=== PATIENT | male | born 1965 | race Caucasian/White ===

== ENCOUNTER → 2020-11-17 08:01 | Outpatient (CLI) | payer BC, SELFPAY ==
--- NOTE | 2020-11-17 13:01 | PCM.CR.HP2 ---
CR - History & Physical - General Arrival date:: 11/17/20 Arrival time:: 13:02 Date of Referral:: 11/10/20 Date of CR Evaluation:: 11/17/20 Referring Physician: Dr. Chris Woodson Primary Diagnosis: PCI with stent - History of Present Cardiac Event Onset Date: Enter Onset Date of cardiac illnesses in Comment field below PTCA or coronary stenting:: Yes - 10/07/2020 - Sleep Disorder Evaluation Hx of Sleep Apnea: No Do you snore loudly (louder than talking or can be heard through closed doors)?: Yes Do you often feel tired/ fatigued/ sleepy during daytime?: Yes Has anyone observed you stop breathing during sleep?: No History of Hypertension (for STOP score): Yes STOP Results: Positive - Medications Home Medications: Ambulatory Orders Medication Instructions Recorded Adult Low Dose Aspirin 81 mg 11/17/20 Brilinta 90 mg BID 11/17/20 Nitroglyn 0.4 mg 11/17/20 metoprolol tartrate 12.5 mg 11/17/20 Advanced Directives - Advanced Directives Power of Advanced Registered Nurse: No Living Will: Yes Advance Directives Information Provided: No Advance Directives on File: No DNR Order?:: No Past Medical History - Covid-19 Screening Fever: No Unexplained muscle aches: No Current respiratory symptoms: No Upper respiratory infections symptoms: No Gastro-intestinal symptoms: No Adl-Aerk-Zskvtz symptoms: No Has tested positive for COVID-19 in last 30 days: No Had contact w/person w/symptoms or Covid-19 (+) last 14 days: No Has High Risk Exposures ID'd by Health dept/Inf Control team: No 65 years or older:: No Lives in Assisted Living facility:: No Has a chronic lung disease or moderate to severe asthma:: No Has a serious heart condition:: Yes Immunocompromised:: No Severely obese (Body Mass Index of 40 or higher):: No Diabetic:: No Has chronic kidney disease undergoing dialysis:: No Has liver disease:: No - Past Medical Illness Medical History: Past Medical History (Last Updated 11/17/20 @ 13:13 by Chuy Paez, KALEB, RVT) Hypertension I10 - Past Surgical History Surgical History: - - Prostate cancer Social History - Smoking History Smoking Status: Current every day smoker Years Smokin Packs Smoked per Day: 0.5 Hx Tobacco Use: Yes - Alcohol Use Alcohol Usage: Yes - on vacation - Occupation Occupation (List type of work in comments):: 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 Left click = Reports ([place]) Review of Present Symptoms: Reports: Shortness of Breath with Exertion, PVD, Dizziness/Lightheadedness, Appetite - Normal, Appetite - Special Diet, Sleep - Normal. Denies: Shortness of Breath at Rest, Operative Discomfort, Angina, Wound Healing, Fatigue, Heart Arrhythmia/Irregularities, Sexual Changes - Pain Is Patient Pain Free?: Yes Pain Location: none Risk Factor Assessment - Chief Complaint Chief Complaint: PCI with stent - Vital Signs Pulse Ox: 99 Blood Pressure: 114/68 - Pulse Pulse Rate: 75 Pulse Rhythm: Regular - Obesity Height: 5 ft 9 in Weight:: 90.718 kg Weight in Pounds: 200.0 lbs Body Mass Index (BMI): 29.5 Nutritional Referral for Obesity: No - Physical Inactivity Physical Inactivity: Reg Exercise 30 min/day - Risk Stratification Risk Guidelines: Moderate Risk: Risk Factor for Diabetes, Risk Factor for Obesity, Risk Factor for Sedentary Lifestyle, Risk Factor for Depression, Highest Risk: Risk Factor for Smoking, Risk Factor for Dyslipidemia, Risk Factor for Hypertension Motivation - Motivation to Participate On a scale of 1 to 10, how prepared are you to commit to attending program?: 10 What do you see as barriers to successfully being able to complete the program?: none What do you see as the benefits of succesfully completing the program? In other words, what do you hope to get out of participating in the program?: improved health Are there issues you are dealing with that will interfere with completing the program?: none Do you have a spouse or signficant other, family or friends who will help support you to complete the program?: yes
--- NOTE | 2020-11-17 13:02 | PCM.CR.ITP ---
Diagnosis - General Information Admitting Diagnosis: Z95.5 PCI with coronary stent Personal Learning Style:: Audio/Visual, Demonstration, Group, Individual Preference, Written Barriers to Learning: Vision Impairment Stage of change r/t lifestyle modifications:: Contemplation Gave educational material for:: Treating Heart Disease, Emotions & Heart Disease, Stress Management & Relaxation, Sleep Disorders & Heart Disease, How The Heart Works, What it means to have Heart Disease, How Coronary Artery Disease is Diagnosed, Heart Procedures, What Heart Medications Do, Risk Factors & Modifications, Living an Active Life, Nutrition - Education/Goals Cardiac Rehabilitation Goals: 1. Maintain the individual as the primary focus of care. 2. To improve the patient's quality of life. 3. Identification of cardiac risk factors and provide cardiac risk factor management. 4. Enhance the psychosocial status of the patient. 5. Reconditioning enough to allow the patient to resume customary activities. 6. Control symptoms of cardiac disease Personal Goals: Initial Assessment: Quit smoking (participate in smoking cessation, Improve management of stress and emotions, Improve energy level, Participate in home exercise program, Get back to work, or to resume activities faster, Improve muscle strength and endurance, Improve diet and eating habits (eat healthier), Control risk factors (learn risk factor modification) Scale for measuring improvement of personal goals: Enter appropriate number in Comments. 2 = Unchanged. 3 = Slightly Better. 4 = Moderate Improvement. 5 = Met my Goal - Diagnosis & Disease Process Outcomes/Goals: Pt IDs own risk factors & lifestyle modifications by Session 10, Verbalizes symptoms of angina & response by session 3., Pt independently manages, Other Additional Outcomes/Goals: Plan/Interventions: Assist Pt to ID & engage in lifestyle modification to reduce CVD risk, Instruct on individual risk factors, Review symptoms of angina & emergency actions, Review secondary diagnosis & identify educational needs., Other see comment 30 day Reassessments:: Not Met 30 day Reassessments:: Not Met 30 day Reassessments:: Not Met 30 day Reassessments:: Not Met Final Reassessments:: Not Met - Safety Referral to Physical Therapy: No Referral to [facility] Case Management: No Fall Risk Assessed:: Yes Assistive Devices:: None Exercise - Initial Assessment - Visit Date of Eval: 11/17/20 - initial eval Mets: Pre-: >7 METS for 30 minutes by discharge - Physician Prescribed Exercise Modalities: Treadmill, Biodyne, Rower, Airdyne, NuStep, SciFit Frequency: 3x/week for 12 weeks [36 sessions] Intensity: 60-80% of age predicted maximum heart rate reserve Current METSs:: 3.5 Target Heart Rate:: 106-139 Resting Blood Pressure: 114/68 - Outcomes & Goals Goals:: Verbalizes understanding of THR, RPE & goal METS by session 6, Documents in home exercise log/reports 30 min aerobic 5 day/wk by DC, Demonstrates accurate pulse taking by DC, Other additional outcome/goals: see below - Intervention & Plan Exercise Program Goals: Instruct on personal THR & RPE, Instruct on MET level & personal MET goal, Show patient to take own pulse /validate performance until accurate, Instruct on home exercise, Other additional plan/int - Physical Activity Home Exercise Physical Activity - Home Exercise: Safe Exercise, Warm-up, Self-monitoring, Cool-Down, Home Exercise > 30 min Daily, Sitting Time <3 hours/daily - Outcomes & Goals Outcomes/Goals: Demonstrates correct Warm-up/exercise Cool-Down (S3) if = 2.5 METs, Verbalizes symptoms of exercise intolerance by Session 3 (S3), Demonstrate safe equipment use (S3) & follows exercise prescrition (6), Other: See below - Intervention & Plan Plan/Intervention: Instruct warm-up & cool-down if exercising at > 2 METs, Instruct on symptoms of exercise intolerance & actions to take, Instruct & monitor on saf, Assess intial functional capacity & safety risk, Other See below Nutrition - Initial Assessment - Program Goals Nutrition Program Goals: LDL <100 optimal. 100 - 129 Near optimal. 130 - 159 Borderline High. 160 - 189 High. Total Cholesterol <200 desirable. 200 - 239 Borderline High. >/= 240 High. HDL < 40 Low >/=60 High. Triglycerides <150 desirable. <199 optimal. VlDL 5 - 40. HgbA1C <7%. BMI <25 Patient has diagnosis of Hyperlipidemia (ICD E78)?: Yes - Visit Date of Assessment:: 11/17/20 - initial eval - Cholesterol/Lipids Determine presence & major risk factors that modify LDL goal: Cigarette smoking, Hypertension or hypertensive medication, Low HDL cholesterol <40 mg/dL*, Family history of premature CHD in Male < 55 years: female <65 yearsFa, Age men > 45 years; women >/= 55 years Outcomes/Goals: Pt IDs own risk factors & lifestyle modifications by Session 10, Verbalizes symptoms of angina & response by session 3., Pt independently manages, Other Additional Outcomes/Goals: Intervention/Plan: Advocate for lipid panel cholesterol medication if applicable, Instruct on personal lipid levels & lipid goals/NCEP guidelines, Instruct on cholesterol, Other additional plan/int Referral to dietitian:: No - Diabetes (Other Core Measures) Diabetes Type: Not Applicable - Weight Mgt (Other Care) Height: 5 ft 9 in Weight:: 90.718 kg BMI: 29.5 Outcomes/Goals: Pt sets, maintains & shows weight loss goal & trend during rehab, Other additional outcomes/goals Intervention/Plan: Instruct on ideal BMI & set weight loss goal w/patient, Assist pt to ID & incorporate diet changes for weight loss by S9, Refer to Structured Weight Loss program as appropriate, Encourage goal of using 250-300dcal per session for weight loss, Other additional plan/interventions - Healthy Eating Habits Will attend diet classes:: Yes Outcomes/Goals:: Consume diet rich in vegs,fruits,whole grain/high fiber,fish,lean meat, Limit sat/trans fats,cholesterol & added salts & sugars, Other additional outcome/goals: Intervention/Plan:: Assess current eating habits, Other Additional plan/interventions - Education Gave educational materials for:: Signs & symptoms of hypoglycemia, Signs & symptoms of hyperglycemia, Relate diabetes to coronary artery disease, Healthy eating Nutrition - 30-Day Assessment Nutrition - 60-Day Assessment Nutrition - 90-Day Assessment Nutrition - Final Assessment Medical - Initial Assessment - Visit Date of Eval: 11/17/20 - initial eval - Medication Compliance Preventative Medication(s):: Aspirin H/O mental health issues: depression, anxiety, or addiction?: No Doesn?t believe in the benefits of treatment?: No Believes medications are unnecessary or harmful?: No Has a concern about medication side effects?: No Expresses concern over the cost of medications?: No Outcomes/Goals: Verbalizes medications,desired effect & common side effects @ DC, Pt self-reports following medication regimen, Keeps card in wallet w/medications listed by DC, Other additional outcome/goals: Interventions/plans: Instruct on medication effects & side effects, Review medication list w/patient every two weeks, Instruct importance of taking meds as ordered & assist problem solving, Other additional - Tobacco Use Tobacco Use: Cigarettes - .5 packs a day Do you use smokeless tobacco?: No Outcomes/Goals: Smoking cessation achieved or maintained by discharge, Identify aids/strategies for achieving smoking cessation by session 6, Other additional outcome/goals Interventions/plan: Instruct on effects of smoking & provide smoking cessation resource, Assist pt to set quit date & provide encouragement, Assist pt to develop strategies to achieve/maintain quit date, Assist pt w/nicotine replacement & medication for cessation success, Other additional plan/interventions - Hypertension Hypertension Diagnosis:: Hypertension ICD-10 I10 Resting Blood Pressure:: 114/68 [place] [employer] Hypertension Guidelines: [place] [employer] Hypertension Guidelines. Normal BP Less than 120/80. Elevated BP 120/80. Hypertension Stage 1: BP 130-139/80-89. Hypertesnion Stage 2: BP 140 or higher/90 or higher. Hypertension Crisis: BP higher than 180/120 Outcomes/Goals: Able to verbalize/achieve optimal blood pressure <130/80, Incorporates diet changes & exercise for blood pressure control by DC, Other additional outcomes/goals Interventions/plan: Instruct on optimal blood pressure, hypertension & medications, Instruct on effects of sodium, alcohol, stress, exercise &hypertension, Other additional plan/interventions - Tobacco Cessation Referral Smoking Cessation Referral:: Yes Individual Education/Counseling:: No Education Schedule Given:: Yes Medical- 30-Day Assessment Medical- 60-Day Assessment Medical- 90-Day Assessment Medical - Final Assessment Psychosocial - Initial Assess - VIsit Date of Eval: 11/17/20 - initial eval History of previous Mental disease:: No - Referral to Behavioral Health PS - Interventions: Yes Attend Stress Management Classes, No Referral to Behavioral Health if PHQ-9 score >9:, No Referral to [facility], No Referral to Physician if PHQ-9 if score is 5-9: - Outcomes/Goals: See list Psychosocial Outcomes/Goals:: ID's personal stressors & 2 strategies to manage stress by discharge, Other Additional outcome/goals: - Intervention/Plan: See List Interventions/Plan:: Assess stressors,coping strategies & signs of derpression on admission, Instruct/assist pt to develop coping & personal stress Mgt strategies, Refer to Behavioral Health if appropriate, Refer to Physician if appropriate, Instruct patient to recognize signs & symptoms of depression, Instruct patient to recog, Other additional plan/intervention Psychosocial - 30-Day Assess Psychosocial - 60-Day Assess Psychosocial - 90-Day Assess Psychosocial - Final Assessmen Patient Health Questionnaire Initial Assessment 1. Little interest or pleasure in doing things: Not at all 2. Feeling down, depressed, or hopeless: Not at all 3. Trouble falling or staying asleep, or sleeping too much: Not at all 4. Feeling tired or having little energy: Several days 5. Poor appetite or overeating: Not at all 6. Feeling bad about yourself -- or that you are a failure or have let yourself or your family down: Not at all 7. Trouble concentrating on things, such as reading the newspaper or watching television: Not at all 8. Moving or speaking so slowly that other people could have noticed. Or the opposite - being so fidgety or restless that you have been moving around a lot more than usual: Not at all 9. Thoughts that you would be better off , or of hurting yourself in some way: Not at all How difficult have these problems made it for you to do your work, take care of things at home, or get along with other people?: Not difficult at all Total Score: 1 FELIPE-Q SV Test - Statements CAD is a disease of the arteries in the heart: False Examples of risk factors for heart disease: True Angina is chest pain or discomfort: I Don't Know The benefits of resistance training include: True Eating more meat and dairy products: False Anti-platelet medications such as aspirin are important: I Don't Know The only effective way to manage stress: False An exercise warm-up slowly increases heart rate: True Prepared, processed foods usually have high sodium: True Depression is common after a heart attack: True The statin medications lower cholesterol: True To control blood pressure, lower the amount of sodium: True If someone gets chest discomfort during walking: False Transfats are partially hydrogenated vegetable oils: True Sleep apnea that is not treated increases the risk: I Don't Know To control cholesterol, one should become a vegetarian: False Someone knows if he/she is exercising at the right level: False Diabetes cannot be prevented with exercise & health eating: False Stress is a large risk for heart attack: True A diet that can help lower blood pressure is rich in: True - Total Score Total Correct Responses: 16 Self-Efficacy Initial Assessment We would like to know how confident you are in doing certain activities. Please select your confidence level for:: Select your confidence level for the following using the scale 1-10 where 1 is not at all confident and 10 is totally confident. Your score is the average of all 6 responses. Fatigue: How confident are you that you can keep the fatigue caused by your disease from interfering with the things you want to do? Select Number: 8 Physical Discomfort or Pain: How confident are you that you can keep the physical discomfort or pain of your disease from interfering with the things you want to do? Select Number: 7 Emotional Distress: How confident are you that you can keep the emotional distress caused by your disease from interfering with the things you want to do? Select Number: 6 Other Symptoms or Health Problems: How confident are you that you can keep other symptoms or health problems from interfering with the things you want to do? Select Number: 7 Different Tasks and Activities: How confident are you that you can do the different tasks and activities needed to manage your health condition so as to reduce your need to see a doctor? Select Number: 7 Medication: How confident are you that you can do things other than just taking medication to reduce how much your illness affects your everyday life? Select Number: 8 Total Score:: 7 Nutrition Survey - Nutrition Survey Initial Have you lost >10 lbs over the past 2 months without trying?: No Are you following a special diet at home for diabetes, low fat, or low salt?: Yes Are you interested in meeting with a dietitian for help understanding your diet?: Yes Do you eat less than 3 meals a day?: No Do you eat fatty meats (strauss, sausage, ribs, etc), fried foods, desserts, large amounts of salad dressings, margarine, butter, or cheese most days?: No Do you have food allergies? [Enter types in comment field]: No Do you eat in restaurants more than 3 times a week?: No Do you season food with salt, seasoning salt, or garlic salt?: No Do you used canned, boxed, frozen meals, or soups, seasoning packets?: No Total Score:: 2
[2020-11-17 14:04] VITALS: BP 114/68; PULSE 75; O2SAT 99; BMI 29.5
[2020-11-17 14:05] VITALS: BP 114/68; BMI 29.5
== END ==
PROVIDERS: PCP Family Medicine; Referring Provider Internal Medicine Cardiovascular Disease; Visit Provider Internal Medicine Cardiovascular Disease
DX: Z95.5 Presence of coronary angioplasty implant and graft (principal)

== ENCOUNTER 2020-12-06 16:30 | Outpatient (RCR) | payer BC, SELFPAY ==
[2020-11-17 14:04] VITALS: BMI 29.5
[2020-11-17 14:05] VITALS: BMI 29.5
== END 2020-12-06 23:59 | disposition home or self-care (01) ==
LOC: NS 16:30
PROVIDERS: PCP Family Medicine; Visit Provider Internal Medicine Cardiovascular Disease
DX: Z71.3 Dietary counseling and surveillance (principal); I25.10 Atherosclerotic heart disease of native coronary artery without angina pectoris
CPT/HCPCS: 97802

== ENCOUNTER 2020-12-15 15:15 | Outpatient (RCR) | payer BC, SELFPAY ==
[2020-11-17 13:39] VITALS: BMI 29.5
== END 2020-12-15 23:59 ==
LOC: CR 15:15
PROVIDERS: PCP Family Medicine
DX: I25.119 Atherosclerotic heart disease of native coronary artery with unspecified angina pectoris (principal); I25.2 Old myocardial infarction
CPT/HCPCS: 93798

== ENCOUNTER 2020-12-17 10:08 | Outpatient (RCR) | payer BC, SELFPAY ==
[2020-11-17 14:04] VITALS: BMI 29.5
[2020-11-17 14:05] VITALS: BMI 29.5
--- NOTE | 2020-12-17 10:57 | CR.ITP_ITS ---
Diagnosis Exercise - 30-day Assessment - Visit Date of Eval: 12/17/20 Session #:: 10 - Physician Prescribed Exercise Modalities: Treadmill, Rower, Airdyne Frequency: 3x/week for 12 weeks [36 sessions] Intensity: 60-80% of age predicted maximum heart rate reserve Current METSs:: 7.0 Target Heart Rate:: 106-139 Current RPE:: 12-14 Maximum Excercise HR:: 118 Resting Blood Pressure: 108/50 Maximum Exercise Blood Pressure: 172/80 EKG Type: NSR to sinus tach with rare PAC - Outcomes & Goals Goals:: Verbalizes understanding of THR, RPE & goal METS by session 6, Documents in home exercise log/reports 30 min aerobic 5 day/wk by DC, Demonstrates accurate pulse taking by DC - Intervention & Plan Exercise Program Goals: Instruct on personal THR & RPE, Instruct on MET level & personal MET goal, Show patient to take own pulse /validate performance until accurate, Instruct on home exercise - 30-day Reassessments 30 day Reassessments:: Progressing - Physical Activity Home Exercise Physical Activity - Home Exercise: Safe Exercise, Warm-up, Self-monitoring, Cool-Down, Home Exercise > 30 min Daily, Sitting Time <3 hours/daily - Outcomes & Goals Outcomes/Goals: Demonstrates correct Warm-up/exercise Cool-Down (S3) if = 2.5 METs, Verbalizes symptoms of exercise intolerance by Session 3 (S3), Demonstrate safe equipment use (S3) & follows exercise prescrition (6) - Intervention & Plan Plan/Intervention: Instruct warm-up & cool-down if exercising at > 2 METs, Instruct on symptoms of exercise intolerance & actions to take, Instruct & monitor on saf, Assess intial functional capacity & safety risk - 30-day Reassessments 30 day Reassessments:: Progressing Nutrition - Initial Assessment Nutrition - 30-Day Assessment - Program Goals Nutrition Program Goals: LDL <100 optimal. 100 - 129 Near optimal. 130 - 159 Borderline High. 160 - 189 High. Total Cholesterol <200 desirable. 200 - 239 Borderline High. >/= 240 High. HDL < 40 Low >/=60 High. Triglycerides <150 desirable. <199 optimal. VlDL 5 - 40. HgbA1C <7%. BMI <25 Patient has diagnosis of Hyperlipidemia (ICD E78)?: Yes - Visit Date of Assessment:: 12/17/20 Session #:: 10 - Cholesterol/Lipids Determine presence & major risk factors that modify LDL goal: Hypertension or hypertensive medication, Low HDL cholesterol <40 mg/dL*, Family history of premature CHD in Male < 55 years: female <65 yearsFa, Age men > 45 years; women >/= 55 years Outcomes/Goals: Pt IDs own risk factors & lifestyle modifications by Session 10, Verbalizes symptoms of angina & response by session 3., Pt independently manages Intervention/Plan: Instruct on personal lipid levels & lipid goals/NCEP guidelines, Instruct on cholesterol - Diabetes (Other Core Measures) Diabetes Type: Not Applicable - Weight Mgt (Other Care) Not Applicable: Yes Height: 5 ft 9 in Weight:: 192 lb 8 oz BMI: 28.4 Diagnosis Overweight/Obesity BMI> 30% ICD-10 E66: No Diagnosis High BMI/Morbid Obesity BMI> 35% ICD-10 Z68: No Outcomes/Goals: Pt sets, maintains & shows weight loss goal & trend during rehab Intervention/Plan: Instruct on ideal BMI & set weight loss goal w/patient, Assist pt to ID & incorporate diet changes for weight loss by S9, Encourage goal of using 250-300dcal per session for weight loss 30 day Reassessments:: Progressing - Healthy Eating Habits Will attend diet classes:: Yes Outcomes/Goals:: Consume diet rich in vegs,fruits,whole grain/high fiber,fish,lean meat, Limit sat/trans fats,cholesterol & added salts & sugars Intervention/Plan:: Assess current eating habits 30-day Reassessments:: Progressing - Education Gave educational materials for:: Healthy eating Nutrition - 60-Day Assessment Nutrition - 90-Day Assessment Nutrition - Final Assessment Medical - Initial Assessment Medical- 30-Day Assessment - Visit Date of Eval: 12/17/20 Session #:: 10 - Medication Compliance Preventative Medication(s):: Aspirin, Ticagrelor/P2Y12 inhibitor, Statin/lipid, Beta clarissa H/O mental health issues: depression, anxiety, or addiction?: No Doesn?t believe in the benefits of treatment?: No Believes medications are unnecessary or harmful?: No Has a concern about medication side effects?: No Expresses concern over the cost of medications?: No Outcomes/Goals: Verbalizes medications,desired effect & common side effects @ DC, Pt self-reports following medication regimen, Keeps card in wallet w/medications listed by DC Interventions/plans: Instruct on medication effects & side effects, Review medication list w/patient every two weeks, Instruct importance of taking meds as ordered & assist problem solving 30-day Reassessments:: Progressing - Tobacco Use Tobacco Use: Non-smoker - Hypertension Hypertension Diagnosis:: Hypertension ICD-10 I10 Resting Blood Pressure:: 108/50 [place] [employer] Hypertension Guidelines: [place] [employer] Hypertension Guidelines. Normal BP Less than 120/80. Elevated BP 120/80. Hypertension Stage 1: BP 130-139/80-89. Hypertesnion Stage 2: BP 140 or higher/90 or higher. Hypertension Crisis: BP higher than 180/120 Peak Exercise Blood Pressure:: 172/80 Outcomes/Goals: Able to verbalize/achieve optimal blood pressure <130/80, Incorporates diet changes & exercise for blood pressure control by DC Interventions/plan: Instruct on optimal blood pressure, hypertension & medications, Instruct on effects of sodium, alcohol, stress, exercise &hypertension 30 day Reassessments:: Progressing - Tobacco Cessation Referral Smoking Cessation Referral:: No Individual Education/Counseling:: No Education Schedule Given:: Yes Medical- 60-Day Assessment Medical- 90-Day Assessment Medical - Final Assessment Psychosocial - Initial Assess Psychosocial - 30-Day Assess - VIsit Date of Eval: 12/17/20 Session #:: 10 Not Applicable: Yes History of previous Mental disease:: No - Psychosocial Test Tool Used:: PHQ-9 Questionnaire phq-9 Severity: Severity. 1-4 Minimal Depression. 5-9 Mild Depression. 10-14 Moderate Depression. 15-19 Moderately Sever Depression. 20-27 Severe Depression. Rule: - Referral to Behavioral Health PS - Interventions: Yes Attend Stress Management Classes, No Referral to Behavioral Health if PHQ-9 score >9:, No Referral to [facility], No Referral to Physician if PHQ-9 if score is 5-9: - Outcomes/Goals: See list Psychosocial Outcomes/Goals:: ID's personal stressors & 2 strategies to manage stress by discharge - Intervention/Plan: See List Interventions/Plan:: Assess stressors,coping strategies & signs of derpression on admission, Instruct/assist pt to develop coping & personal stress Mgt strategies, Instruct patient to recognize signs & symptoms of depression, Instruct patient to recog - 30-day Reassessments: 30 day Reassessments:: Progressing Psychosocial - 60-Day Assess Psychosocial - 90-Day Assess Psychosocial - Final Assessmen Patient Health Questionnaire 30-Day Re-eval Assessment 1. Little interest or pleasure in doing things: Not at all 2. Feeling down, depressed, or hopeless: Not at all 3. Trouble falling or staying asleep, or sleeping too much: Not at all 4. Feeling tired or having little energy: Not at all 5. Poor appetite or overeating: Not at all 6. Feeling bad about yourself -- or that you are a failure or have let yourself or your family down: Not at all 7. Trouble concentrating on things, such as reading the newspaper or watching television: Not at all 8. Moving or speaking so slowly that other people could have noticed. Or the opposite - being so fidgety or restless that you have been moving around a lot more than usual: Not at all 9. Thoughts that you would be better off , or of hurting yourself in some way: Not at all Total Score: 0 Self-Efficacy 30-Day Re-eval Assessment We would like to know how confident you are in doing certain activities. Please select your confidence level for:: Select your confidence level for the following using the scale 1-10 where 1 is not at all confident and 10 is totally confident. Your score is the average of all 6 responses. Fatigue: How confident are you that you can keep the fatigue caused by your disease from interfering with the things you want to do? Select Number: 9 Physical Discomfort or Pain: How confident are you that you can keep the physical discomfort or pain of your disease from interfering with the things you want to do? Select Number: 8 Emotional Distress: How confident are you that you can keep the emotional distress caused by your disease from interfering with the things you want to do? Select Number: 7 Other Symptoms or Health Problems: How confident are you that you can keep other symptoms or health problems from interfering with the things you want to do? Select Number: 8 Different Tasks and Activities: How confident are you that you can do the different tasks and activities needed to manage your health condition so as to reduce your need to see a doctor? Select Number: 8 Medication: How confident are you that you can do things other than just taking medication to reduce how much your illness affects your everyday life? Select Number: 9 Total Score:: 8 Nutrition Survey
[2020-12-17 11:03] VITALS: BP 108/50; BP 172/80; BMI 28.4
== END 2021-01-15 23:59 ==
LOC: CR 10:08
PROVIDERS: PCP Family Medicine
DX: I25.119 Atherosclerotic heart disease of native coronary artery with unspecified angina pectoris (principal); I25.2 Old myocardial infarction; Z95.5 Presence of coronary angioplasty implant and graft
CPT/HCPCS: 93798

== ENCOUNTER 2021-02-22 09:16 | Emergency (ER) | payer BC, SELFPAY ==
[2021-02-22 09:18] VITALS: BP 126/87; PULSE 108; RESP 16; TEMP 36.1; O2SAT 98; BMI 26.6
--- NOTE | 2021-02-22 09:37 | EX.ED.VIS.UR ---
HPI HPI - URI History of Present Illness Chief Complaint: Shortness of Breath Detail of Chief Complaint: Cough Informant: patient and spouse/S.O. Onset/Context/Timing Onset: Weeks Context: Gradual Onset Timing: Continuous Current Severity: Mild Maximum Severity: Mild Narrative Narrative: 55-year-old male past medical history of a prior MO several months ago with 2 cardiac stents currently is on Brilinta. Also history of prostate CA and in which he underwent prostatectomy and radiation. Patient states recently he and his travel to [place] are staying in a cabin. He had URI symptoms. Went to the local emergency department was diagnosed with Covid and had monoclonal antibody therapy x1. He said while he was there he did a CAT scan of his chest and he believes that they found some type of tumor or mass. They have called him about that he is not had follow-up since that time. Basically states he is getting nervous about the whole thing and needs further work-up. Prior similar symptoms: No Recent Illness/Hospitalization: No ROS ROS ED ROS Narrative URI symptoms with cough. Review of Systems ROS Unobtainable: Denies due to encephalopathy Constitutional Constitutional ED: Denies chills or fever(s) Eyes Eyes: Denies change in vision ENT ENT ED: Denies ear pain or sore throat Cardiovascular Cardiovascular: Denies chest pain or palpitations Respiratory/Chest Respiratory/Chest: Reports cough and sputum; Denies dyspnea Gastrointestinal Gastrointestinal: Denies abdominal pain, diarrhea, nausea or vomiting Genitourinary Genitourinary ED: Denies dysuria or hematuria Musculoskeletal Musculoskeletal: Denies myalgias Integumentary Denies rash Neurologic Neurologic: Denies headache(s) Psychiatric Psychiatric: Denies depression Endocrine Endocrinology: Denies polyuria Hematologic/Lymphatic Hematologic/Lymphatic: Denies easy bruising Allergic/Immunologic Allergic/Immunologic ED: Denies urticaria PFSH PFSH Medical History Hypertension Home Medications Adult Low Dose Aspirin 81 mg PO.IVFORM DAILY 11/17/20 [History Last Taken Unknown] Brilinta 90 mg BID 11/17/20 [History Last Taken Unknown] Nitroglyn 0.4 mg 11/17/20 [History Last Taken Unknown] metoprolol tartrate 12.5 mg 11/17/20 [History Last Taken Unknown] atorvastatin 40 mg PO DAILY 02/22/21 [History Last Taken Unknown] Allergy/AdvReac Type Severity Reaction Status Date / Time No Known Allergies Allergy Verified 02/22/21 09:24 Social History Smoking Status: Former smoker EXAM Physical Exam Narrative Exam Narrative: Middle-age male no acute distress vital signs stable afebrile. Pulse ox 90%. HEENT exam unremarkable. Lungs are clear. Heart regular rhythm. No murmur. Abdomen soft nontender. Moving all 4 extremities. Calves are nontender without edema. Const Vital Signs: 02/22/21 09:18 02/22/21 10:40 Temperature 97.0 F L Temperature Source Temporal Pulse Rate 108 H Respiratory Rate 16 Respiratory Effort Normal Non-Labored Respiratory Depth Normal Respiratory Pattern Normal Blood Pressure 126/87 H Blood Pressure Mean 100 Pulse Ox 98 Oxygen Delivery Method Room Air Room Air Positive well nourished and well developed; Negative for obese, cachectic or contractures General Appearance ED: well developed and NAD; Negative for cachectic, contractures, cyanotic, diaphoretic or pallor Nutritional Appearance: Negative for cachectic or obese HEENT normocephalic and atraumatic Eyes PERRL and EOMs intact bilaterally Neck no lymphadenopathy, supple, no meningeal signs and no JVD Resp normal respiratory effort and clear to auscultation bilaterally Auscultation: Negative for rales, rhonchi or wheezes Cardio S1 normal heart sound, S2 normal heart sound and no murmurs Rate: regular rate Rhythm: regular rhythm GI non-tender, non-distended and no masses Inspection: Negative for abdominal distention Auscultation: normoactive bowel sounds Palpation: soft; Negative for tender or guarding Back/Spine no CVA tenderness Extremity normal to inspection and full ROM General Extremety ED: Negative for cyanosis or tenderness General Extremity: Negative for cyanosis Neuro oriented x3 and CN's II-XII intact bilaterally Sensorium / Orientation: alert, oriented to person, oriented to place and oriented to time; Negative for orientation impaired, lethargic or stuporous Motor Exam: strength 5/5 throughout Psych mental status grossly normal Mood & Affect: Negative for depressed or tearful Skin General Skin Exam: Negative for jaundice or pallor Lesions: no lesions Rashes: no rashes MDM MDM MDM Narrative Medical decision making narrative: 55-year-old male reported CAT scan showing a lung mass. Screening labs and chest x-ray. Will need referred to pulmonology. Repeat exam patient is doing well at 11:28 AM and will be discharged home with outpatient follow-up with pulmonology. Lab Data Attestation: I reviewed the patient's lab results. Lab results narrative: CBC shows a white count 12.6. Hemoglobin is 16.9. Electrolytes unremarkable gap is 7 normal creatinine. Glucose 165. Chest x-ray chronic changes. No acute process. Labs: Laboratory Results - last 24 hr 02/22/21 02/22/21 10:25 10:25 WBC 12.6 H RBC 5.50 Hgb 16.9 H Hct 48.8 MCV 88.7 MCH 30.7 MCHC 34.6 RDW Std Deviation 42.7 RDW Coeff of Sana 13.2 Plt Count 259 MPV 9.1 Immature Gran % (Auto) 0.300 Neut % (Auto) 78.0 H Lymph % (Auto) 12.1 L [place] % (Auto) 8.8 Eos % (Auto) 0.5 Baso % (Auto) 0.3 Absolute Neuts (auto) 9.8 H Absolute Lymphs (auto) 1.52 Nucleated RBC % 0 Sodium 137 Potassium 3.2 L Chloride 105 Carbon Dioxide 25.0 Anion Gap 7 BUN 15 Creatinine 0.96 Estim Creat Clear Calc 85.92 Est GFR (MDRD) Af Amer 104 Est GFR (MDRD) Non-Af 86 BUN/Creatinine Ratio 15.6 Glucose 165 H Calcium 8.2 L Radiography Diagnostic Testing: Radiology Impression Chest X-Ray 02/22/21 10:32 IMPRESSION: Chronic interstitial changes, no superimposed acute pulmonary process Electronically Signed: Marcelino Perez MD at 11:18 EDT , Service support , Chest x-ray portable 1 view shows no acute process other than the questionable right hilar mass which is seen previously on his CT which will need further evaluation. Concern is for millisecond latency. Discharge Plan Triage Chief Complaint: Shortness of Breath ED Provider: Avi Garland Dx/Rx/DC Orders Clinical Impression: Lung mass Prescriptions: No Action Adult Low Dose Aspirin 81 mg PO.IVFORM DAILY RF: 0 metoprolol tartrate 12.5 mg RF: 0 Nitroglyn 0.4 mg RF: 0 Brilinta 90 mg BID RF: 0 atorvastatin 80 mg tablet 40 mg PO DAILY RF: 0 Primary Care Provider: Guy Leary Referrals: Marco Antonio Pederson MD [STAFF PHYSICIAN] - As soon as possible Guy Leary MD [Primary Care Provider] - Activity Restrictions/Additional Instructions: Call and follow-up with the pulmonology office either Dr. Marco Antonio Pederson or his partner. They can see you and determine what other tests they may need to do for further evaluation or. Disposition Disposition: Home, Self Care
--- NOTE | 2021-02-22 09:44 | NURSING ---
CALLED [facility], [place], [place] [phone] RESULTS. TALKED TO JV
--- NOTE | 2021-02-22 09:45 | NURSING ---
RECEIVED CT AND DR DICTATION REPORT
--- NOTE | 2021-02-22 10:32 | RAD_ITS ---
STUDY: X-RAY CHEST REASON FOR EXAM: Male, 55 years old. Fever and cough, lightheadedness TECHNIQUE: Single AP portable view of the chest. COMPARISON: None. FINDINGS: There are interstitial changes of the lungs. There is no demonstrated pleural abnormality. Normal size heart. Normal mediastinum and dominic. Normal visualized pulmonary arteries. Normal visualized aortic arch and descending thoracic aorta. Normal visualized thoracic spine. Normal visualized ribs, clavicles, and shoulders. There is no demonstrated abnormality of the visualized soft tissue structures of the upper abdomen. RAD/Chest 1 View (Portable) IMPRESSION: Chronic interstitial changes, no superimposed acute pulmonary process Electronically Signed: Marcelino Perez MD at 11:18 EDT , Service support ,
[2021-02-22 10:36] LABS: Absolute Lymphocyte Count 1.52 X10^3/uL (0.83-4.51); Absolute Neutrophil Count 9.8 X10^3/uL (2.0-7.7); Basophil# 0.04 X10^3/uL; Basophil% 0.3 % (0-1); Eosinophil# 0.06 X10^3/uL; Eosinophils% 0.5 % (0-5); Hematocrit 48.8 % (40-54); Hemoglobin 16.9 g/dL (13.0-16.5); Lymphocyte # 1.52 X10^3/ul (0.83-4.51); Lymphocyte % 12.1 % (19-41); Mean Corp Hgb Conc 34.6 g/dL (32-36); Mean Corpuscular Hgb 30.7 pg (27.0-32.0); Mean Corpuscular Volume 88.7 fL (80-94); Mean Platelet Vol. 9.1 fl (6.2-12.0); Monocyte# 1.11 X10^3/uL; Monocyte% 8.8 % (0-10); NRBC Flagged by Analyzer 0 % (0-5); Neutrophil # 9.83 X10^3/uL (2.7-7.7); Platelet Count 259 K/mm3 (150-450); RBC Distribution Width CV 13.2 % (11.6-14.6); RBC Distribution Width SD 42.7 fl (35.1-43.9); White Blood Count 12.6 K/mm3 (4.4-11.0)
[2021-02-22 10:50] LABS: Anion Gap 7 (5-15); BUN 15 mg/dL (7-18); BUN/Creat Ratio 15.6 RATIO (10-20); Calcium,Total 8.2 mg/dL (8.5-10.1); Chloride 105 mmol/L (98-107); Creatinine, Serum 0.96 mg/dL (0.70-1.30); EST Glomerular Filtration Rate 86 mL/min (>60); Est Glom Filt Rate - Afr Amer 104 mL/min (>60); Estimated Creatinine Clearance 85.92 ml/min; Glucose 165 mg/dL (74-106); Potassium 3.2 mmol/L (3.5-5.1); Sodium Level 137 mmol/L (136-145)
[2021-02-22 12:28] VITALS: BP 114/80; PULSE 78; RESP 15; O2SAT 98
== END 2021-02-22 12:29 | disposition home or self-care (01) ==
PROVIDERS: Emergency Provider Emergency Medicine; PCP Family Medicine
DX: R91.8 Other nonspecific abnormal finding of lung field (principal); I25.2 Old myocardial infarction; I10 Essential (primary) hypertension; Z95.5 Presence of coronary angioplasty implant and graft; Z79.02 Long term (current) use of antithrombotics/antiplatelets; Z87.891 Personal history of nicotine dependence
CPT/HCPCS: 71045; 80048; 85025; 99283; A4216

== ENCOUNTER → 2021-03-15 09:10 | Outpatient (CLI) | payer BC, SELFPAY ==
--- NOTE | 2021-03-15 17:06 | PFTCOMP ---
COMPLETE PULMONARY FUNCTION TEST INTERPRETATION Brief HPI: Patient is a 56 year old male, currently under the care of myself, who presents to [facility] for complete pulmonary function tests secondary to diagnosis of dyspnea. Respiratory therapist reports good effort and reproducible results. Interpretation: Forced expiration spirometry shows no large airways obstructive ventilatory defect with an FEV1 of 74% predicted. There is no significant bronchodilator response by strict ATS criteria. Spirograms are of good quality and plateau slowly, indicating slowly emptying areas of the lungs. The respiratory flow volume loop shows decreased expiratory flow rates at high lung volumes consistent with small airways obstruction. Lung volumes by body plethysmography show a normal total lung capacity at 5.62 L, 87% predicted. All other lung volumes are within normal limits. Diffusion capacity by carbon monoxide is normal at 86% predicted. The airway resistance is normal. No previous pulmonary function tests were available for review. Impression: Grossly normal pulmonary function test with some stigmata of possible small airways disease
== END ==
PROVIDERS: PCP Family Medicine; Referring Provider Internal Medicine Critical Care Medicine; Visit Provider Internal Medicine Critical Care Medicine
DX: R06.00 Dyspnea, unspecified (principal)
CPT/HCPCS: 94060; 94726; 94729

== ENCOUNTER → 2021-03-23 12:29 | Outpatient (CLI) | payer BC, SELFPAY ==
[2021-03-23 13:03] VITALS: PULSE 100; PULSE 102; PULSE 103; PULSE 105; PULSE 97; PULSE 98; O2SAT 94; O2SAT 95; O2SAT 96; O2SAT 97
--- NOTE | 2021-03-27 07:49 | PCM.PSN.6M ---
PSN 6 Minute Walk Test 6 Minute Walk Test 6 Minute Walk Test: 6 Minute Walk Test PSN:6-Minute Walk Test Start: 03/23/21 13:03 Freq: Status: Active Protocol: RESP.6MINW Document 03/23/21 13:03 FR (Rec: 03/23/21 13:10 FR [id number]) 6 Minute Walk Test Date Performed 03/23/21 Time Performed 12:30 Height 5 ft 9 in Weight: 83.007 kg Weight in Pounds 183.[address]: Assistive device used: None Pre-test Oxygen Delivery Method Room Air Pulse Ox (%) 96 Pulse Rate (60-100 beats/min) 98 Dyspnea Patsy Scale (0-10) 3 Exertion Patsy Scale (6-20) 7 1st minute Oxygen Delivery Method Room Air Pulse Ox (%) 95 Pulse Rate (60-100 beats/min) 102 H 2nd minute Oxygen Delivery Method Room Air Pulse Ox (%) 94 Pulse Rate (60-100 beats/min) 103 H 3rd minute Oxygen Delivery Method Room Air Pulse Ox (%) 94 Pulse Rate (60-100 beats/min) 103 H 4th minute Oxygen Delivery Method Room Air Pulse Ox (%) 95 Pulse Rate (60-100 beats/min) 105 H 5th minute Oxygen Delivery Method Room Air Pulse Ox (%) 94 Pulse Rate (60-100 beats/min) 103 H 6th minute Oxygen Delivery Method Room Air Pulse Ox (%) 95 Pulse Rate (60-100 beats/min) 100 Dyspnea Patsy Scale (0-10) 3 Exertion Patsy Scale (6-20) 8 Post-test Oxygen Delivery Method Room Air Pulse Ox (%) 97 Pulse Rate (60-100 beats/min) 97 Full Laps Walked 18 Partial Lap, Number of Tiles Walked 22 Total Distance Walked (ft) 1084 Interpretation Interpretation: The patient ambulated 1084 feet over the course of 6 minutes beginning on room air without assistive devices. Pretesting oxygen saturation was noted to be 96% on room air. With ambulation, the maci oxygen saturation was 94%. There was no significant exertional oxygen desaturation. Recommendations Recommendations: There is no indication for the use of supplemental oxygen at this time.
== END ==
PROVIDERS: PCP Family Medicine; Referring Provider Internal Medicine Critical Care Medicine; Visit Provider Internal Medicine Critical Care Medicine
DX: R06.00 Dyspnea, unspecified (principal)
CPT/HCPCS: 94618

== ENCOUNTER → 2021-05-02 17:02 | Outpatient (CLI) | payer BC, SELFPAY ==
--- NOTE | 2021-05-02 17:28 | CT_ITS ---
We are attempting to reach an attending provider to discuss findings. An addendum with communication details will be sent when the communication is complete. INDICATION: RLL nodule EXAMINATION: CT CHEST WITHOUT CONTRAST - CT Chest W/O Contrast Injection TECHNIQUE: Helically acquired images were obtained of the chest. A radiation dose optimization technique was used for this scan. IV Contrast dosage and agent: None. COMPARISON: Chest x-ray 02/22/2021 FINDINGS: LUNGS, PLEURA AND LARGE AIRWAYS: Roughly 5.4 x 3.9 cm mass engulfs the right bronchus intermedius and results in atelectasis of all but the superior segment of the right lower lobe. Moderate atelectasis in the right middle lobe. There are multiple satellite nodules with extension into the right middle lobe. Largest satellite nodule measures 18 x 10 mm seen in the superior segment of the right lower lobe. There is a 14 x 21 mm right paratracheal enlarged lymph node and subcarinal lymph node measuring 17 mm. No significant left-sided mediastinal or hilar lymphadenopathy. Left lung is clear. There is a single calcified granuloma in the right upper lobe. Centrilobular and paraseptal emphysematous changes are seen in the bilateral upper, greater than lower lobes. Extensive coronary artery intimal calcifications versus stents. Heart is normal size. No pericardial effusion. No axillary lymphadenopathy. Normal unenhanced CT appearance of the base of the neck and thoracic inlet, extrathoracic soft tissues. Visualized liver included in the [id number] shows no mass lesion. Visualized adrenal glands, spleen and pancreas are within normal limits. Incompletely visualized gallbladder is unremarkable. There are some diverticuli seen in the visualized transverse colon. No lytic or blastic bone lesion exemplified CT/Chest without Contrast IMPRESSION: 5.4 x 3.9 cm right lower lobe, hilar mass encasing the bronchus intermedius with associated satellite nodules in the right middle lobe and superior segment right lower lobe. This finding is consistent with malignancy. No hepatic or osseous metastases suggested on this unenhanced CT. Right paratracheal and subcarinal lymph nodes. No significant left mediastinal or hilar lymph nodes. Centrilobular and paraseptal emphysematous changes. Electronically Signed: Bud Reeves DO at 21:27 EST Tel , Service support ,
== END ==
PROVIDERS: PCP Family Medicine; Visit Provider Internal Medicine Critical Care Medicine
DX: R91.8 Other nonspecific abnormal finding of lung field (principal); R06.00 Dyspnea, unspecified
CPT/HCPCS: 71250

== ENCOUNTER → 2021-05-04 14:35 | Outpatient (CLI) | payer BC, SELFPAY ==
[2021-05-04 15:03] LABS: Absolute Lymphocyte Count 1.44 X10^3/uL (0.83-4.51); Absolute Neutrophil Count 10.3 X10^3/uL (2.0-7.7); Basophil# 0.09 X10^3/uL; Basophil% 0.7 % (0-1); Eosinophil# 0.07 X10^3/uL; Eosinophils% 0.5 % (0-5); Hematocrit 44.1 % (40-54); Lymphocyte # 1.44 X10^3/ul (0.83-4.51); Mean Corpuscular Hgb 29.8 pg (27.0-32.0); Mean Corpuscular Volume 87.7 fL (80-94); Mean Platelet Vol. 8.6 fl (6.2-12.0); Monocyte# 1.16 X10^3/uL; Monocyte% 8.9 % (0-10); NRBC Flagged by Analyzer 0 % (0-5); Neutrophil # 10.27 X10^3/uL (2.7-7.7); Neutrophil % 78.6 % (47-70); Platelet Count 393 K/mm3 (150-450); RBC Distribution Width CV 13.2 % (11.6-14.6); RBC Distribution Width SD 42.2 fl (35.1-43.9); Red Blood Count 5.03 M/mm3 (4.6-6.2); White Blood Count 13.1 K/mm3 (4.4-11.0)
[2021-05-04 15:05] LABS: International Normalized Ratio 1.1; Prothrombin Time (Protime)PT. 13.6 SECONDS (11.7-14.9)
[2021-05-04 15:06] LABS: Partial Thromboplast Time 38.9 Seconds (24.1-36.2)
== END ==
PROVIDERS: PCP Family Medicine; Referring Provider Internal Medicine Critical Care Medicine; Visit Provider Internal Medicine Critical Care Medicine
DX: R06.00 Dyspnea, unspecified (principal); R91.8 Other nonspecific abnormal finding of lung field
CPT/HCPCS: 36415; 85025; 85610; 85730

== ENCOUNTER 2021-05-06 11:35 | Day surgery (SDC) | payer BC, SELFPAY ==
[2021-05-06] VITALS (7 sets, daily range): BP systolic 100–131; BP diastolic 47–111; PULSE 83–101; RESP 16–24; TEMP 36.2–37.4; O2SAT 94–97; BMI 26.4
--- NOTE | 2021-05-06 | ASPIGT_PTH ---
PATIENT: MIKY SALGADO LOC: EN U#:[id number] AGE/SX: 56/M ROOM: RE05/06/[address]: Dr. Marco Antonio Pederson MD : 1965 BED: DIS: 05/06/2021 SPEC #: [id number] RECD: 05/06/21 14:39 STATUS: YESSI RECris #: [id number] NINA: 05/06/21 00:[address]: Marco Antonio Pederson DEPT: SURGICAL PATHOLOGY RECD BY: Danny Dangelo ENTERED: 05/06/21 14:40 SP TYPE: ASP RAD OTHR DR: Dr. 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 See comment. AM:valentina 05/09/2021 COMMENT Immunohistochemistry ([id number]) supports the above diagnosis. Please correlate with corresponding cytology [id number]. Case has been reviewed in consultation with Dr. Puente who concurs with the above diagnosis. IDC:SJ MICROSCOPIC DESCRIPTION Slides are reviewed. GROSS DESCRIPTION Received in fixative is one container labeled with the patient's name and designated bronchus intermedius and bronchial biopsy. The specimen consists of multiple irregular fragments of thomason tissue that in aggregate measure 0.5 x 0.2 x <0.1 cm. The specimen is totally submitted in one cassette. / AM:valentina 05/06/21 TC:0 CPT: 31084
--- NOTE | 2021-05-06 | IMM_PTH ---
PATIENT: MIKY SALGADO LOC: EN U#:[id number] AGE/SX: 56/M ROOM: RE05/06/[address]: Dr. Marco Antonio Pederson MD : 1965 BED: DIS: 05/06/2021 SPEC #: [id number] RECD: 05/09/21 14:04 STATUS: YESSI RECris #: [id number] NINA: 05/06/21 00:[address]: Marco Antonio Pederson DEPT: IMMUNOHISTOCHEMISTRY RECD BY: Andreia Hameed ENTERED: 05/09/21 14:07 SP TYPE: IMMUNO OTHR DR: Dr. Faheem Vallejo MD Tissues: Lung, NOS Procedures: RCC (add) NAPSIN A (add) CK14 (add) CK20 (add) CK5-6 (add) CK7 (add) CK8 (add) LOMBARDO-2 (add) KI-67 (add) P53 (add) TTF1 (add) Pankeratin (initial) P40 (add) CDX2 (add) PSAP (add) S-100 (add) PHYSICIAN & [place] [id number] SPECIMEN INFORMATION: Tissue Source: Lung mass Clinical Info: Lung mass Specimen Number: [id number] CPT code: 20445, 73923 x15 METHODOLOGY: Deparaffinized sections of prefer/formalin-fixed tissue or PAP/DQ stained slides are incubated with monoclonal/polyclonal antibodies/oligonucleotide probes. Localization is made via biotin free immunoperoxidase method. Appropriate controls are performed and reacted as expected. Results on target cell population are indicated in the following table: RESULTS: ANTIBODY / CLONE RESULT AE1-3 (AE1/AE3/PCK26) positive CK7 (OV-TL12/30) positive CK8 (06bgdoG87) positive CK20 (KS20.8) negative LOMBARDO-2 (SP21) positive CDX2 ([id number]) negative S-100 (4C4.9) negative TTF-1 (8G7G3/1) negative Napsin A (Rabbit Polyclonal) negative RCC (PN-15) negative PSAP (PASE/4LJ) negative CK5-6 (D5 & 1684) positive CK14 (LL002) positive P40 (BC28) positive P53 (DO-7) positive Ki-67 (30-9) positive, >90% These tests were developed and their performance characteristics determined by [facility]. They may not have been cleared or approved by the U.S. Food and Drug Administration. The FDA has determined that such clearance or approval is not necessary. The above immunohistochemical/dualISH markers are ordered and reviewed by the Pathologist. INTERPRETATION: Lung mass, endobronchial ultrasound-guided biopsy: Infiltrating squamous cell carcinoma. AM:valentina 05/10/2021 Case has been reviewed in consultation with Dr. Puente who concurs with the above diagnosis. IDC:[id number]
--- NOTE | 2021-05-06 | ASPIG_PTH ---
PATIENT: MIKY SALGADO LOC: EN U#:[id number] AGE/SX: 56/M ROOM: RE05/06/[address]: Dr. Marco Antonio Pederson MD : 1965 BED: DIS: 05/06/2021 SPEC #: [id number] RECD: 05/06/21 14:37 STATUS: YESSI RECris #: [id number] NINA: 05/06/21 00:[address]: Marco Antonio Pederson DEPT: CYTOLOGY RECD BY: Danny Dangelo ENTERED: 05/06/21 14:39 SP TYPE: ASP OUT OTHR DR: Dr. Faheem Vallejo MD Tissues: A - Lung, NOS B - Lung, NOS C - Lung, NOS D - Lung, NOS E - Lung, NOS F - Lung, NOS G - Lung, NOS H - Lung, NOS I - Bronchus, NOS Procedures: FNA Specimen Adequacy Special Stain Group II Surgery Specimen Level IV Cytology Other HEADER OPERATION: EBUS, TBNA PRE-OP DIAGNOSIS: Lung mass TISSUE SUBMITTED: A - EBUS, TBNA, site 4R #1, B - EBUS, TBNA, site 4R #2, C - EBUS, TBNA, site 4R #3, D - EBUS, TBNA, site 4R #4, E - EBUS, TBNA, site 11L #5, F - EBUS, TBNA, site 11L #6, G - EBUS, TBNA, site 4R, H - EBUS, TBNA, site 11L, I - Washing right DIAGNOSIS CYTOLOGY A. EBUS, TBNA, site 4R #1: Negative for malignant cells. See comment. B. EBUS, TBNA, site 4R #2: Adequate for evaluation. Negative for malignant cells. C. EBUS, TBNA, site 4R #3: Adequate for evaluation. Atypical epithelial cells suspicious for malignancy. D. EBUS, TBNA, site 4R #4: Adequate for evaluation. Rare atypical epithelial cells suspicious for malignancy. E. EBUS, TBNA, site 11L #5: Adequate for evaluation. Positive for malignant cells, non-small cell carcinoma. F. EBUS, TBNA, site 11L #6: Adequate for evaluation. Negative for carcinoma. G. EBUS, TBNA, site 4R (cell block): Negative for malignant cells. H. EBUS, TBNA, site 11L (cell block): Atypical epithelial cells consistent with non-small cell carcinoma. I. Right lung washings (cytospin and cell block): Positive for malignant cells consistent with non-small cell carcinoma. AM:valentina 05/10/2021 COMMENT The specimen is evaluated at the time of procedure by Dr. Lacy. Rapid Onsite Evaluation: A. EBUS, TBNA, site 4R #1: Mucous and benign bronchial epithelial cells. No evidence of carcinoma. B. EBUS, TBNA, site 4R #2: Negative for malignant cells. Lymphocytes are present. C. EBUS, TBNA, site 4R #3: Atypical cells suspicious for malignancy. Abundant lymphocytes present. D. EBUS, TBNA, site 4R #4: Rare atypical epithelial cells present. Abundant lymphocytes present. E. EBUS, TBNA, site 11L #5: Positive malignant cells consistent with non-small cell carcinoma. F. EBUS, TBNA, site 11L #6: Negative for carcinoma. Abundant lymphocytes present. A. The specimen primarily contains bronchial epithelial cells and mucous. Please correlate with corresponding surgical specimen [id number]. Case has been reviewed in consultation with Dr. Puente who concurs with the above diagnosis. IDC:SJ CYTOLOGY STUDY Slides are reviewed. CYTOLOGY GROSS A - Received labeled with the patient's name and and designated EBUS, TBNA, site 4R #1. The specimen consists of two stained smears for ADENIKE (Rapid Onsite Evaluation). B - Received labeled with the patient's name and and designated EBUS, TBNA, site 4R #2. The specimen consists of two stained smears for ADENIKE. C - Received labeled with the patient's name and and designated EBUS, TBNA, site 4R #3. The specimen consists of two stained smears for ADENIKE. D - Received labeled with the patient's name and and designated EBUS, TBNA, site 4R #4. The specimen consists of two stained smears for ADENIKE. E - Received labeled with the patient's name and and designated EBUS, TBNA, site 11L #5. The specimen consists of two stained smears for ADENIKE. F - Received labeled with the patient's name and and designated EBUS, TBNA, site 11L #6. The specimen consists of two stained smears for ADENIKE. G - Received in RPMI is 20 ml of pink, needle rinsed fluid labeled with the patient's name and and designated EBUS, TBNA, site 4R. The specimen is submitted for cell block preparation. H - Received in RPMI is 20 ml of pink, needle rinsed fluid labeled with the patient's name and and designated EBUS, TBNA, site 11L. The specimen is submitted for cell block preparation. I - Received is 30 ml of red bloody cloudy fluid labeled with the patient's name and and designated per the requisition as washing right. Submitted for cytology preparation including cell block. / AM:valentina 05/06/21 TC:0 CPT: 00903 x4, 97055 x2, 85169 x2, 56416 x3, 49531
[2021-05-06] MEDS: Lactated Ringers 1,000 ML 15 ML IV (11:45)
--- NOTE | 2021-05-06 12:02 | PCM.HP.BLA ---
History and Physical Date of Admission: 05/06/21 Patient seen and examined prior to the bronchoscopy. No change in plan below. No change in interval history. All questions were answered. Assessment and Plan Assessment and Plan (1) Lung mass: Status: Acute (2) Dyspnea: Status: Acute Orders: Orders: Bronchoscopy 05/04/21 R91.8, R06.00 Partial Thromboplast Time 05/04/21 R91.8, R06.00 Prothrombin Time w/INR 05/04/21 R91.8, R06.00 CBC W/Diff, Automated 05/04/21 R91.8, R06.00 Plan - Dr. Marco Antonio Pederson MD: Diagnostic biopsy has been delayed secondary to a need for Brilinta with a drug-eluting stent. Patient has not completed a full 3 months after his drug-eluting stent and does understand that there is a risk of in-stent thrombosis, but wants to move forward. Given the patient had discontinued his Brilinta on Sunday, will arrange for an endobronchial ultrasound with biopsies on Sunday. Patient understands that there will be an increased risk of bleeding and that he will require full anesthesia. Coagulation studies will be sent. Patient does have a recent history of COVID, so aspergillosis, abscess and malignancy are the top concerns. These would not be differentiated by a PET scan. Increase dry cough likely secondary to bronchus intermedius extrinsic compression. Obtain coagulation studies. Endobronchial ultrasound on 05/06/2021, at 12:30 PM. Plan Details Follow Up: Following biopsy results HPI CT results Chief Complaint: Test results Details: Patient is a 56-year-old male, currently under care of Dr. Vallejo, who presents for evaluation secondary to recent test results. Since last visit, patient reports overall subjective worsening in condition. Patient is reporting increased fatigue and anxiety related to his lung findings. Patient reportedly had an episode of hemoptysis versus epistaxis over the weekend. 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 Patient states he has not had Brilinta since Sunday morning. Patient states his bleeding has resolved, but it makes him more sure that this is something bad. Patient has reported a dry cough prior to this acute episode. Patient is not reporting any chest pain, but does have palpitations. Patient not reporting any significant change in exercise tolerance, but states that he is unable to work secondary to his anxiety related to the situation. Patient has not noticed any cyanosis, nausea, vomiting or unintentional weight loss. Patient is not clear if he has had any fevers. Patient was perseverating about the implications of his CT scan and just wants to have answers. Patient's previous pulmonary function tests were relatively normal. Patient does report some concern that he would not be a resection candidate given the spread. Previously a CT-guided biopsy had been discussed. However, given progression, endobronchial ultrasound, along with other options were reviewed in detail. Given the risks, benefits and alternatives, patient has agreed to proceed with an endobronchial ultrasound. Review of systems otherwise negative from a constitutional, HEENT, respiratory, cardiovascular, GI, genitourinary, musculoskeletal, skin, neurologic, psychiatric and hematologic system unless stated above. Imaging personally reviewed with the patient CT chest (05/02/2021): Significant enlargement in right middle lobe mass. This is now measuring 5.4 x 3.9 cm with significant right lower lobe atelectasis and endobronchial findings. Patient also has satellite lesions and remove large paratracheal lymph node. Very are still significant centrilobular and paraseptal emphysematous changes. Intake Vital Signs 05/04/21 13:45 Height 5 ft 9 in Weight: 82.1 kg BMI 26.7 BP 124/82 H Blood Pressure Location Lt brachial Position Sitting Respiration 18 Pulse 110 H Pulse Source Monitor Temp 36.7 C Temperature Source Tympanic Pulse Oximetry (%) 97 Oxygen Delivery Method room air Intake Visit Reasons: CT results Allergies No Known Allergies Allergy (Verified 05/04/21 13:44) Medications Adult Low Dose Aspirin 81 mg PO.IVFORM DAILY 11/17/20 [History Confirmed 05/04/21] Brilinta 90 mg BID 11/17/20 [History Confirmed 05/04/21] Nitroglyn 0.4 mg 11/17/20 [History Confirmed 05/04/21] metoprolol tartrate 12.5 mg 11/17/20 [History Confirmed 05/04/21] atorvastatin 40 mg PO DAILY 02/22/21 [History Confirmed 05/04/21] PFSH Medical History Abnormal PSA COVID-19 Myocardial infarct Prostate cancer Surgical History H/O prostatectomy History of coronary artery stent placement History of hernia repair Family History Father Emphysema lung Social History Smoking Status: Former smoker quit date: 02/16/21 pack-years: 40 Review of Systems Resp Respiratory: Yes as per HPI Exam Const Constitutional: Positive conversant, cooperative, in no acute respiratory distress, healthy appearing, well developed, well nourished and good hygiene Head Head: Yes normocephalic, Yes atraumatic and No cyanosis of lips/distal nose Eyes Eye: Positive clear conjunctiva; Negative nystagmus, scleral abnormality or cataract present Ears Ear: Positive hearing normal and external ears normal; Negative hard of hearing Neck Neck: Positive normal visual inspection, full ROM and trachea midline; Negative lymphadenopathy or JVD Chest Wall Chest: Positive normal inspection of the chest and symmetric chest movement; Negative crepitus or tenderness Resp lung sounds: Positive wheezes and prolonged expiratory time; Negative wheeze present on forced exhalation, rhonchi, rales, dullness or use of accessory muscles Cardio Cardiac: Positive regular rate, regular rhythm, S1 normal and S2 normal; Negative murmur, rub or gallop GI GI: Positive normal to inspection and normal bowel sounds; Negative distended, ascites or epigastric tenderness Genitourinary: Positive deferred Musc Musculoskeletal: Positive steady gait; Negative using an assistive device for ambulation, kyphosis or scoliosis Skin Pulmonary Skin Exam: Positive intact; Negative lesion, rash, ulcers or erythema Pulses Pulse: Yes radial pulses present Extremities Extremities: Yes capillary refill normal, No clubbing, No cyanosis and No edema Neuro Neurologic: Yes no focal neuro deficits, Yes conversant, Yes cooperative, Yes normal cognition, Yes normal coordination, Yes normal concentration and Yes understands questions Lymph Lymphatic: No lymphadenopathy Psych Appearance: Positive grossly normal Mental Status: Positive mental status grossly normal Mood: Positive congruent mood Affect: Positive normal affect Assessment & Plan Assessment/Plan (1) Lung mass:
[2021-05-06 14:50] LABS: Cytology, Washings SEE PATHOLOGY REPORT
--- NOTE | 2021-05-06 14:54 | OP.BRONCH_ITS ---
Patient Name: Juvenal Clark Procedure Date: 05/06/2021 12:47 PM Date of : 1965 Age: 56 Procedure: Bronchoscopy Indications: Mediastinal adenopathy, Right middle lobe mass, Hemoptysis with abnormal CXR Providers: Marco Antonio Pederson MD Medicines: See the Anesthesia note for documentation of the administered medications Complications: No immediate complications Procedure: Pre-Anesthesia Assessment: - Prior to the procedure, a History and Physical was performed, and patient medications and allergies were reviewed. The patient's tolerance of previous anesthesia was also reviewed. The risks and benefits of the procedure and the sedation options and risks were discussed with the patient. All questions were answered, and informed consent was obtained. Prior Anticoagulants: The patient has taken antiplatelet medication, last dose was 5 days prior to procedure. ASA Grade Assessment: III - A patient with severe systemic disease. After reviewing the risks and benefits, the patient was deemed in satisfactory condition to undergo the procedure. After I obtained informed consent, the scope was passed under direct vision. Throughout the procedure, the patient's blood pressure, pulse, and oxygen saturations were monitored continuously. The ultrasound bronchoscope was introduced through the mouth, via laryngeal mask airway and advanced to the tracheobronchial tree. The bronchoscope was introduced through the mouth, via laryngeal mask airway and advanced to the tracheobronchial tree of both lungs. The procedure was accomplished without difficulty. The patient tolerated the procedure well. The procedure was accomplished without difficulty. The patient tolerated the procedure well. Findings: The laryngeal mask airway is in good position. The vocal cords appear normal. The subglottic space is normal. The trachea is of normal caliber. The lacie is sharp. The tracheobronchial tree of the left lung was examined to at least the first subsegmental level. Bronchial mucosa and anatomy are normal; there are no endobronchial lesions, and no secretions. Right Lung Abnormalities: Large fungating mass noted on the medial aspect just distal to the right upper lobe takeoff. Able to pass caudally with moderate resistance and mild bleeding the visualized distal airway. Distal epithelium appeared normal without significant retained secretions The scope was withdrawn and replaced with the EBUS bronchoscope to accomplish the ultrasound examination. Lymph Nodes: An endobronchial ultrasound endoscope was utilized to systematically examine the right lower paratracheal region (level 4R) in order to assist with guiding the biopsy needle. Lymph node sizing was performed via endobronchial ultrasound for suspected non-small cell lung cancer. Sampling by transbronchial needle aspiration was also performed using an Olympus EBUS-TBNA 19 gauge needle in the right lower paratracheal region (level 4R) and left interlobar region (level 11L) and sent for routine cytology. - The 4R (lower paratracheal) node was 7 mm by EBUS. Four samples with the needle were obtained. - The 11L (interlobar) node was 5 mm by EBUS. Two samples with the needle were obtained. Lymph Nodes: Rapid On-Site Evaluation (ADENIKE): Preliminary cytology was suggestive of atypical cells (final results are pending) in the right lower paratracheal region (level 4R). Preliminary cytology was suggestive of non small cell carcinoma (final results are pending) in the left interlobar region (level 11L). Impression: - Mediastinal adenopathy - Right middle lobe mass - Hemoptysis with abnormal CXR - The airway examination of the left lung was normal. - A transbronchial needle aspiration was performed. - An endobronchial biopsy was performed. - Endobronchial ultrasound was performed. - Lymph node sizing and sampling was performed. Tissue was obtained from this exam. The preliminary diagnosis is of malignancy. - Rapid On-Site Evaluation (ADENIKE): Preliminary cytology was suggestive of atypical cells in node level 4R and of non small cell carcinoma in node level 11L (final results are pending). Recommendation: - The patient will be observed post-procedure, until all discharge criteria are met. - Await biopsy, cytology and washing results. - Patient has a contact number available for emergencies. The signs and symptoms of potential delayed complications were discussed with the patient. Return to normal activities tomorrow. Written discharge instructions were provided to the patient. - Follow up with bronchoscopist within several days. Procedure Code(s): --- Professional --- 45672, Bronchoscopy, rigid or flexible, including fluoroscopic guidance, when performed; with endobronchial ultrasound (EBUS) guided transtracheal and/or transbronchial sampling (eg, aspiration[s]/biopsy[ies]), 3 or more mediastinal and/or hilar lymph node stations or structures 45871, Bronchoscopy, rigid or flexible, including fluoroscopic guidance, when performed; with transbronchial needle aspiration biopsy(s), trachea, main stem and/or lobar bronchus(i) 68092, 59, Bronchoscopy, rigid or flexible, including fluoroscopic guidance, when performed; with bronchial or endobronchial biopsy(s), single or multiple sites 90791, Bronchoscopy, rigid or flexible, including fluoroscopic guidance, when performed; with transendoscopic endobronchial ultrasound (EBUS) during bronchoscopic diagnostic or therapeutic intervention(s) for peripheral lesion(s) (List separately in addition to code for primary procedure[s]) Diagnosis Code(s): --- Professional --- R59.0, Localized enlarged lymph nodes R04.2, Hemoptysis C96.9, Malignant neoplasm of lymphoid, hematopoietic and related tissue, unspecified CPT copyright 2017 [employer]. All rights reserved. The codes documented in this report are preliminary and upon filter machine operator review may be revised to meet current compliance requirements. MD Marco Antonio Schumacher MD 05/06/2021 2:53:49 PM This report has been signed electronically. Number of Addenda: 0 Note Initiated On: 05/06/2021 12:47 PM
== END 2021-05-06 15:45 | disposition home or self-care (01) ==
LOC: EN 11:36 → AC 11:46
PROVIDERS: PCP Family Medicine; Referring Provider Family Medicine; Visit Provider Internal Medicine Critical Care Medicine
PROC: BB4BZZZ Ultrasonography of Pleura (ICD-10-PCS; CPT 31625; principal; 2021-05-06 12:15)
DX: C34.2 Malignant neoplasm of middle lobe, bronchus or lung (principal); F41.9 Anxiety disorder, unspecified; F32.A Depression, unspecified; I10 Essential (primary) hypertension; Z79.899 Other long term (current) drug therapy; Z95.5 Presence of coronary angioplasty implant and graft; Z79.02 Long term (current) use of antithrombotics/antiplatelets; Z87.891 Personal history of nicotine dependence
CPT/HCPCS: 31625; 31629; 31653; 31654; 88161; 88172; 88305; 88313; 88341; 88342; J7120

== ENCOUNTER → 2021-05-24 14:29 | Outpatient (CLI) | payer BC, SELFPAY ==
--- NOTE | 2021-05-24 14:00 | PET_ITS ---
EXAMINATION: FDG PET-CT INDICATIONS: A 56-year-old male with reported history of carcinoma of the lung presenting for initial staging examination. COMPARISON EXAMINATION: CT of the chest report dated 05/02/21 INDEX LESION SIZE SUV INTERPRETATION Right thoracic perihilum 42.9 x 49.3-mm (frame 202) 23.3 Fulfills quantitative criteria for viable neoplasm NON-INDEX LESION SIZE SUV INTERPRETATION Right lower lung-right lower lobe, diffuse 2.0 (max) Quantitative criteria for viable neoplasm are not fulfilled, most consistent with an inflammatory process-pneumonitis TECHNIQUE: Following the intravenous administration of 13.36 mCi of F-18 deoxyglucose via the right antecubital fossa, multiplanar image acquisitions of the neck, chest, abdomen and pelvis to level of mid thigh, obtained at one hour post radiopharmaceutical administration contemporaneously interpreted with the current CT of the neck, chest, abdomen and pelvis, to level of mid thigh, dated 05/24/[address] of the chest report dated 05/02/21 reveals: BLOOD GLUCOSE LEVEL:?? 101 mg/dl? FINDINGS: 1. An increase in GLUCOSE metabolism is defined in the right thoracic perihilum generating a calculated maximal standard uptake value of 23.3. The maximal axial diameter of the corresponding metabolic, morphologic abnormality on review of CT of the chest dated 05/24/21 is 42.9-mm (transverse) x 49.3-mm (AP). 2. Diffuse, non-nodular increased tracer is observed in the right lower posterior lung-right lower lobe generating a calculated maximal standard uptake value of 2.0. Uptake appears to correspond to infiltrate, airspace disease. Quantitative criteria for viable neoplasm are not fulfilled. 3. Normal physiologic distribution of the radiopharmaceutical is apparent in the hepatic (2.7) and splenic parenchyma, both renal units, bladder and visualized intestinal tract. The visualized portion of the cerebral cortical-subcortical structures demonstrate symmetric and preserved glucose metabolism. Diffuse radiopharmaceutical concentration is noted in all four quadrants of the abdomen and pelvis. Pertinent CT findings are as follows: CHEST: A small right hemithorax pleural effusion is non-glucose avid. There is atherosclerotic calcification defined in the thoracic aorta without evidence of dilatation-aneurysm formation. Coronary arterial calcification is defined. Right and left axillary soft tissue densities with fatty hilus are ametabolic. Emphysematous changes are encountered in the bilateral upper-mid lung zones. ABDOMEN AND PELVIS: There is atherosclerotic calcification defined in the abdominal aorta without evidence of dilatation-aneurysm formation. Pelvic arterial calcification is demonstrated. Bilateral inguinal soft tissue with fatty hilus is ametabolic. SKELETAL: Degenerative changes are noted in the cervical, thoracic and lumbar spine without evidence of increased radiopharmaceutical concentration. PET/PET/CT Tumor Base -Thigh Init IMPRESSION: 1. ABNORMAL EXAMINATION INDICATIVE OF MALIGNANT VIABLE NEOPLASM. 2. Increased glucose concentration noted in the right thoracic perihilum fulfills quantitative criteria for viable neoplasm and presumably is claims representative of the site of the patient?s histologically confirmed primary pulmonary malignancy. (Williams et al, Journal of Clinical Oncology 16:2142, 1998 Jett et al, Annals of Internal Medicine, 138:724, 2003). 3. Enhanced radiopharmaceutical uptake noted in the right lower posterior lung corresponding to infiltrate airspace disease is most consistent with an inflammatory process-obstructive pneumonitis. 4. No other quantitatively significant hypermetabolic abnormalities are noted. There is no definitive scintigraphic evidence of distant metastatic disease. Electronic Signature Zac Mclean D.O. Accurate Quantification of SUVs for this report are calculated using the exclusive [employer], (U.S. Patent No. 10, 674, 983). Standardization and correction of the FDG SUV metric exclusively available with [employer] intellectual property, allow for vendor non-specific objective quantitative sequential FDG PET-CT comparison and otherwise unobtainable optimization of the sensitivity and specificity of the examination. Electronically Signed: Zac Mclean DO at 11:10 EST Tel , Service support ,
== END ==
PROVIDERS: PCP Family Medicine; Referring Provider Internal Medicine Critical Care Medicine; Visit Provider Internal Medicine Critical Care Medicine
DX: R91.8 Other nonspecific abnormal finding of lung field (principal)
CPT/HCPCS: 78815; 97802; A9552

== ENCOUNTER → 2021-05-26 07:13 | Outpatient (CLI) | payer BC, SELFPAY ==
--- NOTE | 2021-05-26 07:14 | MRI_ITS ---
STUDY: MRI BRAIN WITH AND WITHOUT CONTRAST REASON FOR EXAM: Male, 56 years old. 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 IV 17 cc dotarem was administered for the contrast portion of the examination. COMPARISON: None. FINDINGS: Normal size of the ventricles and extra-axial spaces for the patient''s age. Normal white matter tracts of the supratentorial brain. Normal bilateral basal ganglia. Normal thalami. There is no extra-axial fluid accumulation. There is no enhancing intra-axial or extra-axial abnormality. Normal sella turcica, pituitary gland, infundibular stalk, optic chiasm and hypothalamus. Normal tectal plate and pineal gland. Normal midbrain, rupert and medulla. Normal cerebellum. Normal basal cisterns. MRI/Brain W/WO Contrast IMPRESSION: No evidence of intracranial metastatic disease. Electronically Signed: Daphne Murdock MD at 15:34 EST Tel , Service support ,
[2021-05-26 07:35] LABS: CREATININE FINGERSTICK 1.2 mg/dL (0.70-1.30); EGFR FINGERSTICK > 60.0000 mL/min (>60)
== END ==
PROVIDERS: PCP Family Medicine; Referring Provider Internal Medicine Critical Care Medicine; Visit Provider Internal Medicine Critical Care Medicine
DX: R91.8 Other nonspecific abnormal finding of lung field (principal)
CPT/HCPCS: 70553; A9575

== ENCOUNTER 2021-06-07 07:23 | Day surgery (SDC) | payer BC, SELFPAY ==
[2021-06-07] VITALS (7 sets, daily range): BP systolic 90–115; BP diastolic 66–80; PULSE 86–92; RESP 16; TEMP 37.1–37.4; O2SAT 95–99; BMI 26.0
[2021-06-07] MEDS: Lactated Ringers 1,000 ML 15 ML IV (07:58)
--- NOTE | 2021-06-07 08:11 | HP.PCM_ITS ---
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 Is patient in pain?: No Allergies No Known Allergies Allergy (Verified 06/01/21 09:08) Medications aspirin 81 mg PO DAILY 05/05/21 [History Confirmed 06/01/21] atorvastatin 40 mg PO QHS 05/05/21 [History Confirmed 06/01/21] clonazepam 0.5 mg PO PRN PRN 05/05/21 [History Confirmed 06/01/21] dextromethorphan-guaifenesin [Mucinex DM] 1 tab PO Q12H PRN 05/05/21 [History Confirmed 06/01/21] metoprolol tartrate 12.5 mg PO BID 05/05/21 [History Confirmed 06/01/21] lorazepam 0.5 mg tablet 0.25 mg PO TID PRN tab 05/26/21 [History Confirmed 06/01/21] promethazine 6.25 mg-codeine 10 mg/5 mL syrup 5 ml PO Q6H PRN 05/26/21 [History Confirmed 06/01/21] lidocaine-prilocaine 2.5 %-2.5 % topical cream 1 applic TOPICAL ONCE PRN 30 Days #30 g 05/30/21 [Rx Confirmed 06/01/21] ondansetron 8 mg disintegrating tablet 8 mg PO Q8H PRN #30 tab 05/30/21 [Rx Confirmed 06/01/21] PFSH Medical History Abnormal PSA Anxiety Cancer Cardiology follow-up encounter Chronic cough Coronary artery disease COVID-19 Depression Emphysema, unspecified Encounter for education Excessive bleeding Former smoker High cholesterol History of echocardiogram History of heart attack History of steroid therapy History of stress test History of torsion of testis Hypertension Myocardial infarct Prostate cancer Regional lymph node metastasis present Restless legs Wears glasses Surgical History H/O prostatectomy History of cardiac catheterization History of coronary artery stent placement History of hernia repair Family History Father Emphysema lung Cancer prostate cancer Grandfather Cancer prostate Social History Smoking Status: Former smoker quit date: 02/16/21 pack-years: 40 Tobacco: How many years used: 40 how long ago did patient quit smoking: patient reports smoking [id number] alcohol intake: never substance use type: does not use caffeine: No during the past year weight has: remained stable HPI HPI HPI: MIKY SALGADO, is a 56 M who presents to the office today for port placement. Patient has right lower lobe lung cancer and requires port for chemotherapy. ROS General General: Yes fatigue; No weight change, appetite, colon cancer, breast cancer or weakness HEENT HEENT: No difficulty swallowing, eye injury, eye surgery, swollen glands or hoarseness Endo Endocrine: No thyroid disease, diabetes mellitus, thyroid cancer, Hair loss, heat intolerance or cold intolerance Skin Skin: No rash or changing moles Musc Musculoskeletal: No back problems, arthritis, rheumatoid arthritis, gout or joint pain Cardio Cardiovascular: Yes heart attack and heart stent; No murmur, pacemaker, heart disease, atrial fibrillation, high blood pressure, palpitations, shortness of breat with exertion or chest pain Psych Psychiatric: Yes anxiety; No depression or hearing voices Resp Respiratory: Yes shortness of breath, No sleep apnea, Yes cough, No COPD, No asthma, No emphysema and No wheezing Gastro Gastrointestinal: No abdominal pain, No nausea or vomiting, No diarrhea, No constipation, No blood in stool, No acid reflux, No hemorrhoids, No ulcers, No gallbladder problem and No black,tarry stools [place] Hematologic: Yes blood thinners, No blood disorders, No bleeding, No anemia and No blood clots Additional Details: currently on ASA Neuro Neurologic: No system reviewed and no additional complaints, except as documented, No as per HPI, No abnormal gait, No abnormal hearing, No abnormal movements, No abnormal speech, No behavioral changes, No burning sensations, No confusion, No convulsions, No disequilibrium, No dizziness, No localized weakness, No frequent falls, No headache(s), No lack of coordination, No loss of vision, No memory loss, No numbness, No other visual disturbances, No radicular pain, No restless legs, No sensory deficit, No syncope, No tingling, No tremor(s), No weakness and No other Exam Const General: cooperative Orientation: alert and oriented x3 HENMT Head: normal to inspection Neck Neck: normal visual inspection and full ROM Chest Chest palpation & inspection: normal inspection of the chest Resp Effort & Inspection: normal respiratory effort Auscultation: clear to auscultation bilaterally Cardio Rate: regular rate Rhythm: regular rhythm GI Inspection: non-distended Palpation: soft and nontender Skin General: no rashes or lesions noted Neuro General: patient alert and patient oriented x3 Extrem General: full ROM Psych Appearance: grossly normal Mental Status: mental status grossly normal Assessment and Plan Assessment and Plan (1) Encounter for adjustment and management of vascular access device: Status: Acute (2) Squamous cell carcinoma of lung: Status: Acute Qualifiers: Laterality: right Qualified Code(s): C34.91 - Malignant neoplasm of unspecified part of right bronchus or lung Plan - Dr. Saji Sorto MD: The patient has right lower lobe lung cancer and requires port for chemotherapy. I discussed port placement with the patient in detail. I discussed the risks of the procedure including modality of bleeding, infection, pneumothorax and line infection or DVT. Patient understands the risks and is when to proceed. I will plan for left chest port placement. Saji Sorto MD Pager: [facility] [address] [place] [address], [address] [place] [address] Office: I have re-examined the patient. There are no clinical changes since date of exam.
--- NOTE | 2021-06-07 09:19 | PCM.OPRPT ---
Problems Associated Problem List Diagnoses (1) Encounter for adjustment and management of vascular access device: (2) Squamous cell carcinoma of lung: Report of Operation Date of Procedure: 06/07/21 Pre-Operative Diagnosis: Lung cancer need for vascular access for chemotherapy Post-Operative Diagnosis: Same Surgery/Procedure Performed:: Ultrasound and fluoroscopy guided left chest port placement utilizing left IJ Description of Procedure: After obtaining informed consent patient was brought back to the operating room MAC anesthesia was induced and the left chest and neck were prepped in normal sterile fashion. Ultrasound was used to evaluate both IJs and the left IJ was selected. Next, using a needle, the left IJ was accessed and a guidewire was passed on into the superior vena cava under fluoroscopy guidance. A small incision was made over the puncture site and the dilator introducer was placed over the guidewire. Next this was capped and the pocket was made for the port. 1% lidocaine with epinephrine was injected in the proposed port site. An incision was made with scalpel. Electrocautery was used to make a pocket under the skin and subcutaneous tissue. Hemostasis was obtained. Next, the catheter was tunneled up to the neck incision site and placed through the introducer. The peel-away introducer was removed and the position of the catheter was confirmed on fluoroscopy. Next, the catheter was trimmed and attached to the port with the locking device. Interrupted 2-0 Vicryl sutures were used to anchor the port to the chest wall and then the port was placed inside the pocket. The pocket was then flushed with saline and the port irrigated with saline. There was good blood return and the port flushed easily. Next, heparin was injected into the port. The skin was closed with subcutaneous interrupted 3-0 Vicryl sutures. A single 3-0 Vicryl sutures placed under the skin at the neck incision site. Steri-Strips were placed as well as op sites. Patient tolerated procedure well, was taken to PACU in stable condition. Chest x-ray will be obtained. Grafts/Implants Used: 8 Serbian PowerPort Admit VTE Documentation VTE Mechan Device Prophylaxis: SCD's
--- NOTE | 2021-06-07 09:21 | EX.PCM.DISCH ---
Discharge Instructions Procedure Port-A-Cath Diet Discharge Diet: Light diet - advance as tolerated (Pain medication may cause nausea. You should typically eat light foods as you take your pain medication.) Activity Discharge Activity: Return to Normal Activity and May Shower (with your bandage in place in 1-2 days after surgery. DO NOT SHOWER WHEN YOUR PORT IS ACCESSED.) Dressing / Incision Call your doctor if your incision/area has: Continuous Slow Oozing, Sudden Increased Bleeding, Increased Pain/ Swelling, Increased Redness and Foul Smelling Discharge Call your doctor if you observe: Fever of 101 or Higher Remove Dressing in: 2 days Cleanse incision/area with: Soap & Water Follow Up Care Please Follow Up With: Saji Sorto MD When: as needed [phone] Test Results: Test results from this visit will be discussed in further detail at your follow-up appointment, if applicable. Discharge Plan Admission Attending Provider: Saji Sorto Primary Care Provider: Faheem Vallejo Discharge Orders/Prescriptions Prescriptions: No Action lorazepam [Ativan] 0.5 mg tablet 0.5 mg PO TID PRN (Reason: anxiety) RF: 0 promethazine-codeine 6.25-10 mg/5 mL syrup 5 ml PO Q6H PRN (Reason: cough) RF: 0 ondansetron 8 mg tablet,disintegrating 8 mg PO Q8H PRN (Reason: nausea and vomiting) Qty: 30 RF: 2 lidocaine-prilocaine 2.5-2.5 % cream 1 applic topical ONCE PRN (Reason: port access) 30 Days Qty: 30 RF: 2 atorvastatin 40 mg Tablet 40 mg PO QHS RF: 0 metoprolol tartrate 25 mg tablet 12.5 mg PO BID RF: 0 aspirin 81 mg Capsule 81 mg PO DAILY RF: 0 Mucinex DM 30-600 mg Tablet Extended Release 12 Hr 1 tab PO Q12H PRN (Reason: Cough) RF: 0 Referrals / Follow Up: Faheem Vallejo MD [Primary Care Provider] - Disposition Disposition (needs filled in before D/C Order can be placed): Home, Self Care
--- NOTE | 2021-06-07 09:22 | RAD_ITS ---
STUDY: X-RAY CHEST REASON FOR EXAM: Male, 56 years old. Line placement -- in pacu TECHNIQUE: Single AP portable view of the chest. COMPARISON: Comparison is made with prior study of 02/22/2021. FINDINGS: A left-sided portacatheter has been placed with the tip in the right atrium. Right lower lobe consolidation. Volume loss in the right lower lobe. Blunting of the right costo phrenic angle. Normal size heart. Normal mediastinum and dominic. Normal visualized pulmonary arteries. There is atherosclerotic calcification of the aortic arch with tortuosity. There are diffuse degenerative changes of the visualized thoracic spine. Normal visualized ribs, clavicles, and shoulders. There is no demonstrated abnormality of the visualized soft tissue structures of the upper abdomen. RAD/CXR for Line Placement IMPRESSION: The tip of the left portacatheter is in the right atrium. Right lower lobe consolidation with blunting of the right costophrenic angle. Electronically Signed: Jj uSarez MD at 9:44 EST , Service support ,
== END 2021-06-07 10:25 | disposition home or self-care (01) ==
LOC: SDC 07:24 → AC 07:25
PROVIDERS: PCP Family Medicine; Referring Provider Surgery; Visit Provider Surgery
PROC: (CPT 36561; principal; 2021-06-07 08:40)
DX: Z45.2 Encounter for adjustment and management of vascular access device (principal); C34.31 Malignant neoplasm of lower lobe, right bronchus or lung; I25.10 Atherosclerotic heart disease of native coronary artery without angina pectoris; J43.9 Emphysema, unspecified; F41.9 Anxiety disorder, unspecified; F32.A Depression, unspecified; I10 Essential (primary) hypertension; E78.00 Pure hypercholesterolemia, unspecified; G25.81 Restless legs syndrome; I25.2 Old myocardial infarction; Z86.16 Personal history of COVID-19; Z79.899 Other long term (current) drug therapy; Z79.82 Long term (current) use of aspirin; Z87.891 Personal history of nicotine dependence
CPT/HCPCS: 00532; 36561; 71045; 77001; 87426; C9803; J7120; C1788

== ENCOUNTER 2021-06-18 10:27 | Emergency (ER) | payer BC, SELFPAY ==
[2021-06-18 10:28] VITALS: BP 144/96; PULSE 126; RESP 26; TEMP 36.2; O2SAT 97; BMI 26.6
--- NOTE | 2021-06-18 10:39 | CT_ITS ---
STUDY: CTA CHEST REASON FOR EXAM: Male, 56 years old. pe RADIATION DOSAGE (If Supplied By Facility): CTDIvol = ( 10.60 ) mGy, DLP = ( 442.37 ) mGycm TECHNIQUE: The examination was performed with the intravenous administration of IV 100mL [id number]-370. Post-processing of the angiographic images was performed, with multiplanar reformation and 3D reconstruction. Individualized dose optimization techniques were used for this CT. COMPARISON: 05/02/2021 FINDINGS: Left internal jugular chest port. Normal enhancement of the main pulmonary artery and right and left pulmonary arteries. Normal enhancement of the bilateral peripheral pulmonary arteries. There is no demonstrated pulmonary embolism. Normal thoracic aorta and visualized great vessels. There is no demonstrated aortic dissection. Normal heart and pericardium. Normal mediastinum. Normal hilar regions. Normal visualized trachea and bronchi. The lungs are well expanded. Mild emphysema. No change in the 5.5 cm right hilar mass with encasement and severe narrowing of the right middle lobe and right lower lobe bronchi with postobstructive right middle lobe and right lower lobe pneumonia or atelectasis. Normal pleura. Normal chest wall structures. Normal osseous structures. Normal visualized upper abdomen. CT/CTA Chest W/WO Contrast IMPRESSION: 1. No CT evidence of pulmonary embolism. 2. No change in right hilar bronchogenic carcinoma with postobstructive right middle lobe and right lower lobe pneumonia or atelectasis per Electronically Signed: Zac Anne MD at 12:04 EST Tel , Service support ,
--- NOTE | 2021-06-18 10:39 | EKG12_ITS ---
Test Reason : CP Blood Pressure : / mmHG Vent. Rate : 124 BPM Atrial Rate : 124 BPM P-R Int : 122 ms QRS Dur : 094 ms QT Int : 318 ms P-R-T Axes : 048 080 037 degrees QTc Int : 456 ms Sinus tachycardia Otherwise normal ECG Confirmed by WILLIAM VELAZQUEZ, ORION ([id number]), video news editor RASHAD LI ([id number]) on 06/22/2021 10:01:42 AM Referred By: RU/PL Confirmed By:ORION THOMAS MD
--- NOTE | 2021-06-18 10:41 | ED.VIS.CHEST ---
HPI History of Present Illness Chief Complaint: Chest Pain Informant: patient and spouse/S.O. Narrative Narrative: This patient. Aunts with chest pain and jaw pain. This patient does have a reasonably complex recent history. Back in September he had an CT with placement of 2 stents. He was placed on Brilinta at that time with the plan to be on it for 1 year. He went through cardiac rehab. In February he got Covid. During the process of working that up and getting a CAT scan, he was found to have a right middle/lower area lung cancer. This is non-small cell. It is stage IIIc. He just started chemo and radiation for this. He had a Mediport placed in the left chest couple weeks ago. He has had hemoptysis since the beginning of the lung cancer diagnosis. But he states he used to get blood and clots. He now just gets a few specks of blood in the mucus. That is getting progressively less. He has had some soreness and tightness and pain in his chest also for weeks or month. He is on oxycodone for this. He has been coughing a lot. He also has a chronic cough before any of this was diagnosed. He was coughing a lot throughout the night. He has developed more pain and he now has jaw pain. Jaw pain is worse with motion and with eating. He also has a history of TMJ. Is hard for him to decide if this is the TMJ pain. He thinks he also may have had some jaw pain with his CT. At times he feels short of breath. He is not nauseated. He is not diaphoretic. [facility] Medical History Abnormal PSA Anxiety Cancer Cardiology follow-up encounter Chronic cough Coronary artery disease COVID-19 Depression Emphysema, unspecified Encounter for chemotherapy management Encounter for education Endobronchial cancer Excessive bleeding Former smoker High cholesterol History of echocardiogram History of heart attack History of steroid therapy History of stress test History of torsion of testis Hypertension Myocardial infarct Prostate cancer Regional lymph node metastasis present Restless legs Wears glasses Home Medications aspirin 81 mg PO DAILY 05/05/21 [History Last Taken 05/04/21] atorvastatin 40 mg PO QHS 05/05/21 [History Last Taken Unknown] dextromethorphan-guaifenesin [Mucinex DM] 1 tab PO Q12H PRN 05/05/21 [History Last Taken Unknown] metoprolol tartrate 12.5 mg PO BID 05/05/21 [History Last Taken 06/07/21] lorazepam 0.5 mg tablet 0.5 mg PO TID PRN tab 05/26/21 [History Last Taken Unknown] promethazine 6.25 mg-codeine 10 mg/5 mL syrup 5 ml PO Q6H PRN 05/26/21 [History Last Taken Unknown] lidocaine-prilocaine 2.5 %-2.5 % topical cream 1 applic TOPICAL ONCE PRN 30 Days #30 g 06/14/21 [Rx Last Taken Unknown] ondansetron 8 mg disintegrating tablet 8 mg PO Q8H PRN #30 tab 06/14/21 [Rx Last Taken Unknown] oxycodone-acetaminophen [Percocet] 1 tab PO Q6H PRN 3 Days #12 tab 06/18/21 [Rx Last Taken Unknown] Allergy/AdvReac Type Severity Reaction Status Date / Time No Known Allergies Allergy Verified 06/15/21 14:30 Family History Father Emphysema lung Cancer prostate cancer Grandfather Cancer prostate Surgical History H/O prostatectomy History of cardiac catheterization History of coronary artery stent placement History of hernia repair Social History Smoking Status: Former smoker quit date: 02/16/21 pack-years: 40 Tobacco: How many years used: 40 how long ago did patient quit smoking: patient reports smoking [id number] alcohol intake: never substance use type: does not use caffeine: No during the past year weight has: remained stable reema/voodoo: [employer] seatbelt use: always do you feel safe at home: Yes ROS ROS ED Constitutional Constitutional ED: Denies fever(s) or subjective Eyes Eyes: Denies blurry vision or change in vision ENT ENT ED: Reports other Details: See history of present illness. ; Denies rhinorrhea or sore throat Cardiovascular Cardiovascular: Reports as per HPI, chest pain and other Details: Although his heartbeat is fast, he does not really feel this. He does also have a history of anxiety. This is understandable with his recent diagnoses. ; Denies palpitations or racing heartbeat Respiratory/Chest Respiratory/Chest: Reports cough, dyspnea and sputum Gastrointestinal Gastrointestinal: Denies abdominal pain, nausea or vomiting Genitourinary Genitourinary ED: Denies dysuria Musculoskeletal Musculoskeletal: Denies arthralgias Integumentary Denies rash Neurologic Neurologic: Denies headache(s) or weakness Psychiatric Psychiatric: Reports anxiety Hematologic/Lymphatic Hematologic/Lymphatic: Denies easy bleeding or easy bruising Allergic/Immunologic Allergic/Immunologic ED: Denies mouth swelling, tongue swelling or urticaria EXAM Physical Exam Const Vital Signs: 06/18/21 10:28 06/18/21 10:47 06/18/21 10:53 Temperature 97.1 F L Temperature Source Oral Pulse Rate 126 H 117 H 123 H Respiratory Rate 26 H Blood Pressure 144/96 H 118/89 H 109/67 Blood Pressure Mean 112 Pulse Ox 97 Oxygen Delivery Method Room Air 06/18/21 10:54 06/18/21 12:28 Temperature Temperature Source Pulse Rate 104 H Respiratory Rate 20 H Blood Pressure 106/76 Blood Pressure Mean 86 Pulse Ox 98 Oxygen Delivery Method Room Air Room Air Positive well nourished and well developed General Appearance ED: well developed and NAD; Negative for pallor HEENT Reports moist mucous membranes HEENT Narrative: He does have some TMJ and diffuse jaw tenderness. No sign of abscess or focal dental pain. Oropharynx is normal. Speech is normal. Eyes General Eye ED: Negative for pale conjunctiva or scleral icterus Neck no JVD Chest Wall inspection of chest normal Chest Narrative: No significant chest wall tenderness. Mediport is in the left upper chest and looks like it is healing quite well. Radiation markings also visible on chest wall. Resp normal respiratory effort and clear to auscultation bilaterally Resp Narrative: No pain with a deep breath. His lungs overall sound clear. Effort and Inspection: Negative for respiratory distress Auscultation: Negative for rales, rhonchi or wheezes Cardio regular rhythm and no murmurs Rate: tachycardic GI normal to inspection, nondistended, normoactive bowel sounds, soft to palpation and non-tender Back/Spine no CVA tenderness Extremity normal to inspection General Extremety ED: Negative for edema, pulses abnormal or tenderness General Extremity: Negative for edema or pulses abnormal Neuro oriented x3 Sensorium / Orientation: awake and alert Psych mental status grossly normal Skin no rashes or lesions noted General Skin Exam: Negative for pallor MDM MDM MDM Narrative Medical decision making narrative: Patient has white count of 13.8 which is his baseline. Hemoglobin is normal. Electrolytes show no marked abnormalities. Glucose does show mild elevation of 167. His troponin is 5 and this is after 10 to 12 hours of continual symptoms. Patient has a history of TMJ. He also states he has been making a large amount of saliva and mucus recently since he is diagnosed with cancer. He thinks this is irritating the mouth. He does have pain with chewing chest pain with the cancer but this seems to be a little bit worse but was mostly concerning because he had jaw pain with it. He wants to go home. In light of the fact his CT shows no PE or worsening of cancer, his troponin is negative with 12 hours of symptoms I think this is reasonable. I found out that he took 1 Percocet at home. However, this Percocet is approximately 8 years old. This is left over from surgery on his prostate and is not a recent med. I will be happy to refill this. He has an appointment with his oncologist on Sunday. He still has a small amount of pain. In order to help the most I can, I will give him a little bit of pain meds here before he goes. Lab Data Attestation: I reviewed the patient's lab results. Labs: Laboratory Results - last 24 hr 06/18/21 06/18/21 06/18/21 10:30 10:30 10:30 WBC 13.8 H RBC 5.11 Hgb 14.3 Hct 44.7 MCV 87.5 MCH 28.0 MCHC 32.0 RDW Std Deviation 43.4 RDW Coeff of Sana 13.4 Plt Count 462 H MPV 9.0 Immature Gran % (Auto) 0.900 Neut % (Auto) 85.7 H Lymph % (Auto) 8.6 L [place] % (Auto) 3.6 Eos % (Auto) 0.8 Baso % (Auto) 0.4 Absolute Neuts (auto) 11.8 H Absolute Lymphs (auto) 1.18 Nucleated RBC % 0 PT Cancelled INR Cancelled APTT Cancelled Sodium 138 Potassium 3.9 Chloride 101 Carbon Dioxide 29.0 Anion Gap 8 BUN 17 Creatinine 0.99 Estim Creat Clear Calc 82.32 Est GFR (MDRD) Af Amer 100 Est GFR (MDRD) Non-Af 82 BUN/Creatinine Ratio 17.1 Glucose 167 H Calcium 9.5 Troponin I High Sens 5 Radiography Diagnostic Testing: Clinical Impression(s) from Imaging Studies Chest CTA 06/18/21 10:39 IMPRESSION: 1. No CT evidence of pulmonary embolism. 2. No change in right hilar bronchogenic carcinoma with postobstructive right middle lobe and right lower lobe pneumonia or atelectasis per Electronically Signed: Zac Anne MD at 12:04 EST Tel , Service support , EKG Initial EKG: Comments: EKG done for chest pain and tachycardia read by me shows sinus rhythm with tachycardic rate at 124. No ventricular ectopy. No acute ST elevation or depression. EKG is done during chest pain and mild jaw pain. VA interval, QRS duration and QTc are normal. Other than the increased rate, this is similar to 1 done in November. Discharge Plan Triage Chief Complaint: Chest Pain ED Provider: Koeb Ballesteros Dx/Rx/DC Orders Clinical Impression: Chest pain, Jaw pain, Lung cancer Instructions: ED Chest Pain, Uncertain Cause Prescriptions: New oxycodone-acetaminophen [Percocet] 5-325 mg tablet 1 tab PO Q6H PRN (Reason: pain) 3 Days Qty: 12 RF: 0 No Action lorazepam [Ativan] 0.5 mg tablet 0.5 mg PO TID PRN (Reason: anxiety) RF: 0 promethazine-codeine 6.25-10 mg/5 mL syrup 5 ml PO Q6H PRN (Reason: cough) RF: 0 atorvastatin 40 mg Tablet 40 mg PO QHS RF: 0 metoprolol tartrate 25 mg tablet 12.5 mg PO BID RF: 0 aspirin 81 mg Capsule 81 mg PO DAILY RF: 0 Mucinex DM 30-600 mg Tablet Extended Release 12 Hr 1 tab PO Q12H PRN (Reason: Cough) RF: 0 lidocaine-prilocaine 2.5-2.5 % cream 1 applic topical ONCE PRN (Reason: port access) 30 Days Qty: 30 RF: 2 ondansetron 8 mg tablet,disintegrating 8 mg PO Q8H PRN (Reason: nausea and vomiting) Qty: 30 RF: 2 Primary Care Provider: Faheem Vallejo Referrals: Faheem Vallejo MD [Primary Care Provider] - Vandana Greenwood NP, [employer] [facility] [Nurse Practitioner] - 2 Days Disposition Disposition: Home, Self Care
[2021-06-18 10:47] VITALS: BP 118/89; PULSE 117
[2021-06-18 10:47] LABS: Absolute Lymphocyte Count 1.18 X10^3/uL (0.83-4.51); Absolute Neutrophil Count 11.8 X10^3/uL (2.0-7.7); Basophil# 0.05 X10^3/uL; Basophil% 0.4 % (0-1); Eosinophil# 0.11 X10^3/uL; Eosinophils% 0.8 % (0-5); Hematocrit 44.7 % (40-54); Hemoglobin 14.3 g/dL (13.0-16.5); Lymphocyte # 1.18 X10^3/ul (0.83-4.51); Lymphocyte % 8.6 % (19-41); Mean Corpuscular Volume 87.5 fL (80-94); Monocyte% 3.6 % (0-10); NRBC Flagged by Analyzer 0 % (0-5); Neutrophil # 11.78 X10^3/uL (2.7-7.7); Neutrophil % 85.7 % (47-70); Platelet Count 462 K/mm3 (150-450); RBC Distribution Width CV 13.4 % (11.6-14.6); RBC Distribution Width SD 43.4 fl (35.1-43.9); Red Blood Count 5.11 M/mm3 (4.6-6.2); White Blood Count 13.8 K/mm3 (4.4-11.0)
[2021-06-18] MEDS: Nitroglycerin SL (ED/IMG/CATH) 0.4 MG TABLET SL ×2 (10:47→10:53)
[2021-06-18 10:53] VITALS: BP 109/67; PULSE 123
[2021-06-18] MEDS: Morphine 4 MG/ML Syringe IV (10:59)
[2021-06-18 11:18] LABS: Anion Gap 8 (5-15); BUN 17 mg/dL (7-18); BUN/Creat Ratio 17.1 RATIO (10-20); Calcium,Total 9.5 mg/dL (8.5-10.1); Chloride 101 mmol/L (98-107); Creatinine, Serum 0.99 mg/dL (0.70-1.30); EST Glomerular Filtration Rate 82 mL/min (>60); Est Glom Filt Rate - Afr Amer 100 mL/min (>60); Estimated Creatinine Clearance 82.32 ml/min; Glucose 167 mg/dL (74-106); Potassium 3.9 mmol/L (3.5-5.1); Sodium Level 138 mmol/L (136-145); Troponin-I HS 5 pg/mL (3.0-78.0)
[2021-06-18 12:28] VITALS: BP 106/76; PULSE 104; RESP 20; O2SAT 98
[2021-06-18] MEDS: Metoprolol Tartrate 25 MG Tablet 12.5 MG PO (13:00)
[2021-06-18] MEDS: Aspirin 81 MG TAB.CHEW PO (13:00)
[2021-06-18] MEDS: oxyCODONE 5 MG Tablet PO (13:08)
[2021-06-18] MEDS: Acetaminophen 325 MG Tablet PO (13:08)
[2021-06-18 13:14] VITALS: BP 118/74
== END 2021-06-18 13:15 | disposition home or self-care (01) ==
PROVIDERS: Emergency Provider Emergency Medicine; PCP Family Medicine
DX: R07.9 Chest pain, unspecified (principal); R68.84 Jaw pain; C34.90 Malignant neoplasm of unspecified part of unspecified bronchus or lung; C77.9 Secondary and unspecified malignant neoplasm of lymph node, unspecified; E78.00 Pure hypercholesterolemia, unspecified; F32.A Depression, unspecified; F41.9 Anxiety disorder, unspecified; I10 Essential (primary) hypertension; I25.10 Atherosclerotic heart disease of native coronary artery without angina pectoris; I25.2 Old myocardial infarction; Z87.891 Personal history of nicotine dependence; Z79.82 Long term (current) use of aspirin; R05.3 Chronic cough; Z86.16 Personal history of COVID-19; Z95.5 Presence of coronary angioplasty implant and graft
CPT/HCPCS: 71275; 80048; 84484; 85025; 85610; 93005; 96374; 99285; J7030; Q9967; A4216

== ENCOUNTER 2021-08-09 21:20 | Inpatient (IN) | payer BC, SELFPAY ==
[2021-08-09 21:24] VITALS: BP 104/75; PULSE 124; RESP 20; TEMP 37.2; O2SAT 96; BMI 26.1
[2021-08-09 21:34] VITALS: BP 104/75; PULSE 124; RESP 20; TEMP 37.2; O2SAT 96
--- NOTE | 2021-08-09 21:49 | EKG12_ITS ---
Test Reason : DYSRHYTHMIA Blood Pressure : / mmHG Vent. Rate : 107 BPM Atrial Rate : 107 BPM P-R Int : 140 ms QRS Dur : 098 ms QT Int : 332 ms P-R-T Axes : 043 080 017 degrees QTc Int : 443 ms Sinus tachycardia Otherwise normal ECG Confirmed by WILLIAM VELAZQUEZ, ORION ([id number]), continuity editor ASH WYMAN ([id number]) on 08/12/2021 9:43:12 AM Referred By: RINA Confirmed By:ORION THOMAS MD
--- NOTE | 2021-08-09 21:51 | EX.ED.DYSGE1 ---
HPI History of Present Illness Chief Complaint: Fever Detail of Chief Complaint: Fever and chills also complained of right shoulder pain Informant: patient and spouse/S.O. Onset/Context/Timing Onset: Today and Hours Context: Sudden Onset Timing: Continuous Quality: Documented fever to 101.7 ?F, cough, wheezing Location: Respiratory Current Severity: Mild Maximum Severity: Moderate Worsened by: Dyspnea on exertion Relieved by: Nothing Associated Symptoms Associated Symptoms: Right shoulder pain Narrative Narrative: Patient is a 56-year-old male with stage III squamous cell carcinoma who was last radiation/chemotherapy was 6 weeks ago. He presents because of document temperature of 101.7. gave him 400 mg ibuprofen and 5 mg acetaminophen at 2030. He has been diaphoretic. He complains of aches. He denies headache, visual, ocular auditory symptoms. Denies photophobia, neck pain or neck stiffness. He states he normally has a cough. The cough is unchanged from baseline. Wheezing is new. He has no history of asthma. He denies chest pain. He denies nausea, vomiting or diarrhea. He does report dark urine but denies dysuria, frequency, urgency or hematuria. He denies rash other than the radiation changes on his skin. Prior similar symptoms: No Recent Illness/Hospitalization: Yes [facility] Medical History Abnormal PSA Anxiety Cancer Cardiology follow-up encounter Chronic cough Cold feeling Coronary artery disease COVID-19 Depression Emphysema, unspecified Encounter for chemotherapy management Encounter for education Endobronchial cancer Excessive bleeding Former smoker High cholesterol History of echocardiogram History of heart attack History of steroid therapy History of stress test History of torsion of testis Hypertension Hypokalemia Myocardial infarct Prostate cancer Regional lymph node metastasis present Restless legs Shoulder pain, right Wears glasses Home Medications aspirin 81 mg PO DAILY 05/05/21 [History Last Taken 05/04/21] atorvastatin 40 mg PO QHS 05/05/21 [History Last Taken Unknown] dextromethorphan-guaifenesin [Mucinex DM] 1 tab PO Q12H PRN 05/05/21 [History Last Taken Unknown] metoprolol tartrate 12.5 mg PO BID 05/05/21 [History Last Taken 06/07/21] lorazepam 0.5 mg tablet 0.5 mg PO TID PRN tab 05/26/21 [History Last Taken Unknown] ondansetron 8 mg disintegrating tablet 8 mg PO Q8H PRN #30 tab 06/14/21 [Rx Last Taken Unknown] lidocaine-prilocaine 2.5 %-2.5 % topical cream 1 applic TOPICAL ONCE PRN 30 Days #30 g 06/21/21 [Rx Last Taken Unknown] albuterol sulfate 90 mcg/actuation aerosol inhaler 2 puff INHALATION Q6H PRN #8.5 g 07/15/21 [Rx Last Taken Unknown] famotidine 20 mg tablet 20 mg PO QHS 07/20/21 [History Last Taken Unknown] omeprazole 20 mg capsule,delayed release 20 mg PO DAILY 07/20/21 [History Last Taken Unknown] oxycodone 5 mg/5 mL oral solution 5 mg PO Q6H PRN 14 Days #140 ml 07/27/21 [Rx Last Taken Unknown] potassium chloride 20 mEq tablet,extended release 20 meq PO DAILY #3 tab 08/09/21 [Rx Last Taken Unknown] Allergy/AdvReac Type Severity Reaction Status Date / Time No Known Allergies Allergy Verified 08/09/21 09:52 Family History Father Emphysema lung Cancer prostate cancer Grandfather Cancer prostate Surgical History H/O prostatectomy History of cardiac catheterization History of coronary artery stent placement History of hernia repair Social History (Updated 08/09/21 @ 21:[address] Jered Torres MD) household members: spouse Smoking Status: Former smoker quit date: 02/16/21 pack-years: 40 Tobacco: How many years used: 40 how long ago did patient quit smoking: patient reports smoking [id number] alcohol intake: never substance use type: does not use caffeine: No during the past year weight has: remained stable reema/jew: [employer] seatbelt use: always do you feel safe at home: Yes ROS ROS ED Constitutional Constitutional ED: Reports chills, fever(s) and sweats; Denies weight loss Eyes Eyes: Denies blurry vision, change in vision or diplopia ENT ENT ED: Reports rhinorrhea; Denies ear pain or sore throat Cardiovascular Cardiovascular: Denies chest pain, orthopnea, palpitations, paroxysmal nocturnal dyspnea or racing heartbeat Respiratory/Chest Respiratory/Chest: Reports cough, dyspnea, dyspnea on exertion and sputum; Denies orthopnea or paroxysmal nocturnal dyspnea Gastrointestinal Gastrointestinal: Denies abdominal pain, constipation, diarrhea, nausea or vomiting Genitourinary Genitourinary ED: Reports other Details: Dark-colored urine approximately 2 weeks ago ; Denies dysuria, hematuria or urinary frequency Musculoskeletal Musculoskeletal: Denies arthralgias, back pain or neck pain Integumentary Denies Abrasions or rash Neurologic Neurologic: Reports weakness; Denies headache(s) or paresthesias Endocrine Endocrinology: Denies polydipsia, polyphagia or polyuria Hematologic/Lymphatic Hematologic/Lymphatic: Denies anemia, easy bleeding or easy bruising EXAM Physical Exam Const Vital Signs: 08/09/21 21:24 08/09/21 21:34 08/09/21 21:53 Temperature 99.0 F 99.0 F Temperature Source Oral Oral Pulse Rate 124 H 124 H Respiratory Rate 20 H 20 H 20 H Respiratory Effort Normal Non-Labored Blood Pressure 104/75 104/75 Blood Pressure Mean 84 84 Pulse Ox 96 96 Oxygen Delivery Method Room Air Room Air Room Air 08/09/21 23:17 Temperature 98.9 F Temperature Source Oral Pulse Rate 98 Respiratory Rate 16 Respiratory Effort Blood Pressure 96/64 Blood Pressure Mean 74 Pulse Ox 91 Oxygen Delivery Method Room Air Positive well nourished and well developed General Appearance ED: well developed and other Patient appears ill. He is diaphoretic. ; Negative for cyanotic, diaphoretic or pallor HEENT Reports TM's clear and dry mucous membranes HEENT Narrative: Nares patent. Posterior pharynx no erythema or exudate. Negative for trauma or tenderness Tympanic Membrane ED: Yes TM's clear Mouth ED: Yes dry mucous membranes Mouth: dry mucous membranes Eyes PERRL and EOMs intact bilaterally General Eye ED: Negative for pale conjunctiva or scleral icterus Neck no lymphadenopathy, supple and no JVD General: Negative for tenderness Chest Wall inspection of chest normal Resp normal respiratory effort and No clear to auscultation bilaterally Effort and Inspection: Negative for pain with movement Auscultation: wheezes expiratory wheezes, posterior and throughout Cardio regular rhythm, S1 normal heart sound, S2 normal heart sound and no murmurs Rate: tachycardic GI normal to inspection, nondistended, normoactive bowel sounds, non-tender and non-distended Palpation: soft Back/Spine no CVA tenderness Cervical Spine: Negative for cervical spine tenderness Thoracic Spine / Upper Back: Negative for thoracic spinal tenderness or paraspinal muscle tenderness Lumbar Spine / Lower Back: Negative for lumbar spinal tenderness Extremity normal to inspection General Extremety ED: Negative for edema or tenderness General Extremity: Negative for edema Neuro oriented x3, CN's II-XII intact bilaterally and no sensory deficits noted Sensorium / Orientation: alert Motor Exam: strength 5/5 throughout Psych mental status grossly normal Skin No no rashes or lesions noted and no wounds Skin Narrative: Radiation changes noted right upper back. General Skin Exam: Negative for jaundice or pallor MDM MDM MDM Narrative Medical decision making narrative: Patient presents with infectious-like symptoms. With history of cancer recent treatment will need to evaluate for pulmonary etiology versus other cause. This may represent viral versus bacterial infection. EKG, chest x-ray, appropriate blood work including lactate was ordered. Patient's port score is 97 which makes him category for risk factor and curb 65 is 2 points which is moderate risk factor both recommend inpatient therapy. Lab Data Attestation: I reviewed the patient's lab results. Lab results narrative: White count is normal. Mild anemia. COVID axonal. Comprehensive metabolic panel is remarkable slight elevation glucose of 124. Lactate is less than 2. Since patient has bilateral pneumonia and meets criteria for sepsis with tachycardia tachypnea will contact hospitalist for admission. Labs: Laboratory Results - last 24 hr 08/09/21 08/09/21 08/09/21 22:10 22:10 22:10 WBC 6.0 RBC 3.53 L Hgb 10.8 L Hct 31.6 L MCV 89.5 MCH 30.6 MCHC 34.2 RDW Std Deviation 69.9 H RDW Coeff of Sana 22.6 H Plt Count 198 MPV 9.3 Immature Gran % (Auto) 0.300 Neut % (Auto) 73.4 H Lymph % (Auto) 6.5 L [place] % (Auto) 16.5 H Eos % (Auto) 2.3 Baso % (Auto) 1.0 Absolute Neuts (auto) 4.4 Absolute Lymphs (auto) 0.39 L Nucleated RBC % 0 Differential Comment SEE COMMENT Platelet Estimate ADEQUATE Anisocytosis 1+ Macrocytosis RARE PT 14.5 INR 1.2 APTT 43.3 H Sodium 139 Potassium 3.6 Chloride 108 H Carbon Dioxide 23.0 Anion Gap 8 BUN 13 Creatinine 1.10 Estim Creat Clear Calc 74.09 Est GFR (MDRD) Af Amer 89 Est GFR (MDRD) Non-Af 73 BUN/Creatinine Ratio 11.8 Glucose 124 H Lactic Acid Calcium 9.1 Total Bilirubin 0.60 AST 26 ALT 39 Alkaline Phosphatase 86 Total Protein 6.9 Albumin 2.7 L Globulin 4.2 Albumin/Globulin Ratio 0.6 L 08/09/21 22:10 WBC RBC Hgb Hct MCV MCH MCHC RDW Std Deviation RDW Coeff of Sana Plt Count MPV Immature Gran % (Auto) Neut % (Auto) Lymph % (Auto) [place] % (Auto) Eos % (Auto) Baso % (Auto) Absolute Neuts (auto) Absolute Lymphs (auto) Nucleated RBC % Differential Comment Platelet Estimate Anisocytosis Macrocytosis PT INR APTT Sodium Potassium Chloride Carbon Dioxide Anion Gap BUN Creatinine Estim Creat Clear Calc Est GFR (MDRD) Af Amer Est GFR (MDRD) Non-Af BUN/Creatinine Ratio Glucose Lactic Acid 1.4 Calcium Total Bilirubin AST ALT Alkaline Phosphatase Total Protein Albumin Globulin Albumin/Globulin Ratio Radiography Chest X-Ray - ED: 1 View and Read by ED Physician (Patient has right and left upper lobe pneumonia on x-ray. Cardiac silhouette size normal. Perihilar region unremarkable. Osseous structures are unremarkable. Interpreted by id [id number]) Diagnostic Testing: Clinical Impression(s) from Imaging Studies Chest X-Ray 08/09/21 22:10 IMPRESSION: Bilateral upper lobe pneumonia. Electronically Signed: Harvinder Palomino MD at 22:48 EST , Discharge Plan Dx/Rx/DC Orders Clinical Impression: Pneumonia of both upper lobes, Sepsis, Primary squamous cell carcinoma of lung Disposition Disposition: Acute Care [facility]
[2021-08-09 21:53] VITALS: RESP 20
[2021-08-09] MEDS: 0.9% Normal Saline 1,000 ML 999 ML IV (22:10)
--- NOTE | 2021-08-09 22:10 | RAD_ITS ---
EXAM: XR CHEST, 1 VIEW CLINICAL INDICATION: Fever 101.7, wheezing, cough TECHNIQUE: Frontal view of the chest. This report was created using [employer] report generation technology. COMPARISON: 06/07/2021 FINDINGS: LUNGS AND PLEURAL SPACES: Bilateral lower lobe pneumonia. This has progressed from the prior study. No pleural effusion or pneumothorax. HEART: Unremarkable. Cardiac silhouette not enlarged. MEDIASTINUM: Central airways and mediastinal contour are unremarkable. BONES/JOINTS: No suspicious lytic or sclerotic lesions of bone. SOFT TISSUES: Unremarkable. TUBES, LINES AND DEVICES: Right chest port identified with tip at or just below the cavoatrial junction. RAD/Chest 1 View (Portable) IMPRESSION: Bilateral upper lobe pneumonia. Electronically Signed: Harvinder Palomino MD at 22:48 EST ,
[2021-08-09 22:20] LABS: Absolute Lymphocyte Count 0.39 X10^3/uL (0.83-4.51); Absolute Neutrophil Count 4.4 X10^3/uL (2.0-7.7); Basophil# 0.06 X10^3/uL; Eosinophil# 0.14 X10^3/uL; Eosinophils% 2.3 % (0-5); Hematocrit 31.6 % (40-54); Hemoglobin 10.8 g/dL (13.0-16.5); Lymphocyte # 0.39 X10^3/ul (0.83-4.51); Lymphocyte % 6.5 % (19-41); Mean Corp Hgb Conc 34.2 g/dL (32-36); Mean Corpuscular Hgb 30.6 pg (27.0-32.0); Mean Corpuscular Volume 89.5 fL (80-94); Mean Platelet Vol. 9.3 fl (6.2-12.0); Monocyte# 0.99 X10^3/uL; Monocyte% 16.5 % (0-10); NRBC Flagged by Analyzer 0 % (0-5); Neutrophil # 4.41 X10^3/uL (2.7-7.7); Neutrophil % 73.4 % (47-70); POSITIVE DIFFERENTIAL YES; POSITIVE MORPHOLOGY YES; Platelet Count 198 K/mm3 (150-450); RBC Distribution Width CV 22.6 % (11.6-14.6); RBC Distribution Width SD 69.9 fl (35.1-43.9); Red Blood Count 3.53 M/mm3 (4.6-6.2)
[2021-08-09 22:21] LABS: Differential Indicated SCAN CRITERIA MET
[2021-08-09 22:30] LABS: International Normalized Ratio 1.2; Prothrombin Time (Protime)PT. 14.5 SECONDS (11.7-14.9)
[2021-08-09 22:31] LABS: Partial Thromboplast Time 43.3 Seconds (24.1-36.2)
[2021-08-09 22:34] LABS: ALB/GLOB Ratio 0.6 RATIO (0.9-2.4); AST(SGOT) 26 U/L (15-37); Alanine Aminotransfer ALT/SGPT 39 U/L (16-61); Albumin, Serum 2.7 g/dL (3.2-5.0); Alkaline Phosphatase 86 U/L (45-117); Anion Gap 8 (5-15); BUN 13 mg/dL (7-18); BUN/Creat Ratio 11.8 RATIO (10-20); Calcium,Total 9.1 mg/dL (8.5-10.1); Chloride 108 mmol/L (98-107); EST Glomerular Filtration Rate 73 mL/min (>60); Est Glom Filt Rate - Afr Amer 89 mL/min (>60); Estimated Creatinine Clearance 74.09 ml/min; Globulin 4.2 g/dL (2.2-4.2); Glucose 124 mg/dL (74-106); Potassium 3.6 mmol/L (3.5-5.1); Protein, Total 6.9 g/dL (6.4-8.2); Sodium Level 139 mmol/L (136-145)
[2021-08-09 22:43] LABS: Lactic Acid 1.4 mmol/L (0.4-1.9)
[2021-08-09 22:49] LABS: Anisocytosis 1+; Platelet Estimate ADEQUATE (ADEQ)
[2021-08-09 22:50] LABS: Macrocytosis RARE
[2021-08-09 23:17] VITALS: BP 96/64; PULSE 98; RESP 16; TEMP 37.2; O2SAT 90; O2SAT 91
--- NOTE | 2021-08-09 23:41 | EDS_ITS ---
HPI History of Present Illness Chief Complaint: Fever PFSH PFSH Medical History Abnormal PSA Anxiety Cancer Cardiology follow-up encounter Chronic cough Cold feeling Coronary artery disease COVID-19 Depression Emphysema, unspecified Encounter for chemotherapy management Encounter for education Endobronchial cancer Excessive bleeding Former smoker High cholesterol History of echocardiogram History of heart attack History of steroid therapy History of stress test History of torsion of testis Hypertension Hypokalemia Myocardial infarct Prostate cancer Regional lymph node metastasis present Restless legs Shoulder pain, right Wears glasses Home Medications aspirin 81 mg PO DAILY 05/05/21 [History Last Taken 05/04/21] atorvastatin 40 mg PO QHS 05/05/21 [History Last Taken Unknown] dextromethorphan-guaifenesin [Mucinex DM] 1 tab PO Q12H PRN 05/05/21 [History Last Taken Unknown] metoprolol tartrate 12.5 mg PO BID 05/05/21 [History Last Taken 06/07/21] lorazepam 0.5 mg tablet 0.5 mg PO TID PRN tab 05/26/21 [History Last Taken Unknown] ondansetron 8 mg disintegrating tablet 8 mg PO Q8H PRN #30 tab 06/14/21 [Rx Last Taken Unknown] lidocaine-prilocaine 2.5 %-2.5 % topical cream 1 applic TOPICAL ONCE PRN 30 Days #30 g 06/21/21 [Rx Last Taken Unknown] albuterol sulfate 90 mcg/actuation aerosol inhaler 2 puff INHALATION Q6H PRN #8.5 g 07/15/21 [Rx Last Taken Unknown] famotidine 20 mg tablet 20 mg PO QHS 07/20/21 [History Last Taken Unknown] omeprazole 20 mg capsule,delayed release 20 mg PO DAILY 07/20/21 [History Last Taken Unknown] oxycodone 5 mg/5 mL oral solution 5 mg PO Q6H PRN 14 Days #140 ml 07/27/21 [Rx Last Taken Unknown] potassium chloride 20 mEq tablet,extended release 20 meq PO DAILY #3 tab 08/09/21 [Rx Last Taken Unknown] Allergy/AdvReac Type Severity Reaction Status Date / Time No Known Allergies Allergy Verified 08/09/21 09:52 Family History Father Emphysema lung Cancer prostate cancer Grandfather Cancer prostate Surgical History H/O prostatectomy History of cardiac catheterization History of coronary artery stent placement History of hernia repair Social History (Updated 08/09/21 @ 21:[address] Jered Torres MD) household members: spouse Smoking Status: Former smoker quit date: 02/16/21 pack-years: 40 Tobacco: How many years used: 40 how long ago did patient quit smoking: patient reports smoking [id number] alcohol intake: never substance use type: does not use caffeine: No during the past year weight has: remained stable reema/sabianist: [employer] seatbelt use: always do you feel safe at home: Yes EXAM Physical Exam Const Vital Signs: 08/09/21 21:24 08/09/21 21:34 08/09/21 21:53 Temperature 99.0 F 99.0 F Temperature Source Oral Oral Pulse Rate 124 H 124 H Respiratory Rate 20 H 20 H 20 H Respiratory Effort Normal Non-Labored Blood Pressure 104/75 104/75 Blood Pressure Mean 84 84 Pulse Ox 96 96 Oxygen Delivery Method Room Air Room Air Room Air 08/09/21 23:17 Temperature 98.9 F Temperature Source Oral Pulse Rate 98 Respiratory Rate 16 Respiratory Effort Blood Pressure 96/64 Blood Pressure Mean 74 Pulse Ox 91 Oxygen Delivery Method Room Air MDM MDM Lab Data Labs: Laboratory Results - last 24 hr 08/09/21 08/09/21 08/09/21 22:10 22:10 22:10 WBC 6.0 RBC 3.53 L Hgb 10.8 L Hct 31.6 L MCV 89.5 MCH 30.6 MCHC 34.2 RDW Std Deviation 69.9 H RDW Coeff of Sana 22.6 H Plt Count 198 MPV 9.3 Immature Gran % (Auto) 0.300 Neut % (Auto) 73.4 H Lymph % (Auto) 6.5 L [place] % (Auto) 16.5 H Eos % (Auto) 2.3 Baso % (Auto) 1.0 Absolute Neuts (auto) 4.4 Absolute Lymphs (auto) 0.39 L Nucleated RBC % 0 Differential Comment SEE COMMENT Platelet Estimate ADEQUATE Anisocytosis 1+ Macrocytosis RARE PT 14.5 INR 1.2 APTT 43.3 H Sodium 139 Potassium 3.6 Chloride 108 H Carbon Dioxide 23.0 Anion Gap 8 BUN 13 Creatinine 1.10 Estim Creat Clear Calc 74.09 Est GFR (MDRD) Af Amer 89 Est GFR (MDRD) Non-Af 73 BUN/Creatinine Ratio 11.8 Glucose 124 H Lactic Acid Calcium 9.1 Total Bilirubin 0.60 AST 26 ALT 39 Alkaline Phosphatase 86 Total Protein 6.9 Albumin 2.7 L Globulin 4.2 Albumin/Globulin Ratio 0.6 L 08/09/21 22:10 WBC RBC Hgb Hct MCV MCH MCHC RDW Std Deviation RDW Coeff of Sana Plt Count MPV Immature Gran % (Auto) Neut % (Auto) Lymph % (Auto) [place] % (Auto) Eos % (Auto) Baso % (Auto) Absolute Neuts (auto) Absolute Lymphs (auto) Nucleated RBC % Differential Comment Platelet Estimate Anisocytosis Macrocytosis PT INR APTT Sodium Potassium Chloride Carbon Dioxide Anion Gap BUN Creatinine Estim Creat Clear Calc Est GFR (MDRD) Af Amer Est GFR (MDRD) Non-Af BUN/Creatinine Ratio Glucose Lactic Acid 1.4 Calcium Total Bilirubin AST ALT Alkaline Phosphatase Total Protein Albumin Globulin Albumin/Globulin Ratio Radiography Diagnostic Testing: Clinical Impression(s) from Imaging Studies Chest X-Ray 08/09/21 22:10 IMPRESSION: Bilateral upper lobe pneumonia. Electronically Signed: Harvinder Palomino MD at 22:48 EST , Discharge Plan Dx/Rx/DC Orders Clinical Impression: Pneumonia of both upper lobes, Sepsis, Primary squamous cell carcinoma of lung Disposition Disposition: Acute Care [facility]
[2021-08-10] VITALS (16 sets, daily range): BP systolic 92–111; BP diastolic 60–74; PULSE 88–121; RESP 16–20; TEMP 36.4–37.4; O2SAT 90–99; BMI 26.3
--- NOTE | 2021-08-10 00:05 | PCM.HP.STD ---
Documented by User: JESSICA Baker 08/10/21 00:17 HPI - General General Date of Admission: 08/09/21 Date of Service: 08/10/21 Chief Complaint: Fever HPI Narrative JUVENLA SALGADO, is a 56 M who presents with a fever for the past 24 hours. Patient reports a history of stage III squamous cell carcinoma in his right long and last had radiation or chemo 6 weeks ago. Patient states that home has fever was as high as 101.7. Patient states that he took both acetaminophen and ibuprofen at home for his fever. Patient states that he has also been short of breath with activity. Patient states that he normally has a cough and this is unchanged. Patient reports that he noticed that he was also wheezing beginning today which is new. Patient reports a medical history including prostate cancer with subsequent prostatectomy, CAD, hyperlipidemia, radiation esophagitis. REPLACED BY [facility] Medical History Abnormal PSA Anxiety Cancer Cardiology follow-up encounter Chronic cough Cold feeling Coronary artery disease COVID-19 Depression Emphysema, unspecified Encounter for chemotherapy management Encounter for education Endobronchial cancer Excessive bleeding Former smoker High cholesterol History of echocardiogram History of heart attack History of steroid therapy History of stress test History of torsion of testis Hypertension Hypokalemia Myocardial infarct Prostate cancer Regional lymph node metastasis present Restless legs Shoulder pain, right Wears glasses Home Medications aspirin 81 mg PO DAILY 05/05/21 [History Last Taken 05/04/21] atorvastatin 40 mg PO QHS 05/05/21 [History Last Taken Unknown] dextromethorphan-guaifenesin [Mucinex DM] 1 tab PO Q12H PRN 05/05/21 [History Last Taken Unknown] metoprolol tartrate 12.5 mg PO BID 05/05/21 [History Last Taken 06/07/21] lorazepam 0.5 mg tablet 0.5 mg PO TID PRN tab 05/26/21 [History Last Taken Unknown] ondansetron 8 mg disintegrating tablet 8 mg PO Q8H PRN #30 tab 06/14/21 [Rx Last Taken Unknown] lidocaine-prilocaine 2.5 %-2.5 % topical cream 1 applic TOPICAL ONCE PRN 30 Days #30 g 06/21/21 [Rx Last Taken Unknown] albuterol sulfate 90 mcg/actuation aerosol inhaler 2 puff INHALATION Q6H PRN #8.5 g 07/15/21 [Rx Last Taken Unknown] famotidine 20 mg tablet 20 mg PO QHS 07/20/21 [History Last Taken Unknown] omeprazole 20 mg capsule,delayed release 20 mg PO DAILY 07/20/21 [History Last Taken Unknown] oxycodone 5 mg/5 mL oral solution 5 mg PO Q6H PRN 14 Days #140 ml 07/27/21 [Rx Last Taken Unknown] potassium chloride 20 mEq tablet,extended release 20 meq PO DAILY #3 tab 08/09/21 [Rx Last Taken Unknown] Allergy/AdvReac Type Severity Reaction Status Date / Time No Known Allergies Allergy Verified 08/09/21 09:52 Family History Father Emphysema lung Cancer prostate cancer Grandfather Cancer prostate Surgical History H/O prostatectomy History of cardiac catheterization History of coronary artery stent placement History of hernia repair Social History household members: spouse Smoking Status: Former smoker quit date: 02/16/21 pack-years: 40 Tobacco: How many years used: 40 how long ago did patient quit smoking: patient reports smoking [id number] alcohol intake: never substance use type: does not use caffeine: No during the past year weight has: remained stable reema/taoism: Shinto seatbelt use: always do you feel safe at home: Yes ROS Constitutional Constitutional: Reports fever(s) and malaise; Denies anorexia, chills, fatigue or weakness Cardiovascular Cardiovascular: Denies chest pain, edema, palpitations or syncope Respiratory/Chest Respiratory/Chest: Reports cough, dyspnea on exertion, productive cough and wheezing Gastrointestinal Gastrointestinal: Denies abdominal pain, constipation, diarrhea, nausea or vomiting Genitourinary Genitourinary: Denies dysuria Musculoskeletal Musculoskeletal: Denies back pain, extremity pain, joint pain, joint stiffness or joint swelling Integumentary Integumentary: Denies dry skin Neurologic Neurologic: Denies abnormal gait, abnormal speech, confusion, dizziness or focal weakness Psychiatric Psychiatric: Denies anxiety or depression Endocrine Endocrinology: Denies change in body appearance Hematologic/Lymphatic Hematologic/Lymphatic: Denies anemia, easy bleeding or easy bruising Vital Signs Vital Signs Vital Signs: 08/09/21 21:24 08/09/21 21:34 08/09/21 21:53 Temperature 99.0 F 99.0 F Temperature Source Oral Oral Pulse Rate 124 H 124 H Respiratory Rate 20 H 20 H 20 H Respiratory Effort Normal Non-Labored Blood Pressure 104/75 104/75 Blood Pressure Mean 84 84 Pulse Ox 96 96 Oxygen Delivery Method Room Air Room Air Room Air 08/09/21 23:17 Temperature 98.9 F Temperature Source Oral Pulse Rate 98 Respiratory Rate 16 Respiratory Effort Blood Pressure 96/64 Blood Pressure Mean 74 Pulse Ox 91 Oxygen Delivery Method Room Air Weight Weight: 177 lb Body Mass Index (BMI) 26.1 Physical Exam Const alert, oriented x3 and no apparent distress General Appearance: cooperative HEENT normocephalic and head/scalp atraumatic Eyes conjunctivae normal and no scleral icterus Neck supple General: trachea midline Resp normal respiratory effort and normal air movement Auscultation: wheezes expiratory wheezes, lower bilaterally, anterior and posterior Cardio regular rate, regular rhythm, S1 normal heart sound, S2 normal heart sound and peripheral pulses 2+ throughout GI normal to inspection, nondistended, normoactive bowel sounds, soft to palpation and non-tender Extremity normal capillary refill and no clubbing, cyanosis or edema General Extremity: no tenderness to palpation of joints or extremities Skin General Skin Exam: no breakdown and turgor normal Lesions: no lesions Rashes: no rashes Neuro no focal motor deficits and no sensory deficits noted Speech: speech normal Motor Exam: Negative for general weakness Results Lab / Micro Data Result Diagrams: 08/09/21 22:10 08/09/21 22:10 Labs: Laboratory Results - last 24 hr 08/09/21 22:10: WBC 6.0, RBC 3.53 L, Hgb 10.8 L, Hct 31.6 L, MCV 89.5, MCH 30.6, MCHC 34.2, RDW Std Deviation 69.9 H, RDW Coeff of Sana 22.6 H, Plt Count 198, MPV 9.3, Immature Gran % (Auto) 0.300, Neut % (Auto) 73.4 H, Lymph % (Auto) 6.5 L, [place] % (Auto) 16.5 H, Eos % (Auto) 2.3, Baso % (Auto) 1.0, Absolute Neuts (auto) 4.4, Absolute Lymphs (auto) 0.39 L, Nucleated RBC % 0, Differential Comment SEE COMMENT, Platelet Estimate ADEQUATE, Anisocytosis 1+, Macrocytosis RARE 08/09/21 22:10: PT 14.5, INR 1.2, APTT 43.3 H 08/09/21 22:10: Sodium 139, Potassium 3.6, Chloride 108 H, Carbon Dioxide 23.0, Anion Gap 8, BUN 13, Creatinine 1.10, Estim Creat Clear Calc 74.09, Est GFR (MDRD) Af Amer 89, Est GFR (MDRD) Non-Af 73, BUN/Creatinine Ratio 11.8, Glucose 124 H, Calcium 9.1, Total Bilirubin 0.60, AST 26, ALT 39, Alkaline Phosphatase 86, Total Protein 6.9, Albumin 2.7 L, Globulin 4.2, Albumin/Globulin Ratio 0.6 L 08/09/21 22:10: Lactic Acid 1.4 Micro: Microbiology 08/09/21 21:55 Nasal Secretion SARS-CoV-2 Antigen (Rapid) - Final Radiology Impression Chest X-Ray 08/09/21 22:10 IMPRESSION: Bilateral upper lobe pneumonia. Electronically Signed: Harvinder Palomino MD at 22:48 EST , Assessment & Plan Assessment/Plan (1) Pneumonia of both upper lobes: QUALIFIERS: Pneumonia type: due to unspecified organism Qualified Code(s): J18.9 - Pneumonia, unspecified organism (2) Primary squamous cell carcinoma of lung: QUALIFIERS: Laterality: right Qualified Code(s): C34.91 - Malignant neoplasm of unspecified part of right bronchus or lung PLAN: 1. Bilateral upper lobe pneumonia -Admit to [facility] -Patient received ceftriaxone and azithromycin in ER, will continue -Normal saline 100 mL/h -Urine Legionella and strep pneumonia ordered as well as UA and urine culture -Encourage incentive spirometry -Oxygen therapy per protocol -CBC and BMP ordered for a.m. -Sputum culture ordered -Scheduled DuoNeb and as needed albuterol nebulizer treatments ordered -Mucinex ordered 2. Primary squamous cell carcinoma of right lung -Patient reports it has been 6 weeks since last radiation or chemo treatment -Neutropenic precautions ordered as patient was neutropenic prior to becoming ill -Patient reports weight loss, nutrition consult placed 3. Radiation esophagitis -Continue omeprazole and famotidine 4. CAD -continue metoprolol -Patient has a history of stent placement 5. Hyperlipidemia -Continue atorvastatin DVT Prophylaxis-subcu Lovenox This patient was seen by JAYSON BakerC under the supervision of Dr. Villasenor. 29 minutes spent in clinical coordination of patient's plan of care. Documented by User: Dr. Juvenal Villasenor MD 08/10/21 00:20 HPI - General General Date of Admission: 08/09/21 [facility] Medical History Abnormal PSA Anxiety Cancer Cardiology follow-up encounter Chronic cough Cold feeling Coronary artery disease COVID-19 Depression Emphysema, unspecified Encounter for chemotherapy management Encounter for education Endobronchial cancer Excessive bleeding Former smoker High cholesterol History of echocardiogram History of heart attack History of steroid therapy History of stress test History of torsion of testis Hypertension Hypokalemia Myocardial infarct Prostate cancer Regional lymph node metastasis present Restless legs Shoulder pain, right Wears glasses Home Medications aspirin 81 mg PO DAILY 05/05/21 [History Last Taken 05/04/21] atorvastatin 40 mg PO QHS 05/05/21 [History Last Taken Unknown] dextromethorphan-guaifenesin [Mucinex DM] 1 tab PO Q12H PRN 05/05/21 [History Last Taken Unknown] metoprolol tartrate 12.5 mg PO BID 05/05/21 [History Last Taken 06/07/21] lorazepam 0.5 mg tablet 0.5 mg PO TID PRN tab 05/26/21 [History Last Taken Unknown] ondansetron 8 mg disintegrating tablet 8 mg PO Q8H PRN #30 tab 12/28/21 [Rx Last Taken Unknown] lidocaine-prilocaine 2.5 %-2.5 % topical cream 1 applic TOPICAL ONCE PRN 30 Days #30 g 06/21/21 [Rx Last Taken Unknown] albuterol sulfate 90 mcg/actuation aerosol inhaler 2 puff INHALATION Q6H PRN #8.5 g 07/15/21 [Rx Last Taken Unknown] famotidine 20 mg tablet 20 mg PO QHS 07/20/21 [History Last Taken Unknown] omeprazole 20 mg capsule,delayed release 20 mg PO DAILY 07/20/21 [History Last Taken Unknown] oxycodone 5 mg/5 mL oral solution 5 mg PO Q6H PRN 14 Days #140 ml 07/27/21 [Rx Last Taken Unknown] potassium chloride 20 mEq tablet,extended release 20 meq PO DAILY #3 tab 08/09/21 [Rx Last Taken Unknown] Allergy/AdvReac Type Severity Reaction Status Date / Time No Known Allergies Allergy Verified 08/09/21 09:52 Family History Father Emphysema lung Cancer prostate cancer Grandfather Cancer prostate Surgical History H/O prostatectomy History of cardiac catheterization History of coronary artery stent placement History of hernia repair Social History household members: spouse Smoking Status: Former smoker quit date: 02/16/21 pack-years: 40 Tobacco: How many years used: 40 how long ago did patient quit smoking: patient reports smoking [id number] alcohol intake: never substance use type: does not use caffeine: No during the past year weight has: remained stable reema/taoism: Shinto seatbelt use: always do you feel safe at home: Yes Results Lab / Micro Data Result Diagrams: 08/09/21 22:10 08/09/21 22:10 Charges/Coding Addendum Addendum: Patient was seen and examined independently. I agree with assessment and plan by JAYSON BakerC Patient is a 56-year-old male with a significant history of former tobacco abuse, squamous cell carcinoma of the right lung who is on chemotherapy and radiation and who presents to the emergency department with a persistent fever that started on the same day of presentation. Further, patient has had about 2 weeks of chills. Patient reports shortness of breath and productive cough of yellow sputum. Also he is nauseous. Physical exam: General: Well-nourished, well-developed. Head: Normocephalic, atraumatic, no tenderness Eyes: PERRLA, EOMI ENT, no trauma, moist mucous membranes, no rhinorrhea Neck: Nontender, full range of motion, no spinal tenderness, deformities, step-off CVS: Regular rate and rhythm. S1-S2 present. No murmur, gallop or rub. Respiratory : Mild wheezes at upper salgado of right lung and mild Rales at lower salgado of right lung. Abdomen: Soft, nontender, nondistended, normal bowel sounds, no masses : Deferred Back: Nontender, no CVA tenderness, no midline spinal tenderness, deformities, step-offs Extremities: Nontender full range of motion, no trauma Skin: Flushed back. No trauma, abrasions Neuro: Alert, oriented, cranial nerves II through XII grossly intact. Psychiatry: Normal mood. Normal affect. Not depressed. Not anxious. Pneumonia Gram-positive, gram-negative or postobstructive pneumonia. Actual chest x-ray was visualized and independently interpreted and agree radiologist interpretation of bilateral upper lobe opacities. Review of labs showed normal white count. With mild acute on chronic anemia likely secondary to chemotherapy/inflammation. Rapid Covid screen at the emergency department was negative. Of note patient had COVID-19 infection in February 2021. Patient has received 1 dose of COVID-19 vaccination Blood culture ?2 is pending Started on ceftriaxone and azithromycin at the emergency department and continued. DuoNeb scheduled. Albuterol as needed Legionella antigen screen and Strep antigen ordered. Trend CBC and BMP Visit Charges Inpatient E&M: 89549 Init Hosp L3
[2021-08-10] MEDS: 0.9% Normal Saline 1,000 ML 100 ML IV ×3 (00:58→22:32)
[2021-08-10 03:22] LABS: Bacteria 0 SEEN /hpf (None Seen)
[2021-08-10 03:38] LABS: Color, Urine Yellow (Yellow); Glucose, Dipstick Normal (Normal); Ketone-Dipstick Negative (Negative); Leukocyte Esterase-Dipstick Negative /ul (Negative); Nitrite-Dipstick Negative (Negative); Occult Blood-Urine 25 /ul (Negative); Protein-Dipstick 15 mg/dl (Negative); Specific Gravity, Urine 1.025 (1.002-1.030); Urine Bilirubin Dipstick Negative (Negative); Urine Clarity Clear (Clear); Urine Urobilinogen Normal (Normal)
[2021-08-10 04:39] LABS: Mucous, Urine 3+ /hpf (<or=2+); Red Blood Cells-Urine 0-5 SEEN /hpf (0-5); White Blood Cells 0-5 SEEN /hpf (0-5)
[2021-08-10 04:41] LABS: Hyaline Cast 0-5 SEEN /lpf (0-5)
[2021-08-10 04:42] LABS: Squamous Epithelial Cells - UA 0-5 SEEN /hpf (0-5)
[2021-08-10 06:01] LABS: Absolute Lymphocyte Count 0.44 X10^3/uL (0.83-4.51); Absolute Neutrophil Count 2.9 X10^3/uL (2.0-7.7); Basophil# 0.06 X10^3/uL; Basophil% 1.3 % (0-1); Eosinophil# 0.28 X10^3/uL; Eosinophils% 5.9 % (0-5); Hemoglobin 9.4 g/dL (13.0-16.5); Lymphocyte # 0.44 X10^3/ul (0.83-4.51); Lymphocyte % 9.3 % (19-41); Mean Corp Hgb Conc 32.4 g/dL (32-36); Mean Corpuscular Hgb 29.3 pg (27.0-32.0); Mean Corpuscular Volume 90.3 fL (80-94); Mean Platelet Vol. 9.6 fl (6.2-12.0); Monocyte# 1.06 X10^3/uL; Monocyte% 22.4 % (0-10); NRBC Flagged by Analyzer 0 % (0-5); Neutrophil # 2.87 X10^3/uL (2.7-7.7); Neutrophil % 60.7 % (47-70); POSITIVE DIFFERENTIAL YES; POSITIVE MORPHOLOGY YES; Platelet Count 190 K/mm3 (150-450); RBC Distribution Width CV 22.6 % (11.6-14.6); RBC Distribution Width SD 71.2 fl (35.1-43.9); Red Blood Count 3.21 M/mm3 (4.6-6.2); White Blood Count 4.7 K/mm3 (4.4-11.0)
[2021-08-10 06:09] LABS: Differential Indicated SCAN CRITERIA MET
[2021-08-10 06:40] LABS: Anion Gap 5 (5-15); BUN 13 mg/dL (7-18); BUN/Creat Ratio 16.5 RATIO (10-20); Calcium,Total 8.4 mg/dL (8.5-10.1); Chloride 111 mmol/L (98-107); Creatinine, Serum 0.79 mg/dL (0.70-1.30); EST Glomerular Filtration Rate 108 mL/min (>60); Est Glom Filt Rate - Afr Amer 131 mL/min (>60); Estimated Creatinine Clearance 103.17 ml/min; Glucose 87 mg/dL (74-106); Potassium 3.5 mmol/L (3.5-5.1); Sodium Level 141 mmol/L (136-145)
[2021-08-10 06:41] LABS: Anisocytosis 3+
[2021-08-10] MEDS: Ipratropium/Albuterol Sulfate 3 ML AMPUL.NEB INHALATION ×3 (07:02→15:04)
--- NOTE | 2021-08-10 07:16 | PCM.PN.HOSP ---
Subjective Subjective Patient is a 56-year-old male with past medical history segment for primary squamous carcinoma involving the right lung who presented with intermittent fever and chills. Imaging studies obtained on admission demonstrated bilateral upper lobe pneumonia. Patient was started on antibiotics per protocol and admitted to regular nursing floor for further management Objective Data Objective Data Vital Signs: Vital Signs Temp Pulse Resp BP Pulse Ox 97.6 F L 94 18 109/73 94 08/10/21 04:43 08/10/21 04:43 08/10/21 04:43 08/10/21 04:43 08/10/21 04:43 Oxygen Delivery Method Room Air Weight: 80.5 kg Body Mass Index (BMI) 26.3 Intake & Output: Intake and Output for Last 24 Hours 08/08/21 08/09/21 08/10/21 23:59 23:59 23:59 Intake Total 1000 / 1000 405 / 405 Balance 1000 / 1000 405 / 405 Lab / Micro Data Result Diagrams: 08/10/21 04:39 08/10/21 04:39 Labs: Laboratory Results - last 24 hr 08/09/21 22:10: WBC 6.0, RBC 3.53 L, Hgb 10.8 L, Hct 31.6 L, MCV 89.5, MCH 30.6, MCHC 34.2, RDW Std Deviation 69.9 H, RDW Coeff of Sana 22.6 H, Plt Count 198, MPV 9.3, Immature Gran % (Auto) 0.300, Neut % (Auto) 73.4 H, Lymph % (Auto) 6.5 L, [place] % (Auto) 16.5 H, Eos % (Auto) 2.3, Baso % (Auto) 1.0, Absolute Neuts (auto) 4.4, Absolute Lymphs (auto) 0.39 L, Nucleated RBC % 0, Differential Comment SEE COMMENT, Platelet Estimate ADEQUATE, Anisocytosis 1+, Macrocytosis RARE 08/09/21 22:10: PT 14.5, INR 1.2, APTT 43.3 H 08/09/21 22:10: Sodium 139, Potassium 3.6, Chloride 108 H, Carbon Dioxide 23.0, Anion Gap 8, BUN 13, Creatinine 1.10, Estim Creat Clear Calc 74.09, Est GFR (MDRD) Af Amer 89, Est GFR (MDRD) Non-Af 73, BUN/Creatinine Ratio 11.8, Glucose 124 H, Calcium 9.1, Total Bilirubin 0.60, AST 26, ALT 39, Alkaline Phosphatase 86, Total Protein 6.9, Albumin 2.7 L, Globulin 4.2, Albumin/Globulin Ratio 0.6 L 08/09/21 22:10: Lactic Acid 1.4 08/10/21 03:10: Urine Color Yellow, Urine Clarity Clear, Urine pH 5.0, Ur Specific Mcdaniel 1.025, Urine Protein 15 H, Urine Glucose (UA) Normal, Urine Ketones Negative, Urine Occult Blood 25 H, Urine Nitrite Negative, Urine Bilirubin Negative, Urine Urobilinogen Normal, Ur Leukocyte Esterase Negative, Urine RBC 0-5 SEEN, Urine WBC 0-5 SEEN, Ur Squamous Epith Cells 0-5 SEEN, Urine Bacteria 0 SEEN, Hyaline Casts 0-5 SEEN, Urine Mucus 3+ 08/10/21 04:39: WBC 4.7, RBC 3.21 L, Hgb 9.4 L, Hct 29.0 L, MCV 90.3, MCH 29.3, MCHC 32.4 D, RDW Std Deviation 71.2 H, RDW Coeff of Sana 22.6 H, Plt Count 190, MPV 9.6, Immature Gran % (Auto) 0.400, Neut % (Auto) 60.7, Lymph % (Auto) 9.3 L, [place] % (Auto) 22.4 H, Eos % (Auto) 5.9 H, Baso % (Auto) 1.3 H, Absolute Neuts (auto) 2.9, Absolute Lymphs (auto) 0.44 L, Nucleated RBC % 0, Anisocytosis 3+ 08/10/21 04:39: Sodium 141, Potassium 3.5, Chloride 111 H, Carbon Dioxide 25.0, Anion Gap 5, BUN 13, Creatinine 0.79, Estim Creat Clear Calc 103.17, Est GFR (MDRD) Af Amer 131, Est GFR (MDRD) Non-Af 108, BUN/Creatinine Ratio 16.5, Glucose 87, Calcium 8.4 L Micro: Microbiology 08/10/21 03:10 Urine, Clean Catch Legionella Antigen - Final 08/10/21 03:10 Urine, Clean Catch Streptococcus pneumoniae Antigen (M - Final 08/09/21 21:55 Nasal Secretion SARS-CoV-2 Antigen (Rapid) - Final Radiography Diagnostic Testing: Radiology Impression Chest X-Ray 08/09/21 22:10 IMPRESSION: Bilateral upper lobe pneumonia. Electronically Signed: Harvinder Palomino MD at 22:48 EST , Physical Exam Narrative GENERAL: cooperative HEENT: Atraumatic; EYES; Anicteric, Normal Conjunctiva NECK; supple, normal thyroid, RESPIRATORY: Diminished to auscultation CARDIOVASCULAR: Regular S1 S2, GI: soft, normoactive bowel sounds, : No Renal angle tenderness; EXTREMITIES: No edema, no clubbing, MUSCULOSKELETAL: no muscle wasting NEURO: Awake; no lateralizing signs. SKIN: No Rash PSYCH; Flat affect Assessment & Plan Assessment/Plan (1) Pneumonia of both upper lobes: QUALIFIERS: Pneumonia type: due to unspecified organism Qualified Code(s): J18.9 - Pneumonia, unspecified organism (2) Primary squamous cell carcinoma of lung: QUALIFIERS: Laterality: right Qualified Code(s): C34.91 - Malignant neoplasm of unspecified part of right bronchus or lung PLAN: Patient is a 56-year-old male with past medical history segment for primary squamous carcinoma involving the right lung who presented with intermittent fever and chills. Imaging studies obtained on admission demonstrated bilateral upper lobe pneumonia. Patient was started on antibiotics per protocol and admitted to regular nursing floor for further management 1. Community-acquired pneumonia ?In an immunocompromised patient. Patient was started on Rocephin and Zithromax Zithromax discontinued and added Levaquin since patient is a significant risk for multidrug-resistant organisms including Pseudomonas. Also placed on supplemental oxygen cultures were sent from ED we will follow up on result 2. Primary squamous cell carcinoma involving the right lung ?Currently undergoing chemo and radiation 3. Radiation esophagitis ?Patient is on both PPI as well as H2 blockers and continue 4. Coronary artery disease ?Previous PCI 5. Dyslipidemia -Patient is on statin therapy, continued at home dose 6. Anemia - Secondary to chronic disorder cholesterolemia of malignancy, monitoring H&H and transfuse if patient becomes symptomatic or hemoglobin falls below 7 7. DVT prophylaxis ?SC Lovenox Charges/Coding Visit Charges Inpatient E&M: 50165 Subs Hosp L3
[2021-08-10] MEDS: Acetaminophen 325 MG Tablet 650 MG PO ×3 (07:33→20:49)
[2021-08-10] MEDS: guaiFENesin 1,200 MG Tablet 1200 MG PO ×2 (07:34→20:45)
[2021-08-10] MEDS: Enoxaparin 40 MG/0.4 ML Syringe SC (07:34)
[2021-08-10] MEDS: Aspirin 81 MG TAB.CHEW PO (09:08)
[2021-08-10] MEDS: Metoprolol Tartrate 25 MG Tablet 12.5 MG PO ×2 (09:09→20:44)
[2021-08-10] MEDS: Potassium Chloride Oral Tablet 20 MEQ PO (09:09)
[2021-08-10] MEDS: oxyCODONE 5 MG Tablet PO ×2 (09:14→23:28)
[2021-08-10] MEDS: LORazepam 0.5 MG Tablet PO ×2 (09:15→20:48)
--- NOTE | 2021-08-10 10:00 | CASEMGMT ---
Addendum entered by Shante Taylor 08/10/21 10:58: Pt states he feels his strength is fine. He states when he dc's he will see his chiropractor for sciatica pain. He is aware to notify the RN CM for any further dc needs. Original Note: RN CM Assessment: Face to Face with pt for initial transition planning/care coordination assessment. RN CM introduced self and role at [facility], pt voices understanding and consents to assessment. Pt is A/O x4 and answers all questions appropriately at this time. Pt lying in bed on RA in no distress. Care providers, pharmacy, and demographics verified/updated. Admitting Dx: bilat pna PCP:Yoni Specialists: Arjun onc; Ben onc; alcon Pederson Preferred Pharmacy: [facility] Retail Insurance: [employer] Prescription Benefit: yes LW/HPOA: Pt has a LW/DPOA on file at [facility]. His DPOA is his Raiza Clark. LNOK: Raiza Clark, Living Arrangements: Pt lives with in a single story house with one step to enter. Pt reports he is I in ADL's and denies concerns at home. Transportation: Pt drives self and denies concerns with transportation. DME/HHC/SNF: Pt denies having any DME, previous HHC or SNF stays. Pt states he was trying to work as he is between Phase I and Phase II of his treatment. He states he went back to work and then now has pna. 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 Pt does not want to designate a person to discuss dc plans with. He states his will make decisions when the time is needed. Pt states no concerns with going home at time of dc. Pt states no further concerns/needs. CM to follow. Advised pt to ask CM if any further question/concerns/needs arise, voices understanding. Pt Goal: Home Plan: Home
--- NOTE | 2021-08-10 10:04 | CASEMGMT ---
Social Work Note Per prosthetic aides teacher questions, pt has completed HCPOA and LW and provided documents to [facility]. SW reviewed chart, both HCPOA and LW are on file. SW printed off documents and placed on pt's chart. 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
[2021-08-10] MEDS: levoFLOXacin IV 750 MG/150 ML BAG 100 MG IV (13:25)
[2021-08-10] MEDS: Atorvastatin Calcium 40 MG Tablet PO (20:44)
[2021-08-10] MEDS: Ipratropium 0.5 MG/2.5 ML SOLUTION INHALATION (22:20)
[2021-08-11] VITALS (13 sets, daily range): BP systolic 96–106; BP diastolic 62–70; PULSE 86–118; RESP 16–19; TEMP 36.5–37.1; O2SAT 88–95
[2021-08-11] MEDS: Acetaminophen 325 MG Tablet 650 MG PO ×4 (03:20→22:29)
[2021-08-11 06:29] LABS: Absolute Lymphocyte Count 0.43 X10^3/uL (0.83-4.51); Absolute Neutrophil Count 3.5 X10^3/uL (2.0-7.7); Basophil# 0.05 X10^3/uL; Eosinophil# 0.18 X10^3/uL; Eosinophils% 3.6 % (0-5); Hemoglobin 9.4 g/dL (13.0-16.5); Lymphocyte # 0.43 X10^3/ul (0.83-4.51); Lymphocyte % 8.7 % (19-41); Mean Corp Hgb Conc 33.6 g/dL (32-36); Mean Corpuscular Hgb 30.2 pg (27.0-32.0); Mean Platelet Vol. 9.8 fl (6.2-12.0); Monocyte# 0.82 X10^3/uL; Monocyte% 16.5 % (0-10); NRBC Flagged by Analyzer 0 % (0-5); Neutrophil # 3.46 X10^3/uL (2.7-7.7); Neutrophil % 69.8 % (47-70); POSITIVE DIFFERENTIAL YES; POSITIVE MORPHOLOGY YES; Platelet Count 174 K/mm3 (150-450); RBC Distribution Width CV 22.5 % (11.6-14.6); Red Blood Count 3.11 M/mm3 (4.6-6.2)
[2021-08-11 06:38] LABS: Differential Indicated SCAN CRITERIA MET
[2021-08-11 06:58] LABS: Anion Gap 7 (5-15); BUN 8 mg/dL (7-18); Calcium,Total 8.5 mg/dL (8.5-10.1); Chloride 107 mmol/L (98-107); EST Glomerular Filtration Rate 105 mL/min (>60); Est Glom Filt Rate - Afr Amer 127 mL/min (>60); Estimated Creatinine Clearance 101.88 ml/min; Glucose 111 mg/dL (74-106); Potassium 3.4 mmol/L (3.5-5.1); Sodium Level 139 mmol/L (136-145)
[2021-08-11 07:04] LABS: Anisocytosis 2+
[2021-08-11] MEDS: Ipratropium 0.5 MG/2.5 ML SOLUTION INHALATION ×3 (07:12→18:46)
--- NOTE | 2021-08-11 07:24 | PCM.PN.HOSP ---
Subjective Subjective Patient seen complains of not feeling well. Had a low-grade fever during the evening. Had to be placed on oxygen following brief episodes of hypoxia Objective Data Objective Data Vital Signs: Vital Signs Temp Pulse Resp BP Pulse Ox 97.9 F 113 H 18 105/66 94 08/11/21 03:26 08/11/21 03:26 08/11/21 03:26 08/11/21 03:26 08/11/21 03:26 Oxygen Flow Rate (L/min) 2 Oxygen Delivery Method Nasal Cannula Weight: 80 kg Body Mass Index (BMI) 26.3 Intake & Output: Intake and Output for Last 24 Hours 08/09/21 08/10/21 08/11/21 23:59 23:59 23:59 Intake Total 1000 / 1000 3045 / 3045 120 / 120 Output Total 800 / 800 Balance 1000 / 1000 3045 / 3045 -680 / -680 Lab / Micro Data Result Diagrams: 08/11/21 05:35 08/11/21 05:35 Labs: Laboratory Results - last 24 hr 08/11/21 05:35: WBC 5.0, RBC 3.11 L, Hgb 9.4 L, Hct 28.0 L, MCV 90.0, MCH 30.2, MCHC 33.6, RDW Std Deviation 70.0 H, RDW Coeff of Sana 22.5 H, Plt Count 174, MPV 9.8, Immature Gran % (Auto) 0.400, Neut % (Auto) 69.8, Lymph % (Auto) 8.7 L, Mccormick % (Auto) 16.5 H, Eos % (Auto) 3.6, Baso % (Auto) 1.0, Absolute Neuts (auto) 3.5, Absolute Lymphs (auto) 0.43 L, Nucleated RBC % 0, Anisocytosis 2+ 08/11/21 05:35: Sodium 139, Potassium 3.4 L, Chloride 107, Carbon Dioxide 25.0, Anion Gap 7, BUN 8, Creatinine 0.80, Estim Creat Clear Calc 101.88, Est GFR (MDRD) Af Amer 127, Est GFR (MDRD) Non-Af 105, BUN/Creatinine Ratio 10.0, Glucose 111 H, Calcium 8.5 Micro: Microbiology 08/10/21 09:20 Sputum, Expectorated/Coughed Gram Stain - Final 08/10/21 03:10 Urine, Clean Catch Legionella Antigen - Final 08/10/21 03:10 Urine, Clean Catch Streptococcus pneumoniae Antigen (M - Final 08/09/21 21:55 Nasal Secretion SARS-CoV-2 Antigen (Rapid) - Final Physical Exam Narrative GENERAL: cooperative HEENT: Atraumatic; EYES; Anicteric, Normal Conjunctiva NECK; supple, normal thyroid, RESPIRATORY: Diminished to auscultation CARDIOVASCULAR: Regular S1 S2, GI: soft, normoactive bowel sounds, : No Renal angle tenderness; EXTREMITIES: No edema, no clubbing, MUSCULOSKELETAL: no muscle wasting NEURO: Awake; no lateralizing signs. SKIN: No Rash PSYCH; Flat affect Assessment & Plan Assessment/Plan (1) Pneumonia of both upper lobes: QUALIFIERS: Pneumonia type: due to unspecified organism Qualified Code(s): J18.9 - Pneumonia, unspecified organism (2) Primary squamous cell carcinoma of lung: QUALIFIERS: Laterality: right Qualified Code(s): C34.91 - Malignant neoplasm of unspecified part of right bronchus or lung PLAN: Patient is a 56-year-old male with past medical history segment for primary squamous carcinoma involving the right lung who presented with intermittent fever and chills. Imaging studies obtained on admission demonstrated bilateral upper lobe pneumonia. Patient was started on antibiotics per protocol and admitted to regular nursing floor for further management 1. Community-acquired pneumonia ?In an immunocompromised patient. Patient was started on Rocephin and Zithromax Zithromax discontinued and added Levaquin since patient is a significant risk for multidrug-resistant organisms including Pseudomonas. Also placed on supplemental oxygen cultures were sent from ED we will follow up on result -08/11/2021; Patient seen complains of not feeling well. Had a low-grade fever during the evening. Had to be placed on oxygen following brief episodes of hypoxia. Patient is to be assessed for discharge with a possible 6-minute walk 2. Primary squamous cell carcinoma involving the right lung ?Currently undergoing chemo and radiation 3. Radiation esophagitis ?Patient is on both PPI as well as H2 blockers and continue 4. Coronary artery disease ?Previous PCI 5. Dyslipidemia -Patient is on statin therapy, continued at home dose 6. Anemia - Secondary to chronic disorder cholesterolemia of malignancy, monitoring H&H and transfuse if patient becomes symptomatic or hemoglobin falls below 7 7. DVT prophylaxis ?SC Lovenox Charges/Coding Visit Charges Inpatient E&M: 29713 Subs Hosp L2
[2021-08-11] MEDS: Metoprolol Tartrate 25 MG Tablet 12.5 MG PO ×2 (07:48→22:22)
[2021-08-11] MEDS: Aspirin 81 MG TAB.CHEW PO (07:49)
[2021-08-11] MEDS: Potassium Chloride Oral Tablet 20 MEQ PO (07:50)
[2021-08-11] MEDS: LORazepam 0.5 MG Tablet PO ×2 (07:58→22:29)
[2021-08-11] MEDS: levoFLOXacin IV 750 MG/150 ML BAG 100 MG IV (09:31)
[2021-08-11] MEDS: 0.9% Normal Saline 1,000 ML 100 ML IV ×2 (09:31→22:22)
[2021-08-11] MEDS: guaiFENesin 1,200 MG Tablet 1200 MG PO ×2 (09:38→22:22)
[2021-08-11] MEDS: Enoxaparin 40 MG/0.4 ML Syringe SC (09:38)
[2021-08-11] MEDS: Mag Hydrox/Al Hydrox/Simeth 30 ML UDC PO (12:19)
--- NOTE | 2021-08-11 12:51 | CASEMGMT ---
RN CM in to pt room to discuss DME preference should pt need home O2. Pt present. Patient was provided a list of DME providers including quality and resource use data and consistent with the patient?s preferred geographic region, medical needs, and insurance network. The patient?s preferred provider is Krist[facility]. Explained process of oxygen at hospital and home. Pt and verbalize understanding.
[2021-08-11] MEDS: Ondansetron 4 MG/2 ML Vial IV (14:49)
[2021-08-11] MEDS: Sodium Chloride 0.65% 1 SPRAY SPRAY.BTL 2 SPRAY NASAL (14:49)
[2021-08-11] MEDS: 0.9% Saline Lock 10 ML Syringe IV (14:49)
[2021-08-11] MEDS: Atorvastatin Calcium 40 MG Tablet PO (22:24)
[2021-08-11] MEDS: oxyCODONE 5 MG Tablet PO (22:31)
[2021-08-12] VITALS (10 sets, daily range): BP systolic 93–116; BP diastolic 65–71; PULSE 94–116; RESP 16–20; TEMP 36.6–37.7; O2SAT 87–95
[2021-08-12] MEDS: oxyCODONE 5 MG Tablet PO (04:39)
[2021-08-12] MEDS: Acetaminophen 325 MG Tablet 650 MG PO ×2 (04:39→10:27)
[2021-08-12 05:32] LABS: Absolute Lymphocyte Count 0.27 X10^3/uL (0.83-4.51); Absolute Neutrophil Count 4.3 X10^3/uL (2.0-7.7); Basophil# 0.04 X10^3/uL; Basophil% 0.7 % (0-1); Eosinophil# 0.21 X10^3/uL; Eosinophils% 3.7 % (0-5); Hemoglobin 9.7 g/dL (13.0-16.5); Lymphocyte # 0.27 X10^3/ul (0.83-4.51); Lymphocyte % 4.8 % (19-41); Mean Corp Hgb Conc 33.4 g/dL (32-36); Mean Corpuscular Volume 89.8 fL (80-94); Monocyte# 0.78 X10^3/uL; Monocyte% 13.9 % (0-10); NRBC Flagged by Analyzer 0 % (0-5); Neutrophil # 4.29 X10^3/uL (2.7-7.7); Neutrophil % 76.5 % (47-70); POSITIVE DIFFERENTIAL YES; POSITIVE MORPHOLOGY YES; Platelet Count 180 K/mm3 (150-450); RBC Distribution Width CV 22.5 % (11.6-14.6); RBC Distribution Width SD 69.9 fl (35.1-43.9); Red Blood Count 3.23 M/mm3 (4.6-6.2); White Blood Count 5.6 K/mm3 (4.4-11.0)
[2021-08-12 05:39] LABS: Differential Indicated SCAN CRITERIA MET
[2021-08-12 05:50] LABS: Anisocytosis 2+
[2021-08-12 05:51] LABS: Anion Gap 7 (5-15); BUN 7 mg/dL (7-18); BUN/Creat Ratio 9.7 RATIO (10-20); Calcium,Total 8.5 mg/dL (8.5-10.1); Chloride 104 mmol/L (98-107); Creatinine, Serum 0.72 mg/dL (0.70-1.30); EST Glomerular Filtration Rate 119 mL/min (>60); Est Glom Filt Rate - Afr Amer 144 mL/min (>60); Glucose 110 mg/dL (74-106); Potassium 3.7 mmol/L (3.5-5.1); Sodium Level 136 mmol/L (136-145)
[2021-08-12] MEDS: Ipratropium 0.5 MG/2.5 ML SOLUTION INHALATION ×2 (07:32→13:15)
--- NOTE | 2021-08-12 07:35 | PCM.DC.SUM ---
Providers Date of Admission: 08/09/21 Primary Care Physician: Dr. Faheem Vallejo MD Reason For Visit: BILATERAL PNA Diagnosis Discharge Diagnosis (1) Pneumonia of both upper lobes: Status: Acute Code(s): J18.9 - Pneumonia, unspecified organism Qualifiers: Pneumonia type: due to unspecified organism Qualified Code(s): J18.9 - Pneumonia, unspecified organism (2) Primary squamous cell carcinoma of lung: Status: Acute Code(s): C34.90 - Malignant neoplasm of unspecified part of unspecified bronchus or lung Qualifiers: Laterality: right Qualified Code(s): C34.91 - Malignant neoplasm of unspecified part of right bronchus or lung Medications at Discharge Home Medications Mucinex DM 1 tab PO Q12H PRN 05/05/21 aspirin 81 mg PO DAILY 05/05/21 atorvastatin 40 mg PO QHS 05/05/21 metoprolol tartrate 12.5 mg PO BID 05/05/21 lorazepam 0.5 mg tablet 0.5 mg PO TID PRN tab 05/26/21 ondansetron 8 mg disintegrating tablet 8 mg PO Q8H PRN #30 tab 06/14/21 lidocaine-prilocaine 2.5 %-2.5 % topical cream 1 applic TOPICAL ONCE PRN 30 Days #30 g 06/21/21 albuterol sulfate 90 mcg/actuation aerosol inhaler 2 puff INHALATION Q6H PRN #8.5 g 07/15/21 oxycodone 5 mg/5 mL oral solution 5 mg PO Q6H PRN 14 Days #140 ml 07/27/21 potassium chloride 20 meq PO DAILY 08/10/21 levofloxacin 750 mg PO DAILY #5 tab 08/12/21 Hospital Course Summary of Care Provided Minutes Spent on Discharge: 35 Hospital Course: 1. Community-acquired pneumonia ?In an immunocompromised patient. Patient was started on Rocephin and Zithromax Zithromax discontinued and added Levaquin since patient is a significant risk for multidrug-resistant organisms including Pseudomonas. Also placed on supplemental oxygen cultures were sent from ED we will follow up on result -08/11/2021; Patient seen complains of not feeling well. Had a low-grade fever during the evening. Had to be placed on oxygen following brief episodes of hypoxia. Patient is to be assessed for discharge with a possible 6-minute walk -Patient was discharged home on Levaquin as well as supplemental oxygen. Patient to follow-up with both oncology and primary care physician within 1 week 2. Primary squamous cell carcinoma involving the right lung ?Currently undergoing chemo and radiation 3. Radiation esophagitis ?Patient is on both PPI as well as H2 blockers and continue 4. Coronary artery disease ?Previous PCI 5. Dyslipidemia -Patient is on statin therapy, continued at home dose 6. Anemia - Secondary to chronic disorder cholesterolemia of malignancy, monitoring H&H and transfuse if patient becomes symptomatic or hemoglobin falls below 7 7. DVT prophylaxis ?SC Lovenox Physical Exam Narrative GENERAL: cooperative HEENT: Atraumatic; EYES; Anicteric, Normal Conjunctiva NECK; supple, normal thyroid, RESPIRATORY: Diminished to auscultation CARDIOVASCULAR: Regular S1 S2, GI: soft, normoactive bowel sounds, : No Renal angle tenderness; EXTREMITIES: No edema, no clubbing, MUSCULOSKELETAL: no muscle wasting NEURO: Awake; no lateralizing signs. SKIN: No Rash PSYCH; Flat affect Weight / BMI Weight Weight: 81.2 kg Body Mass Index (BMI) 26.3 ABG / Lab / Microbiology Data Result Diagrams: 08/12/21 05:22 08/12/21 05:22 Laboratory: Laboratory Results - last 24 hr 08/12/21 05:22: WBC 5.6, RBC 3.23 L, Hgb 9.7 L, Hct 29.0 L, MCV 89.8, MCH 30.0, MCHC 33.4, RDW Std Deviation 69.9 H, RDW Coeff of Sana 22.5 H, Plt Count 180, MPV 9.0, Immature Gran % (Auto) 0.400, Neut % (Auto) 76.5 H, Lymph % (Auto) 4.8 L, Williamson % (Auto) 13.9 H, Eos % (Auto) 3.7, Baso % (Auto) 0.7, Absolute Neuts (auto) 4.3, Absolute Lymphs (auto) 0.27 L, Nucleated RBC % 0, Anisocytosis 2+ 08/12/21 05:22: Sodium 136, Potassium 3.7, Chloride 104, Carbon Dioxide 25.0, Anion Gap 7, BUN 7, Creatinine 0.72, Estim Creat Clear Calc 113.20, Est GFR (MDRD) Af Amer 144, Est GFR (MDRD) Non-Af 119, BUN/Creatinine Ratio 9.7 L, Glucose 110 H, Calcium 8.5 Microbiology: Microbiology 08/10/21 03:10 Urine, Clean Catch Urine Culture - Final Culture exhibits no growth. 08/09/21 22:10 Blood Culture (Wb) - Anticubital Right Blood Culture - Preliminary No growth in 48 hours. 08/09/21 22:25 Blood Culture (Wb) - Left Hand Blood Culture - Preliminary No growth in 48 hours. 08/10/21 09:20 Sputum, Expectorated/Coughed Gram Stain - Final 08/10/21 09:20 Sputum, Expectorated/Coughed Respiratory Culture - Preliminary Appears to be normal respiratory gutierrez. Further studies to follow. 08/10/21 03:10 Urine, Clean Catch Legionella Antigen - Final 08/10/21 03:10 Urine, Clean Catch Streptococcus pneumoniae Antigen (M - Final 08/09/21 21:55 Nasal Secretion SARS-CoV-2 Antigen (Rapid) - Final D/C Instructions Discharge Diet: No restrictions Discharge Activity: Return to Normal Activity Call your doctor if you observe: Fever of 101 or Higher, Shortness of breath, Fainting spells and Chest pain Meaningful Use Info Meaningful Use Diagnoses (Choose all that apply): None applicable Discharge Plan Admission Admit Date/Time: 08/09/21 23:59 Attending Provider: Ion Franklin Primary Care Provider: Faheem Vallejo Discharge Orders/Prescriptions Prescriptions: New levofloxacin 750 mg tablet 750 mg PO DAILY Qty: 5 RF: 0 Continued lorazepam [Ativan] 0.5 mg tablet 0.5 mg PO TID PRN (Reason: anxiety) RF: 0 atorvastatin 40 mg Tablet 40 mg PO QHS RF: 0 metoprolol tartrate 25 mg tablet 12.5 mg PO BID RF: 0 aspirin 81 mg Capsule 81 mg PO DAILY RF: 0 Mucinex DM 30-600 mg Tablet Extended Release 12 Hr 1 tab PO Q12H PRN (Reason: Cough) RF: 0 potassium chloride 20 mEq tablet extended release 20 meq PO DAILY RF: 0 ondansetron 8 mg tablet,disintegrating 8 mg PO Q8H PRN (Reason: nausea and vomiting) Qty: 30 RF: 2 lidocaine-prilocaine 2.5-2.5 % cream 1 applic topical ONCE PRN (Reason: port access) 30 Days Qty: 30 RF: 2 albuterol sulfate 90 mcg/actuation HFA aerosol inhaler 2 puff inhalation Q6H PRN (Reason: shortness of breath or wheezing) Qty: 8.5 RF: 1 oxycodone 5 mg/5 mL solution 5 mg PO Q6H PRN (Reason: pain) 14 Days Qty: 140 RF: 0 Referrals / Follow Up: Nany Díaz MD [STAFF PHYSICIAN] - In 1 Week Faheem Vallejo MD [Primary Care Provider] - In 1 Week Disposition Disposition (needs filled in before D/C Order can be placed): Home, Self Care Charges/Coding Visit Charges Inpatient E&M: 21702 Disch Hosp
[2021-08-12] MEDS: Aspirin 81 MG TAB.CHEW PO (08:10)
[2021-08-12] MEDS: Potassium Chloride Oral Tablet 20 MEQ PO (08:10)
[2021-08-12] MEDS: LORazepam 0.5 MG Tablet PO (08:29)
--- NOTE | 2021-08-12 10:07 | CASEMGMT ---
Addendum entered by Shante Taylor 08/12/21 13:19: Received notification that pt would like to leave work to go to the pt home to get the concentrator set up prior to picking pt up for dc. Notified Sonia at [facility] [place], they will reach out to pt . Then received notification that [facility] [place] to know when pt is dc'ing. TC to [place], left message that to clarify that pt is dc'ing today. TC to pt , provided her with [facility] phone number to call and arrange meeting time for concentrator. She denies further needs. Original Note: Pt qualifies for home O2. Referral [place] to [facility], email sent to Sonia and portable tank taken from stock.
[2021-08-12] MEDS: guaiFENesin 1,200 MG Tablet 1200 MG PO (10:13)
[2021-08-12] MEDS: levoFLOXacin IV 750 MG/150 ML BAG 100 MG IV (10:14)
[2021-08-12] MEDS: 0.9% Saline Lock 10 ML Syringe IV (10:14)
[2021-08-12] MEDS: Metoprolol Tartrate 25 MG Tablet 12.5 MG PO (10:14)
== END 2021-08-12 15:11 | disposition home or self-care (01) | DRG 194 ==
LOC: ED 23:17 → MS3 08-10 00:17
PROVIDERS: Nurse Practitioner Family; Admitting Provider Hospitalist; Emergency Provider Emergency Medicine; PCP Family Medicine; Visit Provider Internal Medicine
DX: J18.9 Pneumonia, unspecified organism (principal); J43.9 Emphysema, unspecified; T45.1X5A Adverse effect of antineoplastic and immunosuppressive drugs, initial encounter; K20.80 Other esophagitis without bleeding; D64.81 Anemia due to antineoplastic chemotherapy; C34.91 Malignant neoplasm of unspecified part of right bronchus or lung; I25.10 Atherosclerotic heart disease of native coronary artery without angina pectoris; R09.02 Hypoxemia; Z20.822 Contact with and (suspected) exposure to COVID-19; I10 Essential (primary) hypertension; E78.5 Hyperlipidemia, unspecified; F32.A Depression, unspecified; F41.9 Anxiety disorder, unspecified; I25.2 Old myocardial infarction; Z79.82 Long term (current) use of aspirin; Z79.899 Other long term (current) drug therapy; Z87.891 Personal history of nicotine dependence; Z86.16 Personal history of COVID-19; Z92.21 Personal history of antineoplastic chemotherapy; Z92.3 Personal history of irradiation; Z95.5 Presence of coronary angioplasty implant and graft; Z90.79 Acquired absence of other genital organ(s)
CPT/HCPCS: 36415; 71045; 80048; 80053; 81001; 83605; 85025; 85610; 85730; 87040; 87070; 87086; 87205; 87426; 87449; 93005; 94640; 97802; 99284; J7030; J7050; A4216; J0696; J2405

== ENCOUNTER 2021-08-18 14:45 | Outpatient (CLI) | payer BC, SELFPAY ==
--- NOTE | 2021-08-18 14:50 | RAD_ITS ---
STUDY: X-RAY CHEST REASON FOR EXAM: Male, 56 years old. CHEST PAIN PNEUMONIA TECHNIQUE: XR Chest 2 Views COMPARISON: Aug 09 2021 10:02pm FINDINGS: Right upper lobe infiltrate and bilateral perihilar infiltrates. Left perihilar mass. There is a left Port-A-Cath and/or mediport in place. The tip is in the superior vena caval - atrial junction. Normal size heart. Normal mediastinum and dominic. Normal visualized pulmonary arteries. There is atherosclerotic calcification of the aortic arch with tortuosity. Normal visualized thoracic spine. There is degenerative osteoarthritis of the bilateral shoulders. There is no demonstrated abnormality of the visualized soft tissue structures of the upper abdomen. RAD/Chest PA and Lateral IMPRESSION: Pulmonary findings appear worse. Electronically Signed: Jovan Smith MD at 15:36 EST ,
== END 2021-08-18 23:59 | disposition home or self-care (01) ==
LOC: MTRAD 14:46
PROVIDERS: PCP Family Medicine; Referring Provider Family Medicine; Visit Provider Family Medicine
DX: J18.9 Pneumonia, unspecified organism (principal)
CPT/HCPCS: 71046

== ENCOUNTER 2021-08-18 22:59 | Inpatient (IN) | payer BC, SELFPAY ==
[2021-08-18 23:00] VITALS: BP 116/69; PULSE 148; RESP 20; TEMP 38.2; O2SAT 94; BMI 26.1
--- NOTE | 2021-08-18 23:26 | EKG12_ITS ---
Test Reason : FEVER Blood Pressure : / mmHG Vent. Rate : 125 BPM Atrial Rate : 125 BPM P-R Int : 146 ms QRS Dur : 096 ms QT Int : 296 ms P-R-T Axes : 039 090 023 degrees QTc Int : 427 ms Sinus tachycardia Otherwise normal ECG Confirmed by INES VELAZQUEZ, KENISHA ([id number]), food editor ASH WYMAN ([id number]) on 08/19/2021 9:25:07 AM Referred By: Lyle Manzo Confirmed By:KENISHA CHACON MD
--- NOTE | 2021-08-18 23:27 | EX.ED.DYSGE1 ---
HPI History of Present Illness Chief Complaint: Fever Narrative Narrative: Patient presents with his after recently being discharged from the hospital with bilateral upper lobe pneumonia. He states that he had been through phase 1 of chemotherapy and radiation for right-sided lung cancer. A week ago Sunday, he was feeling chilled. He came to the emergency department and was diagnosed with upper lobe pneumonia bilaterally. He was hospitalized from Sunday to Sunday, and was discharged 1 week ago. He finished 5 days of Levaquin. He was feeling improved and went saw his primary care physician today, Dr. Faheem Vallejo, and had an outpatient chest x-ray performed. After going outside for a walk, he states he felt chilled again. He felt mildly short of breath, and he does wear 2 L of oxygen at all times. They took his temperature and it is elevated and he had a fever above 100.4 ?F. He last received an antipyretic 2 hours ago. He presents because he is not feeling well. He denies any dysuria or hematuria. He was told by oncology that if he has a temperature elevated above 100.4 ?F that he should come to the emergency department. [facility] Medical History Abnormal PSA Anxiety Cancer Cardiology follow-up encounter Chronic cough Cold feeling Coronary artery disease COVID-19 Depression Emphysema, unspecified Encounter for chemotherapy management Encounter for education Endobronchial cancer Excessive bleeding Former smoker High cholesterol History of echocardiogram History of heart attack History of steroid therapy History of stress test History of torsion of testis Hypertension Hypokalemia Myocardial infarct Prostate cancer Regional lymph node metastasis present Restless legs Shoulder pain, right Wears glasses Home Medications Mucinex DM 1 tab PO Q12H PRN 05/05/21 [History Last Taken Unknown] aspirin 81 mg PO DAILY 05/05/21 [History Last Taken 05/04/21] atorvastatin 80 mg PO QHS 05/05/21 [History Last Taken Unknown] metoprolol tartrate 25 mg PO BID 05/05/21 [History Last Taken 06/07/21] lorazepam 0.5 mg tablet 0.5 mg PO TID PRN tab 05/26/21 [History Last Taken Unknown] ondansetron 8 mg disintegrating tablet 8 mg PO Q8H PRN #30 tab 06/14/21 [Rx Last Taken Unknown] albuterol sulfate 90 mcg/actuation aerosol inhaler 2 puff INHALATION Q6H PRN #8.5 g 07/15/21 [Rx Last Taken Unknown] gabapentin 300 mg PO TID 08/18/21 [History Last Taken Unknown] Allergy/AdvReac Type Severity Reaction Status Date / Time No Known Allergies Allergy Verified 08/09/21 09:52 Family History Father Emphysema lung Cancer prostate cancer Grandfather Cancer prostate Surgical History H/O prostatectomy History of cardiac catheterization History of coronary artery stent placement History of hernia repair Social History household members: spouse Smoking Status: Former smoker quit date: 02/16/21 pack-years: 40 Tobacco: How many years used: 40 how long ago did patient quit smoking: patient reports smoking [id number] alcohol intake: never substance use type: does not use caffeine: No during the past year weight has: remained stable reema/yarsanism: Holiness seatbelt use: always do you feel safe at home: Yes ROS ROS ED ROS Narrative Constitutional: Positive fever, positive chills. HEENT: No sore throat. No neck pain. No loss of vision. No rhinorrhea. Cardiovascular: No chest pain. No palpitations. No pedal edema. Respiratory: Occasional cough, mild shortness of breath. Abdominal: No abdominal pain. No nausea. No vomiting. Genitourinary: No dysuria. No hematuria. Musculoskeletal: No myalgias. No arthralgias. Neurologic: No headaches. No dizziness. No lightheadedness. Skin: No rash. No change in color. Psychiatric: No depression. No anxiety. EXAM Physical Exam Narrative Exam Narrative: Temperature 100.8 ?F, vital signs noted. Nontoxic-appearing. HEENT: Normocephalic. Atraumatic. PERRL, EOMI. Neck soft and supple. No point tenderness or step off. Cardiovascular: Regular rate and rhythm. No murmurs, rubs, or gallops appreciated. Respiratory: No tachypnea. Decreased breath sounds right base with occasional expiratory wheeze. Gastrointestinal: Abdomen soft, nontender, with normoactive bowel sounds. No rebound or guarding. Neurological: Awake. Alert. Nonfocal, nonlateralizing. Skin: No rash. Normal color. No pallor. Musculoskeletal: No pedal edema. Full range of motion extremities. Const Vital Signs: 08/18/21 23:00 08/18/21 23:45 08/19/21 00:03 Temperature 100.8 F H 100.6 F H Temperature Source Temporal Oral Pulse Rate 148 H 124 H Respiratory Rate 20 H 30 H Blood Pressure 116/69 115/68 Blood Pressure Mean 84 83 Pulse Ox 94 96 Oxygen Delivery Method Nasal Cannula Nasal Cannula Room Air Oxygen Flow Rate (L/min) 2 2 MDM MDM MDM Narrative Medical decision making narrative: Comprehensive work-up was pursued. I reviewed the patient's x-ray reading from this afternoon. It was read as worsening pneumonia. He has a normal white count of 9.1, he is not neutropenic. Hemoglobin stable 11.6. Platelet count normal at 274. I lactic acid also normal at 1.0. Electrolyte panel is grossly unremarkable. He has an AST of 39 which is only slightly elevated. His urinalysis shows no evidence of infection. His respiratory swabs including RSV, Covid, and influenza are also negative. His EKG demonstrates sinus tachycardia at 125 bpm. He will be bolused normal saline 1 L intravenously. He was given an additional dose of Tylenol. His urinalysis shows no evidence of infection. Given his outpatient failure for treatment for pneumonia, he will be started on vancomycin and Zosyn as broad-spectrum. I did add blood and sputum cultures. He states his last sputum culture was inconclusive. He is satting 95% on his 2 L nasal cannula oxygen. Patient was discussed with Dr. Manzo for admission. He would like him on the medical floor. Disposition is admitted in stable condition. Lab Data Attestation: I reviewed the patient's lab results. Labs: Laboratory Results - last 24 hr 08/18/21 08/18/21 08/18/21 23:20 23:20 23:20 WBC 9.1 RBC 3.76 L Hgb 11.6 L Hct 34.5 L MCV 91.8 MCH 30.9 MCHC 33.6 RDW Std Deviation 71.1 H RDW Coeff of Sana 21.6 H Plt Count 274 MPV 9.7 Immature Gran % (Auto) 0.600 Neut % (Auto) 75.7 H Lymph % (Auto) 6.7 L [place] % (Auto) 14.5 H Eos % (Auto) 1.8 Baso % (Auto) 0.7 Absolute Neuts (auto) 6.9 Absolute Lymphs (auto) 0.61 L Nucleated RBC % 0 Differential Comment SCANNED Anisocytosis 1+ Microcytosis RARE Macrocytosis RARE PT 13.9 INR 1.1 APTT 34.2 Sodium 139 Potassium 4.4 Chloride 106 Carbon Dioxide 28.0 Anion Gap 5 BUN 17 Creatinine 0.89 Estim Creat Clear Calc 91.57 Est GFR (MDRD) Af Amer 113 Est GFR (MDRD) Non-Af 94 BUN/Creatinine Ratio 19.1 Glucose 115 H Lactic Acid Calcium 9.4 Total Bilirubin 0.40 AST 39 H ALT 48 Alkaline Phosphatase 106 Total Protein 7.3 Albumin 2.6 L Globulin 4.7 H Albumin/Globulin Ratio 0.6 L Urine Color Urine Clarity Urine pH Ur Specific [place] Urine Protein Urine Glucose (UA) Urine Ketones Urine Occult Blood Urine Nitrite Urine Bilirubin Urine Urobilinogen Ur Leukocyte Esterase Urine RBC Urine WBC Ur Squamous Epith Cells Urine Bacteria Urine Mucus 08/18/21 08/19/21 23:45 00:00 WBC RBC Hgb Hct MCV MCH MCHC RDW Std Deviation RDW Coeff of Sana Plt Count MPV Immature Gran % (Auto) Neut % (Auto) Lymph % (Auto) [place] % (Auto) Eos % (Auto) Baso % (Auto) Absolute Neuts (auto) Absolute Lymphs (auto) Nucleated RBC % Differential Comment Anisocytosis Microcytosis Macrocytosis PT INR APTT Sodium Potassium Chloride Carbon Dioxide Anion Gap BUN Creatinine Estim Creat Clear Calc Est GFR (MDRD) Af Amer Est GFR (MDRD) Non-Af BUN/Creatinine Ratio Glucose Lactic Acid 1.0 Calcium Total Bilirubin AST ALT Alkaline Phosphatase Total Protein Albumin Globulin Albumin/Globulin Ratio Urine Color Yellow Urine Clarity Clear Urine pH 6.5 Ur Specific [place] 1.015 Urine Protein 15 H Urine Glucose (UA) Normal Urine Ketones Negative Urine Occult Blood Negative Urine Nitrite Negative Urine Bilirubin Negative Urine Urobilinogen Normal Ur Leukocyte Esterase Negative Urine RBC 0 SEEN Urine WBC 0 SEEN Ur Squamous Epith Cells 0 SEEN Urine Bacteria RARE Urine Mucus 0 SEEN Discharge Plan Dx/Rx/DC Orders Clinical Impression: Pneumonia, Failure of outpatient treatment Disposition Disposition: Acute Care Hospital [facility]
[2021-08-18] MEDS: Acetaminophen 325 MG Tablet 650 MG PO (23:31)
[2021-08-18 23:34] LABS: Absolute Lymphocyte Count 0.61 X10^3/uL (0.83-4.51); Absolute Neutrophil Count 6.9 X10^3/uL (2.0-7.7); Basophil# 0.06 X10^3/uL; Basophil% 0.7 % (0-1); Eosinophil# 0.16 X10^3/uL; Eosinophils% 1.8 % (0-5); Hematocrit 34.5 % (40-54); Hemoglobin 11.6 g/dL (13.0-16.5); Lymphocyte # 0.61 X10^3/ul (0.83-4.51); Lymphocyte % 6.7 % (19-41); Mean Corp Hgb Conc 33.6 g/dL (32-36); Mean Corpuscular Hgb 30.9 pg (27.0-32.0); Mean Corpuscular Volume 91.8 fL (80-94); Mean Platelet Vol. 9.7 fl (6.2-12.0); Monocyte# 1.32 X10^3/uL; Monocyte% 14.5 % (0-10); NRBC Flagged by Analyzer 0 % (0-5); Neutrophil # 6.88 X10^3/uL (2.7-7.7); Neutrophil % 75.7 % (47-70); POSITIVE MORPHOLOGY YES; Platelet Count 274 K/mm3 (150-450); RBC Distribution Width CV 21.6 % (11.6-14.6); RBC Distribution Width SD 71.1 fl (35.1-43.9); Red Blood Count 3.76 M/mm3 (4.6-6.2); White Blood Count 9.1 K/mm3 (4.4-11.0)
[2021-08-18 23:40] LABS: Differential Indicated SCAN CRITERIA MET
[2021-08-18 23:49] LABS: International Normalized Ratio 1.1; Prothrombin Time (Protime)PT. 13.9 SECONDS (11.7-14.9)
[2021-08-18 23:50] LABS: Partial Thromboplast Time 34.2 Seconds (24.1-36.2)
[2021-08-18 23:51] LABS: ALB/GLOB Ratio 0.6 RATIO (0.9-2.4); AST(SGOT) 39 U/L (15-37); Alanine Aminotransfer ALT/SGPT 48 U/L (16-61); Albumin, Serum 2.6 g/dL (3.2-5.0); Alkaline Phosphatase 106 U/L (45-117); Anion Gap 5 (5-15); BUN 17 mg/dL (7-18); BUN/Creat Ratio 19.1 RATIO (10-20); Calcium,Total 9.4 mg/dL (8.5-10.1); Chloride 106 mmol/L (98-107); Creatinine, Serum 0.89 mg/dL (0.70-1.30); EST Glomerular Filtration Rate 94 mL/min (>60); Est Glom Filt Rate - Afr Amer 113 mL/min (>60); Estimated Creatinine Clearance 91.57 ml/min; Globulin 4.7 g/dL (2.2-4.2); Glucose 115 mg/dL (74-106); Potassium 4.4 mmol/L (3.5-5.1); Protein, Total 7.3 g/dL (6.4-8.2); Sodium Level 139 mmol/L (136-145)
[2021-08-18 23:59] LABS: Differential Comment SCANNED
[2021-08-19] VITALS (16 sets, daily range): BP systolic 86–118; BP diastolic 56–70; PULSE 85–129; RESP 16–30; TEMP 36.4–39; O2SAT 95–98; BMI 25.9
[2021-08-19] LABS: Anisocytosis 1+; Macrocytosis RARE; Microcytosis RARE
[2021-08-19 00:09] LABS: Mucous, Urine 0 SEEN /hpf (<or=2+); Red Blood Cells-Urine 0 SEEN /hpf (0-5); Squamous Epithelial Cells - UA 0 SEEN /hpf (0-5); White Blood Cells 0 SEEN /hpf (0-5)
[2021-08-19 00:11] LABS: Color, Urine Yellow (Yellow); Glucose, Dipstick Normal (Normal); Ketone-Dipstick Negative (Negative); Leukocyte Esterase-Dipstick Negative /ul (Negative); Nitrite-Dipstick Negative (Negative); Occult Blood-Urine Negative /ul (Negative); Protein-Dipstick 15 mg/dl (Negative); Specific Gravity, Urine 1.015 (1.002-1.030); Urine Bilirubin Dipstick Negative (Negative); Urine Clarity Clear (Clear); Urine Urobilinogen Normal (Normal); Urine pH 6.5 (5.0 - 8.0)
[2021-08-19 00:17] LABS: Bacteria RARE /hpf (None Seen)
--- NOTE | 2021-08-19 02:10 | HP.PCM.HOS_ITS ---
HPI - General General Date of Admission: 08/19/21 HPI Narrative MIKY SALGADO, is a 56 M who presents to the hospital with fevers and chills. He was recently admitted to the hospital from 08/10/2021 and discharged on 08/12/2021 with community-acquired pneumonia. At that time he had bilateral upper lobe pneumonia and was also hypoxic and started on oxygen. He was ultimately discharged home on p.o. Levaquin and has done fine for the last 6 days and then yesterday he followed up with his PCP for a post hospital visit and later that evening he walked to his son's house and on the way back he felt very cold and had some shaking at the house. His said that she checked his temperature and it reached 101 and they were told that since he is a cancer patient that any temperature over 100.4 the need to come to the hospital for. In the ER he is tachycardic which she has been for some time, prior to his previous admission his account development specialist want to put him on a power plant operations manager and increase his metoprolol as an outpatient. He does not have a leukocytosis but he does state that his sputum had transitioned from clear to yellowish recently and his highest temp here in the hospital was 100.8. Chest x-ray was read as worsening pneumonia. He currently feels well and does not appear ill. [facility] Medical History Abnormal PSA Anxiety Cancer Cardiology follow-up encounter Chronic cough Cold feeling Coronary artery disease COVID-19 Depression Emphysema, unspecified Encounter for chemotherapy management Encounter for education Endobronchial cancer Excessive bleeding Former smoker High cholesterol History of echocardiogram History of heart attack History of steroid therapy History of stress test History of torsion of testis Hypertension Hypokalemia Myocardial infarct Prostate cancer Regional lymph node metastasis present Restless legs Shoulder pain, right Wears glasses Home Medications Mucinex DM 1 tab PO Q12H PRN 05/05/21 [History Last Taken Unknown] aspirin 81 mg PO DAILY 05/05/21 [History Last Taken 05/04/21] atorvastatin 80 mg PO QHS 05/05/21 [History Last Taken Unknown] metoprolol tartrate 25 mg PO BID 05/05/21 [History Last Taken 06/07/21] lorazepam 0.5 mg tablet 0.5 mg PO TID PRN tab 05/26/21 [History Last Taken Unknown] ondansetron 8 mg disintegrating tablet 8 mg PO Q8H PRN #30 tab 06/14/21 [Rx Last Taken Unknown] albuterol sulfate 90 mcg/actuation aerosol inhaler 2 puff INHALATION Q6H PRN #8.5 g 07/15/21 [Rx Last Taken Unknown] gabapentin 300 mg PO TID 08/18/21 [History Last Taken Unknown] Allergy/AdvReac Type Severity Reaction Status Date / Time No Known Allergies Allergy Verified 08/09/21 09:52 Family History Father Emphysema lung Cancer prostate cancer Grandfather Cancer prostate Surgical History H/O prostatectomy History of cardiac catheterization History of coronary artery stent placement History of hernia repair Social History household members: spouse Smoking Status: Former smoker quit date: 02/16/21 pack-years: 40 Tobacco: How many years used: 40 how long ago did patient quit smoking: patient reports smoking [id number] alcohol intake: never substance use type: does not use caffeine: No during the past year weight has: remained stable reema/judaism: [employer] seatbelt use: always do you feel safe at home: Yes ROS Constitutional Constitutional: Reports chills and fever(s); Denies fatigue or malaise Eyes Eyes: Denies blurry vision ENT HEENT: Denies headache(s) or nasal discharge Cardiovascular Cardiovascular: Denies chest pain, dyspnea on exertion or syncope Respiratory/Chest Respiratory/Chest: Reports cough; Denies shortness of breath at rest or shortness of breath with exertion Gastrointestinal Gastrointestinal: Denies constipation, diarrhea, nausea or vomiting Genitourinary Genitourinary: Denies dysuria Neurologic Neurologic: Denies focal weakness, numbness or tremor(s) Psychiatric Psychiatric: Denies anxiety or depression Vital Signs Vital Signs Vital Signs: 08/18/21 23:00 08/18/21 23:45 08/19/21 00:03 Temperature 100.8 F H 100.6 F H Temperature Source Temporal Oral Pulse Rate 148 H 124 H Respiratory Rate 20 H 30 H Blood Pressure 116/69 115/68 Blood Pressure Mean 84 83 Pulse Ox 94 96 Oxygen Delivery Method Nasal Cannula Nasal Cannula Room Air Oxygen Flow Rate (L/min) 2 2 08/19/21 00:40 Temperature 98.8 F Temperature Source Oral Pulse Rate 117 H Respiratory Rate 25 H Blood Pressure 100/70 Blood Pressure Mean 80 Pulse Ox 95 Oxygen Delivery Method Nasal Cannula Oxygen Flow Rate (L/min) 2 Weight Weight: 177 lb Body Mass Index (BMI) 26.1 Physical Exam Const alert, oriented x3 and no apparent distress General Appearance: cooperative HEENT normocephalic and moist oral mucous membranes Eyes PERRL, EOMs intact bilaterally and conjunctivae normal Neck supple and no JVD Resp normal respiratory effort, no retractions and no use of accessory muscles Auscultation: wheezes; Negative for crackles, rales or rhonchi Cardio regular rhythm, S1 normal heart sound, S2 normal heart sound and no murmurs Rate: tachycardic GI soft to palpation, non-tender and non-distended; Negative for hepatosplenomegaly Extremity no clubbing, cyanosis or edema Skin no rashes or lesions noted Neuro no focal motor deficits and no sensory deficits noted Psych affect normal Appearance: appropriate Results Lab / Micro Data Result Diagrams: 08/18/21 23:20 08/18/21 23:20 Labs: Laboratory Results - last 24 hr 08/18/21 23:20: WBC 9.1, RBC 3.76 L, Hgb 11.6 L, Hct 34.5 L, MCV 91.8, MCH 30.9, MCHC 33.6, RDW Std Deviation 71.1 H, RDW Coeff of Sana 21.6 H, Plt Count 274, MPV 9.7, Immature Gran % (Auto) 0.600, Neut % (Auto) 75.7 H, Lymph % (Auto) 6.7 L, [place] % (Auto) 14.5 H, Eos % (Auto) 1.8, Baso % (Auto) 0.7, Absolute Neuts (auto) 6.9, Absolute Lymphs (auto) 0.61 L, Nucleated RBC % 0, Differential Comment SCANNED, Anisocytosis 1+, Microcytosis RARE, Macrocytosis RARE 08/18/21 23:20: PT 13.9, INR 1.1, APTT 34.2 08/18/21 23:20: Sodium 139, Potassium 4.4, Chloride 106, Carbon Dioxide 28.0, Anion Gap 5, BUN 17, Creatinine 0.89, Estim Creat Clear Calc 91.57, Est GFR (MDRD) Af Amer 113, Est GFR (MDRD) Non-Af 94, BUN/Creatinine Ratio 19.1, Glucose 115 H, Calcium 9.4, Total Bilirubin 0.40, AST 39 H, ALT 48, Alkaline Phosphatase 106, Total Protein 7.3, Albumin 2.6 L, Globulin 4.7 H, Albumin/Globulin Ratio 0.6 L 08/18/21 23:45: Lactic Acid 1.0 08/19/21 00:00: Urine Color Yellow, Urine Clarity Clear, Urine pH 6.5, Ur Specific [place] 1.015, Urine Protein 15 H, Urine Glucose (UA) Normal, Urine Ketones Negative, Urine Occult Blood Negative, Urine Nitrite Negative, Urine Bilirubin Negative, Urine Urobilinogen Normal, Ur Leukocyte Esterase Negative, Urine RBC 0 SEEN, Urine WBC 0 SEEN, Ur Squamous Epith Cells 0 SEEN, Urine Bacteria RARE, Urine Mucus 0 SEEN Micro: Microbiology 08/18/21 23:50 Mucosa - Nose Influenza Types A,B Direct FA (LISANDRA) - Final 08/18/21 23:50 Mucosa - Nose Rapid RSV (DFA) - Final 08/18/21 23:50 Nasal Secretion SARS-CoV-2 Antigen (Rapid) - Final Assessment & Plan Assessment/Plan (1) Pneumonia: PLAN: 1. Fever, possible failed outpatient treatment for pneumonia ?Radiology is reading worsening pneumonia, however the comparative x-ray was a portable on his previous admission and the current x-ray is a PA and lateral. ?Based on qSOFA score does not qualify as sepsis ?We will broaden his antibiotics to Vanco and Zosyn obtain a sputum culture, blood cultures are also pending. Would continue antibiotics for least 48 hours pending culture results urine cultures obtained as well in the ER, UA was not significant for a UTI ?No neutropenia, will continue to monitor ?Continue with his 2 L nasal cannula, he has not required any increase in this. His oxygen requirement is new started with his previous hospitalization for pneumonia 2. 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 ?We will continue with Ativan 3. CAD status post stent/HTN/HLD ?Continue with his home metoprolol as well as Lipitor ?We will continue with his aspirin, his stent was in September 2020 however he refuses his Brilinta secondary to hemoptysis ?He does understand the risks of in-stent thrombosis by not taking his Brilinta ?His account development specialist did notice that he was having some tachycardia issues, he is currently wearing an outpatient power plant operations manager which we will leave in place, this will be discontinued on Sunday in the meantime his metoprolol was increased to 25 mg p.o. twice daily account development specialist as an outpatient, which we will continue while here DVT: Lovenox Charges/Coding Visit Charges Inpatient E&M: 42279 Init Hosp L3
--- NOTE | 2021-08-19 02:51 | PCM.RX.CS ---
Consult Pharmacy has been consulted to manage selected antiobiotic: Vancomycin Type of Consult: New start Suspected Infection: Pneumonia Prior Doses of Antibiotics Received/Current Regimen: Medications Vancomycin HCl 1,500 mg/ (Sodium Chloride) 530 mls @ 250 mls/hr IV Q12H TIM Discontinued Medications Vancomycin HCl 1,250 mg/ (Sodium Chloride) 275 mls @ 167 mls/hr IV X1 ONE Stop: 08/19/21 01:59 Last Admin: 08/19/21 02:17 Dose: Infused Labs: Sodium 139 mmol/L (136-145) 08/18/21 23:20 Potassium 4.4 mmol/L (3.5-5.1) 08/18/21 23:20 Chloride 106 mmol/L (98-107) 08/18/21 23:20 Carbon Dioxide 28.0 mmol/L (21.0-32.0) 08/18/21 23:20 Anion Gap 5 (5-15) 08/18/21 23:20 BUN 17 mg/dL (7-18) 08/18/21 23:20 Creatinine 0.89 mg/dL (0.70-1.30) 08/18/21 23:20 Est GFR (MDRD) Af Amer 113 mL/min (>60) 08/18/21 23:20 Est GFR (MDRD) Non-Af 94 mL/min (>60) 08/18/21 23:20 BUN/Creatinine Ratio 19.1 RATIO (10-20) 08/18/21 23:20 Glucose 115 mg/dL (74-106) H 08/18/21 23:20 Microbiology: Microbiology 08/18/21 23:50 Mucosa - Nose Influenza Types A,B Direct FA (LISANDRA) - Final 08/18/21 23:50 Mucosa - Nose Rapid RSV (DFA) - Final 08/18/21 23:50 Nasal Secretion SARS-CoV-2 Antigen (Rapid) - Final Weight used for dosin.5 kg Estimated Creatinine Clearance: 92 Goal Trough: 15-20 mcg/mL Pharmacy Plan for Drug Dosing: Pharmacy Service will continue to monitor and adjust dosing as required. Follow-Up Labs: Trough Vancomycin Labs to be done on [date and time ordered]: 08/20/21 @1200
[2021-08-19] MEDS: 0.9% Normal Saline 1,000 ML 100 ML IV ×2 (02:56→12:12)
[2021-08-19 05:58] LABS: Absolute Lymphocyte Count 0.69 X10^3/uL (0.83-4.51); Absolute Neutrophil Count 4.5 X10^3/uL (2.0-7.7); Basophil# 0.05 X10^3/uL; Basophil% 0.8 % (0-1); Eosinophil# 0.23 X10^3/uL; Eosinophils% 3.5 % (0-5); Hemoglobin 9.6 g/dL (13.0-16.5); Lymphocyte # 0.69 X10^3/ul (0.83-4.51); Lymphocyte % 10.4 % (19-41); Mean Corpuscular Hgb 29.8 pg (27.0-32.0); Mean Corpuscular Volume 93.2 fL (80-94); Mean Platelet Vol. 9.4 fl (6.2-12.0); Monocyte# 1.15 X10^3/uL; Monocyte% 17.3 % (0-10); NRBC Flagged by Analyzer 0 % (0-5); Neutrophil # 4.47 X10^3/uL (2.7-7.7); Neutrophil % 67.4 % (47-70); POSITIVE MORPHOLOGY YES; Platelet Count 219 K/mm3 (150-450); RBC Distribution Width CV 21.4 % (11.6-14.6); RBC Distribution Width SD 72.2 fl (35.1-43.9); Red Blood Count 3.22 M/mm3 (4.6-6.2); White Blood Count 6.6 K/mm3 (4.4-11.0)
[2021-08-19 05:59] LABS: Differential Indicated SCAN CRITERIA MET
[2021-08-19 06:12] LABS: Anisocytosis 1+; Differential Comment SCANNED; Hypochromasia RARE; Microcytosis 1+
[2021-08-19 06:19] LABS: Anion Gap 5 (5-15); BUN 15 mg/dL (7-18); BUN/Creat Ratio 18.6 RATIO (10-20); Calcium,Total 8.7 mg/dL (8.5-10.1); Chloride 109 mmol/L (98-107); EST Glomerular Filtration Rate 105 mL/min (>60); Est Glom Filt Rate - Afr Amer 127 mL/min (>60); Estimated Creatinine Clearance 98.56 ml/min; Glucose 122 mg/dL (74-106); Potassium 3.6 mmol/L (3.5-5.1); Sodium Level 140 mmol/L (136-145)
[2021-08-19] MEDS: Gabapentin 300 MG Capsule PO ×3 (06:20→21:10)
[2021-08-19] MEDS: Aspirin 81 MG TAB.CHEW PO (07:54)
[2021-08-19] MEDS: LORazepam 0.5 MG Tablet PO (07:58)
[2021-08-19] MEDS: Enoxaparin 40 MG/0.4 ML Syringe SC (09:46)
--- NOTE | 2021-08-19 09:49 | PCM.PN.HOSP ---
Subjective Subjective Follow-up on pneumonia: Patient was seen and examined. Denied any new complaints. He felt improved. Remains on 2 L of oxygen. Objective Data Objective Data Vital Signs: Vital Signs Temp Pulse Resp BP Pulse Ox 97.9 F 100 18 101/65 97 08/19/21 09:44 08/19/21 09:44 08/19/21 09:44 08/19/21 09:44 08/19/21 09:44 Oxygen Flow Rate (L/min) 2 Oxygen Delivery Method Nasal Cannula Weight: 79.5 kg Body Mass Index (BMI) 25.9 Intake & Output: Intake and Output for Last 24 Hours 08/17/21 08/18/21 08/19/21 23:59 23:59 23:59 Intake Total 330 / 330 Balance 330 / 330 Lab / Micro Data Result Diagrams: 08/19/21 05:50 08/19/21 05:50 Labs: Laboratory Results - last 24 hr 08/18/21 23:20: WBC 9.1, RBC 3.76 L, Hgb 11.6 L, Hct 34.5 L, MCV 91.8, MCH 30.9, MCHC 33.6, RDW Std Deviation 71.1 H, RDW Coeff of Sana 21.6 H, Plt Count 274, MPV 9.7, Immature Gran % (Auto) 0.600, Neut % (Auto) 75.7 H, Lymph % (Auto) 6.7 L, [place] % (Auto) 14.5 H, Eos % (Auto) 1.8, Baso % (Auto) 0.7, Absolute Neuts (auto) 6.9, Absolute Lymphs (auto) 0.61 L, Nucleated RBC % 0, Differential Comment SCANNED, Anisocytosis 1+, Microcytosis RARE, Macrocytosis RARE 08/18/21 23:20: PT 13.9, INR 1.1, APTT 34.2 08/18/21 23:20: Sodium 139, Potassium 4.4, Chloride 106, Carbon Dioxide 28.0, Anion Gap 5, BUN 17, Creatinine 0.89, Estim Creat Clear Calc 91.57, Est GFR (MDRD) Af Amer 113, Est GFR (MDRD) Non-Af 94, BUN/Creatinine Ratio 19.1, Glucose 115 H, Calcium 9.4, Total Bilirubin 0.40, AST 39 H, ALT 48, Alkaline Phosphatase 106, Total Protein 7.3, Albumin 2.6 L, Globulin 4.7 H, Albumin/Globulin Ratio 0.6 L 08/18/21 23:45: Lactic Acid 1.0 08/19/21 00:00: Urine Color Yellow, Urine Clarity Clear, Urine pH 6.5, Ur Specific [place] 1.015, Urine Protein 15 H, Urine Glucose (UA) Normal, Urine Ketones Negative, Urine Occult Blood Negative, Urine Nitrite Negative, Urine Bilirubin Negative, Urine Urobilinogen Normal, Ur Leukocyte Esterase Negative, Urine RBC 0 SEEN, Urine WBC 0 SEEN, Ur Squamous Epith Cells 0 SEEN, Urine Bacteria RARE, Urine Mucus 0 SEEN 08/19/21 05:50: WBC 6.6, RBC 3.22 L, Hgb 9.6 L, Hct 30.0 L, MCV 93.2, MCH 29.8, MCHC 32.0, RDW Std Deviation 72.2 H, RDW Coeff of Sana 21.4 H, Plt Count 219, MPV 9.4, Immature Gran % (Auto) 0.600, Neut % (Auto) 67.4, Lymph % (Auto) 10.4 L, [place] % (Auto) 17.3 H, Eos % (Auto) 3.5, Baso % (Auto) 0.8, Absolute Neuts (auto) 4.5, Absolute Lymphs (auto) 0.69 L, Nucleated RBC % 0, Differential Comment SCANNED, Hypochromasia RARE, Anisocytosis 1+, Microcytosis 1+ 08/19/21 05:50: Sodium 140, Potassium 3.6, Chloride 109 H, Carbon Dioxide 26.0, Anion Gap 5, BUN 15, Creatinine 0.80, Estim Creat Clear Calc 98.56, Est GFR (MDRD) Af Amer 127, Est GFR (MDRD) Non-Af 105, BUN/Creatinine Ratio 18.6, Glucose 122 H, Calcium 8.7 Micro: Microbiology 08/18/21 23:50 Mucosa - Nose Influenza Types A,B Direct FA (LISANDRA) - Final 08/18/21 23:50 Mucosa - Nose Rapid RSV (DFA) - Final 08/18/21 23:50 Nasal Secretion SARS-CoV-2 Antigen (Rapid) - Final Physical Exam Narrative Physical exam: General: Alert, Oriented x3, Cooperative, No apparent distress, Well developed HEENT: Atraumatic Oral: Moist Mucosa Neck: Supple Lungs: Diminished to auscultation Cardiovascular: HS I+II, regular, no murmurs Abdomen: Bowel Sounds Present, Soft, Non Tender Extremities: No edema Skin: No rashes, No breakdown Neurological: Grossly intact Psych/Mental Status: Appropriate Assessment & Plan Assessment/Plan (1) Pneumonia: QUALIFIERS: Pneumonia type: due to unspecified organism Laterality: bilateral PLAN: 1. Acute postobstructive pneumonia in a patient with underlying lung CA Patient has failed outpatient therapy Admitted and on IV Zosyn and vancomycin Continue the same ID consulted 2. Acute hypoxic insufficiency secondary to #1, patient remains on 2 L of oxygen Encourage use of incentive spirometer 3. 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 Hypotension, iatrogenic, continue on IV fluids Holding parameters for metoprolol 5. CAD status post stent/hyperlipidemia Continue on aspirin, metoprolol, statin 6. DVT - Lovenox SC Charges/Coding Visit Charges Inpatient E&M: 56116 Subs Hosp L2
[2021-08-19] MEDS: Acetaminophen 325 MG Tablet 650 MG PO ×2 (12:11→18:41)
--- NOTE | 2021-08-19 12:56 | CT_ITS ---
STUDY: CTA CHEST REASON FOR EXAM: Male, 56 years old. Pneumonia, hypoxia, prostate cancer, endobronchial cancer, CAD, [place], coronary stent RADIATION DOSAGE (If Supplied By Facility): CTDIvol = ( 11.13 ) mGy, DLP = ( 512.48 ) mGycm TECHNIQUE: The examination was performed with the intravenous administration of IV 100mL Isovue-300. Post-processing of the angiographic images was performed, with multiplanar reformation and 3D reconstruction. Individualized dose optimization techniques were used for this CT. COMPARISON: Comparison is made with prior study dated 06/18/2021. Comparison is made with prior chest radiograph done earlier today. FINDINGS: Normal enhancement of the main pulmonary artery and right and left pulmonary arteries. Normal enhancement of the bilateral peripheral pulmonary arteries. There is no demonstrated pulmonary embolism. Normal thoracic aorta and visualized great vessels. There is no demonstrated aortic dissection. Normal heart and pericardium. Normal mediastinum. Normal hilar regions. Normal visualized trachea and bronchi. Fine loss in the right hemithorax more pronounced in the right upper lobe. Persistent right hilar mass although it has decreased in size as compared to prior study. It presently measures 3.8 cm x 3.7 cm. There is diffuse consolidation in the right upper lobe with partial collapse. Dense alveolar opacities in the left upper lobe as well as in the superior segment of the left lower lobe. Mild infiltrates at both lung bases. Since prior study, there has been improved aeration of the lung bases although progressive infiltrates in the upper lobe. Small right pleural effusion. Normal chest wall structures. Normal osseous structures. Normal visualized upper abdomen. CT/CTA Chest W/WO Contrast IMPRESSION: No evidence of pulmonary embolism. Interval decrease in size of the right hilar mass with persistent volume loss in the right upper lobe and dense consolidation. Progressive consolidation in the left upper lobe and superior segment of the left lower lobe. Electronically Signed: Jj Suarez MD at 14:34 EST ,
--- NOTE | 2021-08-19 12:56 | CON.PCM.ID_ITS ---
Assessment & Plan Assessment/Plan (1) Pneumonia: PLAN: Worsened symptoms after recent admit. Covid vaccine x1. Will check resp pcr panel, UAgs, CTA chest, pertussis. Sputum cx pending. On vanc/zosyn. Will follow, thank you (2) Failure of outpatient treatment: HPI Consult Data Date of Consult: 08/19/21 HPI Narrative HPI Narrative: MIKY SALGADO, is a 56 M who presents after discharge 08/12 on levaquin after admit for pneumonia. Sx worsened, c/o fever, sputum, congestion, sore throat. No n/v/d, no change in taste/smell. Covid vaccine x1 and had covid previously. Admitted yesterday on vanc/zosyn, feeling about the same. Full ROS performed and neg except as noted above. [facility] Medical History Abnormal PSA Anxiety Cancer Cardiology follow-up encounter Chronic cough Cold feeling Coronary artery disease COVID-19 Depression Emphysema, unspecified Encounter for chemotherapy management Encounter for education Endobronchial cancer Excessive bleeding Former smoker High cholesterol History of echocardiogram History of heart attack History of steroid therapy History of stress test History of torsion of testis Hypertension Hypokalemia Myocardial infarct On home oxygen therapy Prostate cancer Regional lymph node metastasis present Restless legs Shoulder pain, right Wears glasses Home Medications Mucinex DM 1 tab PO Q12H PRN 05/05/21 [History Last Taken Unknown] aspirin 81 mg PO DAILY 05/05/21 [History Last Taken 05/04/21] atorvastatin 80 mg PO QHS 05/05/21 [History Last Taken Unknown] metoprolol tartrate 25 mg PO BID 05/05/21 [History Last Taken 06/07/21] lorazepam 0.5 mg tablet 0.5 mg PO TID PRN tab 05/26/21 [History Last Taken Unknown] ondansetron 8 mg disintegrating tablet 8 mg PO Q8H PRN #30 tab 06/14/21 [Rx Last Taken Unknown] albuterol sulfate 90 mcg/actuation aerosol inhaler 2 puff INHALATION Q6H PRN #8.5 g 07/15/21 [Rx Last Taken Unknown] gabapentin 300 mg PO TID 08/18/21 [History Last Taken Unknown] Allergy/AdvReac Type Severity Reaction Status Date / Time No Known Allergies Allergy Verified 08/09/21 09:52 Family History Father Emphysema lung Cancer prostate cancer Grandfather Cancer prostate Surgical History H/O prostatectomy History of cardiac catheterization History of coronary artery stent placement History of hernia repair Social History household members: spouse Smoking Status: Former smoker quit date: 02/16/21 pack-years: 40 Tobacco: How many years used: 40 how long ago did patient quit smoking: patient reports smoking [id number] alcohol intake: never substance use type: does not use caffeine: No during the past year weight has: remained stable reema/restorationist: Hinduism seatbelt use: always do you feel safe at home: Yes Physical Exam Const alert and oriented x3 Constitutional Narrative: ill appearing General Appearance: cooperative Exam Limitations: no limitations HEENT normocephalic and head/scalp atraumatic Eyes PERRL and EOMs intact bilaterally Neck supple and No nodes Resp Auscultation: rhonchi and wheezes Cardio regular rate and regular rhythm GI soft to palpation, non-tender and non-distended Extremity no clubbing, cyanosis or edema Skin no rashes or lesions noted Neuro CN's II-XII intact bilaterally Lab / Micro Data Result Diagrams: 08/19/21 05:50 08/19/21 05:50 Labs: Laboratory Results - last 24 hr 08/18/21 23:20: WBC 9.1, RBC 3.76 L, Hgb 11.6 L, Hct 34.5 L, MCV 91.8, MCH 30.9, MCHC 33.6, RDW Std Deviation 71.1 H, RDW Coeff of Sana 21.6 H, Plt Count 274, MPV 9.7, Immature Gran % (Auto) 0.600, Neut % (Auto) 75.7 H, Lymph % (Auto) 6.7 L, [place] % (Auto) 14.5 H, Eos % (Auto) 1.8, Baso % (Auto) 0.7, Absolute Neuts (auto) 6.9, Absolute Lymphs (auto) 0.61 L, Nucleated RBC % 0, Differential Comment SCANNED, Anisocytosis 1+, Microcytosis RARE, Macrocytosis RARE 08/18/21 23:20: PT 13.9, INR 1.1, APTT 34.2 08/18/21 23:20: Sodium 139, Potassium 4.4, Chloride 106, Carbon Dioxide 28.0, Anion Gap 5, BUN 17, Creatinine 0.89, Estim Creat Clear Calc 91.57, Est GFR (MDRD) Af Amer 113, Est GFR (MDRD) Non-Af 94, BUN/Creatinine Ratio 19.1, Glucose 115 H, Calcium 9.4, Total Bilirubin 0.40, AST 39 H, ALT 48, Alkaline Phosphatase 106, Total Protein 7.3, Albumin 2.6 L, Globulin 4.7 H, Albumin/Globulin Ratio 0.6 L 08/18/21 23:45: Lactic Acid 1.0 08/19/21 00:00: Urine Color Yellow, Urine Clarity Clear, Urine pH 6.5, Ur Specific [place] 1.015, Urine Protein 15 H, Urine Glucose (UA) Normal, Urine Ketones Negative, Urine Occult Blood Negative, Urine Nitrite Negative, Urine Bilirubin Negative, Urine Urobilinogen Normal, Ur Leukocyte Esterase Negative, Urine RBC 0 SEEN, Urine WBC 0 SEEN, Ur Squamous Epith Cells 0 SEEN, Urine Bacteria RARE, Urine Mucus 0 SEEN 08/19/21 05:50: WBC 6.6, RBC 3.22 L, Hgb 9.6 L, Hct 30.0 L, MCV 93.2, MCH 29.8, MCHC 32.0, RDW Std Deviation 72.2 H, RDW Coeff of Sana 21.4 H, Plt Count 219, MPV 9.4, Immature Gran % (Auto) 0.600, Neut % (Auto) 67.4, Lymph % (Auto) 10.4 L, [place] % (Auto) 17.3 H, Eos % (Auto) 3.5, Baso % (Auto) 0.8, Absolute Neuts (auto) 4.5, Absolute Lymphs (auto) 0.69 L, Nucleated RBC % 0, Differential Comment SCANNED, Hypochromasia RARE, Anisocytosis 1+, Microcytosis 1+ 08/19/21 05:50: Sodium 140, Potassium 3.6, Chloride 109 H, Carbon Dioxide 26.0, Anion Gap 5, BUN 15, Creatinine 0.80, Estim Creat Clear Calc 98.56, Est GFR (MDRD) Af Amer 127, Est GFR (MDRD) Non-Af 105, BUN/Creatinine Ratio 18.6, Glucose 122 H, Calcium 8.7 Micro: Microbiology 08/19/21 06:25 Sputum, Expectorated/Coughed Gram Stain - Final 08/18/21 23:50 Mucosa - Nose Influenza Types A,B Direct FA (LISANDRA) - Final 08/18/21 23:50 Mucosa - Nose Rapid RSV (DFA) - Final 08/18/21 23:50 Nasal Secretion SARS-CoV-2 Antigen (Rapid) - Final
[2021-08-19] MEDS: 0.9% Saline Lock 10 ML Syringe IV (14:07)
[2021-08-19] MEDS: guaiFENesin/D-Methorphan TAB.SR.12H 1 TABLET PO (15:00)
--- NOTE | 2021-08-19 16:39 | CASEMGMT ---
Addendum entered by Shante Taylor 08/19/21 16:44: Obtained order for inpatient therapy to assist for ADL's, weakness and sciatica. Pt screened with [facility] Palliative Care Screening Tool, pt met criteria. Referral emailed to palliative. Original Note: RN CM Readmission Note Previous Admission: 08/09/20-08/12/21 Diagnosis: Bilat pna DC Disposition: Home with new O2 Current Admission Current Diagnosis: pna Pt presented to ER from home. Pt reports that he was getting better but then got worse. Pt having sciatica pain as well, agreeable to therapy. Pt reports increased weakness. Pt did take his antibiotic and had his follow up appt with PCP. Discussed dc planning, pt agreeable to C with SN, PT and OT. 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 [facility] TC to Rosa in intake and referral made, will await acceptance. Will follow for increased O2 needs. DC PLAN: Home with C
[2021-08-19] MEDS: Ibuprofen 400 MG Tablet PO (17:36)
[2021-08-19] MEDS: Ipratropium/Albuterol Sulfate 3 ML AMPUL.NEB INHALATION (19:26)
[2021-08-19] MEDS: Atorvastatin Calcium 80 MG Tablet PO (21:10)
[2021-08-19] MEDS: Metoprolol Tartrate 25 MG Tablet PO (21:31)
[2021-08-20] VITALS (15 sets, daily range): BP systolic 91–108; BP diastolic 58–73; PULSE 98–141; RESP 16–21; TEMP 36.6–38.3; O2SAT 92–95
[2021-08-20] MEDS: 0.9% Normal Saline 1,000 ML 100 ML IV ×2 (01:30→12:41)
[2021-08-20] MEDS: guaiFENesin/D-Methorphan TAB.SR.12H 1 TABLET PO ×2 (05:22→17:21)
[2021-08-20] MEDS: Gabapentin 300 MG Capsule PO ×3 (05:22→22:25)
[2021-08-20] MEDS: Acetaminophen 325 MG Tablet 650 MG PO ×2 (05:22→14:09)
[2021-08-20] MEDS: LORazepam 0.5 MG Tablet PO (05:28)
[2021-08-20 05:55] LABS: Anion Gap 5 (5-15); BUN 10 mg/dL (7-18); BUN/Creat Ratio 12.9 RATIO (10-20); Calcium,Total 8.4 mg/dL (8.5-10.1); Chloride 106 mmol/L (98-107); Creatinine, Serum 0.78 mg/dL (0.70-1.30); EST Glomerular Filtration Rate 109 mL/min (>60); Est Glom Filt Rate - Afr Amer 132 mL/min (>60); Estimated Creatinine Clearance 101.09 ml/min; Glucose 90 mg/dL (74-106); Potassium 3.6 mmol/L (3.5-5.1); Sodium Level 140 mmol/L (136-145)
[2021-08-20] MEDS: Ipratropium/Albuterol Sulfate 3 ML AMPUL.NEB INHALATION ×3 (07:34→19:25)
[2021-08-20] MEDS: Enoxaparin 40 MG/0.4 ML Syringe SC (09:28)
[2021-08-20] MEDS: Aspirin 81 MG TAB.CHEW PO (09:28)
--- NOTE | 2021-08-20 11:26 | PCM.PN.HOSP ---
Subjective Subjective Follow-up on pneumonia: Patient was seen and examined. Complains of feeling fatigued. He has been having high-grade fevers throughout the night. Telemetry with sinus tachycardia. He has also been having some diarrhea. Objective Data Objective Data Vital Signs: Vital Signs Temp Pulse Resp BP Pulse Ox 98.2 F 111 H 18 100/66 95 08/20/21 09:15 08/20/21 10:52 08/20/21 10:52 08/20/21 09:15 08/20/21 09:15 Oxygen Flow Rate (L/min) 2 Oxygen Delivery Method Nasal Cannula Weight: 79.5 kg Body Mass Index (BMI) 25.9 Intake & Output: Intake and Output for Last 24 Hours 08/18/21 08/19/21 08/20/21 23:59 23:59 23:59 Intake Total 3765 / 3765 590 / 590 Output Total 1525 / 1525 350 / 350 Balance 2240 / 2240 240 / 240 Lab / Micro Data Result Diagrams: 08/19/21 05:50 08/20/21 04:39 Labs: Laboratory Results - last 24 hr 08/20/21 04:39: Sodium 140, Potassium 3.6, Chloride 106, Carbon Dioxide 29.0, Anion Gap 5, BUN 10, Creatinine 0.78, Estim Creat Clear Calc 101.09, Est GFR (MDRD) Af Amer 132, Est GFR (MDRD) Non-Af 109, BUN/Creatinine Ratio 12.9, Glucose 90, Calcium 8.4 L Micro: Microbiology 08/19/21 06:25 Sputum, Expectorated/Coughed Gram Stain - Final 08/19/21 06:25 Sputum, Expectorated/Coughed Respiratory Culture - Preliminary Appears to be normal respiratory gutierrez. Further studies to follow. 08/19/21 00:00 Urine, Clean Catch Urine Culture - Preliminary Culture exhibits no growth. 08/19/21 13:17 Mucosa - Nasopharyngeal Respiratory Panel (PCR) - Final 08/19/21 14:46 Urine, Random Streptococcus pneumoniae Antigen (M - Final 08/19/21 14:46 Urine, Random Legionella Antigen - Final 08/18/21 23:50 Mucosa - Nose Influenza Types A,B Direct FA (LISANDRA) - Final 08/18/21 23:50 Mucosa - Nose Rapid RSV (DFA) - Final 08/18/21 23:50 Nasal Secretion SARS-CoV-2 Antigen (Rapid) - Final Radiography Diagnostic Testing: Radiology Impression Chest CTA 08/19/21 12:56 IMPRESSION: No evidence of pulmonary embolism. Interval decrease in size of the right hilar mass with persistent volume loss in the right upper lobe and dense consolidation. Progressive consolidation in the left upper lobe and superior segment of the left lower lobe. Electronically Signed: Jj Suarez MD at 14:34 EST , Physical Exam Narrative Physical exam: General: Alert, Oriented x3, Cooperative, No apparent distress, Well developed HEENT: Atraumatic Oral: Moist Mucosa Neck: Supple Lungs: Diminished to auscultation Cardiovascular: HS I+II, regular, no murmurs Abdomen: Bowel Sounds Present, Soft, Non Tender Extremities: No edema Skin: No rashes, No breakdown Neurological: Grossly intact Psych/Mental Status: Appropriate Assessment & Plan Assessment/Plan (1) Pneumonia: QUALIFIERS: Pneumonia type: due to unspecified organism Laterality: bilateral Lung location: unspecified part of lung Qualified Code(s): J18.9 - Pneumonia, unspecified organism PLAN: 1. Acute postobstructive pneumonia in a patient with underlying lung CA Patient has failed outpatient therapy CTA of the chest showed progressive consolidation in the left upper lobe and superior segment of the left lower lobe. Urine Legionella and streptococcal antigen is negative. Sputum culture is negative. Blood cultures are pending. Continue on IV Zosyn and vancomycin ID following 2. Acute hypoxic insufficiency secondary to #1, patient remains on 2 L of oxygen Encourage use of incentive spirometer 3. 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 Hypotension, iatrogenic, continue on IV fluids Holding parameters for metoprolol 5. CAD status post stent/hyperlipidemia Continue on aspirin, metoprolol, statin 6. DVT - Lovenox SC Charges/Coding Visit Charges Inpatient E&M: 12662 Subs Hosp L2
[2021-08-20 12:42] LABS: Vancomycin, Trough Level 12.7 ug/mL (5.0-15.0)
--- NOTE | 2021-08-20 12:50 | PCM.RX.CS ---
Consult Pharmacy has been consulted to manage selected antiobiotic: Vancomycin Type of Consult: Follow-up Suspected Infection: Pneumonia Labs: Sodium 140 mmol/L (136-145) 08/20/21 04:39 Potassium 3.6 mmol/L (3.5-5.1) 08/20/21 04:39 Chloride 106 mmol/L (98-107) 08/20/21 04:39 Carbon Dioxide 29.0 mmol/L (21.0-32.0) 08/20/21 04:39 Anion Gap 5 (5-15) 08/20/21 04:39 BUN 10 mg/dL (7-18) 08/20/21 04:39 Creatinine 0.78 mg/dL (0.70-1.30) 08/20/21 04:39 Est GFR (MDRD) Af Amer 132 mL/min (>60) 08/20/21 04:39 Est GFR (MDRD) Non-Af 109 mL/min (>60) 08/20/21 04:39 BUN/Creatinine Ratio 12.9 RATIO (10-20) 08/20/21 04:39 Glucose 90 mg/dL (74-106) 08/20/21 04:39 Vancomycin Trough 12.7 ug/mL (5.0-15.0) 08/20/21 11:58 Microbiology: Microbiology 08/19/21 06:25 Sputum, Expectorated/Coughed Gram Stain - Final 08/19/21 06:25 Sputum, Expectorated/Coughed Respiratory Culture - Preliminary Appears to be normal respiratory gutierrez. Further studies to follow. 08/19/21 00:00 Urine, Clean Catch Urine Culture - Preliminary Culture exhibits no growth. 08/19/21 13:17 Mucosa - Nasopharyngeal Respiratory Panel (PCR) - Final 08/19/21 14:46 Urine, Random Streptococcus pneumoniae Antigen (M - Final 08/19/21 14:46 Urine, Random Legionella Antigen - Final 08/18/21 23:50 Mucosa - Nose Influenza Types A,B Direct FA (LISANDRA) - Final 08/18/21 23:50 Mucosa - Nose Rapid RSV (DFA) - Final 08/18/21 23:50 Nasal Secretion SARS-CoV-2 Antigen (Rapid) - Final Goal Trough: 15-20 mcg/mL Pharmacy Plan for Drug Dosing: VANCOMYCIN LEVEL RECEIVED Current Vancomycin Dose: 1500mg IV q12h Number of Doses Received:4 (3 prior to trough draw) Vancomycin Level: 12.7 Hours Since Last Dose: 10.5 Renal Function: 0.78 Renal Function Trend: stable Lab/Micro: pending Vancomycin Plan/Comments: Patient had trough drawn which resulted in a value of 12.7 (goal 15-20). Will plan on increasing dose to 1750mg IV Q12hr to start 08/21/21 @0100 Pending Level: 08/22/21 @1230, prior to 4th dose of new regimen per protocol. Pharmacy Service will continue to monitor and adjust dosing as required.
[2021-08-20] MEDS: Ibuprofen 400 MG Tablet PO (15:19)
[2021-08-20] MEDS: Metoprolol Tartrate 25 MG Tablet 12.5 MG PO (15:56)
[2021-08-20] MEDS: Mag Hydrox/Al Hydrox/Simeth 30 ML UDC PO (20:32)
[2021-08-20] MEDS: Atorvastatin Calcium 80 MG Tablet PO (22:25)
[2021-08-21] VITALS (20 sets, daily range): BP systolic 96–128; BP diastolic 57–79; PULSE 98–132; RESP 18–24; TEMP 36.6–38.8; O2SAT 88–98
[2021-08-21] MEDS: LORazepam 0.5 MG Tablet PO ×3 (00:14→21:03)
[2021-08-21] MEDS: Acetaminophen 325 MG Tablet 650 MG PO ×4 (00:14→21:03)
[2021-08-21] MEDS: 0.9% Normal Saline 1,000 ML 100 ML IV (00:15)
[2021-08-21] MEDS: Mag Hydrox/Al Hydrox/Simeth 30 ML UDC PO ×3 (03:16→20:47)
[2021-08-21 06:00] LABS: Absolute Lymphocyte Count 0.46 X10^3/uL (0.83-4.51); Basophil# 0.04 X10^3/uL; Basophil% 0.6 % (0-1); Eosinophil# 0.18 X10^3/uL; Eosinophils% 2.7 % (0-5); Hematocrit 27.3 % (40-54); Hemoglobin 8.6 g/dL (13.0-16.5); Lymphocyte # 0.46 X10^3/ul (0.83-4.51); Lymphocyte % 6.9 % (19-41); Mean Corp Hgb Conc 31.5 g/dL (32-36); Mean Corpuscular Hgb 28.9 pg (27.0-32.0); Mean Corpuscular Volume 91.6 fL (80-94); Mean Platelet Vol. 9.6 fl (6.2-12.0); Monocyte# 1.05 X10^3/uL; Monocyte% 15.6 % (0-10); NRBC Flagged by Analyzer 0 % (0-5); Neutrophil # 4.95 X10^3/uL (2.7-7.7); Neutrophil % 73.8 % (47-70); POSITIVE DIFFERENTIAL YES; POSITIVE MORPHOLOGY YES; Platelet Count 202 K/mm3 (150-450); RBC Distribution Width CV 21.2 % (11.6-14.6); RBC Distribution Width SD 69.4 fl (35.1-43.9); Red Blood Count 2.98 M/mm3 (4.6-6.2); White Blood Count 6.7 K/mm3 (4.4-11.0)
[2021-08-21 06:02] LABS: Differential Indicated SCAN CRITERIA MET
[2021-08-21] MEDS: Gabapentin 300 MG Capsule PO ×3 (06:16→21:03)
[2021-08-21 06:20] LABS: Anisocytosis 2+
[2021-08-21 06:23] LABS: ALB/GLOB Ratio 0.5 RATIO (0.9-2.4); AST(SGOT) 27 U/L (15-37); Alanine Aminotransfer ALT/SGPT 34 U/L (16-61); Albumin, Serum 1.9 g/dL (3.2-5.0); Alkaline Phosphatase 77 U/L (45-117); Anion Gap 5 (5-15); BUN 10 mg/dL (7-18); BUN/Creat Ratio 15.5 RATIO (10-20); Calcium,Total 8.2 mg/dL (8.5-10.1); Chloride 109 mmol/L (98-107); Creatinine, Serum 0.65 mg/dL (0.70-1.30); EST Glomerular Filtration Rate 135 mL/min (>60); Est Glom Filt Rate - Afr Amer 163 mL/min (>60); Estimated Creatinine Clearance 121.31 ml/min; Globulin 3.9 g/dL (2.2-4.2); Glucose 106 mg/dL (74-106); Potassium 3.3 mmol/L (3.5-5.1); Protein, Total 5.8 g/dL (6.4-8.2); Sodium Level 140 mmol/L (136-145)
[2021-08-21] MEDS: Ipratropium/Albuterol Sulfate 3 ML AMPUL.NEB INHALATION ×3 (07:35→21:45)
[2021-08-21] MEDS: Potassium Chloride Oral Tablet 20 MEQ 40 MEQ PO (07:59)
[2021-08-21] MEDS: guaiFENesin/D-Methorphan TAB.SR.12H 1 TABLET PO (08:17)
--- NOTE | 2021-08-21 08:49 | NURSING ---
upon ambulating from bed to recliner, pt O2 dropped to 82% on 2L NC. pt recovered while sitting in chair quickly and O2 increased to 3L NC
[2021-08-21] MEDS: Aspirin 81 MG TAB.CHEW PO (09:04)
[2021-08-21] MEDS: Metoprolol Tartrate 25 MG Tablet 12.5 MG PO ×2 (09:04→21:02)
[2021-08-21] MEDS: Enoxaparin 40 MG/0.4 ML Syringe SC (09:04)
--- NOTE | 2021-08-21 13:28 | PCM.PN.HOSP ---
Subjective Subjective Follow-up on pneumonia: Patient was seen and examined. He was seen sitting up in a chair. He is being relatively afebrile. He has been using his incentive spirometer. His heart rate was persistently elevated in the 140s yesterday. He was restarted on metoprolol, low-dose. Blood pressure still remains relatively low. He has been having some diarrhea- had 1 loose stool yesterday and 2 today. Objective Data Objective Data Vital Signs: Vital Signs Temp Pulse Resp BP Pulse Ox 99.3 F H 101 H 18 114/60 94 08/21/21 08:05 08/21/21 12:16 08/21/21 09:48 08/21/21 08:05 08/21/21 09:48 Oxygen Flow Rate (L/min) 3 Oxygen Delivery Method Nasal Cannula Weight: 79.5 kg Body Mass Index (BMI) 25.9 Intake & Output: Intake and Output for Last 24 Hours 08/19/21 08/20/21 08/21/21 23:59 23:59 23:59 Intake Total 3765 / 3765 3138.33 / 3338.33 3033.33 / 3033.33 Output Total 1525 / 1525 1050 / 1200 150 / 150 Balance 2240 / 2240 2088.33 / 2138.33 2883.33 / 2883.33 Lab / Micro Data Result Diagrams: 08/21/21 05:30 08/21/21 05:30 Labs: Laboratory Results - last 24 hr 08/21/21 05:30: WBC 6.7, RBC 2.98 L, Hgb 8.6 L, Hct 27.3 L, MCV 91.6, MCH 28.9, MCHC 31.5 L, RDW Std Deviation 69.4 H, RDW Coeff of Sana 21.2 H, Plt Count 202, MPV 9.6, Immature Gran % (Auto) 0.400, Neut % (Auto) 73.8 H, Lymph % (Auto) 6.9 L, [place] % (Auto) 15.6 H, Eos % (Auto) 2.7, Baso % (Auto) 0.6, Absolute Neuts (auto) 5.0, Absolute Lymphs (auto) 0.46 L, Nucleated RBC % 0, Anisocytosis 2+ 08/21/21 05:30: Sodium 140, Potassium 3.3 L, Chloride 109 H, Carbon Dioxide 26.0, Anion Gap 5, BUN 10, Creatinine 0.65 L, Estim Creat Clear Calc 121.31, Est GFR (MDRD) Af Amer 163, Est GFR (MDRD) Non-Af 135, BUN/Creatinine Ratio 15.5, Glucose 106, Calcium 8.2 L, Total Bilirubin 0.30, AST 27, ALT 34, Alkaline Phosphatase 77, Total Protein 5.8 L, Albumin 1.9 L, Globulin 3.9, Albumin/Globulin Ratio 0.5 L Micro: Microbiology 08/19/21 15:40 Blood Culture (Wb) - Port Blood Culture - Preliminary No growth in 48 hours. 08/19/21 15:40 Blood Culture (Wb) - Port Blood Culture - Preliminary No growth in 48 hours. 08/20/21 16:00 Stool Stool Occult Blood (LISANDRA) - Final 08/20/21 16:00 Stool C. difficile DNA Amplification - Final 08/18/21 23:45 Blood Culture (Wb) - Right Forearm Blood Culture - Preliminary No growth in 48 hours. 08/18/21 23:45 Blood Culture (Wb) - Left Hand Blood Culture - Preliminary No growth in 48 hours. 08/19/21 06:25 Sputum, Expectorated/Coughed Gram Stain - Final 08/19/21 06:25 Sputum, Expectorated/Coughed Respiratory Culture - Final 08/19/21 00:00 Urine, Clean Catch Urine Culture - Final Culture exhibits no growth. 08/19/21 13:17 Mucosa - Nasopharyngeal Respiratory Panel (PCR) - Final 08/19/21 14:46 Urine, Random Streptococcus pneumoniae Antigen (M - Final 08/19/21 14:46 Urine, Random Legionella Antigen - Final 08/18/21 23:50 Mucosa - Nose Influenza Types A,B Direct FA (LISANDRA) - Final 08/18/21 23:50 Mucosa - Nose Rapid RSV (DFA) - Final 08/18/21 23:50 Nasal Secretion SARS-CoV-2 Antigen (Rapid) - Final Physical Exam Narrative Physical exam: General: Alert, Oriented x3, Cooperative, No apparent distress, Well developed HEENT: Atraumatic Oral: Moist Mucosa Neck: Supple Lungs: Diminished to auscultation Cardiovascular: HS I+II, regular, no murmurs Abdomen: Bowel Sounds Present, Soft, Non Tender Extremities: No edema Skin: No rashes, No breakdown Neurological: Grossly intact Psych/Mental Status: Appropriate Assessment & Plan Assessment/Plan (1) Pneumonia: QUALIFIERS: Laterality: bilateral Lung location: unspecified part of lung Pneumonia type: due to unspecified organism Qualified Code(s): J18.9 - Pneumonia, unspecified organism PLAN: 56-year-old male with past medical history of lung CAD undergoing chemotherapy and radiation, who was discharged on to after being treated for community-acquired pneumonia. Patient presented back with progressive shortness of breath and fever. 1. Acute postobstructive pneumonia in a patient with underlying lung CA; failed outpatient therapy CTA of the chest showed progressive consolidation in the left upper lobe and superior segment of the left lower lobe. Urine Legionella and streptococcal antigen is negative. Sputum culture is negative. Blood cultures are negative Continue on IV Zosyn and vancomycin ID following 2. Acute hypoxic insufficiency secondary to #1, patient remains on 2 L of oxygen He is reported to dip in oxygen saturation to 82% with exertion Encourage use of incentive spirometer 3. Anemia, drop in hemoglobin from 11.6 to 8.6, likely hemodilution Stool for occult blood is negative DC IV fluids as patient is able to take sufficient oral intake Repeat blood work in a.m, check iron stores 4. Hypokalemia, replace, recheck in a.m. 5. 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 Hypotension, iatrogenic, resolved 7. CAD status post stent/hyperlipidemia Continue on aspirin, metoprolol, statin 8. DVT - Lovenox SC Charges/Coding Visit Charges Inpatient E&M: 17784 Subs Hosp L2
[2021-08-21] MEDS: Ondansetron 4 MG/2 ML Vial IV ×2 (14:25→23:16)
[2021-08-21 14:47] LABS: Ferritin 991 ng/mL (26-388); Iron 48 ug/dL (65-175); Iron Binding Capacity,Total 312 ug/dL (250-450); PERCENT IRON SATURATION 15.4 % (15.0-55.0)
[2021-08-21] MEDS: Atorvastatin Calcium 80 MG Tablet PO (21:03)
--- NOTE | 2021-08-21 21:58 | CPS ---
Increased O2 to 4 lpm
[2021-08-21] MEDS: Ibuprofen 400 MG Tablet PO (23:18)
[2021-08-22] VITALS (22 sets, daily range): BP systolic 92–111; BP diastolic 59–70; PULSE 92–121; RESP 16–20; TEMP 36.4–38.1; O2SAT 92–96
[2021-08-22] MEDS: Gabapentin 300 MG Capsule PO ×3 (05:29→20:53)
[2021-08-22 06:29] LABS: Absolute Lymphocyte Count 0.58 X10^3/uL (0.83-4.51); Absolute Neutrophil Count 3.9 X10^3/uL (2.0-7.7); Basophil# 0.04 X10^3/uL; Basophil% 0.7 % (0-1); Eosinophil# 0.11 X10^3/uL; Eosinophils% 1.9 % (0-5); Hematocrit 28.1 % (40-54); Hemoglobin 9.1 g/dL (13.0-16.5); Lymphocyte # 0.58 X10^3/ul (0.83-4.51); Lymphocyte % 10.2 % (19-41); Mean Corp Hgb Conc 32.4 g/dL (32-36); Mean Corpuscular Hgb 30.1 pg (27.0-32.0); Mean Platelet Vol. 9.4 fl (6.2-12.0); Monocyte# 1.04 X10^3/uL; Monocyte% 18.2 % (0-10); NRBC Flagged by Analyzer 0 % (0-5); Neutrophil % 68.5 % (47-70); POSITIVE DIFFERENTIAL YES; POSITIVE MORPHOLOGY YES; Platelet Count 239 K/mm3 (150-450); RBC Distribution Width CV 21.5 % (11.6-14.6); RBC Distribution Width SD 72.2 fl (35.1-43.9); Red Blood Count 3.02 M/mm3 (4.6-6.2); White Blood Count 5.7 K/mm3 (4.4-11.0)
[2021-08-22 06:31] LABS: Differential Indicated SCAN CRITERIA MET
[2021-08-22 06:50] LABS: Anisocytosis 2+
[2021-08-22 06:53] LABS: ALB/GLOB Ratio 0.5 RATIO (0.9-2.4); AST(SGOT) 26 U/L (15-37); Alanine Aminotransfer ALT/SGPT 37 U/L (16-61); Alkaline Phosphatase 79 U/L (45-117); Anion Gap 5 (5-15); BUN 7 mg/dL (7-18); BUN/Creat Ratio 8.6 RATIO (10-20); Calcium,Total 8.3 mg/dL (8.5-10.1); Chloride 110 mmol/L (98-107); Creatinine, Serum 0.81 mg/dL (0.70-1.30); EST Glomerular Filtration Rate 104 mL/min (>60); Est Glom Filt Rate - Afr Amer 126 mL/min (>60); Estimated Creatinine Clearance 97.35 ml/min; Globulin 3.8 g/dL (2.2-4.2); Glucose 104 mg/dL (74-106); Potassium 3.4 mmol/L (3.5-5.1); Protein, Total 5.8 g/dL (6.4-8.2); Sodium Level 142 mmol/L (136-145)
[2021-08-22] MEDS: Ipratropium/Albuterol Sulfate 3 ML AMPUL.NEB INHALATION ×4 (07:16→19:28)
[2021-08-22] MEDS: Aspirin 81 MG TAB.CHEW PO (08:31)
[2021-08-22] MEDS: Enoxaparin 40 MG/0.4 ML Syringe SC (08:32)
[2021-08-22] MEDS: Metoprolol Tartrate 25 MG Tablet 12.5 MG PO ×2 (08:32→20:54)
[2021-08-22] MEDS: Pantoprazole Sodium 40 MG Tablet PO (08:34)
[2021-08-22] MEDS: LORazepam 0.5 MG Tablet PO ×2 (08:34→20:53)
--- NOTE | 2021-08-22 09:09 | PN.HOSP_ITS ---
Subjective Subjective Patient has history of lung carcinoma and recurrent pneumonia with high suspicion of postobstructive pneumonia. Patient also having diarrhea, C. difficile is negative. On probiotic. Imodium added for symptomatic relief Objective Data Objective Data Vital Signs: Vital Signs Temp Pulse Resp BP Pulse Ox 97.7 F L 102 H 16 92/59 L 92 08/22/21 08:10 08/22/21 08:32 08/22/21 08:10 08/22/21 08:10 08/22/21 08:10 Oxygen Flow Rate (L/min) 2 Oxygen Delivery Method Nasal Cannula Weight: 175 lb 4.28 oz Body Mass Index (BMI) 25.9 Intake & Output: Intake and Output for Last 24 Hours 08/20/21 08/21/21 08/22/21 23:59 23:59 23:59 Intake Total 3138.33 / 3338.33 3918.33 / 4218.33 1085.25 / 1085.25 Output Total 1050 / 1200 850 / 1200 350 / 350 Balance 2088.33 / 2138.33 3068.33 / 3018.33 735.25 / 735.25 Lab / Micro Data Result Diagrams: 08/22/21 05:58 08/22/21 05:58 Labs: Laboratory Results - last 24 hr 08/21/21 05:30: Iron 48 L, TIBC 312, Iron Saturation 15.4, Ferritin 991 H 08/22/21 05:58: WBC 5.7, RBC 3.02 L, Hgb 9.1 L, Hct 28.1 L, MCV 93.0, MCH 30.1, MCHC 32.4, RDW Std Deviation 72.2 H, RDW Coeff of Sana 21.5 H, Plt Count 239, MPV 9.4, Immature Gran % (Auto) 0.500, Neut % (Auto) 68.5, Lymph % (Auto) 10.2 L, [place] % (Auto) 18.2 H, Eos % (Auto) 1.9, Baso % (Auto) 0.7, Absolute Neuts (auto) 3.9, Absolute Lymphs (auto) 0.58 L, Nucleated RBC % 0, Anisocytosis 2+ 08/22/21 05:58: Sodium 142, Potassium 3.4 L, Chloride 110 H, Carbon Dioxide 27.0, Anion Gap 5, BUN 7, Creatinine 0.81, Estim Creat Clear Calc 97.35, Est GFR (MDRD) Af Amer 126, Est GFR (MDRD) Non-Af 104, BUN/Creatinine Ratio 8.6 L, Glucose 104, Calcium 8.3 L, Total Bilirubin 0.40, AST 26, ALT 37, Alkaline Phosphatase 79, Total Protein 5.8 L, Albumin 2.0 L, Globulin 3.8, Albumin/Globulin Ratio 0.5 L Micro: Microbiology 08/19/21 15:40 Blood Culture (Wb) - Port Blood Culture - Preliminary No growth in 48 hours. 08/19/21 15:40 Blood Culture (Wb) - Port Blood Culture - Preliminary No growth in 48 hours. 08/20/21 16:00 Stool Stool Occult Blood (LISANDRA) - Final 08/20/21 16:00 Stool C. difficile DNA Amplification - Final 08/18/21 23:45 Blood Culture (Wb) - Right Forearm Blood Culture - Preliminary No growth in 48 hours. 08/18/21 23:45 Blood Culture (Wb) - Left Hand Blood Culture - Preliminary No growth in 48 hours. 08/19/21 06:25 Sputum, Expectorated/Coughed Gram Stain - Final 08/19/21 06:25 Sputum, Expectorated/Coughed Respiratory Culture - Final 08/19/21 00:00 Urine, Clean Catch Urine Culture - Final Culture exhibits no growth. 08/19/21 13:17 Mucosa - Nasopharyngeal Respiratory Panel (PCR) - Final 08/19/21 14:46 Urine, Random Streptococcus pneumoniae Antigen (M - Final 08/19/21 14:46 Urine, Random Legionella Antigen - Final 08/18/21 23:50 Mucosa - Nose Influenza Types A,B Direct FA (LISANDRA) - Final 08/18/21 23:50 Mucosa - Nose Rapid RSV (DFA) - Final 08/18/21 23:50 Nasal Secretion SARS-CoV-2 Antigen (Rapid) - Final Physical Exam Narrative General: Alert, Oriented x3, Cooperative HEENT: Atraumatic, PERRLA, EOMI, Normocephalic Oral: No Gingival or Mucosal Lesions/ Ulcerations Neck: Supple, No JVD, Negative Carotid Bruits Lungs: Air entry diminished in bilateral lung bases. No crepitation/rhonchi on 2 L of oxygen Cardiovascular: Sinus tachycardia, Normal S1, Normal S2, No murmurs Abdomen: Bowel Sounds Present, Soft, Non Tender, Non-Distended : No renal angle tenderness. No suprapubic tenderness. Extremities: Mild pitting edema, Capillary Refill Less than 3 Seconds Skin: No rashes, No breakdown Musculoskeletal: No Tenderness to Palpation of Joints or Extremities Neurological: Cranial nerves II-XII grossly intact, DTR 2+/4 and Symmetrical, Neuro grossly intact Psych/Mental Status: Normal Affect, Appropriate. Assessment & Plan Assessment/Plan (1) Pneumonia: QUALIFIERS: Laterality: bilateral Lung location: unspecified part of lung Pneumonia type: due to unspecified organism Qualified Code(s): J18.9 - Pneumonia, unspecified organism PLAN: 56-year-old male with past medical history of lung CAD undergoing chemotherapy and radiation, who was discharged on to after being treated for community-acquired pneumonia. Patient presented back with progressive shortness of breath and fever. 1. Acute postobstructive pneumonia with history of stage IIIC (T3, N3, M0 non- small cell lung cancer, squamous histology: Patient failed outpatient therapy. Chest x-ray and CTA chest reviewed with the radiation oncologist. Bilateral upper lobe infiltrates in a pattern of radiation field suggestive of radiation pneumonitis. Patient had 30 sessions of radiation completed a month ago. Started on high-dose prednisone 60 mg daily for 2 weeks and then gradual taper, 50 mg daily for 1 week, 40 mg daily for 1 week, 30 mg daily for 1 week, 20 mg daily for 1 week, 10 mg for 1 week and then stop. Patient being followed by ID. Infectious work-up including blood cultures x2, sputum culture and urinary antigens are negative. Vancomycin discontinued by ID. Patient follows Dr. Chase. 2. Acute hypoxic insufficiency secondary to pneumonia and radiation pneumonitis He is reported to dip in oxygen saturation to 82% with exertion Encourage use of incentive spirometer 3. Anemia, drop in hemoglobin from 11.6 to 8.6, likely hemodilution with anemia of chronic Stool for occult blood is negative. IV fluid discontinued Repeat CBC shows hemoglobin 9.1. Iron studies shows anemia of chronic disease. 4. Hypokalemia: Monitored and replaced 5. 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 Hypotension, iatrogenic, resolved 7. CAD status post stent/hyperlipidemia Continue on aspirin, metoprolol, statin 8. DVT - Lovenox SC Total time of the visit including total time spent in counseling or coordination of care, (more than 50% of the total time, spent in obtaining medical information from nurses and other ancillary care providers,explaining to the patient about labs, imaging, diagnosis and management), discussion with radiation oncology and ID, review of labs and imaging is 35 minutes. Charges/Coding Visit Charges Inpatient E&M: 57439 Subs Hosp L3
[2021-08-22] MEDS: Loperamide 2 MG Capsule PO (10:35)
--- NOTE | 2021-08-22 10:36 | CASEMGMT ---
TC brigitte Lee at [facility], they are able to accept pt for services.
[2021-08-22] MEDS: Acetaminophen 325 MG Tablet 650 MG PO ×2 (12:17→20:52)
[2021-08-22] MEDS: predniSONE 20 MG Tablet 60 MG PO (12:50)
[2021-08-22] MEDS: Ibuprofen 400 MG Tablet PO (12:53)
[2021-08-22 12:56] LABS: Vancomycin, Trough Level 17.4 ug/mL (5.0-15.0)
--- NOTE | 2021-08-22 13:07 | PCM.RX.CS ---
Consult Type of Consult: Follow-up Suspected Infection: Pneumonia Labs: Sodium 142 mmol/L (136-145) 08/22/21 05:58 Potassium 3.4 mmol/L (3.5-5.1) L 08/22/21 05:58 Chloride 110 mmol/L (98-107) H 08/22/21 05:58 Carbon Dioxide 27.0 mmol/L (21.0-32.0) 08/22/21 05:58 Anion Gap 5 (5-15) 08/22/21 05:58 BUN 7 mg/dL (7-18) 08/22/21 05:58 Creatinine 0.81 mg/dL (0.70-1.30) 08/22/21 05:58 Est GFR (MDRD) Af Amer 126 mL/min (>60) 08/22/21 05:58 Est GFR (MDRD) Non-Af 104 mL/min (>60) 08/22/21 05:58 BUN/Creatinine Ratio 8.6 RATIO (10-20) L 08/22/21 05:58 Glucose 104 mg/dL (74-106) 08/22/21 05:58 Vancomycin Trough 17.4 ug/mL (5.0-15.0) H 08/22/21 12:20 Microbiology: Microbiology 08/19/21 15:40 Blood Culture (Wb) - Port Blood Culture - Preliminary No growth in 48 hours. 08/19/21 15:40 Blood Culture (Wb) - Port Blood Culture - Preliminary No growth in 48 hours. 08/20/21 16:00 Stool Stool Occult Blood (LISANDRA) - Final 08/20/21 16:00 Stool C. difficile DNA Amplification - Final 08/18/21 23:45 Blood Culture (Wb) - Right Forearm Blood Culture - Preliminary No growth in 48 hours. 08/18/21 23:45 Blood Culture (Wb) - Left Hand Blood Culture - Preliminary No growth in 48 hours. 08/19/21 06:25 Sputum, Expectorated/Coughed Gram Stain - Final 08/19/21 06:25 Sputum, Expectorated/Coughed Respiratory Culture - Final 08/19/21 00:00 Urine, Clean Catch Urine Culture - Final Culture exhibits no growth. 08/19/21 13:17 Mucosa - Nasopharyngeal Respiratory Panel (PCR) - Final 08/19/21 14:46 Urine, Random Streptococcus pneumoniae Antigen (M - Final 08/19/21 14:46 Urine, Random Legionella Antigen - Final 08/18/21 23:50 Mucosa - Nose Influenza Types A,B Direct FA (LISANDRA) - Final 08/18/21 23:50 Mucosa - Nose Rapid RSV (DFA) - Final 08/18/21 23:50 Nasal Secretion SARS-CoV-2 Antigen (Rapid) - Final Goal Trough: 15-20 mcg/mL Pharmacy Plan for Drug Dosing: VANCOMYCIN LEVEL RECEIVED Current Vancomycin Dose: 1750mg Q12H Number of Doses Received: 3 Vancomycin Level: 17.4 Hours Since Last Dose: 11.5 Renal Function: 0.81 Renal Function Trend: stable Vancomycin Plan/Comments: Continue current Vancomycin dosing regimen Pending Level: Vancomycin trough @ 1230 08/24/21 Pharmacy Service will continue to monitor and adjust dosing as required. Labs to be done on [date and time ordered]: Vancomycin trough @ 1230 08/24/21
--- NOTE | 2021-08-22 14:10 | PCM.PN.ID ---
Physical Exam Narrative Not feeling any better. Still fever, some diarrhea, still cough/dyspnea. Const alert General Appearance: cooperative Resp Auscultation: rhonchi and wheezes Cardio Rate: tachycardic GI soft to palpation, non-tender and non-distended Skin no rashes or lesions noted ID ID: Route of nutrition/ use of supplements: [] Nutritional Intake: [] IV Site: [] Gould Catheter: [] Assessment & Plan Assessment/Plan (1) Pneumonia: QUALIFIERS: Pneumonia type: due to unspecified organism Laterality: bilateral Lung location: unspecified part of lung Qualified Code(s): J18.9 - Pneumonia, unspecified organism PLAN: Worsened symptoms after recent admit. Covid vaccine x1. Infectious workup neg so far. Possible radiation pneumonitis, agree with plan to start steroids. Will stop vanc. Will follow, d/w Dr. Flanagan (2) Failure of outpatient treatment:
--- NOTE | 2021-08-22 14:35 | NURSING ---
Pt had checked temp and was concerned it was going up. states had been 101.2. temp is currently 100.6. JANICE Hernandez had given Tylenol around 1230. Pt denies further needs at this time.
[2021-08-22] MEDS: Atorvastatin Calcium 80 MG Tablet PO (20:52)
[2021-08-22] MEDS: 0.9% Saline Lock 10 ML Syringe IV (20:57)
[2021-08-23] VITALS (15 sets, daily range): BP systolic 87–112; BP diastolic 61–71; PULSE 89–120; RESP 16–20; TEMP 36.3–36.9; O2SAT 85–99
[2021-08-23 06:23] LABS: Absolute Lymphocyte Count 0.39 X10^3/uL (0.83-4.51); Absolute Neutrophil Count 5.3 X10^3/uL (2.0-7.7); Basophil# 0.02 X10^3/uL; Basophil% 0.3 % (0-1); Hematocrit 28.7 % (40-54); Hemoglobin 9.1 g/dL (13.0-16.5); Lymphocyte # 0.39 X10^3/ul (0.83-4.51); Lymphocyte % 5.9 % (19-41); Mean Corp Hgb Conc 31.7 g/dL (32-36); Mean Corpuscular Hgb 29.5 pg (27.0-32.0); Mean Corpuscular Volume 93.2 fL (80-94); Mean Platelet Vol. 9.8 fl (6.2-12.0); Monocyte# 0.94 X10^3/uL; Monocyte% 14.2 % (0-10); NRBC Flagged by Analyzer 0 % (0-5); Neutrophil # 5.25 X10^3/uL (2.7-7.7); Neutrophil % 79.3 % (47-70); POSITIVE DIFFERENTIAL YES; POSITIVE MORPHOLOGY YES; Platelet Count 250 K/mm3 (150-450); RBC Distribution Width CV 21.4 % (11.6-14.6); RBC Distribution Width SD 71.9 fl (35.1-43.9); Red Blood Count 3.08 M/mm3 (4.6-6.2); White Blood Count 6.6 K/mm3 (4.4-11.0)
[2021-08-23 06:26] LABS: Differential Indicated SCAN CRITERIA MET
[2021-08-23] MEDS: LORazepam 0.5 MG Tablet PO (06:39)
[2021-08-23] MEDS: Acetaminophen 325 MG Tablet 650 MG PO ×2 (06:39→10:07)
[2021-08-23] MEDS: Gabapentin 300 MG Capsule PO (06:40)
[2021-08-23] MEDS: guaiFENesin/D-Methorphan TAB.SR.12H 1 TABLET PO (06:40)
[2021-08-23 06:44] LABS: ALB/GLOB Ratio 0.6 RATIO (0.9-2.4); AST(SGOT) 20 U/L (15-37); Alanine Aminotransfer ALT/SGPT 36 U/L (16-61); Albumin, Serum 2.1 g/dL (3.2-5.0); Alkaline Phosphatase 73 U/L (45-117); Anion Gap 5 (5-15); BUN 11 mg/dL (7-18); BUN/Creat Ratio 13.1 RATIO (10-20); Calcium,Total 9.2 mg/dL (8.5-10.1); Chloride 112 mmol/L (98-107); Creatinine, Serum 0.84 mg/dL (0.70-1.30); EST Glomerular Filtration Rate 100 mL/min (>60); Est Glom Filt Rate - Afr Amer 121 mL/min (>60); Estimated Creatinine Clearance 93.87 ml/min; Globulin 3.8 g/dL (2.2-4.2); Glucose 133 mg/dL (74-106); Potassium 3.5 mmol/L (3.5-5.1); Protein, Total 5.9 g/dL (6.4-8.2); Sodium Level 144 mmol/L (136-145)
[2021-08-23 06:55] LABS: Anisocytosis 2+
[2021-08-23] MEDS: Ipratropium/Albuterol Sulfate 3 ML AMPUL.NEB INHALATION ×2 (07:00→11:30)
[2021-08-23] MEDS: Aspirin 81 MG TAB.CHEW PO (07:28)
--- NOTE | 2021-08-23 08:29 | DS.PCM_ITS ---
Providers Date of Admission: 08/19/21 Date of Discharge: 08/23/21 Primary Care Physician: Dr. Faheem Vallejo MD Consultations 08/19/21 10:15 Consult: Infectious Disease Routine Consulting Provider: Jama Gonzalez Reason for Consult: Pneumonia, failed outpatient EMERGENT Consult: No Notified: Yes Date Notified: 08/19/21 Time Notified: 11:50 Method of Notification: face to face Reason For Visit: PNUEMONIA? Diagnosis Discharge Diagnosis (1) Pneumonia: Status: Acute Code(s): J18.9 - Pneumonia, unspecified organism Qualifiers: Laterality: bilateral Lung location: unspecified part of lung Pneumonia type: due to unspecified organism Qualified Code(s): J18.9 - Pneumonia, unspecified organism Medications at Discharge Home Medications Mucinex DM 1 tab PO Q12H PRN 05/05/21 aspirin 81 mg PO DAILY 05/05/21 atorvastatin 80 mg PO QHS 05/05/21 metoprolol tartrate 25 mg PO BID 05/05/21 lorazepam 0.5 mg tablet 0.5 mg PO TID PRN tab 05/26/21 ondansetron 8 mg disintegrating tablet 8 mg PO Q8H PRN #30 tab 06/14/21 albuterol sulfate 90 mcg/actuation aerosol inhaler 2 puff INHALATION Q6H PRN #8.5 g 07/15/21 gabapentin 300 mg PO TID 08/18/21 acidophilus-pectin, citrus 1 tab PO TID #0 tab 08/23/21 loperamide 2 mg PO Q4H PRN PRN #0 cap 08/23/21 pantoprazole 40 mg PO DAILY #30 tab 08/23/21 prednisone 60 mg PO BREAKFAST #90 tab 08/23/21 Hospital Course Summary of Care Provided Hospital Course: This is 56-year-old male with past medical history of lung CAD undergoing chemot herapy and radiation, who was discharged on to after being treated for community-acquired pneumonia. Patient presented back with progressive shortness of breath and fever. His further hospital course, assessment, evaluation, diagnosis and management as follows 1. Acute postobstructive pneumonia with history of stage IIIC (T3, N3, M0 non- small cell lung cancer, squamous histology: Patient was admitted with presumed diagnosis of failed outpatient antibiotic therapy for pneumonia. The patient was empirically started on IV vancomycin and Zosyn. Chest x-ray and CTA chest reviewed with the radiation oncologist. Bilateral upper lobe infiltrates in a pattern of radiation field suggestive of radiation pneumonitis. Patient had 30 sessions of radiation completed a month ago. Started on high-dose prednisone 60 mg daily for 2 weeks and then gradual taper, 50 mg daily for 1 week, 40 mg daily for 1 week, 30 mg daily for 1 week, 20 mg daily for 1 week, 10 mg for 1 week and then stop. Patient being followed by ID. Infectious work-up including blood cultures x2, sputum culture and urinary antigens are negative. Vancomycin discontinued by ID. On 08/23, Zosyn was discontinued and ID recommended no further antibiotic treatment. It seems patient did not have recurrent or failed antibiotic therapy for pneumonia but it is radiation pneumonitis. Patient follows Dr. Chase. Patient is discharged on tapering dose of high prednisone as recommended by radiation oncologist as mentioned above. Prescription given 2. Acute hypoxic insufficiency secondary to pneumonia and radiation pneumonitis He is reported to dip in oxygen saturation to 82% with exertion Encourage use of incentive spirometer 3. Anemia, drop in hemoglobin from 11.6 to 8.6, likely hemodilution with anemia of chronic Stool for occult blood is negative. IV fluid discontinued Repeat CBC shows hemoglobin 9.1. Iron studies shows anemia of chronic disease. 4. Hypokalemia: Monitored and replaced 5. 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 Hypotension, iatrogenic, resolved 7. CAD status post stent/hyperlipidemia Continue on aspirin, metoprolol, statin 8. DVT - Lovenox SC A prescription for prednisone tapering dose total 90 tablets and Protonix given. Advised to follow-up with radiation oncologist Dr. Cristian Gomez, medical oncologist Dr. Díaz, construction equipment technician and PCP. Discharge medication reconciliation done. Discharge follow-up instructions completed. Discharge process discussed with the patient and all questions were answered to patient's satisfaction. Total time spent, exact 35 minutes on discharge meds reconciliation, examination, coordination of care with nurses and ancillary staff, review of im aging and blood test and discussion with the patient on follow-up instructions. Physical Exam Narrative General: Alert, Oriented x3, Cooperative HEENT: Atraumatic, PERRLA, EOMI, Normocephalic Oral: No Gingival or Mucosal Lesions/ Ulcerations Neck: Supple, No JVD, Negative Carotid Bruits Lungs: Air entry diminished in bilateral lung bases. No crepitation/rhonchi on 2 L of oxygen Cardiovascular: Sinus tachycardia, Normal S1, Normal S2, No murmurs Abdomen: Bowel Sounds Present, Soft, Non Tender, Non-Distended : No renal angle tenderness. No suprapubic tenderness. Extremities: Mild pitting edema improved, Capillary Refill Less than 3 Seconds Skin: No rashes, No breakdown Musculoskeletal: No Tenderness to Palpation of Joints or Extremities Neurological: Cranial nerves II-XII grossly intact, DTR 2+/4 and Symmetrical, Neuro grossly intact Psych/Mental Status: Normal Affect, Appropriate. Weight / BMI Weight Weight: 175 lb 4.28 oz Body Mass Index (BMI) 25.9 ABG / Lab / Microbiology Data Result Diagrams: 08/23/21 05:36 08/23/21 05:36 Laboratory: Laboratory Results - last 24 hr 08/22/21 12:20: Vancomycin Trough 17.4 H 08/23/21 05:36: WBC 6.6, RBC 3.08 L, Hgb 9.1 L, Hct 28.7 L, MCV 93.2, MCH 29.5, MCHC 31.7 L, RDW Std Deviation 71.9 H, RDW Coeff of Sana 21.4 H, Plt Count 250, MPV 9.8, Immature Gran % (Auto) 0.300, Neut % (Auto) 79.3 H, Lymph % (Auto) 5.9 L, [place] % (Auto) 14.2 H, Eos % (Auto) 0.0, Baso % (Auto) 0.3, Absolute Neuts (auto) 5.3, Absolute Lymphs (auto) 0.39 L, Nucleated RBC % 0, Anisocytosis 2+ 08/23/21 05:36: Sodium 144, Potassium 3.5, Chloride 112 H, Carbon Dioxide 27.0, Anion Gap 5, BUN 11, Creatinine 0.84, Estim Creat Clear Calc 93.87, Est GFR (MDRD) Af Amer 121, Est GFR (MDRD) Non-Af 100, BUN/Creatinine Ratio 13.1, Glucose 133 H, Calcium 9.2, Total Bilirubin 0.20, AST 20, ALT 36, Alkaline Phosphatase 73, Total Protein 5.9 L, Albumin 2.1 L, Globulin 3.8, Albumin/Globulin Ratio 0.6 L Microbiology: Microbiology 08/19/21 15:40 Blood Culture (Wb) - Port Blood Culture - Preliminary No growth in 48 hours. 08/19/21 15:40 Blood Culture (Wb) - Port Blood Culture - Preliminary No growth in 48 hours. 08/20/21 16:00 Stool Stool Occult Blood (LISANDRA) - Final 08/20/21 16:00 Stool C. difficile DNA Amplification - Final 08/18/21 23:45 Blood Culture (Wb) - Right Forearm Blood Culture - Preliminary No growth in 48 hours. 08/18/21 23:45 Blood Culture (Wb) - Left Hand Blood Culture - Preliminary No growth in 48 hours. 08/19/21 06:25 Sputum, Expectorated/Coughed Gram Stain - Final 08/19/21 06:25 Sputum, Expectorated/Coughed Respiratory Culture - Final 08/19/21 00:00 Urine, Clean Catch Urine Culture - Final Culture exhibits no growth. 08/19/21 13:17 Mucosa - Nasopharyngeal Respiratory Panel (PCR) - Final 08/19/21 14:46 Urine, Random Streptococcus pneumoniae Antigen (M - Final 08/19/21 14:46 Urine, Random Legionella Antigen - Final 08/18/21 23:50 Mucosa - Nose Influenza Types A,B Direct FA (LISANDRA) - Final 08/18/21 23:50 Mucosa - Nose Rapid RSV (DFA) - Final 08/18/21 23:50 Nasal Secretion SARS-CoV-2 Antigen (Rapid) - Final Meaningful Use Info Meaningful Use Diagnoses (Choose all that apply): None applicable Discharge Plan Admission Admit Date/Time: 08/19/21 02:02 Primary Reason for Your Visit: Radiation pneumonitis Attending Provider: Ilan Flanagan Primary Care Provider: Faheem Vallejo Consulting Providers: Jama Gonzalez Discharge Orders/Prescriptions Prescriptions: New loperamide 2 mg Capsule 2 mg PO Q4H PRN PRN (Reason: diarrhea) Qty: 0 RF: 0 acidophilus-pectin, citrus 25 million cell -100 mg Tablet 1 tab PO TID Qty: 0 RF: 0 prednisone 20 mg Tablet 60 mg PO BREAKFAST Qty: 90 RF: 0 pantoprazole 40 mg Tablet,Delayed Release (Dr/Ec) 40 mg PO DAILY Qty: 30 RF: 1 Continued lorazepam [Ativan] 0.5 mg tablet 0.5 mg PO TID PRN (Reason: anxiety) RF: 0 atorvastatin 40 mg Tablet 80 mg PO QHS RF: 0 metoprolol tartrate 25 mg tablet 25 mg PO BID RF: 0 aspirin 81 mg Capsule 81 mg PO DAILY RF: 0 Mucinex DM 30-600 mg Tablet Extended Release 12 Hr 1 tab PO Q12H PRN (Reason: Cough) RF: 0 gabapentin 300 mg Capsule 300 mg PO TID RF: 0 ondansetron 8 mg tablet,disintegrating 8 mg PO Q8H PRN (Reason: nausea and vomiting) Qty: 30 RF: 2 albuterol sulfate 90 mcg/actuation HFA aerosol inhaler 2 puff inhalation Q6H PRN (Reason: shortness of breath or wheezing) Qty: 8.5 RF: 1 Referrals / Follow Up: Marco Antonio Pederson MD [STAFF PHYSICIAN] - 09/06/21 8:15 am (FOR Lung cancer) Nany Díaz MD [STAFF PHYSICIAN] - Within 1 Month Faheem Vallejo MD [Primary Care Provider] - 09/02/21 2:40 pm Cristian Contreras DO [NON-STAFF] - 08/29/21 1:00 pm Disposition Disposition (needs filled in before D/C Order can be placed): Home Health Service Charges/Coding Visit Charges Inpatient E&M: 02084 Disch Hosp
--- NOTE | 2021-08-23 08:29 | PCM.DC ---
Discharge Instructions Diet Discharge Diet: No restrictions Activity Discharge Activity: Return to Normal Activity and May Not Drive Dressing / Incision Call your doctor if you observe: Fever of 101 or Higher, Coldness, Increased Pain, Numbness or Tingling, Change in Color, Inability to urinate, Inability to have a bowel movement, Shortness of breath, Dizziness, Fainting spells, Swelling in the ankles, Chest pain, Prolonged hiccupping, Increased palpitations (irregular heartbeat), Calf discomfort and Uncontrolled pain Follow Up Care Test Results: Test results from this visit will be discussed in further detail at your follow-up appointment, if applicable. Discharge Plan Admission Admit Date/Time: 08/19/21 02:02 Primary Reason for Your Visit: Radiation pneumonitis Attending Provider: Ilan Flanagan Primary Care Provider: Faheem Vallejo Consulting Providers: Jama Gonzalez Discharge Orders/Prescriptions Prescriptions: New loperamide 2 mg Capsule 2 mg PO Q4H PRN PRN (Reason: diarrhea) Qty: 0 RF: 0 acidophilus-pectin, citrus 25 million cell -100 mg Tablet 1 tab PO TID Qty: 0 RF: 0 prednisone 20 mg Tablet 60 mg PO BREAKFAST Qty: 90 RF: 0 pantoprazole 40 mg Tablet,Delayed Release (Dr/Ec) 40 mg PO DAILY Qty: 30 RF: 1 Continued lorazepam [Ativan] 0.5 mg tablet 0.5 mg PO TID PRN (Reason: anxiety) RF: 0 atorvastatin 40 mg Tablet 80 mg PO QHS RF: 0 metoprolol tartrate 25 mg tablet 25 mg PO BID RF: 0 aspirin 81 mg Capsule 81 mg PO DAILY RF: 0 Mucinex DM 30-600 mg Tablet Extended Release 12 Hr 1 tab PO Q12H PRN (Reason: Cough) RF: 0 gabapentin 300 mg Capsule 300 mg PO TID RF: 0 ondansetron 8 mg tablet,disintegrating 8 mg PO Q8H PRN (Reason: nausea and vomiting) Qty: 30 RF: 2 albuterol sulfate 90 mcg/actuation HFA aerosol inhaler 2 puff inhalation Q6H PRN (Reason: shortness of breath or wheezing) Qty: 8.5 RF: 1 Referrals / Follow Up: Faheem Vallejo MD [Primary Care Provider] - Within 2 Weeks Cristian Contreras DO [NON-STAFF] - Within 1 Month Marco Antonio Pederson MD [STAFF PHYSICIAN] - Within 1 Month (FOR Lung cancer) Nany Díaz MD [STAFF PHYSICIAN] - Within 1 Month Disposition Disposition (needs filled in before D/C Order can be placed): Home, Self Care
[2021-08-23] MEDS: predniSONE 20 MG Tablet 60 MG PO (09:59)
[2021-08-23] MEDS: Pantoprazole Sodium 40 MG Tablet PO (10:00)
--- NOTE | 2021-08-23 10:06 | PCM.PN.ID ---
Physical Exam Narrative Dramatically improved after starting steroids. breathing well, no fever. Const alert and no apparent distress General Appearance: cooperative Resp normal air movement and clear to auscultation bilaterally Cardio regular rate and regular rhythm GI soft to palpation, non-tender and non-distended Skin no rashes or lesions noted ID ID: Route of nutrition/ use of supplements: [] Nutritional Intake: [] IV Site: [] Gould Catheter: [] Assessment & Plan Assessment/Plan (1) Pneumonia: QUALIFIERS: Pneumonia type: due to unspecified organism Laterality: bilateral Lung location: unspecified part of lung Qualified Code(s): J18.9 - Pneumonia, unspecified organism PLAN: Worsened symptoms after recent admit. Covid vaccine x1. Infectious workup neg so far. Dramatically improved with steroids to treat radiation pneumonitis, ok for d/c home off of abx. Will follow, d/w Dr. Flanagan (2) Failure of outpatient treatment:
[2021-08-23] MEDS: Enoxaparin 40 MG/0.4 ML Syringe SC (10:17)
[2021-08-23] MEDS: Metoprolol Tartrate 25 MG Tablet 12.5 MG PO (10:41)
--- NOTE | 2021-08-23 11:00 | CASEMGMT ---
Addendum entered by Shante Taylor 08/23/21 12:05: Pt qualifies for increased O2 requirements. Pt has portable tank for pt to go home on. Updated script received and faxed to [facility]. Original Note: TC to Rosa at [facility] to make aware pt will dc today.
[2021-08-23] MEDS: 0.9% Saline Lock 10 ML Syringe IV (11:54)
--- NOTE | 2021-08-23 11:58 | CASEMGMT ---
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 SW reviewed chart. Both HCPOA and LW are on file. SW printed off documents and placed on pt's chart. Glory Monaco CREATIVE SERVICES PRODUCER, DIRT BIKE MECHANIC
--- NOTE | 2021-08-23 11:59 | CASEMGMT ---
Social Work Note Per setter juice packaging machines questions, pt has completed HCPOA and LW and provided documents to [facility]. SW reviewed chart. Both HCPOA and LW are on file at [facility]. SW printed off documents and placed on pt's chart. Glory Monaco MSW, HEALTHCARE MANAGEMENT
--- NOTE | 2021-08-23 15:01 | NURSING ---
student charting reviewed. Herlinda CAMACHO, [employer] instructor
[2021-08-24 13:27] LABS: B. pertussis IgG 3.36 index (0.00-0.94); B. pertussis IgM < 1.0 index (0.0-0.9)
== END 2021-08-23 12:47 | disposition home health service (06) | DRG 206 ==
LOC: ED 08-19 00:41 → MS3 08-19 02:27
PROVIDERS: Internal Medicine; Internal Medicine Infectious Disease; Admitting Provider Family Medicine; Emergency Provider Emergency Medicine; PCP Family Medicine; Referring Provider Family Medicine; Visit Provider Internal Medicine
DX: J70.0 Acute pulmonary manifestations due to radiation (principal); C34.91 Malignant neoplasm of unspecified part of right bronchus or lung; D63.8 Anemia in other chronic diseases classified elsewhere; I95.89 Other hypotension; E78.00 Pure hypercholesterolemia, unspecified; I25.10 Atherosclerotic heart disease of native coronary artery without angina pectoris; E78.5 Hyperlipidemia, unspecified; I10 Essential (primary) hypertension; E87.6 Hypokalemia; F41.9 Anxiety disorder, unspecified; I25.2 Old myocardial infarction; R19.7 Diarrhea, unspecified; Z87.891 Personal history of nicotine dependence; R09.02 Hypoxemia; Z79.82 Long term (current) use of aspirin; Z86.16 Personal history of COVID-19; F32.A Depression, unspecified; Z79.899 Other long term (current) drug therapy; Z95.5 Presence of coronary angioplasty implant and graft; Z85.46 Personal history of malignant neoplasm of prostate; R00.0 Tachycardia, unspecified; Y84.2 Radiological procedure and radiotherapy as the cause of abnormal reaction of the patient, or of later complication, without mention of misadventure at the time of the procedure
CPT/HCPCS: 36415; 71275; 80048; 80053; 80202; 81001; 82274; 82728; 83540; 83550; 83605; 85025; 85610; 85730; 87040; 87070; 87086; 87205; 87426; 87449; 87493; 87633; 87804; 87807; 93005; 94640; 94667; 94668; 97162; 97166; 97530; 97535; 97802; 99251; 99284; J7030; J7040; J7050; Q9967; A4216; G0463; J2405

== ENCOUNTER 2021-09-02 07:54 | Outpatient (CLI) | payer BC, SELFPAY ==
--- NOTE | 2021-09-02 07:55 | MRI_ITS ---
ACR Level 3 findings have been noted. An addendum which confirms receipt of the report will follow. STUDY: MRI UPPER EXTREMITY RIGHT HUMERUS WITHOUT CONTRAST REASON FOR EXAM: Right biceps pain, possible biceps tear. TECHNIQUE: Standardized fat and water weighted pulse sequences were obtained in all 3 orthogonal planes. COMPARISON: Right shoulder radiographs 08/09/2021. FINDINGS: Normal subcutis adipose space. There is no demonstrated solid, cystic, or lipomatous mass within the subcutaneous adipose space. Normal visualized muscles and fascia. There is no edema in the biceps muscle. There is no fluid surrounding the visualized distal portion of the long biceps tendon. The distal biceps tendon is not included in [id number]. Normal visualized neurovascular bundles. There is a mass in the proximal humeral metaphysis with cortical breakthrough (T2 sagittal images 20-22) measuring 2.5 cm in length. There is a lesion in the body of the scapula (inversion recovery coronal images 16-18). MRI/Upper Ext/No Jt/ wo IMPRESSION: Lesions in the proximal humerus and body of the scapula, worrisome for metastatic disease. No demonstrated biceps muscle tear/strain. Electronically Signed: Abhilash Milner MD at 11:51 EDT ,
== END 2021-09-02 23:59 | disposition home or self-care (01) ==
PROVIDERS: PCP Family Medicine; Visit Provider Family Medicine
DX: M79.601 Pain in right arm (principal)
CPT/HCPCS: 73218

== ENCOUNTER 2021-09-06 07:22 | Inpatient (IN) | payer BC, SELFPAY ==
[2021-09-06] VITALS (7 sets, daily range): BP systolic 94–139; BP diastolic 69–88; PULSE 97–133; RESP 16–20; TEMP 36.7–37.2; O2SAT 93–98; BMI 26.3
--- NOTE | 2021-09-06 07:34 | RAD_ITS ---
STUDY: X-RAY - PELVIS AND RIGHT HIP REASON FOR EXAM: Male, 56 years old. PAIN TECHNIQUE: 3 views of the pelvis and hip. COMPARISON: None. FINDINGS: There is a non-specific bowel gas pattern. Evidence of prior right inguinal hernia repair. Normal bilateral iliac wings, sacroiliac joints and visualized sacrum. Normal bilateral superior and inferior pubic rami. Normal pubic symphysis. Normal bilateral ischial tuberosities. Normal visualized femoral head. Normal acetabulum. Normal hip joint. RAD/HIP, UNI W/ Pelvis 2-3 Views IMPRESSION: Normal x-ray examination of the pelvis and hip. Electronically Signed: Jj Suarez MD at 8:30 EDT ,
--- NOTE | 2021-09-06 07:35 | EDS_ITS ---
HPI History of Present Illness Chief Complaint: Lower Extremity Injury Detail of Chief Complaint: Intractable pain right hip Informant: patient Narrative Narrative: Patient presents to the emergency department complaint of right hip pain and inability to bear weight. Patient states that he has had intermittent pain in the right hip for about a week. Patient recently diagnosed with a tumor in his right upper extremity that is believed to be metastasis from lung cancer. Patient's been taking oxycodone 10 mg at home and not getting any pain relief. Pain in the right hip more persistent over the last couple of days and I have a hard time putting his foot down on the floor because of the amount of pain he is having in his right buttock and hip area. Patient also complains of some urinary incontinence related to the amount of pain he is having and not been able to get to the bathroom in time currently. He denies weakness in the extremity. He denies paresthesias. Denies trauma to his hip. Denies dysuria, hematuria, or frequency. Patient has been with palliative care but because he is at home they are not can be able to see him for about a week. Prior similar symptoms: No PFSH PFSH Medical History Abnormal PSA Anxiety Cancer Cardiology follow-up encounter Chronic cough Cold feeling Coronary artery disease COVID-19 Depression Emphysema, unspecified Encounter for chemotherapy management Encounter for education Endobronchial cancer Excessive bleeding Former smoker High cholesterol History of echocardiogram History of heart attack History of steroid therapy History of stress test History of torsion of testis Hypertension Hypokalemia Myocardial infarct On home oxygen therapy Prostate cancer Regional lymph node metastasis present Restless legs Shoulder pain, right Wears glasses Home Medications Mucinex DM 1 tab PO Q12H PRN 05/05/21 [History Last Taken Unknown] aspirin 81 mg PO DAILY 05/05/21 [History Last Taken 05/04/21] atorvastatin 80 mg PO QHS 05/05/21 [History Last Taken Unknown] metoprolol tartrate 25 mg PO BID 05/05/21 [History Last Taken 06/07/21] lorazepam 0.5 mg tablet 0.5 mg PO TID PRN tab 05/26/21 [History Last Taken Unknown] ondansetron 8 mg disintegrating tablet 8 mg PO Q8H PRN #30 tab 06/14/21 [Rx Last Taken Unknown] albuterol sulfate 90 mcg/actuation aerosol inhaler 2 puff INHALATION Q6H PRN #8.5 g 07/15/21 [Rx Last Taken Unknown] gabapentin 300 mg PO TID 08/18/21 [History Last Taken Unknown] acidophilus-pectin, citrus 1 tab PO TID #0 tab 08/23/21 [Rx Last Taken Unknown] loperamide 2 mg PO Q4H PRN PRN #0 cap 08/23/21 [Rx Last Taken Unknown] pantoprazole 40 mg PO DAILY #30 tab 08/23/21 [Rx Last Taken Unknown] prednisone 60 mg PO BREAKFAST #90 tab 08/23/21 [Rx Last Taken Unknown] Disability Placard #1 ea 09/01/21 [Rx Last Taken Unknown] ibuprofen 200 mg tablet 600 mg PO TID tab 09/05/21 [History Last Taken Unknown] oxycodone-acetaminophen 10 mg-325 mg tablet 1 tab PO Q8H PRN 09/05/21 [History Last Taken Unknown] sennosides 8.6 mg capsule 8.6 mg PO BID 09/05/21 [History Last Taken Unknown] Allergy/AdvReac Type Severity Reaction Status Date / Time No Known Allergies Allergy Verified 09/06/21 07:23 Family History Father Emphysema lung Cancer prostate cancer Grandfather Cancer prostate Surgical History H/O prostatectomy History of cardiac catheterization History of coronary artery stent placement History of hernia repair Social History household members: spouse Smoking Status: Former smoker quit date: 02/16/21 pack-years: 40 Tobacco: How many years used: 40 how long ago did patient quit smoking: patient reports smoking [id number] alcohol intake: never substance use type: does not use caffeine: No during the past year weight has: remained stable reema/baptist: [employer] seatbelt use: always do you feel safe at home: Yes ROS ROS ED Constitutional Constitutional ED: Reports systems reviewed and no addt'l complaints, except as documented; Denies body ache(s), change in weight or chills Eyes Eyes: Denies acute decrease in peripheral vision, change in vision, double vision or loss of vision ENT ENT ED: Reports none; Denies ear pain, lip swelling, loss taste/smell, neck pain, otalgia or sore throat Cardiovascular Cardiovascular: Reports none; Denies abdominal pain, chest pain with activity, leg edema, lightheadedness, palpitations, rapid heart rate or syncope Respiratory/Chest Respiratory/Chest: Reports none; Denies change in mental status, dry cough, dyspnea, hemoptysis, shortness of breath at rest or shortness of breath with exertion Gastrointestinal Gastrointestinal: Reports none; Denies abdominal pain, change in stool character, diarrhea, hematemesis, hematochezia, melena, rectal bleeding or vomiting Genitourinary Genitourinary ED: Reports none; Denies abdominal discomfort, anuria, dysuria, genital pain or polyuria Musculoskeletal Musculoskeletal: Reports none, back pain and other Details: Right hip pain, right arm pain ; Denies arthralgias, difficulty walking, extremity pain, muscle weakness or myalgias Integumentary Reports none; Denies abscess or rash Neurologic Neurologic: Reports none; Denies abnormal gait, confusion, focal weakness, frequent falls, headache(s), loss of vision, numbness, paresthesias, radicular pain, vertigo or weakness Psychiatric Psychiatric: Reports systems reviewed and no addt'l complaints, except as documented and none; Denies behavioral changes, confusion, difficulty concentrating, hallucinations, suicidal ideation, tactile hallucinations or visual hallucinations Endocrine Endocrinology: Denies none, cold intolerance, excessive sweating, fatigue or heat intolerance Hematologic/Lymphatic Hematologic/Lymphatic: Reports none; Denies anemia, easy bleeding or easy bruising Allergic/Immunologic Allergic/Immunologic ED: Denies as per HPI, none, lip swelling, mouth swelling, throat swelling, tongue swelling or hives EXAM Physical Exam Const Vital Signs: 09/06/21 07:23 Temperature 98.1 F Temperature Source Temporal Pulse Rate 133 H Respiratory Rate 20 H Blood Pressure 139/85 H Blood Pressure Mean 103 Pulse Ox 94 Oxygen Delivery Method Room Air Positive well nourished and well developed General Appearance ED: well developed and NAD HEENT Reports TM's clear and moist mucous membranes normocephalic and atraumatic; Negative for trauma or tenderness Tympanic Membrane ED: Yes TM's clear Eyes PERRL and EOMs intact bilaterally General Eye ED: Negative for pale conjunctiva or scleral icterus Neck no lymphadenopathy, supple and no JVD General: Negative for tenderness Chest Wall inspection of chest normal and palpation of chest normal Chest: Negative for tenderness Resp normal respiratory effort and clear to auscultation bilaterally Effort and Inspection: Negative for respiratory distress or pain with movement Auscultation: Negative for rhonchi, wheezes or diminished lung sounds Cardio regular rate, regular rhythm, S1 normal heart sound, S2 normal heart sound and no murmurs Peripheral Pulses: pulses 2+ throughout GI normal to inspection, nondistended, normoactive bowel sounds, soft to palpation, non-tender, non-distended and no masses Back/Spine no CVA tenderness and no thoracic nor lumbar tenderness Extremity normal to inspection Extremity Narrative: Patient with tenderness palpation over the right ischial tuberosity and right buttock diffusely. Pain with range of motion at the hip. Neurovascular intact distally. Deep tendon reflexes are plus 2 out of 4 bilaterally at the patella and Achilles. Patient has normal 5 extension bilaterally. General Extremety ED: Negative for edema General Extremity: Negative for edema Neuro oriented x3, CN's II-XII intact bilaterally, no sensory deficits noted and gait normal Sensorium / Orientation: awake, alert, oriented to person, oriented to place and oriented to time Motor Exam: strength 5/5 throughout and strength abnormal Psych mental status grossly normal Skin no rashes or lesions noted and no wounds MDM MDM MDM Narrative Medical decision making narrative: IV line established on arrival. Patient was medicated with Dilaudid and Zofran. Patient did have good pain relief with that. Lab work significant for an elevated white blood cell count of 18.3 which I suspect is likely related to patient's prednisone use. Patient had x-rays of the right hip and pelvis which were unremarkable. Case will be discussed with hospitalist evaluate patient for admission for pain control. Etiology of patient's pain unclear otherwise suspect may be related to bony metastasis and he may require further imaging such as PET scan or MRI. Lab Data Attestation: I reviewed the patient's lab results. Labs: Laboratory Results - last 24 hr 09/06/21 09/06/21 07:50 07:50 WBC 18.3 H RBC 4.19 L Hgb 12.9 L Hct 39.8 L MCV 95.0 H MCH 30.8 MCHC 32.4 RDW Std Deviation 72.4 H RDW Coeff of Sana 21.2 H Plt Count 308 MPV 9.5 Immature Gran % (Auto) 0.800 Neut % (Auto) 89.0 H Lymph % (Auto) 2.8 L [place] % (Auto) 6.8 Eos % (Auto) 0.4 Baso % (Auto) 0.2 Absolute Neuts (auto) 16.3 H Absolute Lymphs (auto) 0.51 L Nucleated RBC % 0 Differential Comment COMMENT Anisocytosis 1+ Sodium 140 Potassium 3.8 Chloride 103 Carbon Dioxide 32.0 Anion Gap 5 BUN 19 H Creatinine 0.97 Estim Creat Clear Calc 84.02 Est GFR (MDRD) Af Amer 103 Est GFR (MDRD) Non-Af 85 BUN/Creatinine Ratio 19.6 Glucose 90 Calcium 9.5 Radiography Diagnostic Testing: Clinical Impression(s) from Imaging Studies Hip/Pelvis X-Ray 09/06/21 07:34 IMPRESSION: Normal x-ray examination of the pelvis and hip. Electronically Signed: Jj Suarez MD at 8:30 EDT , Three-view x-rays of right hip and pelvis obtained interpreted by myself as no acute fractures or bony lytic lesions. Radiology in agreement. Discharge Plan Triage Chief Complaint: Lower Extremity Injury ED Provider: Tommy Pedro Dx/Rx/DC Orders Clinical Impression: Intractable pain, Inability to walk Prescriptions: No Action lorazepam [Ativan] 0.5 mg tablet 0.5 mg PO TID PRN (Reason: anxiety) RF: 0 oxycodone-acetaminophen [Percocet] 10-325 mg tablet 1 tab PO Q8H PRNRF: 0 senna 8.6 mg capsule 8.6 mg PO BID RF: 0 ibuprofen [Advil] 200 mg tablet 600 mg PO TID RF: 0 atorvastatin 40 mg Tablet 80 mg PO QHS RF: 0 metoprolol tartrate 25 mg tablet 25 mg PO BID RF: 0 aspirin 81 mg Capsule 81 mg PO DAILY RF: 0 Mucinex DM 30-600 mg Tablet Extended Release 12 Hr 1 tab PO Q12H PRN (Reason: Cough) RF: 0 gabapentin 300 mg Capsule 300 mg PO TID RF: 0 loperamide 2 mg Capsule 2 mg PO Q4H PRN PRN (Reason: diarrhea) Qty: 0 RF: 0 acidophilus-pectin, citrus 25 million cell -100 mg Tablet 1 tab PO TID Qty: 0 RF: 0 prednisone 20 mg Tablet 60 mg PO BREAKFAST Qty: 90 RF: 0 pantoprazole 40 mg Tablet,Delayed Release (Dr/Ec) 40 mg PO DAILY Qty: 30 RF: 1 ondansetron 8 mg tablet,disintegrating 8 mg PO Q8H PRN (Reason: nausea and vomiting) Qty: 30 RF: 2 albuterol sulfate 90 mcg/actuation HFA aerosol inhaler 2 puff inhalation Q6H PRN (Reason: shortness of breath or wheezing) Qty: 8.5 RF: 1 (DME) Disability Placard See Rx Instructions .Route .MEDSUPPLY Qty: 1 RF: 0 Primary Care Provider: Faheem Vallejo Referrals: Faheem Vallejo MD [Primary Care Provider] - Disposition Disposition: Acute Care Hospital [facility]
[2021-09-06] MEDS: HYDROmorphone 1 MG/ML Syringe IV ×3 (07:48→17:22)
[2021-09-06] MEDS: 0.9% Normal Saline 1,000 ML 150 ML IV (07:48)
[2021-09-06] MEDS: Ondansetron 4 MG/2 ML Vial IV (07:48)
[2021-09-06 07:58] LABS: Absolute Lymphocyte Count 0.51 X10^3/uL (0.83-4.51); Absolute Neutrophil Count 16.3 X10^3/uL (2.0-7.7); Basophil# 0.03 X10^3/uL; Basophil% 0.2 % (0-1); Eosinophil# 0.08 X10^3/uL; Eosinophils% 0.4 % (0-5); Hematocrit 39.8 % (40-54); Hemoglobin 12.9 g/dL (13.0-16.5); Lymphocyte # 0.51 X10^3/ul (0.83-4.51); Lymphocyte % 2.8 % (19-41); Mean Corp Hgb Conc 32.4 g/dL (32-36); Mean Corpuscular Hgb 30.8 pg (27.0-32.0); Mean Platelet Vol. 9.5 fl (6.2-12.0); Monocyte# 1.24 X10^3/uL; Monocyte% 6.8 % (0-10); NRBC Flagged by Analyzer 0 % (0-5); Neutrophil # 16.28 X10^3/uL (2.7-7.7); POSITIVE DIFFERENTIAL YES; POSITIVE MORPHOLOGY YES; Platelet Count 308 K/mm3 (150-450); RBC Distribution Width CV 21.2 % (11.6-14.6); RBC Distribution Width SD 72.4 fl (35.1-43.9); Red Blood Count 4.19 M/mm3 (4.6-6.2); White Blood Count 18.3 K/mm3 (4.4-11.0)
[2021-09-06 07:59] LABS: Differential Indicated SCAN CRITERIA MET
[2021-09-06 08:11] LABS: Anion Gap 5 (5-15); BUN 19 mg/dL (7-18); BUN/Creat Ratio 19.6 RATIO (10-20); Calcium,Total 9.5 mg/dL (8.5-10.1); Chloride 103 mmol/L (98-107); Creatinine, Serum 0.97 mg/dL (0.70-1.30); EST Glomerular Filtration Rate 85 mL/min (>60); Est Glom Filt Rate - Afr Amer 103 mL/min (>60); Estimated Creatinine Clearance 84.02 ml/min; Glucose 90 mg/dL (74-106); Potassium 3.8 mmol/L (3.5-5.1); Sodium Level 140 mmol/L (136-145)
[2021-09-06 08:21] LABS: Anisocytosis 1+
--- NOTE | 2021-09-06 09:04 | NURSING ---
DR HUITRON FOR DR MERCER
--- NOTE | 2021-09-06 09:07 | PCM.HP.STD ---
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 07/25/2021 radiation R lung and BL mediastinal disease w/ concurrent carbo/taxol, recent RUE mass with concern for metastatic disease pending biopsy who presents to the [facility] ED on 09/06/21 secondary to onset intractable right hip pain and pain in the scaroiliac right region, severe debility with difficulty even bearing weight already on chronic pain regimen secondary to metastatic disease prompting ED evaluation. He noted pain 10/10, severe especially with movement or activity attempts. He notes that palliative sees him but since he is home he is only seen weekly and thus they recommended ED evaluation. Patient of note on recent steroid regimen. Work-up in the ED included T 98.3, heart rate 113, BP 126/78, respiratory rate 14, 97% on 2 L nasal cannula, CBC w/ WBC 18.3, Hgb 12.9, Plts 308 with L shift and lymphopenia noted to be on recent steroids, BMP without acute findings, UA not marked appearing, plain film R hip and pelvis without acute findings. In the ED patient administered dilaudid and zofran therapy. [facility] Medical History Abnormal PSA Anxiety Cancer Cardiology follow-up encounter Chronic cough Cold feeling Coronary artery disease COVID-19 Depression Emphysema, unspecified Encounter for chemotherapy management Encounter for education Endobronchial cancer Excessive bleeding Former smoker High cholesterol History of echocardiogram History of heart attack History of steroid therapy History of stress test History of torsion of testis Hypertension Hypokalemia Myocardial infarct On home oxygen therapy Prostate cancer Regional lymph node metastasis present Restless legs Shoulder pain, right Wears glasses Home Medications Mucinex DM 1 tab PO Q12H PRN 11/18/21 [History Last Taken Unknown] aspirin 81 mg PO DAILY 05/05/21 [History Last Taken 05/04/21] atorvastatin 80 mg PO QHS 05/05/21 [History Last Taken Unknown] metoprolol tartrate 25 mg PO BID 05/05/21 [History Last Taken 06/07/21] lorazepam 0.5 mg tablet 0.5 mg PO TID PRN tab 05/26/21 [History Last Taken Unknown] ondansetron 8 mg disintegrating tablet 8 mg PO Q8H PRN #30 tab 06/14/21 [Rx Last Taken Unknown] albuterol sulfate 90 mcg/actuation aerosol inhaler 2 puff INHALATION Q6H PRN #8.5 g 07/15/21 [Rx Last Taken Unknown] gabapentin 300 mg PO TID 08/18/21 [History Last Taken Unknown] acidophilus-pectin, citrus 1 tab PO TID #0 tab 08/23/21 [Rx Last Taken Unknown] loperamide 2 mg PO Q4H PRN PRN #0 cap 08/23/21 [Rx Last Taken Unknown] pantoprazole 40 mg PO DAILY #30 tab 08/23/21 [Rx Last Taken Unknown] prednisone 60 mg PO BREAKFAST #90 tab 08/23/21 [Rx Last Taken Unknown] Disability Placard #1 ea 09/01/21 [Rx Last Taken Unknown] ibuprofen 200 mg tablet 600 mg PO TID tab 09/05/21 [History Last Taken Unknown] oxycodone-acetaminophen 10 mg-325 mg tablet 1 tab PO Q8H PRN 09/05/21 [History Last Taken Unknown] sennosides 8.6 mg capsule 8.6 mg PO BID 09/05/21 [History Last Taken Unknown] diazepam 5 mg PO Q8H PRN PRN 09/06/21 [History Last Taken Unknown] Allergy/AdvReac Type Severity Reaction Status Date / Time No Known Allergies Allergy Verified 09/06/21 07:23 Family History (Updated 09/06/21 @ 09:[address] Rosalie Boyd MD) Father Emphysema lung Cancer prostate cancer Grandfather Cancer prostate Mother Kidney disease Surgical History H/O prostatectomy History of cardiac catheterization History of coronary artery stent placement History of hernia repair Social History household members: spouse Smoking Status: Former smoker quit date: 02/16/21 pack-years: 40 Tobacco: How many years used: 40 how long ago did patient quit smoking: patient reports smoking [id number] alcohol intake: never substance use type: does not use caffeine: No during the past year weight has: remained stable reema/latter-day: [employer]ianist seatbelt use: always do you feel safe at home: Yes ROS ROS Narrative Admission Review of Systems: CONSTITUTIONAL: No weight loss, fever, chills, + weakness or fatigue. HEENT: Eyes: No visual loss, blurred vision, double vision or yellow sclerae. Ears, Nose, Throat: No hearing loss, sneezing, congestion, runny nose or sore throat. SKIN: No rash or itching, lesions, wounds. CARDIOVASCULAR: + Occasional LH/dizziness, No chest pain, chest pressure or chest discomfort, palpitations, edema, orthopnea, syncopal events. RESPIRATORY:+ shortness of breath, cough unchanged, No increased sputum, wheezing, hemoptysis. GASTROINTESTINAL: + Anorexia, No nausea, vomiting or diarrhea, abdominal pain, melena, BRBPR. GENITOURINARY: No dysuria, frequency, urgency or retention. NEUROLOGICAL: + Occasional LH/dizizness, No headache, syncope, paralysis, ataxia, numbness or tingling in the extremities, focal weakness, change in bowel or bladder control, seizure. MUSCULOSKELETAL: + muscle, back pain, joint pain or stiffness. HEMATOLOGIC: + anemia, bleeding or bruising. LYMPHATICS: No enlarged nodes. No history of splenectomy. PSYCHIATRIC: No history of depression or anxiety. ENDOCRINOLOGIC: No reports of sweating, cold or heat intolerance. No polyuria or polydipsia. ALLERGIES: No history of asthma, hives, eczema or rhinitis. Vital Signs Vital Signs Vital Signs: 09/06/21 07:23 Temperature 98.1 F Temperature Source Temporal Pulse Rate 133 H Respiratory Rate 20 H Blood Pressure 139/85 H Blood Pressure Mean 103 Pulse Ox 94 Oxygen Delivery Method Room Air Weight Weight: 178 lb 2.136 oz Body Mass Index (BMI) 26.3 Physical Exam Narrative Physical Examination: General: Awake, alert, oriented x 3 and cooperative, laying in the ED bed, uncomfortable appearing. Skin: Normal color, normal turgor, no icterus, no cyanosis. HEENT: AT/NC, EOMI, PERRLA, dry MM, no carotid bruits or JVD noted. Lungs: Diminished, > bases, appropriate effort, no rales, ronchi or wheezing. Heart: Mildly tachycardic with regular rhythm; no gallop, rub audible. Abdomen: Soft, NTTP, ND, distant normal BS, no HSM. Extremities: No cyanosis, clubbing, or edema. Discomfort with movement LE, R>L, not marked discomfort w/ palpation hip and SI region on the R. Neurological: Patient awake, alert, oriented x 3, cognitive function intact; pupils equally reactive to light and accommodation, cranial nerves II-XII grossly normal, moving all 4 extremities but limited seconary to pain, no focal deficits, strength severely globally decreased. Psychiatric: Affect appears fatigued, uncomfortable, no acute evidence of depressive or anxiety feelings. Results Lab / Micro Data Result Diagrams: 09/06/21 07:50 09/06/21 07:50 Labs: Laboratory Results - last 24 hr 09/06/21 07:50: WBC 18.3 H, RBC 4.19 L, Hgb 12.9 L, Hct 39.8 L, MCV 95.0 H, MCH 30.8, MCHC 32.4, RDW Std Deviation 72.4 H, RDW Coeff of Sana 21.2 H, Plt Count 308, MPV 9.5, Immature Gran % (Auto) 0.800, Neut % (Auto) 89.0 H, Lymph % (Auto) 2.8 L, [place] % (Auto) 6.8, Eos % (Auto) 0.4, Baso % (Auto) 0.2, Absolute Neuts (auto) 16.3 H, Absolute Lymphs (auto) 0.51 L, Nucleated RBC % 0, Differential Comment COMMENT, Anisocytosis 1+ 09/06/21 07:50: Sodium 140, Potassium 3.8, Chloride 103, Carbon Dioxide 32.0, Anion Gap 5, BUN 19 H, Creatinine 0.97, Estim Creat Clear Calc 84.02, Est GFR (MDRD) Af Amer 103, Est GFR (MDRD) Non-Af 85, BUN/Creatinine Ratio 19.6, Glucose 90, Calcium 9.5 Radiology Impression Hip/Pelvis X-Ray 09/06/21 07:34 IMPRESSION: Normal x-ray examination of the pelvis and hip. 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 07/25/2021 radiation R lung and BL mediastinal disease w/ concurrent carbo/taxol, recent RUE mass with concern for metastatic disease pending biopsy who presents to the [facility] ED on 09/06/21 secondary to onset intractable right hip pain and pain in the scaroiliac right region, severe debility with difficulty even bearing weight. #1. Intractable right hip and SI pain in the setting of metastatic cancer with concern for metastatic disease: Failed conservative regimen outpatient as patient is following with palliative therapy on chronic narcotics, will admit to medical surgical floor, maintain on fall precautions, continue offloading, as needed IV and oral pain regimen, request MRI of the hip and pelvis region with IV contrast secondary to concerns for possible metastatic disease and at the same time given recent history of mild dizziness on Ross will obtain MRI of the brain concurrently with IV contrast. PT/OT/case management consulted for discharge planning. Did discuss case with Dr. Contreras who is patient's right arm physician and if there is a noted metastatic finding in the hip region then would recontact to discuss potential biopsy per radiology. Additionally would need to contact Dr. Eden who is aware of the patient to ascertain if any intervention was needed prior to consideration for future radiation therapy. Palliative therapy consulted, continue chronic steroids #2. Stage IIIC (pT3 pN3 M0) squamous cell carcinoma of the right lower lobe, metastatic: Dx 04/2021 with evidence of ipsilateral and contralateral mediastinal lymph node involvement with 06/13/2021 ? 07/25/2021 radiation R lung and BL mediastinal disease w/ concurrent carbo/taxol, recent RUE mass with concern for metastatic disease pending biopsy. Given #[address] Contreras as noted. Mag and Phos pending. #3. Chronic hypoxic respiratory failure with chronic COPD: We will continue patient home chronic oxygen supplementation of 2 L nasal cannula, not on routine inhalers, will continue as needed albuterol, encourage head of bed and I-S. #4. Hypertension: Continue home regimen including metoprolol, PRN hydralazine. #5. Hyperlipidemia: We will continue patient home statin therapy. #6. GERD: We will continue patient home PPI. #7. CAD: s/p PCI w/ DE 09/2020, continue aspirin, statin, metoprolol, not on SREEKANTH inhibitor or ARB. #8. Anxiety and depression: Continue patient home benzodiazepine as needed regimen. #9. Former tobacco use: Encourage continued tobacco cessation peer #10 pure history of prostate cancer: Status post prostatectomy 2013 and external beam radiation 2016 for relapse, continue outpatient oncology/urology follow-up. #11. Chronic anemia/AOCD: Admisison Hgb 12.9, stable, trend. #12. DVT Prophylaxis: SCDs, lovenox. #13. CODE status: Patient RODERICK is his who is present. Discussed CODE status at length including difference between FULL code, DNR-CCA and DNR-CC status. Following discussions about the differences in these status, requested DNR-CCA, no intubation status. Advanced Care Planning Face to Face Time: 16 minutes. Charges/Coding Visit Charges OBSV E&M: 63492 Initial observation care L3 Procedures Hospitalists Procedures: [id number] Advncd Care Plan 30 Min
--- NOTE | 2021-09-06 09:11 | MRI_ITS ---
EXAM: MR RIGHT LOWER EXTREMITY WITHOUT AND WITH INTRAVENOUS CONTRAST, HIP CLINICAL INDICATION: R hip pain, metastatic cancer history TECHNIQUE: Multiplanar and multisequence MR images of the right hip without and with intravenous contrast. This report was created using [employer] report [employer] technology. CONTRAST: 15ml Dotarem via IV COMPARISON: None. FINDINGS: TENDONS: FLEXORS: See below. EXTENSORS/HAMSTRING: Unremarkable. Intact. ABDUCTORS: Unremarkable. Intact. ADDUCTORS: Unremarkable. Intact. ROTATORS: Unremarkable. Intact. MUSCLES: Abnormal increased T2 signal in the paraspinal muscles along the left side of the sacrum. This may represent intramuscular strain or metastatic disease to the muscle. FLUID: Unremarkable. No joint effusion. No trochanteric bursitis. LABRUM: Unremarkable. No evidence of a tear on this non-arthrogram exam. CARTILAGE: Unremarkable. Articular cartilage intact. BONES/JOINTS: There is a metastatic focus in the right greater trochanter, medial right iliac bone, right sacrum, and superior right acetabulum. There is masslike extension of the metastatic focus in the superior right acetabular lesion. This extends into the right iliopsoas muscle there is abnormal signal. No femoral neck fracture. No avascular necrosis of the femoral head. OTHER SOFT TISSUES: On the edge of the film, there is a necrotic appearing mass in the subcutaneous fat along the right lower abdominal wall. This may be a metastatic focus. BOWEL: There is an umbilical hernia containing fat. There is no bowel involvement. There is no incarceration. There is no findings suggesting that this is causing a bowel obstruction. MRI/Lower Ext Joint Only W/WO Cont IMPRESSION: 1. There is a metastatic focus in the right greater trochanter, medial right iliac bone, right sacrum, and superior right acetabulum. 2. Abnormal increased T2 signal in the paraspinal muscles along the left side of the sacrum. This may represent intramuscular strain or metastatic disease to the muscle. 3. There is masslike extension of the metastatic focus in the superior right acetabular lesion. This extends into the right iliopsoas muscle there is abnormal signal. 4. On the edge of the film, there is a necrotic appearing mass in the subcutaneous fat along the right lower abdominal wall. This may be a metastatic focus. Electronically Signed: Jovan Smith MD at 16:31 EDT ,
--- NOTE | 2021-09-06 09:12 | NURSING ---
MED SURG WHITE INTRACTABLE PAIN, DIFFICULTY AMBULATION, FAILURE TO THRIVE
[2021-09-06 09:45] LABS: Bacteria 0 SEEN /hpf (None Seen); Red Blood Cells-Urine 0 SEEN /hpf (0-5)
[2021-09-06 09:50] LABS: Color, Urine Yellow (Yellow); Glucose, Dipstick Normal (Normal); Ketone-Dipstick Negative (Negative); Leukocyte Esterase-Dipstick Negative /ul (Negative); Nitrite-Dipstick Negative (Negative); Occult Blood-Urine Negative /ul (Negative); Protein-Dipstick Negative (Negative); Specific Gravity, Urine 1.015 (1.002-1.030); Urine Bilirubin Dipstick Negative (Negative); Urine Clarity Clear (Clear); Urine Urobilinogen Normal (Normal)
[2021-09-06 09:59] LABS: White Blood Cells 0-5 SEEN /hpf (0-5)
[2021-09-06 10:00] LABS: Mucous, Urine RARE /hpf (<or=2+); Squamous Epithelial Cells - UA 0-5 SEEN /hpf (0-5)
--- NOTE | 2021-09-06 10:02 | MRI_ITS ---
We are attempting to reach an attending provider to discuss findings. An addendum with communication details will be sent when the communication is complete. EXAM: MR HEAD WITHOUT AND WITH INTRAVENOUS CONTRAST CLINICAL INDICATION: Dizziness, metastatic cancer TECHNIQUE: Multiplanar and multisequence MR images of the brain were obtained without and with intravenous contrast. This report was created using [employer] report generation technology. CONTRAST: IV 15ml Dotarem COMPARISON: May 26 2021 7:41am FINDINGS: BRAIN AND EXTRA-AXIAL SPACES: There is a 14 x 14 mm T2 hyperintense lesion of the left brainstem. Se 9 IM: 13. This demonstrates ring enhancement. No other lesions are visualized. There is underlying edema. Given the patient''s history, this is consistent for metastatic disease. No intra- or extra-axial hemorrhage. No evidence of acute infarct. No intracranial mass or mass effect. There is preservation of the grewal/white matter interface. Ventricles are appropriate for age. No hydrocephalus. Basal cisterns are patent. SELLA: Unremarkable. Normal sella turcica, pituitary gland, infundibular stalk, optic chiasm and hypothalamus. AUDITORY SYSTEM: Unremarkable. The internal auditory canals are patent. BONES/JOINTS: Unremarkable. No discrete lytic or blastic abnormalities. SINUSES: Unremarkable as visualized. Clear. MASTOID AIR CELLS: Unremarkable as visualized. Clear. ORBITS: Unremarkable as visualized. Both globes, extraocular muscles, optic nerves and retrobulbar fat appear unremarkable. VASCULATURE: Unremarkable as visualized. Normal flow voids in the major intracranial circulation. MRI/Brain W/WO Contrast IMPRESSION: There has been progression of disease since the prior MRI. There is a 14 x 14 mm T2 hyperintense lesion of the left brainstem. Se 9 IM: 13. This demonstrates ring enhancement. No other lesions are visualized. There is underlying edema. Given the patient''s history, this is concerning for metastatic disease. CF called for the hips and brain Electronically Signed: Jovan Smith MD at 16:41 EDT ,
[2021-09-06 10:20] LABS: AST(SGOT) 24 U/L (15-37); Alanine Aminotransfer ALT/SGPT 31 U/L (16-61); Albumin, Serum 2.7 g/dL (3.2-5.0); Alkaline Phosphatase 106 U/L (45-117); Bilirubin, Direct 0.12 mg/dL (0.00-0.30); Globulin 4.3 g/dL (2.2-4.2); Magnesium 2.3 mg/dL (1.6-2.6); Phosphorus 3.1 mg/dL (2.5-4.9)
[2021-09-06] MEDS: Senna Tablet 1 TABLET PO ×2 (11:14→22:12)
[2021-09-06] MEDS: Aspirin 81 MG TAB.CHEW PO (11:14)
[2021-09-06] MEDS: Metoprolol Tartrate 25 MG Tablet PO ×2 (11:14→22:11)
[2021-09-06] MEDS: Enoxaparin 40 MG/0.4 ML Syringe SC (11:14)
[2021-09-06] MEDS: Pantoprazole Sodium 40 MG Tablet PO (11:15)
--- NOTE | 2021-09-06 11:30 | CASEMGMT ---
JANICE CM notified pt has palliative c/s entered. Email to palliative. Pt has signed the consent for service to palliative but has not yet been seen by AUTOMATION TECHNICIAN. Pallliative aware pt is admitted currently and will plan to see pt in the hospital tomorrow.
[2021-09-06] MEDS: oxyCODONE 5 MG Tablet 10 MG PO (16:10)
[2021-09-06] MEDS: Gabapentin 300 MG Capsule PO (16:11)
[2021-09-06] MEDS: 0.9% Normal Saline 1,000 ML 100 ML IV (16:13)
[2021-09-06] MEDS: 0.9% Saline Lock 10 ML Syringe IV ×2 (17:22→18:00)
[2021-09-06] MEDS: dexAMETHasone 10 MG/ML Vial 6 MG IV (18:02)
[2021-09-06] MEDS: Ketorolac 15 MG/ML Vial IV (20:08)
[2021-09-06] MEDS: fentaNYL 25 MCG Patch TD (20:08)
[2021-09-06] MEDS: Gabapentin 400 MG Capsule PO (22:10)
[2021-09-06] MEDS: LORazepam 0.5 MG Tablet PO (22:11)
[2021-09-06] MEDS: Atorvastatin Calcium 80 MG Tablet PO (22:15)
[2021-09-07] MEDS: dexAMETHasone 4 MG/ML Vial IV ×4 (00:11→18:37)
[2021-09-07] MEDS: 0.9% Normal Saline 1,000 ML 100 ML IV ×2 (01:16→11:57)
[2021-09-07 03:55] VITALS: BP 96/75; PULSE 83; RESP 18; TEMP 36.7; O2SAT 97
[2021-09-07] MEDS: Ketorolac 15 MG/ML Vial IV ×2 (05:13→13:31)
[2021-09-07] MEDS: Gabapentin 400 MG Capsule PO ×3 (05:13→21:59)
[2021-09-07] MEDS: LORazepam 0.5 MG Tablet PO ×2 (05:13→21:58)
--- NOTE | 2021-09-07 06:14 | PN.HOSP_ITS ---
Subjective Subjective Patient overnight more comfortable with medication regimen changes. He does note that if he coughs he does have discomfort primarily into the right buttock region. Day prior had reviewed all records with patient and his family including all the metastatic lesions noted. Plan of care with evaluation today per radiation oncology, oncology and orthopedic surgery. Orthopedic surgery did evaluate images and felt like there is no need for stabilization to the right hip or pelvis. Discussed this a.m. bone biopsy consideration with radiology and they recommended bone biopsy with orthopedic surgery which will be discussed between orthopedic surgery and Dr. Contreras. Given this presentation also will obtain CT chest abdomen and pelvis with contrast per oncology and radiation oncology request to see if there are other further lesions that can potentially be biopsied. Patient denies fevers, chills, nausea, emesis, abdominal pain, chest pain or dyspnea. Objective Data Objective Data Vital Signs: Vital Signs Temp Pulse Resp BP Pulse Ox 98.0 F 83 18 96/75 97 09/07/21 03:55 09/07/21 03:55 09/07/21 03:55 09/07/21 03:55 09/07/21 03:55 Oxygen Flow Rate (L/min) 2 Oxygen Delivery Method Nasal Cannula Weight: 175 lb 14.862 oz Body Mass Index (BMI) 26.3 Intake & Output: Intake and Output for Last 24 Hours 09/05/21 09/06/21 09/07/21 23:59 23:59 23:59 Intake Total 880 / 880 905 / 905 Output Total 400 / 400 600 / 600 Balance 480 / 480 305 / 305 Lab / Micro Data Result Diagrams: 09/07/21 05:41 09/07/21 05:41 Labs: Laboratory Results - last 24 hr 09/06/21 07:50: WBC 18.3 H, RBC 4.19 L, Hgb 12.9 L, Hct 39.8 L, MCV 95.0 H, MCH 30.8, MCHC 32.4, RDW Std Deviation 72.4 H, RDW Coeff of Sana 21.2 H, Plt Count 308, MPV 9.5, Immature Gran % (Auto) 0.800, Neut % (Auto) 89.0 H, Lymph % (Auto) 2.8 L, [place] % (Auto) 6.8, Eos % (Auto) 0.4, Baso % (Auto) 0.2, Absolute Neuts (auto) 16.3 H, Absolute Lymphs (auto) 0.51 L, Nucleated RBC % 0, Differential Comment COMMENT, Anisocytosis 1+ 09/06/21 07:50: Sodium 140, Potassium 3.8, Chloride 103, Carbon Dioxide 32.0, Anion Gap 5, BUN 19 H, Creatinine 0.97, Estim Creat Clear Calc 84.02, Est GFR (MDRD) Af Amer 103, Est GFR (MDRD) Non-Af 85, BUN/Creatinine Ratio 19.6, Glucose 90, Calcium 9.5 09/06/21 07:50: Phosphorus 3.1, Magnesium 2.3, Total Bilirubin 0.30, Direct Bilirubin 0.12, AST 24, ALT 31, Alkaline Phosphatase 106, Total Protein 7.0, Albumin 2.7 L, Globulin 4.3 H 09/06/21 09:37: Urine Color Yellow, Urine Clarity Clear, Urine pH 7.0, Ur Specific Raymond 1.015, Urine Protein Negative, Urine Glucose (UA) Normal, Urine Ketones Negative, Urine Occult Blood Negative, Urine Nitrite Negative, Urine Bilirubin Negative, Urine Urobilinogen Normal, Ur Leukocyte Esterase Negative, Urine RBC 0 SEEN, Urine WBC 0-5 SEEN, Ur Squamous Epith Cells 0-5 SEEN, Urine B acteria 0 SEEN, Urine Mucus RARE Radiography Diagnostic Testing: Radiology Impression Hip/Pelvis X-Ray 09/06/21 07:34 IMPRESSION: Normal x-ray examination of the pelvis and hip. Electronically Signed: Jj Suarez MD at 8:30 EDT , Lower Extremity MRI 09/06/21 09:11 IMPRESSION: 1. There is a metastatic focus in the right greater trochanter, medial right iliac bone, right sacrum, and superior right acetabulum. 2. Abnormal increased T2 signal in the paraspinal muscles along the left side of the sacrum. This may represent intramuscular strain or metastatic disease to the muscle. 3. There is masslike extension of the metastatic focus in the superior right acetabular lesion. This extends into the right iliopsoas muscle there is abnormal signal. 4. On the edge of the film, there is a necrotic appearing mass in the subcutaneous fat along the right lower abdominal wall. This may be a metastatic focus. Electronically Signed: Jovan Smith MD at 16:31 EDT , Brain MRI 09/06/21 10:02 IMPRESSION: There has been progression of disease since the prior MRI. There is a 14 x 14 mm T2 hyperintense lesion of the left brainstem. Se 9 IM: 13. This demonstrates ring enhancement. No other lesions are visualized. There is underlying edema. Given the patient''s history, this is concerning for metastatic disease. CF called for the hips and brain Electronically Signed: Jovan Smith MD at 16:41 EDT , ADDENDUM: 09/06/21 1707 IMPRESSION: There has been progression of disease since the prior MRI. There is a 14 x 14 mm T2 hyperintense lesion of the left brainstem. Se 9 IM: 13. This demonstrates ring enhancement. No other lesions are visualized. There is underlying edema. Given the patient''s history, this is concerning for metastatic disease. CF called for the hips and brain N.B. : The above Results were Read Back by Jovan Smith MD to Kristin Mcleod RN, and understanding confirmed on 09/06/2021 17:00:34 (ET). Electronically Signed: Jovan Smith MD at 16:41 EDT , Physical Exam Narrative Physical Examination: General: Awake, alert, oriented x 3 and cooperative, laying in the medical surgical bed, fatigued, improved and more comfortable appearance. Skin: Normal color, normal turgor, no icterus, no cyanosis. HEENT: AT/NC, EOMI, PERRLA, improved MMM. Lungs: Diminished, > bases, appropriate effort, no rales, ronchi or wheezing. Heart: Improved, regular rate with regular rhythm; no gallop, rub audible. Abdomen: Soft, NTTP, ND, mildly hyperactive BS. Extremities: No cyanosis, clubbing, or edema. Discomfort with movement LE, R>L, not marked discomfort w/ palpation hip and SI region on the R. Neurological: Patient awake, alert, oriented x 3, cognitive function intact; pupils equally reactive to light and accommodation, cranial nerves II-XII grossly normal, moving all 4 extremities but limited secondary to pain but more comfortable than day prior with pain regimen, no specific focal deficits, strength remains severely global decreased. Psychiatric: Affect appears fatigued, no acute evidence of depressive or anxiety feelings. 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 07/25/2021 radiation R lung and BL mediastinal disease w/ concurrent carbo/taxol, recent RUE mass with concern for metastatic disease pending biopsy who presents to the [facility] ED on 09/06/21 secondar y to onset intractable right hip pain and pain in the scaroiliac right region, severe debility with difficulty even bearing weight. #1. Intractable right hip and SI pain secondary to significant metastatic disease: Failed conservative regimen outpatient as patient is following with palliative therapy on chronic narcotics, admitted to [place], maintained on fall precautions, continue offloading, imaging obtained with MRI right lower extremity hip and pelvis with metastatic foci in the right greater psoas muscle with abnormal signal, on the edge of the film possible necrotic appearing mass in the subcu fat along the right lower abdominal wall possibly metastatic foci. Patient evaluated per Orthopedic surgery with no stabilization recommended. Discussed case at length with Dr. Contreras and Dr. Mendez who will evaluate patient. Planned initial Bx 09/07/21; however, radiology recommended considerati on Orthopedic surgery directed bone Bx. Awaiting discussions between ortho and Dr. Contreras to ascertain best route and in the interim requested CT chest, abd, pelvis with IV contrast. Currently maintained on low dose toradol, fentanyl patch, increased gabapentin regimen, PRN oral and IV narcotic therapies. Palliative consulted and evaluating patient also. PT/OT/case management consulted for discharge planning. #2. 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 07/25/2021 radiation R lung and BL mediastinal disease w/ concurrent carbo/taxol, recent RUE mass with concern for metastatic disease pending biopsy. As noted MRI hip w/ metastatic foci in the right greater psoas muscle with abnormal signal, on the edge of the film possible necrotic appearing mass in the subcu fat along the right lower abdominal wall possibly metastatic foci and MRI brain w/ progression of disease since prior imaging with a 14 x 14 mm T2 hyperdense lesion in the left brainstem demonstrating ring enhancement with underlying edema consistent with metastatic disease. Attempting to arrange Bx as noted. Started on decadron 09/06/21 6 mg load and 4 mg IV q 6 hours per discussion with Oncology. Palliative following. #3. Chronic hypoxic respiratory failure with chronic COPD: We will continue patient home chronic oxygen supplementation of 2 L nasal cannula, not on routine inhalers, will continue as needed albuterol, encourage head of bed and I-S. #4. Hypertension: Continue home regimen including metoprolol, PRN hydralazine. #5. Hyperlipidemia: We will continue patient home statin therapy. #6. GERD: We will continue patient home PPI. #7. CAD: s/p PCI w/ ME 09/2020, continue aspirin, statin, metoprolol, not on SREEKANTH inhibitor or ARB. #8. Anxiety and depression: Continue patient home benzodiazepine as needed regimen. #9. Former tobacco use: Encourage continued tobacco cessation peer #10 pure history of prostate cancer: Status post prostatectomy 2013 and external beam radiation 2016 for relapse, continue outpatient oncology/urology follow-up. #11. Chronic anemia/AOCD secondary to #2: Admission Hgb 12.9, baseline more recently -12; however, had been 9 range prior with likely PRBC administration, 09/07/21 Hgb 11.7, continue to trend. #12. DVT Prophylaxis: SCDs, holding lovenox for possible Bx. If no intention will need to add back given risk. #13. CODE status: Patient HCPOA is his who is present. DNR-CCA, no intubation status. Charges/Coding Visit Charges Inpatient E&M: 42627 Subs Hosp L3
[2021-09-07 06:15] LABS: Absolute Lymphocyte Count 0.29 X10^3/uL (0.83-4.51); Absolute Neutrophil Count 17.1 X10^3/uL (2.0-7.7); Basophil# 0.02 X10^3/uL; Basophil% 0.1 % (0-1); Hematocrit 37.5 % (40-54); Hemoglobin 11.7 g/dL (13.0-16.5); Lymphocyte # 0.29 X10^3/ul (0.83-4.51); Lymphocyte % 1.6 % (19-41); Mean Corp Hgb Conc 31.2 g/dL (32-36); Mean Corpuscular Hgb 29.2 pg (27.0-32.0); Mean Corpuscular Volume 93.5 fL (80-94); Mean Platelet Vol. 9.3 fl (6.2-12.0); Monocyte# 0.41 X10^3/uL; Monocyte% 2.3 % (0-10); NRBC Flagged by Analyzer 0 % (0-5); Neutrophil # 17.09 X10^3/uL (2.7-7.7); Neutrophil % 95.2 % (47-70); POSITIVE DIFFERENTIAL YES; POSITIVE MORPHOLOGY YES; Platelet Count 264 K/mm3 (150-450); RBC Distribution Width CV 20.1 % (11.6-14.6); Red Blood Count 4.01 M/mm3 (4.6-6.2)
[2021-09-07 06:16] LABS: Differential Indicated SCAN CRITERIA MET
[2021-09-07 06:22] LABS: International Normalized Ratio 1.2; Prothrombin Time (Protime)PT. 14.1 SECONDS (11.7-14.9)
[2021-09-07 06:23] LABS: Partial Thromboplast Time 37.7 Seconds (24.1-36.2)
[2021-09-07 06:34] LABS: Anisocytosis 2+
[2021-09-07 06:48] LABS: ALB/GLOB Ratio 0.5 RATIO (0.9-2.4); AST(SGOT) 18 U/L (15-37); Alanine Aminotransfer ALT/SGPT 24 U/L (16-61); Albumin, Serum 2.3 g/dL (3.2-5.0); Alkaline Phosphatase 98 U/L (45-117); Anion Gap 5 (5-15); BUN 22 mg/dL (7-18); BUN/Creat Ratio 27.3 RATIO (10-20); Calcium,Total 9.4 mg/dL (8.5-10.1); Chloride 101 mmol/L (98-107); EST Glomerular Filtration Rate 105 mL/min (>60); Est Glom Filt Rate - Afr Amer 127 mL/min (>60); Estimated Creatinine Clearance 101.88 ml/min; Globulin 4.4 g/dL (2.2-4.2); Glucose 162 mg/dL (74-106); PSA,Total- Diagnostic 0.05 ng/mL (0.0-4.0); Potassium 4.4 mmol/L (3.5-5.1); Protein, Total 6.7 g/dL (6.4-8.2); Sodium Level 136 mmol/L (136-145)
[2021-09-07 07:34] VITALS: BP 93/69; PULSE 70; RESP 16; TEMP 36.6; O2SAT 96
--- NOTE | 2021-09-07 08:18 | CON.PCM.PA_ITS ---
Assessment & Plan Assessment/Plan (1) Intractable pain: (2) Dyspnea: QUALIFIERS: Dyspnea type: dyspnea on exertion Qualified Code(s): R06.00 - Dyspnea, unspecified (3) Inability to walk: (4) Generalized weakness: (5) Primary squamous cell carcinoma of lung: QUALIFIERS: Laterality: right Qualified Code(s): C34.91 - Malignant neoplasm of unspecified part of right bronchus or lung (6) Regional lymph node metastasis present: (7) Bone lesion: (8) History of prostate cancer: (9) Radiation pneumonitis: PLAN: 56-year-old with history of lung and prostate cancer, newly found metastasis to bone, seen today for palliative care initial visit after signing consents 2 days ago as an outpatient. We were consulted to assist with pain management and for symptom management of shortness of breath. 1. Intractable pain: Again, newly found lesions. Had MRI as noted. In hospital receiving dexamethasone 4 mg IV q6 hours, gabapentin 400 mg 3 TID, fentanyl patch 25 mcg q 72 hours, and Toradol 15 mg q8 hours scheduled. PRN medications include: acetaminophen 650 mg q4 hours, lorazepam 0.5 mg 3 TID, Zofran 4 mg IV q8 hours, Dilaudid 1 mg IV q4 hours, oxycodone 10 mg p.o. q4 hours, Restoril 15 mg qHS, and Compazine 5 mg IV q4 hours. PLAN: -stop oxycodone -Change to Dilaudid 1mg q4h and add 1mg q2h prn breakthrough pain. If pt discharged home from hospital, would convert to oral dilaudid on same regimen. Using [facility] pharmacy -keep fentanyl at 25mcg q72 hours -continue dexamethasone when discharged home, d/c the prednisone. -continue toradol, convert to oral when discharged home (if not sent to tertiary care center) -close f/u with palliative as outpatient, will see within 1 week. I suspect he will need therapy, I am not optimistic he will walk much until he has some pain relief from radiation. I will see him inpatient tomorrow to see if medication changes have been helpful. -Start palliative radiation SYLVIE, discussed case with Dr. Contreras and Dr. Walsh (collaborating physician) 2. Dyspnea: controlled at this time however nonambulatory for the time being 3. SCC lung/prostate cancer w/multiple metastatic areas of disease (brainstem, R hip multiple areas, R shoulder): There are plans for gamma knife therapy for the brainstem lesion and palliative radiation to the right hip. 4. Radiation pneumonitis: stable, on dexa. see above 5. Generalized weakness: worse w/ inability to stand d/t pain. No therapy for LEs until pain under better control. Thank you for the opportunity to participate in this patient's care, please do not hesitate to contact [facility] with any further questions or concerns, direct line is [phone]. He just enrolled in palliative care 2 days ago, we will follow him closely as an outpatient to make frequent medication adjustments as indicated. Contact information left with the patient and . Greater than 50% of F2F visit dedicated to education and counseling of palliative care services, medications, comorbid conditions and potential assistance with management, and plan of care moving forward. This visit involved collaboration with consulting physicians, hospitalist, and collaborating physician. We did do a telehealth visit with Dr. Walsh so that patient may receive opioid therapy as an outpatient. I did have multiple discussions with the family on the plan of care and they are up-to-date. Start time: 817 End time: 1025 HPI Consult Data Date of Consult: 09/07/21 HPI Narrative HPI Narrative: JUVENAL SALGADO, is a 56 M who presented to [facility] 09/06/2021 with complaints of intractable right hip pain. 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 Patient underwent EBUS and biopsy and has been following with oncology since May 2021. He did receive radiation to the right lung and bilateral mediastinal disease with concurrent carbo/Taxol. Patient also treated for pneumonia in July. Patient was admitted to the hospital 08/18 - 08/23/2021 for radiation pneumonitis. Repeat CTA 08/19/2021 showed no evidence of PE but interval decrease in size of right hilar mass with persistent volume loss in the right upper lobe and dense consolidation. Also progressive consolidation of the left upper lobe and superior segment of the left lower lobe. Patient takes oxycodone 10 mg at home with overall poor pain control. He was having a hard time bearing any weight to right lower extremity due to the pain. The patient was admitted for further evaluation and management of his uncontrolled pain. Patient was seen by radiation oncology Dr. Cristian Contreras 08/29, recommended repeat evaluation by medical oncology 09/01, hold on adjuvant treatment until after prednisone taper, and likely reimage in the next 4 to 6 weeks prior to initiating further therapy. Patient is also following with [facility]. Lower extremity MRI 09/06 showed metastatic focus to the right greater trochanter, medial right iliac bone, right sacrum, and superior right acetabulum. There are also abnormalities in the paraspinal muscles along the left side of the sacrum and a masslike extension of metastatic focus in the superior right acetabular lesion that extends into the right iliopsoas muscle. There is also necrotic appearing mass in the subcutaneous fat along the right lower abdominal wall which may be metastatic focus. Brain MRI shows progression of disease and a 14 x 14 mm lesion of the left brainstem. Patient was recently referred to palliative medicine as an outpatient, liaison visit 08/31 and patient declined services. Patient had believed if an RN came out to evaluate him for palliative, he would have a pain prescription given to him on the same day. Advised it takes 1 to 3 weeks for initial DEVELOPMENT TRAINER visit, mostly because patient would require a physician visit prior to prescribing for opioid compliance. He was upset so declined services at that time. Patient was then again referred 09/05/2021 due to progression of pain. Liaison met with the patient and his , Raiza at their home and Juvenal agreed to enroll in palliative services for pain management. Patient is having difficulty sleeping, shortness of breath, and severe pain. Patient is constipated, not typical but started after taking pain medications. Pain to the right hip 10/10 with any movement, but has noticed an overall difference in pain since starting fentanyl. Oxycodone has not reduced his pain at all at the 10 mg dose. Not SOB unless exerting self, but has been unable to walk for a few days now. Pt was on oral prednisone at home at 60mg daily and just started taper to 50 mg daily. Would leave him on the dexamethasone instead, especially in light of his swelling from the brainstem lesion. I did discuss all options as far as pain medication for control of his severe pain, quite honestly patient will likely get more benefit from palliative radiation, we will continue to follow and adjust medications as indicated. There is plans for possible biopsy of the hip or right shoulder while he is in the hospital to identify pathology of metastatic disease. They have talked about transferring him to tertiary care center for stereotactic radiation to the brain stem. It is unclear if he can do this as an inpatient. There is some urgency to brainstem radiation and hip radiation. Patient denies any issues with nausea or vomiting. He was taking 600 mg of Motrin every 8 hours, prednisone, oxycodone 10 mg 3 times daily, and Tylenol 1 g every 8 hours at home. His is caring for him, she is an RN. His son is also supportive and here during my visit. Dr. Walsh also joined via [facility] to qualify patient for outpatient opioid prescription management. [facility] Medical History Abnormal PSA Anxiety Cancer Cardiology follow-up encounter Chronic cough Cold feeling Coronary artery disease COVID-19 Depression Emphysema, unspecified Encounter for chemotherapy management Encounter for education Endobronchial cancer Excessive bleeding Former smoker High cholesterol History of echocardiogram History of heart attack History of steroid therapy History of stress test History of torsion of testis Hypertension Hypokalemia Myocardial infarct On home oxygen therapy Prostate cancer Regional lymph node metastasis present Restless legs Shoulder pain, right Wears glasses Home Medications Mucinex DM 1 tab PO Q12H PRN 05/05/21 [History Last Taken Unknown] aspirin 81 mg PO DAILY 05/05/21 [History Last Taken 05/04/21] atorvastatin 80 mg PO QHS 05/05/21 [History Last Taken Unknown] metoprolol tartrate 25 mg PO BID 05/05/21 [History Last Taken 06/07/21] lorazepam 0.5 mg tablet 0.5 mg PO TID PRN tab 05/26/21 [History Last Taken Unknown] ondansetron 8 mg disintegrating tablet 8 mg PO Q8H PRN #30 tab 06/14/21 [Rx Last Taken Unknown] albuterol sulfate 90 mcg/actuation aerosol inhaler 2 puff INHALATION Q6H PRN #8.5 g 07/15/21 [Rx Last Taken Unknown] gabapentin 300 mg PO TID 08/18/21 [History Last Taken Unknown] acidophilus-pectin, citrus 1 tab PO TID #0 tab 08/23/21 [Rx Last Taken Unknown] loperamide 2 mg PO Q4H PRN PRN #0 cap 08/23/21 [Rx Last Taken Unknown] pantoprazole 40 mg PO DAILY #30 tab 08/23/21 [Rx Last Taken Unknown] prednisone 60 mg PO BREAKFAST #90 tab 08/23/21 [Rx Last Taken Unknown] Disability Placchon #1 ea 09/01/21 [Rx Last Taken Unknown] ibuprofen 200 mg tablet 600 mg PO TID tab 09/05/21 [History Last Taken Unknown] oxycodone-acetaminophen 10 mg-325 mg tablet 1 tab PO Q8H PRN 09/05/21 [History Last Taken Unknown] sennosides 8.6 mg capsule 8.6 mg PO BID 09/05/21 [History Last Taken Unknown] diazepam 5 mg PO Q8H PRN PRN 09/06/21 [History Last Taken Unknown] Allergy/AdvReac Type Severity Reaction Status Date / Time No Known Allergies Allergy Verified 09/06/21 07:23 Family History Father Emphysema lung Cancer prostate cancer Grandfather Cancer prostate Mother Kidney disease Surgical History H/O prostatectomy History of cardiac catheterization History of coronary artery stent placement History of hernia repair Social History household members: spouse Smoking Status: Former smoker quit date: 02/16/21 pack-years: 40 Tobacco: How many years used: 40 how long ago did patient quit smoking: patient reports smoking [id number] alcohol intake: never substance use type: does not use caffeine: No during the past year weight has: remained stable reema/bahai: Orthodox seatbelt use: always do you feel safe at home: Yes ROS ROS Narrative Review of systems otherwise negative from a constitutional, HEENT, respiratory, cardiovascular, GI, genitourinary, musculoskeletal, skin, neurologic, psychiatric and hematologic system unless stated above. Physical Exam Const alert and oriented x3 Constitutional Narrative: severe pain with any movement, unable to bear any weight General Appearance: cooperative HEENT normocephalic and head/scalp atraumatic Eyes PERRL General Eye: normal appearance of both eyes Neck supple General: trachea midline Resp normal respiratory effort and no use of accessory muscles Effort and Inspection: able to speak in complete sentences Auscultation: wheezes and diminished lung sounds; Negative for rales or rhonchi Cardio regular rate, regular rhythm, S1 normal heart sound and S2 normal heart sound GI normal to inspection, nondistended, normoactive bowel sounds Extremity no clubbing, cyanosis or edema Skin no rashes or lesions noted Neuro oriented x3 and CN's II-XII intact bilaterally Psych mental status grossly normal Psych Narrative: tearful but conversing appropriately
--- NOTE | 2021-09-07 08:43 | CON.PCM_ITS ---
HPI Consult Data Date of Consult: 09/07/21 HPI Narrative HPI Narrative: MIKY SALGADO, is a 56 M known non-small cell squamous cell carcinoma of the lung with no metastasis to the right mediastinum and left interlobar pathology confirmed, with history of prostate cancer with complaints of intractable right hip pain. Patient's denies any injury and is feeling bet ter today with pain in the trochanteric region of the right hip. A/P : Non-small cell squamous cell carcinoma of lung history of prostate cancer with known metastasis lesion right greater trochanter not visualized on x-ray however seen on MRI no significant cortical destruction no lytic lesion shanika ntified on plain film although he is having pain he is not having pain with resisted abductor muscle activation I do not feel prophylactic fixation is warranted at this time however he may follow-up with orthopedic oncology as an outpatient for further monitoring. In regards to the acetabular lesion again no acute orthopedic intervention is warranted at this time. [facility] Medical History Abnormal PSA Anxiety Cancer Cardiology follow-up encounter Chronic cough Cold feeling Coronary artery disease COVID-19 Depression Emphysema, unspecified Encounter for chemotherapy management Encounter for education Endobronchial cancer Excessive bleeding Former smoker High cholesterol History of echocardiogram History of heart attack History of steroid therapy History of stress test History of torsion of testis Hypertension Hypokalemia Myocardial infarct On home oxygen therapy Prostate cancer Regional lymph node metastasis present Restless legs Shoulder pain, right Wears glasses Home Medications Mucinex DM 1 tab PO Q12H PRN 05/05/21 [History Last Taken Unknown] aspirin 81 mg PO DAILY 05/05/21 [History Last Taken 05/04/21] atorvastatin 80 mg PO QHS 05/05/21 [History Last Taken Unknown] metoprolol tartrate 25 mg PO BID 05/05/21 [History Last Taken 06/07/21] lorazepam 0.5 mg tablet 0.5 mg PO TID PRN tab 05/26/21 [History Last Taken Unknown] ondansetron 8 mg disintegrating tablet 8 mg PO Q8H PRN #30 tab 06/14/21 [Rx Last Taken Unknown] albuterol sulfate 90 mcg/actuation aerosol inhaler 2 puff INHALATION Q6H PRN #8.5 g 07/15/21 [Rx Last Taken Unknown] gabapentin 300 mg PO TID 08/18/21 [History Last Taken Unknown] acidophilus-pectin, citrus 1 tab PO TID #0 tab 08/23/21 [Rx Last Taken Unknown] loperamide 2 mg PO Q4H PRN PRN #0 cap 08/23/21 [Rx Last Taken Unknown] pantoprazole 40 mg PO DAILY #30 tab 08/23/21 [Rx Last Taken Unknown] prednisone 60 mg PO BREAKFAST #90 tab 08/23/21 [Rx Last Taken Unknown] Disability Placard #1 ea 09/01/21 [Rx Last Taken Unknown] ibuprofen 200 mg tablet 600 mg PO TID tab 09/05/21 [History Last Taken Unknown] oxycodone-acetaminophen 10 mg-325 mg tablet 1 tab PO Q8H PRN 09/05/21 [History Last Taken Unknown] sennosides 8.6 mg capsule 8.6 mg PO BID 09/05/21 [History Last Taken Unknown] diazepam 5 mg PO Q8H PRN PRN 09/06/21 [History Last Taken Unknown] Allergy/AdvReac Type Severity Reaction Status Date / Time No Known Allergies Allergy Verified 09/06/21 07:23 Family History (Updated 09/06/21 @ 09:[address] Rosalie Boyd MD) Father Emphysema lung Cancer prostate cancer Grandfather Cancer prostate Mother Kidney disease Surgical History H/O prostatectomy History of cardiac catheterization History of coronary artery stent placement History of hernia repair Social History household members: spouse Smoking Status: Former smoker quit date: 02/16/21 pack-years: 40 Tobacco: How many years used: 40 how long ago did patient quit smoking: patient reports smoking [id number] alcohol intake: never substance use type: does not use caffeine: No during the past year weight has: remained stable reema/scientology: Restoration seatbelt use: always do you feel safe at home: Yes Physical Exam Narrative No skin changes around the right hip erythema ecchymosis or masses palpated nontender to palpation over the trochanter fair hip range of motion no pain with resisted abduction of the hip. No gross motor or sensory deficits right lower extremity Lab / Micro Data Result Diagrams: 09/07/21 05:41 09/07/21 05:41 Labs: Laboratory Results - last 24 hr 09/06/21 07:50: Phosphorus 3.1, Magnesium 2.3, Total Bilirubin 0.30, Direct Bilirubin 0.12, AST 24, ALT 31, Alkaline Phosphatase 106, Total Protein 7.0, Albumin 2.7 L, Globulin 4.3 H 09/06/21 09:37: Urine Color Yellow, Urine Clarity Clear, Urine pH 7.0, Ur Specific [place] 1.015, Urine Protein Negative, Urine Glucose (UA) Normal, Urine Ketones Negative, Urine Occult Blood Negative, Urine Nitrite Negative, Urine Bilirubin Negative, Urine Urobilinogen Normal, Ur Leukocyte Esterase Negative, Urine RBC 0 SEEN, Urine WBC 0-5 SEEN, Ur Squamous Epith Cells 0-5 SEEN, Urine Bacteria 0 SEEN, Urine Mucus RARE 09/07/21 05:41: WBC 18.0 H, RBC 4.01 L, Hgb 11.7 L, Hct 37.5 L, MCV 93.5, MCH 29.2, MCHC 31.2 L, RDW Std Deviation 69.0 H, RDW Coeff of Sana 20.1 H, Plt Count 264, MPV 9.3, Immature Gran % (Auto) 0.800, Neut % (Auto) 95.2 H, Lymph % (Auto) 1.6 L, [place] % (Auto) 2.3, Eos % (Auto) 0.0, Baso % (Auto) 0.1, Absolute Neuts (auto) 17.1 H, Absolute Lymphs (auto) 0.29 L, Nucleated RBC % 0, Anisocytosis 2+ 09/07/21 05:41: Sodium 136, Potassium 4.4, Chloride 101, Carbon Dioxide 30.0, Anion Gap 5, BUN 22 H, Creatinine 0.80, Estim Creat Clear Calc 101.88, Est GFR (MDRD) Af Amer 127, Est GFR (MDRD) Non-Af 105, BUN/Creatinine Ratio 27.3 H, Glucose 162 H, Calcium 9.4, Total Bilirubin 0.50, AST 18, ALT 24, Alkaline Phosphatase 98, Total Protein 6.7, Albumin 2.3 L, Globulin 4.4 H, Albumin/Globulin Ratio 0.5 L, Total PSA 0.05 09/07/21 05:41: PT 14.1, INR 1.2, APTT 37.7 H Radiology Impression Lower Extremity MRI 09/06/21 09:11 IMPRESSION: 1. There is a metastatic focus in the right greater trochanter, medial right iliac bone, right sacrum, and superior right acetabulum. 2. Abnormal increased T2 signal in the paraspinal muscles along the left side of the sacrum. This may represent intramuscular strain or metastatic disease to the muscle. 3. There is masslike extension of the metastatic focus in the superior right acetabular lesion. This extends into the right iliopsoas muscle there is abnormal signal. 4. On the edge of the film, there is a necrotic appearing mass in the subcutaneous fat along the right lower abdominal wall. This may be a metastatic focus. Electronically Signed: Jovan Smith MD at 16:31 EDT , Brain MRI 09/06/21 10:02 IMPRESSION: There has been progression of disease since the prior MRI. There is a 14 x 14 mm T2 hyperintense lesion of the left brainstem. Se 9 IM: 13. This demonstrates ring enhancement. No other lesions are visualized. There is underlying edema. Given the patient''s history, this is concerning for metastatic disease. CF called for the hips and brain Electronically Signed: Jovan Smith MD at 16:41 EDT , ADDENDUM: 09/06/21 1707 IMPRESSION: There has been progression of disease since the prior MRI. There is a 14 x 14 mm T2 hyperintense lesion of the left brainstem. Se 9 IM: 13. This demonstrates ring enhancement. No other lesions are visualized. There is underlying edema. Given the patient''s history, this is concerning for metastatic disease. CF called for the hips and brain N.B. : The above Results were Read Back by Jovan Smith MD to Kristin Mcleod RN, and understanding confirmed on 09/06/2021 17:00:34 (ET). Electronically Signed: Jovan Smith MD at 16:41 EDT ,
--- NOTE | 2021-09-07 08:56 | CT_ITS ---
STUDY: CT CHEST, ABDOMEN T PELVIS WITH CONTRAST REASON FOR EXAM: Male, 56 years old. Metastatic cancer, request per Dr. Contreras. RADIATION DOSAGE (If Supplied By Facility): CTDIvol = ( 16.00 ) mGy, DLP = ( 1714.61 ) mGycm TECHNIQUE: Transaxial imaging was performed following intravenous administration of Oral and amp;amp; IV Gastrografin and amp;amp; 100mL Isovue-300. Individualized dose optimization techniques were used for this CT. COMPARISON: Comparison is made to prior examination 08/19/2021. FINDINGS: CHEST Residual consolidation in the right upper lobe with air bronchograms of the liver has been improvement. 2.2 cm x 0.7 cm nodular density in the superior segment of the right lower lobe. This may also represent a focal area of consolidation. Mild residual infiltration in the left upper lobe although there has been improvement. Persistent mild loss and collapse of the right middle lobe. Tiny right pleural effusion. There are calcifications of the coronary arteries. Normal mediastinum. Persistent 4.1 cm x 3.6 cm right hilar mass. Normal unenhanced pulmonary arteries. Normal aorta arch and descending thoracic aorta. There are mild degenerative changes of the thoracic spine. ABDOMEN Normal liver. Normal gallbladder and extrahepatic biliary system. Normal spleen. Normal pancreas. There is a small, circumscribed, smooth, low attenuation right adrenal mass, consistent with an adrenal adenoma. This measures 1.5 cm. Normal left adrenal gland. Normal right kidney. Normal left kidney. Normal visualized stomach. Normal small intestine. There are multiple colonic diverticula consistent with diverticulosis. The appendix is visualized and appears normal. There is scattered atherosclerotic calcification of the abdominal aorta, without a demonstrated aneurysm. Normal inferior vena cava. Normal retroperitoneum. There is a 1.7 cm hypodense nodule in the mesenteric fat in the right lower quadrant medial to the cecum. There is a 1.7 cm x 1.7 cm soft tissue nodule in the subcutaneous tissues overlying the superior aspect of the right iliac bone posteriorly. PELVIS Normal urinary bladder. There is no pelvic fluid. There is no pelvic lymphadenopathy or mass lesion. Normal visualized pelvic arteries. Normal abdominal wall. There are mild degenerative changes of the visualized lumbar spine. Focal area of decreased density in the anterior midportion of the right iliac bone measuring 1 cm. 3.4 cm mildly hypodense lesion seen in the right greater trochanter. CT/CT Chest, Abd, Pel w/Contrast IMPRESSION: Interval improvement of the bilateral pulmonary infiltrates. Residual changes persist. Interval decrease in size of the nodular density seen in the superior segment of the right lower lobe presently measuring 2.7 cm x 0.7 cm. Persistent 4.1 cm x 3.6 on the right hilar mass. 1.7 cm x 1.7 cm soft tissue nodule in the subcutaneous tissues overlying the posterior superior aspect of the right iliac bone. Electronically Signed: Jj Suarez MD at 12:23 EDT ,
[2021-09-07 09:32] VITALS: PULSE 70
[2021-09-07] MEDS: Aspirin 81 MG TAB.CHEW PO (09:32)
[2021-09-07] MEDS: Metoprolol Tartrate 25 MG Tablet PO ×2 (09:32→21:59)
[2021-09-07] MEDS: Pantoprazole Sodium 40 MG Tablet PO (09:32)
--- NOTE | 2021-09-07 09:54 | RAO.CON ---
Intake Vital Signs 09/06/21 07:23 09/06/21 09:15 09/06/21 10:16 09/06/21 10:16 09/06/21 10:40 09/06/21 11:14 09/06/21 15:51 09/06/21 16:16 09/06/21 16:16 09/06/21 22:11 09/06/21 22:11 09/07/21 03:55 09/07/21 03:57 09/07/21 05:27 09/07/21 07:31 09/07/21 07:34 09/07/21 09:32 Height 5 ft 9 in 5 ft 9 in 5 ft 9 in Weight: 178 lb 2.136 oz 178 lb 2.136 oz 178 lb 2.136 oz 175 lb 14.862 oz BMI 26.3 26.3 BP 139/85 H 128/83 H 118/84 H 122/88 H 94/69 94/69 96/75 93/69 Position Semi-Fowlers Semi-Fowlers Supine Respiration 20 H 18 18 18 18 16 18 18 16 Pulse 133 H 120 H 132 H 123 H 123 H 115 H 97 97 83 70 70 Temp 98.1 F 98.5 F 99 F 98.3 F 98.2 F 98.0 F 97.8 F Pulse Oximetry (%) 94 97 98 93 97 97 96 Oxygen Flow Rate (L/min) 2 2 2 2 2 2 2 2 2 Intake Visit Reasons: INTRACTABLE RIGHT HIP PAIN Chief Complaint: unable to walk Allergies No Known Allergies Allergy (Verified 09/06/21 07:23) Medications Mucinex DM 1 tab PO Q12H PRN 05/05/21 [History Confirmed 09/06/21] aspirin 81 mg PO DAILY 05/05/21 [History Confirmed 09/06/21] atorvastatin 80 mg PO QHS 05/05/21 [History Confirmed 09/06/21] metoprolol tartrate 25 mg PO BID 05/05/21 [History Confirmed 09/01/21] lorazepam 0.5 mg tablet 0.5 mg PO TID PRN tab 05/26/21 [History Confirmed 09/01/21] ondansetron 8 mg disintegrating tablet 8 mg PO Q8H PRN #30 tab 06/14/21 [Rx Confirmed 09/05/21] albuterol sulfate 90 mcg/actuation aerosol inhaler 2 puff INHALATION Q6H PRN #8.5 g 07/15/21 [Rx Confirmed 09/05/21] gabapentin 300 mg PO TID 08/18/21 [History Confirmed 09/05/21] acidophilus-pectin, citrus 1 tab PO TID #0 tab 08/23/21 [Rx Confirmed 09/01/21] loperamide 2 mg PO Q4H PRN PRN #0 cap 08/23/21 [Rx Confirmed 09/01/21] pantoprazole 40 mg PO DAILY #30 tab 08/23/21 [Rx Confirmed 09/06/21] prednisone 60 mg PO BREAKFAST #90 tab 08/23/21 [Rx Confirmed 09/06/21] Disability Placard #1 ea 09/01/21 [Rx Confirmed 09/05/21] ibuprofen 200 mg tablet 600 mg PO TID tab 09/05/21 [History Confirmed 09/06/21] oxycodone-acetaminophen 10 mg-325 mg tablet 1 tab PO Q8H PRN 09/05/21 [History Confirmed 09/06/21] sennosides 8.6 mg capsule 8.6 mg PO BID 09/05/21 [History Confirmed 09/06/21] diazepam 5 mg PO Q8H PRN PRN 09/06/21 [History Confirmed 09/06/21] Home Medications Acetaminophen (Acetaminophen 325 Mg Tablet) 650 mg PO Q4H PRN PRN PRN Reason: Fever, pain 1-1010 Al Hydroxide/Mg Hydroxide (Mag Hydrox/Al Hydrox/Simeth 30 Ml Udc) 30 ml PO Q6H PRN PRN PRN Reason: Gastric Burning Albuterol Sulfate (Albuterol 2.5 Mg/3 Ml Vial.Neb.) 2.5 mg INHALATION Q2H PRN PRN PRN Reason: Dyspnea, wheezing Aspirin (Aspirin 81 Mg Tab.Chew) 81 mg PO DAILYCM [facility] Last Admin: 09/07/21 09:32 Dose: 81 mg Documented by: Atorvastatin Calcium (Atorvastatin Calcium 80 Mg Tablet) 80 mg PO QHS [facility] Last Admin: 09/06/21 22:15 Dose: 80 mg Documented by: Dexamethasone Sodium Phosphate (Dexamethasone 4 Mg/Ml Vial) 4 mg IV Q6 [facility] Last Admin: 09/07/21 05:13 Dose: 4 mg Documented by: Fentanyl (Fentanyl 25 Mcg Patch) 25 mcg TD Q3D [facility] Last Admin: 09/06/21 20:08 Dose: 25 mcg Documented by: Gabapentin (Gabapentin 400 Mg Capsule) 400 mg PO TID [facility] Last Admin: 09/07/21 05:13 Dose: 400 mg Documented by: Hydralazine HCl (Hydralazine 20 Mg/Ml Vial) 10 mg IV Q4H PRN PRN PRN Reason: SBP > 160 Hydromorphone HCl (Hydromorphone 1 Mg/Ml Syringe) 1 mg IV Q4H PRN PRN PRN Reason: Pain Score 6-10 Last Admin: 09/06/21 17:22 Dose: 1 mg Documented by: Sodium Chloride () 1,000 mls @ 100 mls/hr IV .Q10H [facility] Last Admin: 09/07/21 01:16 Dose: 100 mls/hr Documented by: Ketorolac Tromethamine (Ketorolac 15 Mg/Ml Vial) 15 mg IV Q8 [facility] Stop: 09/07/21 14:01 Last Admin: 09/07/21 05:13 Dose: 15 mg Documented by: Lactobacillus Acidophilus (Lactobacillus Acidophilus) 1 tablet PO TID [facility] Last Admin: 09/07/21 05:16 Dose: 1 tablet Documented by: Lorazepam (Lorazepam 0.5 Mg Tablet) 0.5 mg PO TID PRN PRN Reason: anxiety Last Admin: 09/07/21 05:13 Dose: 0.5 mg Documented by: Metoprolol Tartrate (Metoprolol Tartrate 25 Mg Tablet) 25 mg PO BID [facility] Last Admin: 09/07/21 09:32 Dose: 25 mg Documented by: Nutritional Formula (Lactose Free) (Ensure Enlive 120 Ml Liquid) 120 ml PO 4X/DAY [facility] Last Admin: 09/06/21 22:04 Dose: 120 ml Documented by: Ondansetron HCl (Ondansetron 4 Mg/2 Ml Vial) 4 mg IV Q8H PRN PRN PRN Reason: NAUSEA/VOMITING Oxycodone HCl (Oxycodone 5 Mg Tablet) 10 mg PO Q4H PRN PRN PRN Reason: Pain Score 4-5 Last Admin: 09/06/21 16:10 Dose: 10 mg Documented by: Pantoprazole Sodium (Pantoprazole Sodium 40 Mg Tablet) 40 mg PO DAILY [facility] Last Admin: 09/07/21 09:32 Dose: 40 mg Documented by: Prochlorperazine Edisylate (Prochlorperazine 10 Mg/2 Ml Vial) 5 mg IV Q4H PRN PRN PRN Reason: Breakthrough nausea/vomiting Senna (Senna Tablet) 1 tablet PO BID [facility] Last Admin: 09/06/21 22:12 Dose: 1 tablet Documented by: Sodium Chloride (0.9% Saline Lock 10 Ml Syringe) 10 - 40 ml IV UD PRN PRN Reason: SALINE FLUSH Last Admin: 09/06/21 18:00 Dose: 10 ml Documented by: Temazepam (Temazepam 15 Mg Capsule) 15 mg PO QHS PRN PRN PRN Reason: INSOMNIA Discontinued Medications Dexamethasone Sodium Phosphate (Dexamethasone 10 Mg/Ml Vial) 6 mg IV X1 ONE Stop: 09/06/21 17:26 Last Admin: 09/06/21 18:02 Dose: 6 mg Documented by: Enoxaparin Sodium (Enoxaparin 40 Mg/0.4 Ml Syringe) 40 mg SC DAILY [facility] Last Admin: 09/06/21 11:14 Dose: 40 mg Documented by: Gabapentin (Gabapentin 300 Mg Capsule) 300 mg PO TID [facility] Last Admin: 09/06/21 16:11 Dose: 300 mg Documented by: Hydromorphone HCl (Hydromorphone 1 Mg/Ml Syringe) 1 mg IV X1 ONE Stop: 09/06/21 07:35 Last Admin: 09/06/21 07:48 Dose: 1 mg Documented by: Sodium Chloride () 1,000 mls @ 150 mls/hr IV .Q6H40M [facility] Last Infusion: 09/06/21 19:54 Dose: Infused Documented by: Ondansetron HCl (Ondansetron 4 Mg/2 Ml Vial) 4 mg IV X1 ONE Stop: 09/06/21 07:35 Last Admin: 09/06/21 07:48 Dose: 4 mg Documented by: Prednisone (Prednisone 20 Mg Tablet) 50 mg PO BREAKFAST [facility]; Taper Stop: 10/10/21 07:59 PFSH [facility] Medical History Abnormal PSA Anxiety Cancer Cardiology follow-up encounter Chronic cough Cold feeling Coronary artery disease COVID-19 Depression Emphysema, unspecified Encounter for chemotherapy management Encounter for education Endobronchial cancer Excessive bleeding Former smoker High cholesterol History of echocardiogram History of heart attack History of steroid therapy History of stress test History of torsion of testis Hypertension Hypokalemia Myocardial infarct On home oxygen therapy Prostate cancer Regional lymph node metastasis present Restless legs Shoulder pain, right Wears glasses Home Medications Mucinex DM 1 tab PO Q12H PRN 05/05/21 [History Last Taken Unknown] aspirin 81 mg PO DAILY 05/05/21 [History Last Taken 05/04/21] atorvastatin 80 mg PO QHS 05/05/21 [History Last Taken Unknown] metoprolol tartrate 25 mg PO BID 05/05/21 [History Last Taken 06/07/21] lorazepam 0.5 mg tablet 0.5 mg PO TID PRN tab 05/26/21 [History Last Taken Unknown] ondansetron 8 mg disintegrating tablet 8 mg PO Q8H PRN #30 tab 06/14/21 [Rx Last Taken Unknown] albuterol sulfate 90 mcg/actuation aerosol inhaler 2 puff INHALATION Q6H PRN #8.5 g 07/15/21 [Rx Last Taken Unknown] gabapentin 300 mg PO TID 08/18/21 [History Last Taken Unknown] acidophilus-pectin, citrus 1 tab PO TID #0 tab 08/23/21 [Rx Last Taken Unknown] loperamide 2 mg PO Q4H PRN PRN #0 cap 08/23/21 [Rx Last Taken Unknown] pantoprazole 40 mg PO DAILY #30 tab 08/23/21 [Rx Last Taken Unknown] prednisone 60 mg PO BREAKFAST #90 tab 08/23/21 [Rx Last Taken Unknown] Disability Placard #1 ea 09/01/21 [Rx Last Taken Unknown] ibuprofen 200 mg tablet 600 mg PO TID tab 09/05/21 [History Last Taken Unknown] oxycodone-acetaminophen 10 mg-325 mg tablet 1 tab PO Q8H PRN 09/05/21 [History Last Taken Unknown] sennosides 8.6 mg capsule 8.6 mg PO BID 09/05/21 [History Last Taken Unknown] diazepam 5 mg PO Q8H PRN PRN 09/06/21 [History Last Taken Unknown] Allergy/AdvReac Type Severity Reaction Status Date / Time No Known Allergies Allergy Verified 09/06/21 07:23 Family History Father Emphysema lung Cancer prostate cancer Grandfather Cancer prostate Mother Kidney disease Surgical History H/O prostatectomy History of cardiac catheterization History of coronary artery stent placement History of hernia repair Social History household members: spouse Smoking Status: Former smoker quit date: 02/16/21 pack-years: 40 Tobacco: How many years used: 40 how long ago did patient quit smoking: patient reports smoking [id number] alcohol intake: never substance use type: does not use caffeine: No during the past year weight has: remained stable reema/pentecostal: Mandaeism seatbelt use: always do you feel safe at home: Yes Diagnosis: Juvenal Clark is a 56-year-old male diagnosed with 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 From 06/13/2021 ? 07/25/2021 he received 6000 cGy in 30 fractions to the Right lung and bilateral mediastinal disease with concurrent carbo/taxol. He subsequently developed what appears to be widespread metastatic disease with osseous metastases in a solitary brainstem metastasis status post MRI right upper extremity (09/02/2021), MRI right lower extremity (09/06/2021), MRI brain (09/06/2021). History of Present Illness: September 2020: Patient had myocardial infarction and had stents placed Jan 2021: Patient experienced increased cough and hemoptysis. Feb 2021: Patient was diagnosed with Covid and recovered without difficulty 03/18/2021: PFTs were performed. This demonstrated FEV1 of 70% predicted and DLCO of 86% predicted 05/02/2021: CT chest without contrast was performed and this demonstrated an approximately 5.4 x 3.9 mass engulfing the right bronchus intermedius and resulting in atelectasis in all but the superior segment of the right lower lobe. There is moderate atelectasis in the right middle lobe. There are multiple satellite nodules with extension into the right middle lobe. The largest satellite nodule measures 18 x 10 mm seen in the superior segment of the right lower lobe. There is a 14 x 21 mm right paratracheal enlarged lymph node and a subcarinal lymph node measuring 17 mm. There is not appear to be any significant left-sided or mediastinal/hilar lymphadenopathy. 05/06/2021: Patient underwent bronchoscopy. This demonstrated a large fungating mass noted on the medial aspect just distal to the right upper lobe takeoff, able to pass caudally with moderate resistance and mild bleeding and visualized distal airway. EBUS was completed to examine right lower paratracheal level 4R, which measured 7 mm and was biopsied, 11 L which measures 5 mm and was biopsied. Biopsy of the primary tumor demonstrating infiltrating squamous cell carcinoma. Biopsy of 4R demonstrated atypical epithelial cells suspicious for malignancy. Biopsy of 11 L demonstrated evidence for non-small cell carcinoma. Right lung washings were positive for malignant cells consistent with non-small cell carcinoma. 05/24/2021: PET scan was performed. This demonstrated increased glucose metabolism defined in the right thoracic perihilum generating a calculated maximum SUV of 23.3 with a maximum diameter of this lesion being 42.9 x 49.3 mm. There is diffuse nonnodular increased tracer observed in the right lower posterior lung right lower lobe with a maximum SUV of 2.0, this does not fulfill quantitative criteria for viable neoplasm. No other quantifiable hypermetabolic abnormalities are appreciated. 05/26/2021: Brain MRI was performed. This demonstrated no evidence of metastatic disease. 05/26/2021: Patient was evaluated by medical oncology. Diagnosis having pathologic stage IIIc (T3, N3, M0) squamous cell carcinoma of the right lower lobe and planning for definitive chemoradiation. 06/13/2021 ? 07/25/2021: received 6000 cGy in 30 fractions to the Right lung and bilateral mediastinal disease with concurrent carbo/taxol. 08/09/2021: Chest x-ray is completed. Had symptoms of fever, wheezing, cough. This demonstrated evidence for bilateral upper lobe pneumonia. 08/18/2021: Chest x-ray was completed. This demonstrated apparent worsening of right upper lobe and bilateral perihilar infiltrates. 08/19/2021: CTA chest was completed. This demonstrated no evidence of pulmonary embolus. Interval decrease in size of the right hilar mass with persistent volume loss in the right upper lobe and dense consolidation. Progressive consolidation of the left upper lobe and superior segment of the left lower lobe. 09/02/2021: MRI of the right upper extremity humerus without contrast was performed. This demonstrated a mass in the proximal humeral metaphysis with cortical breakthrough measuring 2.5 cm in length. There is also noted to be a lesion in the body of the scapula. This is worrisome for metastatic disease. There is no evidence for biceps muscle tear/strain. 09/06/2021: Patient presented to the emergency room with intractable pain. 09/06/2021: MRI of the right lower extremity with and without contrast was performed. This demonstrated a metastatic focus in the right greater trochanter medial right iliac bone, right sacrum, superior right acetabulum. There is increased T2 signal in the paraspinal musculature on the left side of the sacrum which may be intramuscular strain or metastatic disease. There is a masslike extension of the metastatic focus in the superior right acetabulum into the right iliopsoas muscle. On the edge of the film there is necrotic appearing mass in the subcutaneous fat along the right lower abdominal wall which may be a metastatic focus. 09/06/2021: MRI brain with and without contrast was performed. This demonstrated a 1.4 x 1.4 cm T2 hyperintense lesion within the left brainstem which demonstrates ring enhancement. There is associated underlying edema. This is consistent with metastatic disease. No other lesions are identified. Radiation Treatment History: 1) 06/13/2021 ? 07/25/2021: received 6000 cGy in 30 fractions to the Right lung and bilateral mediastinal disease with concurrent carbo/taxol. Interval History: Patient was seen in his hospital room. He notes persistent pain particularly in the right upper arm and right scapular region as well as in the right hip. He denies focal weakness/numbness, radiculopathy, or difficulties with urination/bowel movements. He does have some dizziness with ambulation and needs some assistance. He denies headaches, vision changes, nausea/vomiting, cognitive or memory changes. He has not been dropping things but believes his hands are little more clumsy than baseline. He reports persistent but mild cough and improving shortness of breath on steroid taper. In addition to the more severe pain measuring between 7?9/10 in the right arm and right hip he has more mild mid to low back discomfort which is approximately 5/10. Pain is worse with movements including ambulation and much improved when he is laying still. He believes his appetite has remained relatively normal and he has not had any unexpected weight changes. He has been on Decadron since yesterday and he does not feel like this has changed any of his symptoms. He does report fatigue. He denies having other problems or concerns at this time. Review of Systems: A 12-point review of systems was completed and was negative except for what is noted in the HPI/Interval History and by the nurse. Physical Exam: Weight: 175 lbs ECO KARNOFSKY SCORE: 60% CONSTITUTIONAL: Well-developed, well-nourished, and in no apparent distress. NECK: Supple, no thyromegaly, and non-tender. Trachea midline. No cervical or supraclavicular adenopathy noted. CARDIAC: Regular rate and rhythm. Normal S1, S2. No murmurs, rubs, or gallops. PULMONARY/CHEST: Lungs are clear to auscultation and percussion bilaterally. No wheezes, rhonchi, or crackles noted. No increased work of breathing. ABDOMINAL: Abdomen soft, non-tender, non-distended. No hepatomegaly. Normoactive bowel sounds in all four quadrants. No guarding, rebound. BACK: Straight and aligned. No CVA tenderness. Pain in upper lumbar/lower thoracic spine at midline. Otherwise axial skeleton non-tender to percussion. Pain also noted with palpation of the right hip. EXTREMITIES: Right shoulder and arm pain, anterior upper humerus, scapula. Limited ROM in RUE. Otherwise full range of motion in all four extremities. No evidence of edema. NEUROLOGICAL EXAM: Alert and oriented x 3. Answers questions and follows commands appropriately. Cranial nerves II through XII are grossly intact. No focal neurological deficit. Speech is fluent. Muscle strength is 5/5 in all muscle groups. Gait not tested. PSYCHIATRIC: Appropriate mood and affect for the clinical situation. 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 From 06/13/2021 ? 07/25/2021 he received 6000 cGy in 30 fractions to the Right lung and bilateral mediastinal disease with concurrent carbo/taxol. He subsequently developed what appears to be widespread metastatic disease with osseous metastases in a solitary brainstem metastasis status post MRI right upper extremity (09/02/2021), MRI right lower extremity (09/06/2021), MRI brain (09/06/2021). Patient was seen and evaluated in his hospital bed. He reports some dizziness and incoordination but neurologic exam is normal. He does have pain limiting range of motion in the right upper extremity and also has pain in the right hip and mid back, pain is improved from yesterday with his new pain regiment and he is now seeing palliative care. I reviewed the findings of the MRI lower extremity and MRI brain which demonstrate right femur and iliac bone, sacrum, acetabulum metastasis as well as a 1.4 cm brainstem metastasis. I reviewed that this is very likely a recurrence of his recently treated squamous cell carcinoma of the lung and very unlikely to be related to the prostate cancer from 2013, PSA is pending. Plan to pursue CT chest/abdomen/pelvis with contrast for further staging and CT-guided biopsy once these imaging studies are completed to confirm diagnosis. PET scan to be completed next week as an outpatient. I reviewed that given the location of the lesion within the brain that this is of primary importance to treat in the next few weeks. I recommended stereotactic radiosurgery or fractionated stereotactic radiation therapy to this lesion given that he has a solitary lesion, this treatment will provide improvement in disease control and reduced toxicity when compared with whole brain radiation. We also reviewed options of completing palliative radiation therapy to the sites of painful bone metastasis. He has been seen by orthopedic surgery and they feel surgical stabilization is unnecessary prior to palliative XRT. The closest facility where he can get stereotactic brain radiation is at [facility], I discussed this with radiation oncology at this facility, they do gamma knife as an outpatient. I discussed that is more urgent needs are to proceed with palliative radiation therapy to the sites of pain to improve quality of life and to proceed with stereotactic radiation to the brain lesion and that these treatments can be followed with systemic therapy once he has histology confirmed and has a chance to discuss with medical oncology. I reviewed the goals of palliative radiation therapy. The risk, benefits, and alternatives to palliative radiation therapy were discussed in detail and all questions were addressed. I discussed the logistics of radiation therapy including CT simulation, treatment planning, and daily fractionated treatment delivery likely for 5 treatments. I also briefly reviewed the logistics of completing gamma knife radiosurgery and this can be arranged at [facility] once he is discharged from the hospital. At this time we will likely treat the right humerus/scapula and the right femur and pelvic disease, if further disease is noted on CT staging may include that as well. I reviewed the potential acute and chronic toxicities of palliative radiation therapy to the sites. Plan: 1) Staging with CT C/A/P, PET to be completed 09/14 (unable to complete as inpatient) 2) Biopsy to confirm pathologic diagnosis 3) CT simulation likely in near future to initiate palliative XRT to most problematic sites 4) Stereotactic XRT for brainstem lesion as outpatient following discharge Thank you for allowing me to participate in the management and care of your patient. If I may answer any questions in the interim, please do not hesitate to contact me at any time. Cristian Contreras DO, MS [employer], Department of Radiation Oncology [facility] Coding Level of Care Code Off vis,new,level 5 Diagnoses Bone metastasis C79.51
[2021-09-07] MEDS: HYDROmorphone 1 MG/ML Syringe IV ×2 (10:56→14:04)
[2021-09-07] MEDS: oxyCODONE 5 MG Tablet 10 MG PO ×2 (10:56→13:31)
[2021-09-07] MEDS: 0.9% Saline Lock 10 ML Syringe IV ×2 (11:57→14:05)
[2021-09-07 14:23] VITALS: BP 96/64; PULSE 70; RESP 16; TEMP 36.7; O2SAT 99
--- NOTE | 2021-09-07 16:15 | CASEMGMT ---
Addendum entered by Glory Monaco 09/07/21 16:21: Patient was provided a list of SNF providers including quality and resource use data and consistent with the patient?s preferred geographic region, medical needs, and insurance network. Original Note: Social Work Note SW updated that pt's expressed some concerns about being able to take care of pt at home due to pt's pain. SW in to speak with pt. SW introduced self and role at [facility]. Pt states that his works at [employer] and states he doesn't think she will want him to go to a detention. Pt states he doesn't want to go to detention either. SW informed pt that PT/OT will work with pt and make recommendations. Pt states that he thinks once his pain is under control he will be good. Pt states that he is active with [facility]HC and Palliative Care will be seeing pt at home too. SW asked pt about how he is handling everything. Pt states that he is doing ok. Pt states that his is supportive and states that his son lives two doors down from him and he has been coming over to the house to help with pt too. SW asked pt if he needed any support groups information, or resources and pt denied. SW informed pt that this worker and RN CM will just continue to follow along for discharge plans. Pt states understanding, denied additional needs or concerns at this time. Glory Monaco COMBER OPERATOR, RN DOCUMENTATION
--- NOTE | 2021-09-07 18:14 | CON.PCM.ON_ITS ---
Assessment & Plan Assessment/Plan (1) Intractable pain: Status: Acute Code(s): R52 - Pain, unspecified Plan: To continue Pain medications. (2) History of prostate cancer: Status: Chronic Code(s): Z85.46 - Personal history of malignant neoplasm of prostate Plan: To do observation for now, PSA 0.05 today. (3) Bone metastasis: Status: Acute Code(s): C79.51 - Secondary malignant neoplasm of bone Plan: Most likely due to lung cancer involving R arm, L5, R femur. Bone scan and PET/CT can be done as outpatient. Suggestions to consider Radiation therapy to R femur, L5 and R humerus to decrease pain. To follow up with Dr. Díaz on discharge for systemic therapy. Will not follow further on this admission unless new problems arise. (4) Metastasis to brain: Status: Acute Code(s): C79.31 - Secondary malignant neoplasm of brain Plan: Suggestion is to continue Decadron, proceed with Radiation therapy evaluation for therapy. HPI Consult Data Date of Service:: 09/07/21 PCP / Referring Provider: Dr. Faheem Vallejo MD Attending: Dr. Rosalie Boyd MD Chief Complaint Chief Complaint: Asked to see Pt for metastatic cancer. History of Present Illness History of Present Illness: 56y.o.man was diagnosed with NSCLC-squamous cell type stage IIIC (T3, N3, M0), R lung, was treated with combined chemotherapy and Radiation from 06/13/2021 to 07/25/2021. He developed pain in R arm, MRI on 09/02/2021 showed metastatic disease in R humerus and scapular bone. He develo ped low back and R hip pain which made it difficulty walking so admitted. 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 Living Will: [facility] Medical History Abnormal PSA Anxiety Cancer Cardiology follow-up encounter Chronic cough Cold feeling Coronary artery disease COVID-19 Depression Emphysema, unspecified Encounter for chemotherapy management Encounter for education Endobronchial cancer Excessive bleeding Former smoker High cholesterol History of echocardiogram History of heart attack History of steroid therapy History of stress test History of torsion of testis Hypertension Hypokalemia Myocardial infarct On home oxygen therapy Prostate cancer Regional lymph node metastasis present Restless legs Shoulder pain, right Wears glasses Home Medications Mucinex DM 1 tab PO Q12H PRN 05/05/21 [History Last Taken Unknown] aspirin 81 mg PO DAILY 05/05/21 [History Last Taken 05/04/21] atorvastatin 80 mg PO QHS 05/05/21 [History Last Taken Unknown] metoprolol tartrate 25 mg PO BID 05/05/21 [History Last Taken 06/07/21] lorazepam 0.5 mg tablet 0.5 mg PO TID PRN tab 05/26/21 [History Last Taken Unknown] ondansetron 8 mg disintegrating tablet 8 mg PO Q8H PRN #30 tab 06/14/21 [Rx Last Taken Unknown] albuterol sulfate 90 mcg/actuation aerosol inhaler 2 puff INHALATION Q6H PRN #8.5 g 07/15/21 [Rx Last Taken Unknown] gabapentin 300 mg PO TID 08/18/21 [History Last Taken Unknown] acidophilus-pectin, citrus 1 tab PO TID #0 tab 08/23/21 [Rx Last Taken Unknown] loperamide 2 mg PO Q4H PRN PRN #0 cap 08/23/21 [Rx Last Taken Unknown] pantoprazole 40 mg PO DAILY #30 tab 08/23/21 [Rx Last Taken Unknown] prednisone 60 mg PO BREAKFAST #90 tab 08/23/21 [Rx Last Taken Unknown] Disability Placard #1 ea 09/01/21 [Rx Last Taken Unknown] ibuprofen 200 mg tablet 600 mg PO TID tab 09/05/21 [History Last Taken Unknown] oxycodone-acetaminophen 10 mg-325 mg tablet 1 tab PO Q8H PRN 09/05/21 [History Last Taken Unknown] sennosides 8.6 mg capsule 8.6 mg PO BID 09/05/21 [History Last Taken Unknown] diazepam 5 mg PO Q8H PRN PRN 09/06/21 [History Last Taken Unknown] Allergy/AdvReac Type Severity Reaction Status Date / Time No Known Allergies Allergy Verified 09/06/21 07:23 Family History Father Emphysema lung Cancer prostate cancer Grandfather Cancer prostate Mother Kidney disease Surgical History H/O prostatectomy History of cardiac catheterization History of coronary artery stent placement History of hernia repair Social History household members: spouse Smoking Status: Former smoker quit date: 02/16/21 pack-years: 40 Tobacco: How many years used: 40 how long ago did patient quit smoking: patient reports smoking [id number] alcohol intake: never substance use type: does not use caffeine: No during the past year weight has: remained stable reema/zoroastrianism: Sikhism seatbelt use: always do you feel safe at home: Yes ROS Constitutional Constitutional: Reports fatigue; Denies chills or fever(s) ENT HEENT: Denies dysphagia or hoarseness Cardiovascular Cardiovascular: Denies chest pain or dyspnea at rest Respiratory/Chest Respiratory/Chest: Denies chest tightness, cough or dyspnea Gastrointestinal Gastrointestinal: Denies abdominal pain, anorexia or bloating Genitourinary Genitourinary: Denies change in urinary stream Musculoskeletal Musculoskeletal: Reports abnormal gait, joint pain and other Details: R hip pain. Integumentary Integumentary: Denies dry skin or erythema Neurologic Neurologic: Denies dizziness or focal weakness Psychiatric Psychiatric: Denies anxiety or depression Endocrine Endocrinology: Denies cold intolerance or flushing Hematologic/Lymphatic Hematologic/Lymphatic: Denies easy bleeding, easy bruising or lymphadenopathy Physical Exam Const alert and oriented x3 Orientation / Consciousness: oriented to person and oriented to place HEENT normocephalic Eyes PERRL and EOMs intact bilaterally Neck no lymphadenopathy Lymph Lymphatic: no lymphadenopathy noted Chest inspection of chest normal Resp normal respiratory effort and clear to auscultation bilaterally Effort and Inspection: able to speak in complete sentences and symmetric chest movement Cardio regular rate, regular rhythm, S1 normal heart sound and S2 normal heart sound GI normal to inspection, nondistended, normoactive bowel sounds Extremity Extremity Narrative: Pain R shoulder Skin no rashes or lesions noted Neuro CN's II-XII intact bilaterally and moves all extremities Psych mental status grossly normal Vital Signs Temperature 98.0 F 09/07/21 14:23 Temperature Source Oral 09/07/21 14:23 Pulse Rate 70 09/07/21 14:23 Respiratory Rate 16 09/07/21 14:23 Respiratory Effort Non-Labored 09/06/21 22:00 Blood Pressure 96/64 09/07/21 14:23 Blood Pressure Mean 74 09/07/21 14:23 Blood Pressure Source Monitor 09/07/21 14:23 Blood Pressure Position Supine 09/07/21 03:55 Blood Pressure Location Left Arm 09/07/21 14:23 Pulse Ox 99 09/07/21 14:23 Oxygen Delivery Method Nasal Cannula 09/07/21 14:23 Oxygen Flow Rate (L/min) 2 09/07/21 09:00 Fraction of Inspired Oxygen (FIO2) 2 09/06/21 11:20 Laboratory Results - last 24 hr 09/07/21 05:41: WBC 18.0 H, RBC 4.01 L, Hgb 11.7 L, Hct 37.5 L, MCV 93.5, MCH 29.2, MCHC 31.2 L, RDW Std Deviation 69.0 H, RDW Coeff of Sana 20.1 H, Plt Count 264, MPV 9.3, Immature Gran % (Auto) 0.800, Neut % (Auto) 95.2 H, Lymph % (Auto) 1.6 L, [place] % (Auto) 2.3, Eos % (Auto) 0.0, Baso % (Auto) 0.1, Absolute Neuts (auto) 17.1 H, Absolute Lymphs (auto) 0.29 L, Nucleated RBC % 0, Anisocytosis 2+ 09/07/21 05:41: Sodium 136, Potassium 4.4, Chloride 101, Carbon Dioxide 30.0, Anion Gap 5, BUN 22 H, Creatinine 0.80, Estim Creat Clear Calc 101.88, Est GFR (MDRD) Af Amer 127, Est GFR (MDRD) Non-Af 105, BUN/Creatinine Ratio 27.3 H, Glucose 162 H, Calcium 9.4, Total Bilirubin 0.50, AST 18, ALT 24, Alkaline Phosphatase 98, Total Protein 6.7, Albumin 2.3 L, Globulin 4.4 H, Albumin/Globulin Ratio 0.5 L, Total PSA 0.05 09/07/21 05:41: PT 14.1, INR 1.2, APTT 37.7 H Diagnostic Data Hip/Pelvis X-Ray 09/06/21 07:34 IMPRESSION: Normal x-ray examination of the pelvis and hip. Electronically Signed: Jj Suarez MD at 8:30 EDT , Lower Extremity MRI 09/06/21 09:11 IMPRESSION: 1. There is a metastatic focus in the right greater trochanter, medial right iliac bone, right sacrum, and superior right acetabulum. 2. Abnormal increased T2 signal in the paraspinal muscles along the left side of the sacrum. This may represent intramuscular strain or metastatic disease to the muscle. 3. There is masslike extension of the metastatic focus in the superior right acetabular lesion. This extends into the right iliopsoas muscle there is abnormal signal. 4. On the edge of the film, there is a necrotic appearing mass in the subcutaneous fat along the right lower abdominal wall. This may be a metastatic focus. Electronically Signed: Jovan Smith MD at 16:31 EDT , Brain MRI 09/06/21 10:02 IMPRESSION: There has been progression of disease since the prior MRI. There is a 14 x 14 mm T2 hyperintense lesion of the left brainstem. Se 9 IM: 13. This demonstrates ring enhancement. No other lesions are visualized. There is underlying edema. Given the patient''s history, this is concerning for metastatic disease. CF called for the hips and brain Electronically Signed: Jovan Smith MD at 16:41 EDT , ADDENDUM: 09/06/21 1707 IMPRESSION: There has been progression of disease since the prior MRI. There is a 14 x 14 mm T2 hyperintense lesion of the left brainstem. Se 9 IM: 13. This demonstrates ring enhancement. No other lesions are visualized. There is underlying edema. Given the patient''s history, this is concerning for metastatic disease. CF called for the hips and brain N.B. : The above Results were Read Back by Jovan Smith MD to Kristin Mcleod RN, and understanding confirmed on 09/06/2021 17:00:34 (ET). Electronically Signed: Jovan Smith MD at 16:41 EDT , Chest/Abdomen/Pelvis CT 09/07/21 08:56 IMPRESSION: Interval improvement of the bilateral pulmonary infiltrates. Residual changes persist. Interval decrease in size of the nodular density seen in the superior segment of the right lower lobe presently measuring 2.7 cm x 0.7 cm. Persistent 4.1 cm x 3.6 on the right hilar mass. 1.7 cm x 1.7 cm soft tissue nodule in the subcutaneous tissues overlying the posterior superior aspect of the right iliac bone. Electronically Signed: Jj Suarez MD at 12:23 EDT , ADDENDUM: 09/07/21 1518 Charges/Coding Visit Charges Office Visits / Consults: 14151 IP Consult L3
[2021-09-07] MEDS: Senna Tablet 1 TABLET PO ×2 (18:35→21:59)
[2021-09-07 20:08] VITALS: BP 108/72; PULSE 87; RESP 18; TEMP 36.6; O2SAT 97
[2021-09-07 21:59] VITALS: PULSE 87
[2021-09-07] MEDS: Atorvastatin Calcium 80 MG Tablet PO (21:59)
[2021-09-07] MEDS: NYSTATIN 500,000 UNIT/5 ML UDC 500000 UNIT PO (21:59)
[2021-09-08] VITALS (10 sets, daily range): BP systolic 98–125; BP diastolic 68–90; PULSE 83–96; RESP 16–18; TEMP 36.6–36.8; O2SAT 92–95
[2021-09-08] MEDS: 0.9% Saline Lock 10 ML Syringe IV ×7 (00:18→21:32)
[2021-09-08] MEDS: 0.9% Normal Saline 1,000 ML 100 ML IV ×3 (00:18→22:07)
[2021-09-08] MEDS: dexAMETHasone 4 MG/ML Vial IV ×4 (00:18→18:34)
[2021-09-08] MEDS: oxyCODONE 5 MG Tablet 10 MG PO ×2 (00:31→09:44)
[2021-09-08] MEDS: HYDROmorphone 1 MG/ML Syringe IV ×6 (04:19→21:31)
[2021-09-08] MEDS: LORazepam 0.5 MG Tablet PO ×2 (06:07→21:59)
[2021-09-08] MEDS: Gabapentin 400 MG Capsule PO ×3 (06:07→21:40)
--- NOTE | 2021-09-08 06:21 | PCM.PN.HOSP ---
Subjective Subjective Patient overnight with no acute events per discussion with staff and patients. He does note that he did get up to use the restroom and did have discomfort in the hip but was able to get there and back. Patient notes discomfort is significantly improved with pain regimen but is eager for radiation therapy. Plan of care includes a biopsy which unfortunately has been transitioned to 09/10/2019 2 AM per discussion with radiology with plan continuation of radiation today. Patient denies fevers, chills, nausea, emesis, abdominal pain, chest pain or dyspnea. Objective Data Objective Data Vital Signs: Vital Signs Temp Pulse Resp BP Pulse Ox 98.2 F 95 18 125/90 H 95 09/08/21 04:11 09/08/21 04:11 09/08/21 04:11 09/08/21 04:11 09/08/21 04:11 Oxygen Flow Rate (L/min) 2 Oxygen Delivery Method Nasal Cannula Weight: 176 lb 5 oz Body Mass Index (BMI) 26.3 Intake & Output: Intake and Output for Last 24 Hours 09/06/21 09/07/21 09/08/21 23:59 23:59 23:59 Intake Total 880 / 880 2288.33 / 2288.33 Output Total 400 / 400 1600 / 1600 800 / 800 Balance 480 / 480 688.33 / 688.33 -800 / -800 Lab / Micro Data Result Diagrams: 09/08/21 06:00 09/08/21 06:00 Labs: Laboratory Results - last 24 hr 09/07/21 05:41: Anisocytosis 2+ 09/07/21 05:41: Sodium 136, Potassium 4.4, Chloride 101, Carbon Dioxide 30.0, Anion Gap 5, BUN 22 H, Creatinine 0.80, Estim Creat Clear Calc 101.88, Est GFR (MDRD) Af Amer 127, Est GFR (MDRD) Non-Af 105, BUN/Creatinine Ratio 27.3 H, Glucose 162 H, Calcium 9.4, Total Bilirubin 0.50, AST 18, ALT 24, Alkaline Phosphatase 98, Total Protein 6.7, Albumin 2.3 L, Globulin 4.4 H, Albumin/Globulin Ratio 0.5 L, Total PSA 0.05 09/07/21 05:41: PT 14.1, INR 1.2, APTT 37.7 H Radiography Diagnostic Testing: Radiology Impression Chest/Abdomen/Pelvis CT 09/07/21 08:56 IMPRESSION: Interval improvement of the bilateral pulmonary infiltrates. Residual changes persist. Interval decrease in size of the nodular density seen in the superior segment of the right lower lobe presently measuring 2.7 cm x 0.7 cm. Persistent 4.1 cm x 3.6 on the right hilar mass. 1.7 cm x 1.7 cm soft tissue nodule in the subcutaneous tissues overlying the posterior superior aspect of the right iliac bone. Electronically Signed: Jj Suarez MD at 12:23 EDT , ADDENDUM: 09/07/21 1518 Physical Exam Narrative Physical Examination: General: Awake, alert, oriented x 3 and cooperative, laying in the medical surgical bed, fatigued, notes pain currently improved, intermittently tearful with discussions. Skin: Normal color, normal turgor, no icterus, no cyanosis. HEENT: AT/NC, EOMI, PERRLA, MMM. Lungs: Diminished, > bases, appropriate effort, no rales, ronchi or wheezing. Heart: Regular rate with regular rhythm; no gallop, rub audible. Abdomen: Soft, NTTP, ND, normal BS. Extremities: No cyanosis, clubbing, or edema. Discomfort with movement LE, R>L, not marked discomfort w/ palpation hip and SI region on the R, improved from initial presentation. Neurological: Patient awake, alert, oriented x 3, cognitive function intact; pupils equally reactive to light and accommodation, cranial nerves II-XII grossly normal, moving all 4 extremities but limited secondary to pain but more comfortable than day prior with pain regimen, no specific focal deficits, strength improving, moderately to severely global decreased. Psychiatric: Affect appears fatigued, intermittently tearful with discussions and as expected is anxious and depressed with recent news. Assessment & Plan Assessment/Plan (1) Intractable pain: (2) Inability to walk: PLAN: The patient is a 56 y/o M w/ PMHx: Anxiety and Depression, Chronic Hypoxic Respiratory Failure with COPD, RLS, HTN, HLD, Former tobacco use, CAD s/p NE 09/2020 w/ PCI, Chronic anemia/AOCD, COVID-19 02/2021, Prostate CA s/p prostatectomy 2013 with external beam radiation 2017 for relapse, 04/2021 Diagnosis pathologic stage IIIC (pT3 pN3 M0) squamous cell carcinoma of the right lower lobe with evidence of ipsilateral and contralateral mediastinal lymph node involvement with 06/13/2021 ? 07/25/2021 radiation R lung and BL mediastinal disease w/ concurrent carbo/taxol, recent RUE mass with concern for metastatic disease pending biopsy who presents [facility] ED on 09/06/21 secondary to onset intractable right hip pain and pain in the scaroiliac right region, severe debility with difficulty even bearing weight. #1. Intractable right hip and SI pain secondary to significant metastatic disease: Failed conservative regimen outpatient as patient is following with palliative therapy on chronic narcotics, admitted to [place], maintained on fall precautions, continue offloading, imaging obtained with MRI right lower extremity hip and pelvis with metastatic foci in the right greater psoas muscle with abnormal signal, on the edge of the film possible necrotic appearing mass in the subcu fat along the right lower abdominal wall possibly metastatic foci. Patient evaluated per Orthopedic surgery with no stabilization recommended. Dr. Contreras and Dr. Mendez consulted and following. Planned 09/09/21 Bx L5 destructive lesion noted on CT chest abdomen pelvis which is additionally obtained to assist in during determining best biopsy location. Plan 09/08/2021 initiation of radiation therapy to the right hip region. Currently maintained on low dose toradol, fentanyl patch, increased gabapentin regimen, PRN oral and IV narcotic therapies. Discussed care also with Palliative with per their recommendation Dilaudid changed to 1 mg every 2 with conversion to oral Dilaudid at the same regimen upon discharge, continue fentanyl 25 mcg every 72, continue Decadron at 4 mg daily instead of prednisone when he is discharged, convert to oral Toradol at discharge to home with follow-up with palliative care outpatient within 1 week. PT/OT/CM consulted for discharge planning, potential SNF needs; however, this will limit his ability to have [facility] versus [facility] focal brain radiation therapy. #2. 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 07/25/2021 radiation R lung and BL mediastinal disease w/ concurrent carbo/taxol, recent RUE mass with concern for metastatic disease pending biopsy. As noted MRI hip w/ metastatic foci in the right greater psoas muscle with abnormal signal, on the edge of the film possible necrotic appearing mass in the subcu fat along the right lower abdominal wall possibly metastatic foci and MRI brain w/ progression of disease since prior imaging with a 14 x 14 mm T2 hyperdense lesion in the left brainstem demonstrating ring enhancement with underlying edema consistent with metastatic disease. Started on decadron 09/06/21 6 mg load and 4 mg IV q 6 hours per discussion with Oncology. Palliative following. Planned as noted Bx 09/09/21 and start radiation R hip 09/08/21. #3. Chronic hypoxic respiratory failure with chronic COPD: We will continue patient home chronic oxygen supplementation of 2 L nasal cannula, not on routine inhalers, will continue as needed albuterol, encourage head of bed and I-S. #4. Hypertension: Continue home regimen including metoprolol, PRN hydralazine. #5. Hyperlipidemia: We will continue patient home statin therapy. #6. GERD: We will continue patient home PPI. #7. CAD: s/p PCI w/ NE 09/2020, continue aspirin, statin, metoprolol, not on SREEKANTH inhibitor or ARB. #8. Anxiety and depression: Continue patient home benzodiazepine as needed regimen. #9. Former tobacco use: Encourage continued tobacco cessation peer #10 pure history of prostate cancer: Status post prostatectomy 2013 and external beam radiation 2017 for relapse, continue outpatient oncology/urology follow-up. #11. Chronic anemia/AOCD secondary to #2: Admission Hgb 12.9, baseline more recently 11-12; however, had been 9 range prior with likely PRBC administration, 09/08/21 Hgb 11.8, continue to trend. #12. DVT Prophylaxis: SCDs, lovenox x 1 today with then hold again for 09/09/21 Bx. #13. CODE status: Patient HCPOA is his who is present. DNR-CCA, no intubation status. Charges/Coding Visit Charges Inpatient E&M: 60730 Subs Hosp L3
[2021-09-08 06:36] LABS: Absolute Lymphocyte Count 0.23 X10^3/uL (0.83-4.51); Absolute Neutrophil Count 17.5 X10^3/uL (2.0-7.7); Basophil# 0.02 X10^3/uL; Basophil% 0.1 % (0-1); Hematocrit 37.8 % (40-54); Hemoglobin 11.8 g/dL (13.0-16.5); Lymphocyte # 0.23 X10^3/ul (0.83-4.51); Lymphocyte % 1.2 % (19-41); Mean Corp Hgb Conc 31.2 g/dL (32-36); Mean Corpuscular Hgb 28.9 pg (27.0-32.0); Mean Corpuscular Volume 92.6 fL (80-94); Mean Platelet Vol. 9.6 fl (6.2-12.0); Monocyte# 0.65 X10^3/uL; Monocyte% 3.5 % (0-10); NRBC Flagged by Analyzer 0 % (0-5); Neutrophil # 17.49 X10^3/uL (2.7-7.7); Neutrophil % 94.4 % (47-70); POSITIVE DIFFERENTIAL YES; POSITIVE MORPHOLOGY YES; Platelet Count 296 K/mm3 (150-450); RBC Distribution Width SD 68.2 fl (35.1-43.9); Red Blood Count 4.08 M/mm3 (4.6-6.2); White Blood Count 18.5 K/mm3 (4.4-11.0)
[2021-09-08 06:45] LABS: Differential Indicated SCAN CRITERIA MET
[2021-09-08 06:57] LABS: Anisocytosis 2+
[2021-09-08 07:02] LABS: ALB/GLOB Ratio 0.5 RATIO (0.9-2.4); AST(SGOT) 29 U/L (15-37); Alanine Aminotransfer ALT/SGPT 33 U/L (16-61); Albumin, Serum 2.3 g/dL (3.2-5.0); Alkaline Phosphatase 94 U/L (45-117); Anion Gap 3 (5-15); BUN 25 mg/dL (7-18); BUN/Creat Ratio 27.9 RATIO (10-20); Calcium,Total 9.4 mg/dL (8.5-10.1); Chloride 106 mmol/L (98-107); EST Glomerular Filtration Rate 93 mL/min (>60); Est Glom Filt Rate - Afr Amer 112 mL/min (>60); Estimated Creatinine Clearance 90.56 ml/min; Globulin 4.3 g/dL (2.2-4.2); Glucose 184 mg/dL (74-106); Potassium 4.6 mmol/L (3.5-5.1); Protein, Total 6.6 g/dL (6.4-8.2); Sodium Level 140 mmol/L (136-145)
[2021-09-08] MEDS: Pantoprazole Sodium 40 MG Tablet PO (08:33)
[2021-09-08] MEDS: NYSTATIN 500,000 UNIT/5 ML UDC 500000 UNIT PO ×4 (08:35→21:40)
[2021-09-08] MEDS: Metoprolol Tartrate 25 MG Tablet PO ×2 (11:24→21:54)
--- NOTE | 2021-09-08 12:50 | CASEMGMT ---
Addendum entered by Shante Taylor 09/08/21 15:02: Discussed if [facility] is in network with pt insurance. Per [employer], [facility] is in network but unable to accept if pt is receiving radiation or if another patient with same insurance is on the unit. JANICE CROSS in to pt room to make aware, pt and off of floor at this time. Original Note: JANICE CROSS in to pt room, pt lying in bed and at bedside. Pt requesting equipment at home including a BSC, hospital bed, walker and w/c. She states if pt pain is not under control, she cannot take pt home. She became tearful upon stating this. Pt asks if [facility] is in network with their insurance. Noted sheet given and it was not highlighted. Made pt aware. Pt and agree if pt returns home that they would like the C to resume as well as Palliative Care. TC to Kristal, spoke with Cherie. Discussed the DME requested. She states typically the insurance will not pay for walker and w/c both and the BSC would be a purchase. Notified pt and of this. JANICE CROSS to follow.
[2021-09-08] MEDS: Enoxaparin 40 MG/0.4 ML Syringe SC (14:29)
--- NOTE | 2021-09-08 15:17 | CASEMGMT ---
JANICE CM Readmission Note Previous Admission: 08/19/2021-08/23/2021 Diagnosis: PNA DC Disposition: Home with [facility] and Palliative Care Current Admission Current Diagnosis: R Intractable Hip Pain Pt presented to ER from home with intractable hip pain. MRI of brain and hip showed mets to bone and brain. Pt receiving IV decadron and pain control with Palliative Care. Pt receiving radiation treatments, first started yesterday and will have bx tomorrow. DC PLAN: Home with [facility], Palliative Care and needed DME ( BSC, hospital bed, w/c and walker)
[2021-09-08 15:21] LABS: PSA, Total <0.1 ng/mL (0.0-4.0)
[2021-09-08] MEDS: Acetaminophen 325 MG Tablet 650 MG PO ×2 (16:34→21:55)
[2021-09-08] MEDS: Atorvastatin Calcium 80 MG Tablet PO (21:39)
[2021-09-08] MEDS: Senna Tablet 1 TABLET PO (21:40)
[2021-09-08] MEDS: Temazepam 15 MG Capsule PO (21:55)
[2021-09-09] VITALS (18 sets, daily range): BP systolic 108–134; BP diastolic 79–89; PULSE 76–108; RESP 13–24; TEMP 36.4–36.9; O2SAT 93–97
--- NOTE | 2021-09-09 | IMM_PTH ---
PATIENT: MIKY SALGADO LOC: MS3 U#:[id number] AGE/SX: 56/M ROOM: PR319 RE09/07/[address]: Dr. Rosalie Boyd MD : 1965 BED: 1 DIS: 09/10/2021 SPEC #: [id number] RECD: 09/09/21 12:49 STATUS: SOUT REQ #: [id number] NINA: 09/09/21 00:[address]: Rosalie Boyd DEPT: IMMUNOHISTOCHEMISTRY RECD BY: Andreia Hameed ENTERED: 09/09/21 12:51 SP TYPE: IMMUNO OTHR DR: Genet Osullivan, WOOD FURNITURE ASSEMBLER-C MD Dr. Ion Townsend, DO Dr. Natalie Raya Dr., MD Dr. Joseph Prah, MD Dr. Mansour Isckarus, MD Dr. Paul Nielsen, MD Dr. Robert Field, MD Dr. Ryan Jin, MD Dr. Roger Macklis, MD Dr. Steve Walston, DO Dayami Lindsey, WOOD FURNITURE ASSEMBLER-C Marjorie Bo, WOOD FURNITURE ASSEMBLER-C Candace Jennings, WOOD FURNITURE ASSEMBLER-C Vandana Greenwood, WOOD FURNITURE ASSEMBLER-C Tissues: Lower back Procedures: RCC (add) NAPSIN A (add) CK20 (add) CK5-6 (add) CK7 (add) CK8 (add) HEP PAR (add) TTF1 (add) Pankeratin (initial) P40 (add) PSAP (add) PHYSICIAN & INSTITUTION [address] [address] SPECIMEN INFORMATION: Tissue Source: Left lumbar region, biopsy Clinical Info: Left lumbar region mass Specimen Number: [id number] CPT code: 51718, 07239 x10 METHODOLOGY: Deparaffinized sections of prefer/formalin-fixed tissue or PAP/DQ stained slides are incubated with monoclonal/polyclonal antibodies/oligonucleotide probes. Localization is made via biotin free immunoperoxidase method. Appropriate controls are performed and reacted as expected. Results on target cell population are indicated in the following table: RESULTS: ANTIBODY / CLONE RESULT AE1-3 (AE1/AE3/PCK26) positive CK7 (OV-TL12/30) positive CK8 (06zvklV29) positive CK20 (KS20.8) negative TTF-1 (8G7G3/1) negative Napsin A (Rabbit Polyclonal) negative HepPar (OCh1E5) negative RCC (PN-15) negative PSAP (PASE/4LJ) negative CK5-6 (D5 & 1684) positive P40 (BC28) positive These tests were developed and their performance characteristics determined by [facility]. They may not have been cleared or approved by the U.S. Food and Drug Administration. The FDA has determined that such clearance or approval is not necessary. The above immunohistochemical/dualISH markers are ordered and reviewed by the Pathologist. INTERPRETATION: Left lumbar region, biopsy: Metastatic non-small carcinoma, favor squamous cell carcinoma. SJ:valentina 09/12/2021
[2021-09-09] MEDS: dexAMETHasone 4 MG/ML Vial IV ×4 (00:04→17:55)
[2021-09-09] MEDS: HYDROmorphone 1 MG/ML Syringe IV ×6 (00:05→14:56)
[2021-09-09] MEDS: 0.9% Saline Lock 10 ML Syringe IV ×4 (00:06→21:13)
[2021-09-09] MEDS: Gabapentin 400 MG Capsule PO ×3 (05:41→21:03)
--- NOTE | 2021-09-09 06:08 | PN.HOSP_ITS ---
Subjective Subjective Patient in the morning noted improvement of his discomfort and appear to greater ease unfortunately worsening through the day. Patient with ongoing episodes of pain however worsened significantly following biopsy and radiation repeat treatment. Increased patient's underlying transdermal patch to 50 mcg and transition patient's Dilaudid to oral scheduled with IV breakthrough following discussions with palliative care to ready patient for potential home discharge. Physical and occupational therapy evaluations have recommended ongoing home therapies and not skilled at this time. Patient notes intention once a ppropriate for discharge to plan focal brain radiation at [facility] which will be arranged with patient's rad oncologist. Patient denies fevers, chills, nausea, emesis, abdominal pain, chest pain or dyspnea. Objective Data Objective Data Vital Signs: Vital Signs Temp Pulse Resp BP Pulse Ox 98 F 80 16 114/79 97 09/09/21 03:52 09/09/21 03:52 09/09/21 03:52 09/09/21 03:52 09/09/21 03:52 Oxygen Flow Rate (L/min) 3 Oxygen Delivery Method Nasal Cannula Weight: 176 lb 5 oz Body Mass Index (BMI) 26.3 Intake & Output: Intake and Output for Last 24 Hours 09/07/21 09/08/21 09/09/21 23:59 23:59 23:59 Intake Total 2288.33 / 2288.33 2728.33 / 2928.33 200 / 200 Output Total 1600 / 1600 2350 / 2925 575 / 575 Balance 688.33 / 688.33 378.33 / 3.33 -375 / -375 Lab / Micro Data Result Diagrams: 09/09/21 06:10 09/09/21 06:10 Labs: Laboratory Results - last 24 hr 09/07/21 05:41: Prostate Specific Ag Comment, Total PSA <0.1 09/08/21 06:00: WBC 18.5 H, RBC 4.08 L, Hgb 11.8 L, Hct 37.8 L, MCV 92.6, MCH 28.9, MCHC 31.2 L, RDW Std Deviation 68.2 H, RDW Coeff of Sana 20.0 H, Plt Count 296, MPV 9.6, Immature Gran % (Auto) 0.800, Neut % (Auto) 94.4 H, Lymph % (Auto) 1.2 L, [place] % (Auto) 3.5, Eos % (Auto) 0.0, Baso % (Auto) 0.1, Absolute Neuts (auto) 17.5 H, Absolute Lymphs (auto) 0.23 L, Nucleated RBC % 0, Anisocytosis 2+ 09/08/21 06:00: Sodium 140, Potassium 4.6, Chloride 106, Carbon Dioxide 31.0, Anion Gap 3 L, BUN 25 H, Creatinine 0.90, Estim Creat Clear Calc 90.56, Est GFR (MDRD) Af Amer 112, Est GFR (MDRD) Non-Af 93, BUN/Creatinine Ratio 27.9 H, Glucose 184 H, Calcium 9.4, Total Bilirubin 0.20, AST 29, ALT 33, Alkaline Phosphatase 94, Total Protein 6.6, Albumin 2.3 L, Globulin 4.3 H, Albumin/Globulin Ratio 0.5 L Physical Exam Narrative Physical Examination: General: Awake, alert, oriented x 3 and cooperative, laying in the medical surgical bed, appeared more comfortable and rested this AM. Skin: Normal color, normal turgor, no icterus, no cyanosis. HEENT: AT/NC, EOMI, PERRLA, MMM. Lungs: Diminished, > bases, appropriate effort, no rales, ronchi or wheezing. Heart: Regular rate with regular rhythm; no gallop, rub audible. Abdomen: Soft, NTTP, ND, normal BS. Extremities: No cyanosis, clubbing, or edema. Discomfort with movement LE, R>L, not marked discomfort w/ palpation hip and SI region on the R, improved from initial presentation. Neurological: Patient awake, alert, oriented x 3, cognitive function intact; pupils equally reactive to light and accommodation, cranial nerves II-XII grossly normal, moving all 4 extremities and seem to move with greater ease but still significant discomfort with any great movement, no specific focal deficits, strength improving, moderately to severely global decreased. Psychiatric: Affect appears less fatigued, more calm today, no obvious anxiety and depression currently. Assessment & Plan Assessment/Plan (1) Intractable pain: (2) Inability to walk: PLAN: The patient is a 56 y/o M w/ PMHx: Anxiety and Depression, Chronic Hypoxic Respiratory Failure with COPD, RLS, HTN, HLD, Former tobacco use, CAD s/p MN 09/2020 w/ PCI, Chronic anemia/AOCD, COVID-19 02/2021, Prostate CA s/p prostatectomy 2013 with external beam radiation 2017 for relapse, 04/2021 Diagnosis pathologic stage IIIC (pT3 pN3 M0) squamous cell carcinoma of the right lower lobe with evidence of ipsilateral and contralateral mediastinal lymph node involvement with 06/13/2021 ? 07/25/2021 radiation R lung and BL mediastinal disease w/ concurrent carbo/taxol, recent RUE mass with concern for metastatic disease pending biopsy who presents to the [facility] ED on 09/06/21 secondary to onset intractable right hip pain and pain in the scaroiliac right region, severe debility with difficulty even bearing weight. #1. Intractable right hip and SI pain secondary to significant metastatic disease: Failed conservative regimen outpatient as patient is following with palliative therapy on chronic narcotics, admitted to CT, maintained on fall precautions, continue offloading, imaging obtained with MRI right lower extremity hip and pelvis with metastatic foci in the right greater psoas muscle with abnormal signal, on the edge of the film possible necrotic appearing mass in the subcu fat along the right lower abdominal wall possibly metastatic foci. Patient evaluated per Orthopedic surgery with no stabilization recommended. Dr. Contreras and Dr. Mendez consulted and following. 09/09/21 Bx L5 destructive lesion Bx obtained. 09/08/21 radiation therapy to the R hip region with repeat radiation 09/09/21. 09/08/21 maintained on low dose fentanyl patch, gabapentin regimen, PRN IV dilaudid and scheduled IV dilaudid but given planned discharge to home transitioned 09/09/21 to oral scheduled dilaudid regimen. Following Bx and radiation 09/09/21 severe pain, thus increased fentanyl patch. Will clarify home regimen once appropriate given continued regimen alterations. PT/OT/CM consulted for discharge planning, and currently noting home therapies but patient remains in severe pain. Plan re-evaluation 09/10/21 for discharge consideration. #2. 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 07/25/2021 radiation R lung and BL mediastinal disease w/ concurrent carbo/taxol, recent RUE mass with concern for metastatic disease pending biopsy. As noted MRI hip w/ metastatic foci in the right greater psoas muscle with abnormal signal, on the edge of the film possible necrotic appearing mass in the subcu fat along the right lower abdominal wall possibly metastatic foci and MRI brain w/ progression of disease since prior imaging with a 14 x 14 mm T2 hyperdense lesion in the left brainstem demonstrating ring enhancement with underlying edema consistent with metastatic disease. Started on decadron 09/06/21 6 mg load and 4 mg IV q 6 hours per discussion with Oncology. Palliative following. Bx 09/09/21. Radiation R hip 09/08/21 and 09/09/21. Planned potential start outpatient focal brain radiation at [facility] this coming week per discussion with Dr. Contreras. #3. Chronic hypoxic respiratory failure with chronic COPD: We will continue patient home chronic oxygen supplementation of 2 L nasal cannula, not on routine inhalers, will continue as needed albuterol, encourage head of bed and I-S. #4. Hypertension: Continue home regimen including metoprolol, PRN hydralazine. #5. Hyperlipidemia: We will continue patient home statin therapy. #6. GERD: We will continue patient home PPI. #7. CAD: s/p PCI w/ MN 09/2020, continue aspirin, statin, metoprolol, not on SREEKANTH inhibitor or ARB. #8. Anxiety and depression: Continue patient home benzodiazepine as needed regimen. #9. Former tobacco use: Encourage continued tobacco cessation peer #10 pure history of prostate cancer: Status post prostatectomy 2013 and external beam radiation 2016 for relapse, continue outpatient oncology/urology follow-up. #11. Chronic anemia/AOCD secondary to #2: Admission Hgb 12.9, baseline more recently 11-12; however, had been 9 range prior with likely PRBC administration, 09/09/21 Hgb 12.6, continue to trend. #12. DVT Prophylaxis: SCDs, lovenox held for Bx, restart 09/10/21 AM. #13. CODE status: Patient HCPOA is his who is present. DNR-CCA, no in tubation status. Charges/Coding Visit Charges Inpatient E&M: 71235 Subs Hosp L2
[2021-09-09 06:44] LABS: Absolute Lymphocyte Count 0.21 X10^3/uL (0.83-4.51); Absolute Neutrophil Count 19.1 X10^3/uL (2.0-7.7); Basophil# 0.02 X10^3/uL; Basophil% 0.1 % (0-1); Hematocrit 38.9 % (40-54); Hemoglobin 12.6 g/dL (13.0-16.5); Lymphocyte # 0.21 X10^3/ul (0.83-4.51); Mean Corp Hgb Conc 32.4 g/dL (32-36); Mean Corpuscular Hgb 30.1 pg (27.0-32.0); Mean Corpuscular Volume 93.1 fL (80-94); Mean Platelet Vol. 9.8 fl (6.2-12.0); Monocyte# 0.66 X10^3/uL; Monocyte% 3.3 % (0-10); NRBC Flagged by Analyzer 0 % (0-5); Neutrophil # 19.05 X10^3/uL (2.7-7.7); Neutrophil % 94.9 % (47-70); POSITIVE DIFFERENTIAL YES; POSITIVE MORPHOLOGY YES; Platelet Count 304 K/mm3 (150-450); RBC Distribution Width CV 19.9 % (11.6-14.6); RBC Distribution Width SD 67.7 fl (35.1-43.9); Red Blood Count 4.18 M/mm3 (4.6-6.2); White Blood Count 20.1 K/mm3 (4.4-11.0)
[2021-09-09 06:47] LABS: Differential Indicated SCAN CRITERIA MET
[2021-09-09 07:12] LABS: ALB/GLOB Ratio 0.6 RATIO (0.9-2.4); AST(SGOT) 24 U/L (15-37); Alanine Aminotransfer ALT/SGPT 38 U/L (16-61); Albumin, Serum 2.3 g/dL (3.2-5.0); Alkaline Phosphatase 97 U/L (45-117); Anion Gap 4 (5-15); BUN 23 mg/dL (7-18); BUN/Creat Ratio 31.7 RATIO (10-20); Calcium,Total 8.9 mg/dL (8.5-10.1); Chloride 105 mmol/L (98-107); Creatinine, Serum 0.72 mg/dL (0.70-1.30); EST Glomerular Filtration Rate 118 mL/min (>60); Est Glom Filt Rate - Afr Amer 143 mL/min (>60); Globulin 4.1 g/dL (2.2-4.2); Glucose 154 mg/dL (74-106); Potassium 4.2 mmol/L (3.5-5.1); Protein, Total 6.4 g/dL (6.4-8.2); Sodium Level 137 mmol/L (136-145)
[2021-09-09 07:14] LABS: Anisocytosis 2+
[2021-09-09 07:35] LABS: International Normalized Ratio 1.1; Partial Thromboplast Time 25.5 Seconds (24.1-36.2); Prothrombin Time (Protime)PT. 13.3 SECONDS (11.7-14.9)
--- NOTE | 2021-09-09 08:16 | PN.PALL_ITS ---
Subjective Subjective New orders not implemented till yesterday afternoon for pain management. He received Dilaudid 1 mg q4 hours since 09/08. It appears he got 2 PRN doses in the last 12 hours. Patient reports he is still in a lot of pain but is now tolerable, he does appear much better. He got up once yesterday to get in a whe elchair and that did not go well, caused a lot of pain and he was somewhat dizzy from laying in bed so long and likely the pain medication. He has had 2 doses of PRN Ativan in the last 24 hours. Patient seen and examined. Denies any N/V/D, no constipation. Urinating okay. No edema. Not really short of breath but he is on 3 L of oxygen for saturation at 92% on 2L, currently 95 to 97%. Medication does make him drowsy but he is arousable and oriented. He is awake and alert this morning. Patient n.p.o. for right hip biopsy this morning and will have second dose of radiation later this afternoon. Objective Data Objective Data Vital Signs: Vital Signs Temp Pulse Resp BP Pulse Ox 98 F 80 16 114/79 97 09/09/21 03:52 09/09/21 03:52 09/09/21 03:52 09/09/21 03:52 09/09/21 03:52 Oxygen Flow Rate (L/min) 3 Oxygen Delivery Method Nasal Cannula Weight: 81.148 kg Body Mass Index (BMI) 26.3 Intake & Output: Intake and Output for Last 24 Hours 09/07/21 09/08/21 09/09/21 23:59 23:59 23:59 Intake Total 2288.33 / 2288.33 2728.33 / 2928.33 200 / 200 Output Total 1600 / 1600 2350 / 2925 1205 / 1205 Balance 688.33 / 688.33 378.33 / 3.33 -1005 / -1005 Lab / Micro Data Result Diagrams: 09/09/21 06:10 09/09/21 06:10 Labs: Laboratory Results - last 24 hr 09/07/21 05:41: Prostate Specific Ag Comment, Total PSA <0.1 09/09/21 06:10: WBC 20.1 H, RBC 4.18 L, Hgb 12.6 L, Hct 38.9 L, MCV 93.1, MCH 30.1, MCHC 32.4, RDW Std Deviation 67.7 H, RDW Coeff of Sana 19.9 H, Plt Count 304, MPV 9.8, Immature Gran % (Auto) 0.700, Neut % (Auto) 94.9 H, Lymph % (Auto) 1.0 L, [place] % (Auto) 3.3, Eos % (Auto) 0.0, Baso % (Auto) 0.1, Absolute Neuts (auto) 19.1 H, Absolute Lymphs (auto) 0.21 L, Nucleated RBC % 0, Anisocytosis 2+ 09/09/21 06:10: Sodium 137, Potassium 4.2, Chloride 105, Carbon Dioxide 28.0, Anion Gap 4 L, BUN 23 H, Creatinine 0.72, Estim Creat Clear Calc 113.20, Est GFR (MDRD) Af Amer 143, Est GFR (MDRD) Non-Af 118, BUN/Creatinine Ratio 31.7 H, Glucose 154 H, Calcium 8.9, Total Bilirubin 0.30, AST 24, ALT 38, Alkaline Phosphatase 97, Total Protein 6.4, Albumin 2.3 L, Globulin 4.1, Albumin/Globulin Ratio 0.6 L 09/09/21 06:10: PT 13.3, INR 1.1, APTT 25.5 Physical Exam Const alert and oriented x3 Constitutional Narrative: Still difficulty bearing any weight, makes his pain level spike. Appears much more comfortable today General Appearance: cooperative HEENT normocephalic and head/scalp atraumatic Eyes PERRL General Eye: normal appearance of both eyes Neck supple General: trachea midline Resp normal respiratory effort and no use of accessory muscles Effort and Inspection: able to speak in complete sentences Auscultation: wheezes and diminished lung sounds; Negative for rales or rhonchi Cardio regular rate, regular rhythm, S1 normal heart sound and S2 normal heart sound GI normal to inspection, nondistended, normoactive bowel sounds Extremity no clubbing, cyanosis or edema Skin no rashes or lesions noted Neuro oriented x3 and CN's II-XII intact bilaterally Psych mental status grossly normal Assessment & Plan Assessment/Plan (1) Intractable pain: (2) Dyspnea: QUALIFIERS: Dyspnea type: dyspnea on exertion Qualified Code(s): R06.00 - Dyspnea, unspecified (3) Inability to walk: (4) Generalized weakness: (5) Primary squamous cell carcinoma of lung: QUALIFIERS: Laterality: right Qualified Code(s): C34.91 - Malignant neoplasm of unspecified part of right bronchus or lung (6) Regional lymph node metastasis present: (7) Bone lesion: (8) History of prostate cancer: (9) Radiation pneumonitis: PLAN: 56-year-old with history of lung and prostate cancer, newly found metastasis to bone, seen today for palliative care initial visit after signing consents 2 days ago as an outpatient. We were consulted to assist with pain management and for symptom management of shortness of breath. 1. Intractable pain: Again, newly found lesions. Had MRI as noted. In hospital receiving dexamethasone 4 mg IV q6 hours, gabapentin 400 mg 3 TID, fentanyl patc h 25 mcg q 72 hours, and Toradol 15 mg q8 hours scheduled. PRN medications include: acetaminophen 650 mg q4 hours, lorazepam 0.5 mg 3 TID, Zofran 4 mg IV q8 hours, Dilaudid 1 mg IV q4 hours, oxycodone 10 mg p.o. q4 hours, Restoril 15 mg qHS, and Compazine 5 mg IV q4 hours. PLAN: 09/07: -stop oxycodone -Change to Dilaudid 1mg q4h, add 1mg q2h prn breakthrough pain. If pt discharged home from hospital, would convert to oral dilaudid on same regimen. Using [facility] pharmacy -keep fentanyl at 25mcg q72 hours -continue dexamethasone when discharged home, d/c the prednisone. -continue toradol, convert to oral when discharged home (if not sent to tertiary care center) -close f/u with palliative as outpatient, will see within 1 week. I suspect he will need therapy, I am not optimistic he will walk much until he has some pain relief from radiation. We will continue to follow -Start palliative radiation SYLVIE, discussed case with Dr. Contreras and Dr. Walsh (collaborating physician) 09/09: ?Continue current pain medication regimen, seems to be effective. Still quite a bit of pain but it is more tolerable now and appears more comfortable. ?Second radiation treatment today, also going for hip bx this morning. Okay to give Dilaudid prior to his biopsy, also has Versed and fentanyl at the discretion of IR. Narcan in place. VSS ?Discussed with hospitalist today. No plans for d/c today, needs PT eval. got up x2 yesterday and did not go well, pain too severe. If discharged, would keep Dilaudid 1 mg p.o. q 4 hours and q 2 hours PRN, fentanyl 25mcg, dexa, and antiinflammatories. ?Anticipate much less opioid requirements with palliative radiation, we will titrate as needed 2. Dyspnea: controlled at this time however nonambulatory for the time being 09/09: On 3 L of oxygen, has been laying in bed for several days. Encouraged IS use, however coughing severely increases right hip pain. Encouraged to utilize incentive spirometer after having a dose of Dilaudid 3. SCC lung/prostate cancer w/multiple metastatic areas of disease (brainstem, R hip multiple areas, R shoulder): There are plans for gamma knife therapy for the brainstem lesion and palliative radiation to the right hip. Potential biopsy of the hip/pelvis or right shoulder mass 4. Radiation pneumonitis: stable, on dexa. see above 5. Generalized weakness: worse w/ inability to stand d/t pain. No therapy for LEs until pain under better control. Thank you for the opportunity to participate in this patient's care, please do not hesitate to contact [facility] Palliative with any further questions or concerns, direct line is [phone]. He just enrolled in palliative care 09/05, we will follow him closely as an outpatient to make frequent medication adjustments as indicated. Contact information left with the patient and . Greater than 50% of F2F visit dedicated to education and counseling of palliati ve care services, medications, comorbid conditions and potential assistance with management, and plan of care moving forward. This visit involved collaboration with consulting physicians, hospitalist, and collaborating physician. We did do a telehealth visit with Dr. Walsh so that patient may receive opioid therapy as an outpatient. I did have multiple discussions with the family on the plan of care and they are up-to-date. Start time: 814 End time: 899
[2021-09-09] MEDS: 0.9% Normal Saline 1,000 ML 100 ML IV ×2 (08:55→14:44)
--- NOTE | 2021-09-09 09:00 | CT_ITS ---
PROCEDURE: CT GUIDED biopsy of the posterior aspect of the L4 vertebrae on the left side. DATE: 09/09/2021. INDICATION: Male, 56 years old. Metastatic disease to the left side of the L4 vertebrae. PHYSICIAN: Jj Suarez M.D. RADIATION DOSAGE (If Supplied By Facility): CTDIvol = ( 14 ) mGy, DLP = ( 230.23 ) mGycm. Individualized dose optimization techniques were utilized. PROCEDURE: The risks, benefits, and alternatives to the procedure were explained to the patient. The specific risk of hemorrhage requiring further treatment or intervention was detailed and accepted. Follow-up instructions were discussed with the patient as well. Written informed consent was obtained. The patient was brought into the CT suite and placed in the prone position. . An appropriate entry site was identified. The overlying skin was prepped and draped in the usual sterile fashion. 1% lidocaine was administered subcutaneously for local anesthesia. Conscious sedation was performed. The patient received 2 mg of VERSED and 50 mcg of FENTANYL intravenously. Conscious sedation was started at 9:54 AM and terminated at 10:11 AM the patient was independently monitored by the department nurse. Under CT guidance, a total of 5 passes were performed utilizing an 18-gauge core biopsy needle system. The specimens were then placed in the appropriate fluid and transported to the laboratory for analysis. Hemostasis was obtained. The patient tolerated the procedure well without immediate complications. CT/Biopsy/Inj or Needle Placement IMPRESSION: Successful CT guided percutaneous biopsy of the L4 vertebrae on the left side, as described above. Conscious sedation protocol was followed. Electronically Signed: Jj Suarez MD at 11:10 EDT ,
--- NOTE | 2021-09-09 09:28 | NURSING ---
pt to radiology for procedure at approx 0910 i bed
[2021-09-09] MEDS: Midazolam 2 MG/2 ML Syringe IV (09:53)
[2021-09-09] MEDS: fentaNYL 100 MCG/2 ML Ampul IV (09:54)
--- NOTE | 2021-09-09 10:00 | ASPIGT_PTH ---
PATIENT: MIKY SALGADO LOC: MS3 U#:[id number] AGE/SX: 56/M ROOM: PA319 RE09/07/[address]: Dr. Rosalie Boyd MD : 1965 BED: 1 DIS: 09/10/2021 SPEC #: [id number] RECD: 09/09/21 10:30 STATUS: YESSI REQ #: [id number] NINA: 09/09/21 10:[address]: Rosalie Boyd DEPT: SURGICAL PATHOLOGY RECD BY: Zonia Mary ENTERED: 09/09/21 11:00 SP TYPE: ASP RAD OTHR DR: Genet Osullivan, MONITORING ANALYST-C MD Dr. Ion Townsend DO Dr. Joseph Borruso, DO Dr. Jodi Hannan, MD Dr. Joseph Prah, MD Dr. Mansour Isckarus, MD Dr. Paul Nielsen, MD Dr. Robert Field, MD Dr. Ryan Jin, MD Dr. Roger Macklis, MD Dr. Steve Walston, DO Carolyn Graham, MONITORING ANALYST-C Marjorie Bo MONITORING ANALYST-C Candace Jennings MONITORING ANALYST-C Vandana Greenwood NP-C Tissues: Lower back Procedures: FNA Specimen Adequacy Special Stain Group II Surgery Specimen Level IV Imprint (control) HEADER OPERATION: Left lumbar region, CT-guided biopsy PRE-OP DIAGNOSIS: Mass TISSUE SUBMITTED: Left lumbar region MICROSCOPIC DIAGNOSIS Left lumbar region, CT-guided core biopsy: Metastatic non-small cell carcinoma, favor squamous cell carcinoma. See comment. SJ:rg 09/12/2021 COMMENT The specimen is evaluated at the time of biopsy by Dr. Puente. Immediate Evaluation = Malignant cells present derived from non-small cell carcinoma. Immunohistochemistry ([id number]) supports the above diagnosis. Molecular studies on the tumor can be performed if clinically indicated. Please notify the laboratory if they are needed. Please make reference to previous specimen ([id number]) lung mass, endobronchial biopsy, with diagnosis of ?infiltrating squamous cell carcinoma.? MICROSCOPIC DESCRIPTION Slides are reviewed. GROSS DESCRIPTION Received in fixative is one container labeled with the patient's name and designated lumbar region biopsy. The specimen consists of multiple irregular fragments of thomason soft tissue that in aggregate measure 1.5 x 0.5 x 0.1 cm. The specimen is totally submitted in one cassette. Two touch imprints are prepared at the time of core biopsy. / SJ:rg 09/09/2021 TC:0 [facility]: [id number], [id number] ADDENDUM ADDENDUM ADDENDUM ADDENDUM ADDENDUM ADDENDUM 09/30/2021 10:02 ADDENDUM 09/30/2021 10:02 ADDENDUM 09/30/2021 10:02 ADDENDUM 09/30/2021 10:02 ADDENDUM 09/30/2021 10:02 PD-L1 (KEYTRUDA) HEAD AND NECK SQUAMOUS CELL CARCINOMA REPORT FROM [facility] RESULTS: Combined positive score: 1 (CPS>=1 / Expressed) Please see complete report in e-chart or EMR
[2021-09-09] MEDS: Lidocaine 2% (20 ml mdv) 20 ML Vial INFILT (10:03)
--- NOTE | 2021-09-09 10:22 | CASEMGMT ---
Addendum entered by Shante Taylor 09/09/21 15:11: Pt came to nurses station, reports pt does now need hospital bed. Refaxed order and information to [facility]. Received confirmation. Addendum entered by Shante Taylor 09/09/21 12:04: JANICE CROSS in to pt room, pt states that she has now borrowed DME equipment from family and does not need it ordered. She declines any further needs at this time. TC to [facility] intake, spoke with Evelia and cancelled the DME previously faxed. Original Note: Discussed pt care with hospitalist and PT. PT states pt is safe to return home with [facility]. Notified hospitalist. Rx signed for hospital bed, w/c, FWW and BSC. Faxed to [facility] at this time stating anticipated dc date is today and request for FWW to be delivered to hospital prior to dc. Pt is not requiring increased O2 needs. TC to Lindsey at [facility] to make aware of pt dc.
--- NOTE | 2021-09-09 11:40 | NURSING ---
Jolene general i farmworker procedure nurse called to give report on pt/procedure and that pt was being taken for radiation treatment at this time
[2021-09-09] MEDS: HYDROmorphone 2 MG TABLET 4 MG PO ×3 (12:34→21:13)
[2021-09-09] MEDS: LORazepam 0.5 MG Tablet PO ×2 (12:45→20:17)
[2021-09-09] MEDS: Metoprolol Tartrate 25 MG Tablet PO ×2 (14:34→21:03)
[2021-09-09] MEDS: Aspirin 81 MG TAB.CHEW PO (14:34)
[2021-09-09] MEDS: Pantoprazole Sodium 40 MG Tablet PO (14:35)
[2021-09-09] MEDS: NYSTATIN 500,000 UNIT/5 ML UDC 500000 UNIT PO ×3 (14:35→21:03)
[2021-09-09] MEDS: Senna Tablet 1 TABLET PO ×2 (14:35→21:04)
[2021-09-09] MEDS: Ketorolac 15 MG/ML Vial IV ×2 (15:52→21:05)
[2021-09-09] MEDS: Acetaminophen 325 MG Tablet 650 MG PO (20:16)
[2021-09-09] MEDS: Atorvastatin Calcium 80 MG Tablet PO (21:02)
[2021-09-10] MEDS: dexAMETHasone 4 MG/ML Vial IV ×3 (00:08→12:02)
[2021-09-10] MEDS: Temazepam 15 MG Capsule PO (00:08)
[2021-09-10] MEDS: Acetaminophen 325 MG Tablet 650 MG PO (00:14)
[2021-09-10] MEDS: HYDROmorphone 1 MG/ML Syringe IV ×6 (00:15→16:20)
[2021-09-10] MEDS: 0.9% Normal Saline 1,000 ML 100 ML IV ×2 (00:16→10:16)
[2021-09-10] MEDS: HYDROmorphone 2 MG TABLET 4 MG PO ×4 (01:15→14:06)
[2021-09-10] MEDS: LORazepam 0.5 MG Tablet PO ×3 (04:06→15:03)
[2021-09-10 04:15] VITALS: BP 130/83; PULSE 82; RESP 16; TEMP 36.6; O2SAT 94
[2021-09-10] MEDS: 0.9% Saline Lock 10 ML Syringe IV ×4 (04:18→16:20)
[2021-09-10] MEDS: Gabapentin 400 MG Capsule PO ×2 (05:57→14:07)
[2021-09-10] MEDS: Ketorolac 15 MG/ML Vial IV (05:57)
[2021-09-10] MEDS: Enoxaparin 40 MG/0.4 ML Syringe SC (05:58)
[2021-09-10 06:35] LABS: Absolute Lymphocyte Count 0.13 X10^3/uL (0.83-4.51); Absolute Neutrophil Count 15.5 X10^3/uL (2.0-7.7); Basophil# 0.02 X10^3/uL; Basophil% 0.1 % (0-1); Hematocrit 36.5 % (40-54); Lymphocyte # 0.13 X10^3/ul (0.83-4.51); Lymphocyte % 0.8 % (19-41); Mean Corp Hgb Conc 32.9 g/dL (32-36); Mean Corpuscular Hgb 30.3 pg (27.0-32.0); Mean Corpuscular Volume 92.2 fL (80-94); Mean Platelet Vol. 9.8 fl (6.2-12.0); Monocyte# 0.91 X10^3/uL; Monocyte% 5.4 % (0-10); NRBC Flagged by Analyzer 0 % (0-5); Neutrophil # 15.53 X10^3/uL (2.7-7.7); Neutrophil % 92.9 % (47-70); POSITIVE DIFFERENTIAL YES; Platelet Count 256 K/mm3 (150-450); RBC Distribution Width CV 19.3 % (11.6-14.6); RBC Distribution Width SD 64.9 fl (35.1-43.9); Red Blood Count 3.96 M/mm3 (4.6-6.2); White Blood Count 16.7 K/mm3 (4.4-11.0)
[2021-09-10 06:47] LABS: Differential Indicated SCAN CRITERIA MET
[2021-09-10 07:12] LABS: ALB/GLOB Ratio 0.6 RATIO (0.9-2.4); AST(SGOT) 19 U/L (15-37); Alanine Aminotransfer ALT/SGPT 30 U/L (16-61); Albumin, Serum 2.2 g/dL (3.2-5.0); Alkaline Phosphatase 92 U/L (45-117); Anion Gap 5 (5-15); BUN 24 mg/dL (7-18); BUN/Creat Ratio 34.8 RATIO (10-20); Calcium,Total 8.3 mg/dL (8.5-10.1); Chloride 104 mmol/L (98-107); Creatinine, Serum 0.69 mg/dL (0.70-1.30); EST Glomerular Filtration Rate 126 mL/min (>60); Est Glom Filt Rate - Afr Amer 152 mL/min (>60); Estimated Creatinine Clearance 118.12 ml/min; Globulin 3.7 g/dL (2.2-4.2); Glucose 167 mg/dL (74-106); Potassium 4.3 mmol/L (3.5-5.1); Protein, Total 5.9 g/dL (6.4-8.2); Sodium Level 137 mmol/L (136-145)
[2021-09-10 07:31] VITALS: O2SAT 94
[2021-09-10] MEDS: Aspirin 81 MG TAB.CHEW PO (08:55)
[2021-09-10 10:15] VITALS: PULSE 88
[2021-09-10] MEDS: Pantoprazole Sodium 40 MG Tablet PO (10:15)
[2021-09-10] MEDS: Metoprolol Tartrate 25 MG Tablet PO (10:15)
[2021-09-10] MEDS: NYSTATIN 500,000 UNIT/5 ML UDC 500000 UNIT PO ×2 (10:15→14:19)
[2021-09-10] MEDS: Senna Tablet 1 TABLET PO (10:16)
--- NOTE | 2021-09-10 10:19 | PN.HOSP_ITS ---
Subjective Subjective Patient overnight with significant continued debilitating pain with any movement. Patient will become comfortable for time but then with any activity has severe pain and has been requiring all as needed pain regimen in addition to a significant aggressive underlying scheduled regimen. Patient with continued significant assist needs and at this point had lengthy discussion as would not be safe for home and would likely require potentially skilled despite the goal for home to be able to consider potential focal brain radiation. Goals of life discussed and patient at this point secondary to severity of pain is interested in hospice including the inpatient hospice unit to get his pain under control. He requested hospice consultation as he is already been working with palliative for the pain and interested in transition. Patient denies fevers, chills, nausea, emesis, abdominal pain, chest pain or dyspnea. Objective Data Objective Data Vital Signs: Vital Signs Temp Pulse Resp BP Pulse Ox 97.8 F 88 16 130/83 H 94 09/10/21 04:15 09/10/21 10:15 09/10/21 04:15 09/10/21 04:15 09/10/21 07:31 Oxygen Flow Rate (L/min) [4] 2 Oxygen Flow Rate (L/min) [3] 2 Oxygen Flow Rate (L/min) [2] 2 Oxygen Flow Rate (L/min) [1 ( 2 Initial Baseline)] Oxygen Flow Rate (L/min) 4 Oxygen Delivery Method [4] Nasal Cannula Oxygen Delivery Method [3] Nasal Cannula Oxygen Delivery Method [2] Nasal Cannula Oxygen Delivery Method [1 ( Nasal Cannula Initial Baseline)] Oxygen Delivery Method Nasal Cannula Weight: 177 lb 7.554 oz Body Mass Index (BMI) 26.3 Intake & Output: Intake and Output for Last 24 Hours 09/08/21 09/09/21 09/10/21 23:59 23:59 23:59 Intake Total 2728.33 / 2928.33 3031.67 / 3031.67 1953.33 / 1953.33 Output Total 2350 / 2925 2705 / 2705 430 / 430 Balance 378.33 / 3.33 326.67 / 326.67 1523.33 / 1523.33 Lab / Micro Data Result Diagrams: 09/10/21 06:10 09/10/21 06:10 Labs: Laboratory Results - last 24 hr 09/10/21 06:10: WBC 16.7 H, RBC 3.96 L, Hgb 12.0 L, Hct 36.5 L, MCV 92.2, MCH 30.3, MCHC 32.9, RDW Std Deviation 64.9 H, RDW Coeff of Sana 19.3 H, Plt Count 256, MPV 9.8, Immature Gran % (Auto) 0.800, Neut % (Auto) 92.9 H, Lymph % (Auto) 0.8 L, [place] % (Auto) 5.4, Eos % (Auto) 0.0, Baso % (Auto) 0.1, Absolute Neuts (auto) 15.5 H, Absolute Lymphs (auto) 0.13 L, Nucleated RBC % 0 09/10/21 06:10: Sodium 137, Potassium 4.3, Chloride 104, Carbon Dioxide 28.0, Anion Gap 5, BUN 24 H, Creatinine 0.69 L, Estim Creat Clear Calc 118.12, Est GFR (MDRD) Af Amer 152, Est GFR (MDRD) Non-Af 126, BUN/Creatinine Ratio 34.8 H, Glucose 167 H, Calcium 8.3 L, Total Bilirubin 0.30, AST 19, ALT 30, Alkaline Phosphatase 92, Total Protein 5.9 L, Albumin 2.2 L, Globulin 3.7, Albumin/Phyllis bulin Ratio 0.6 L Radiography Diagnostic Testing: Radiology Impression Biopsy CT 09/09/21 09:00 IMPRESSION: Successful CT guided percutaneous biopsy of the L4 vertebrae on the left side, as described above. Conscious sedation protocol was followed. Electronically Signed: Jj Suarez MD at 11:10 EDT , Physical Exam Narrative Physical Examination: General: Awake, alert, oriented x 3 and cooperative, patient is seated upright in the bedside chair which recently performed with assist with therapies and he notes severe discomfort following requesting IV as needed regimen which is being administered. Skin: Normal color, normal turgor, no icterus, no cyanosis. HEENT: AT/NC, EOMI, PERRLA, mildly dry MM. Lungs: Diminished, > bases, appropriate effort, no rales, ronchi or wheezing. Heart: Regular rate with regular rhythm; no gallop, rub audible. Abdomen: Soft, NTTP, ND, mildly hyperactive BS. Extremities: No cyanosis, clubbing, or edema. Discomfort with movement LE, R>L, not marked discomfort w/ palpation hip and SI region on the R, improved from initial presentation. Neurological: Patient awake, alert, oriented x 3, cognitive function intact; pupils equally reactive to light and accommodation, cranial nerves II-XII grossly normal, moving all 4 extremities but worse than day prior as had seemed at more comfortable, recent transition to the chair with therapies and is in tears, noting severe diffuse pain especially in the right hip and lower extremity, strength severely global decreased. Psychiatric: Affect appears tearful, notes severe pain ongoing despite aggressive regimen, openly discussed life goals and patient is interested in hospice potentially the inpatient unit, obvious depression with recent severity and pain. 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 07/25/2021 radiation R lung and BL mediastinal disease w/ concurrent carbo/taxol, recent RUE mass with concern for metastatic disease pending biopsy who presents to the [facility] ED on 09/06/21 secondary to onset intractable right hip pain and pain in the scaroiliac right region, severe debility with difficulty even bearing weight. #1. Intractable right hip and SI pain secondary to significant metastatic disease: Failed conservative regimen outpatient as patient is following with palliative therapy on chronic narcotics, admitted to [place], maintained on fall precautions, continue offloading, imaging obtained with MRI right lower extremity hip and pelvis with metastatic foci in the right greater psoas muscle with abnormal signal, on the edge of the film possible necrotic appearing mass in the subcu fat along the right lower abdominal wall possibly metastatic foci. Patient evaluated per Orthopedic surgery with no stabilization recommended. Dr. Contreras and Dr. Mendez consulted and following. 09/09/21 Bx L5 destructive lesion Bx obtained. 09/08/21 radiation therapy to the R hip region with repeat radiation 09/09/21. 09/08/21 maintained on low dose fentanyl patch, gabapentin regimen, PRN IV dilaudid and scheduled IV dilaudid but given planned discharge potentially to home transitioned 09/09/21 to oral scheduled dilaudid regimen. Following Bx and radiation 09/09/21 severe pain, thus increased fentanyl patch. 09/10/2021 ongoing severe pain, review of PT and OT with recent a.m. evaluation with severe ongoing debility secondary to pain, requiring continued scheduled regimen which is been increased yet again and ongoing as needed pain regimen usage. Life goals discussed and patient is interested in transition to hospice secondary to his debility and understands at this time this would mean transitioning off of ongoing therapies and focus on comfort to which he his very amenable. Will consult hospice and request an evaluation so that the family and him may discuss these options. Given his current presentation he is absolutely appropriate for the inpatient unit as his pain is still uncontrolled despite the aggressive attempts inpatient. #2. 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 07/25/2021 radiation R lung and BL mediastinal disease w/ concurrent carbo/taxol, recent RUE mass with concern for metastatic disease pending biopsy. As noted MRI hip w/ metastatic foci in the right greater psoas muscle with abnormal signal, on the edge of the film possible necrotic appearing mass in the subcu fat along the right lower abdominal wall possibly metastatic foci and MRI brain w/ progression of disease since prior imaging with a 14 x 14 mm T2 hyperdense lesion in the left brainstem demonstrating ring enhancement with underlying edema consistent with metastatic disease. Started on decadron 09/06/21 6 mg load and 4 mg IV q 6 hours per discussion with Oncology. Palliative following. Bx 09/09/21. Radiation R hip 09/08/21 and 09/09/21. As noted patient interested in hospice which would mean deferring any focal brain radiation. #3. Chronic hypoxic respiratory failure with chronic COPD: We will continue patient home chronic oxygen supplementation of 2 L nasal cannula, not on routine inhalers, will continue as needed albuterol, encourage head of bed and I-S. #4. Hypertension: Continue home regimen including metoprolol, PRN hydralazine. #5. Hyperlipidemia: We will continue patient home statin therapy. #6. GERD: We will continue patient home PPI. #7. CAD: s/p PCI w/ CT 09/2020, continue aspirin, statin, metoprolol, not on SREEKANTH inhibitor or ARB. #8. Anxiety and depression: Continue patient home benzodiazepine as needed regimen. #9. Former tobacco use: Encourage continued tobacco cessation peer #10 pure history of prostate cancer: Status post prostatectomy 2013 and external beam radiation 2016 for relapse, continue outpatient oncology/urology follow-up. #11. Chronic anemia/AOCD secondary to #2: Admission Hgb 12.9, baseline more recently 11-12; however, had been 9 range prior with likely PRBC administration, 09/10/21 Hgb 12, if hospice transition defer any further trending. #12. DVT Prophylaxis: SCDs, lovenox. #13. CODE status: Patient HCPOA is his who is present. DNR-CCA, no intubation status; however, discussed current life goals and pain and he is interested in hospice transition, awaiting hospice team for evaluation for inpatient unit with DNRCC form initiated. Charges/Coding Visit Charges Inpatient E&M: 40838 Subs Hosp L2
[2021-09-10 10:35] VITALS: RESP 16
--- NOTE | 2021-09-10 12:01 | PCM.DC.SUM ---
Providers Date of Admission: 09/07/21 Primary Care Physician: Dr. Faheem Vallejo MD Consultations 09/06/21 10:02 Consult: Hospice / Palliative Care Routine Consulting Provider: [facility] Reason for Consult: Metastatic CA, now w/ severe R hip pain, possible met disease EMERGENT Consult: No MD Notified: Yes Date Notified: 09/06/21 Time Notified: 09:13 Method of Notification: telephone by correctional case manager Method of Consult:: Telemedicine 09/06/21 17:21 Consult: Oncology/Hematology Routine Consulting Provider: [facility] Reason for Consult: Admit w/ R intractable hip pain, has metastatic CA to hip and also brain. EMERGENT Consult: No MD Notified: Yes Date Notified: 09/06/21 Time Notified: 17:21 Method of Notification: called Consult: Radiation Oncology Routine Consulting Provider: Cristian Contreras Reason for Consult: Metastatic disease to hip, brain noted EMERGENT Consult: No MD Notified: Yes Date Notified: 09/06/21 Time Notified: 17:21 Method of Notification: talked 09/06/21 18:01 Consult: Orthopedics Routine Consulting Provider: Juvenal Eden Reason for Consult: Metastatic disease to hip, Rad onc requested stabilization input. EMERGENT Consult: No MD Notified: Yes Date Notified: 09/06/21 Time Notified: 18:02 Method of Notification: called 09/10/21 09:54 Consult: Hospice / Palliative Care Routine Consulting Provider: [facility] Reason for Consult: Metastatic cancer, severe intractable pain, interested in hospice inpatient EMERGENT Consult: No MD Notified: Yes Date Notified: 09/10/21 Time Notified: 09:54 Method of Notification: Answering Service Reason For Visit: INTRACTABLE RIGHT HIP PAIN Diagnosis Discharge Diagnosis (1) Intractable pain: Status: Acute Code(s): R52 - Pain, unspecified (2) Inability to walk: Status: Acute Code(s): R26.2 - Difficulty in walking, not elsewhere classified Medications at Discharge Home Medications Mucinex DM 1 tab PO Q12H PRN 05/05/21 aspirin 81 mg PO DAILY 05/05/21 atorvastatin 80 mg PO QHS 05/05/21 metoprolol tartrate 25 mg PO BID 05/05/21 lorazepam 0.5 mg tablet 0.5 mg PO TID PRN tab 05/26/21 ondansetron 8 mg disintegrating tablet 8 mg PO Q8H PRN #30 tab 06/14/21 albuterol sulfate 90 mcg/actuation aerosol inhaler 2 puff INHALATION Q6H PRN #8.5 g 07/15/21 gabapentin 300 mg PO TID 08/18/21 acidophilus-pectin, citrus 1 tab PO TID #0 tab 08/23/21 loperamide 2 mg PO Q4H PRN PRN #0 cap 08/23/21 pantoprazole 40 mg PO DAILY #30 tab 08/23/21 Disability Placard #1 ea 09/01/21 ibuprofen 200 mg tablet 600 mg PO TID tab 09/05/21 sennosides 8.6 mg capsule 8.6 mg PO BID 09/05/21 diazepam 5 mg PO Q8H PRN PRN 09/06/21 acetaminophen [Tylenol] 650 mg PO Q4H PRN PRN #0 tab 09/10/21 alum-mag hydroxide-simeth [Mag-Al Plus Extra Strength] 30 ml PO Q6H PRN PRN #0 ml 09/10/21 dexamethasone [Decadron] 4 mg PO DAILY #30 tab 09/10/21 fentanyl 75 mcg TRANSDERMAL Q3D #0 ea 09/10/21 gabapentin 400 mg PO TID #0 cap 09/10/21 hydromorphone 1 mg IV Q2H PRN PRN #0 ml 09/10/21 hydromorphone 4 mg PO Q4H #0 tab 09/10/21 nystatin 500,000 unit PO 4X/DAY #0 ml 09/10/21 polyethylene glycol 3350 17 g PO BID #0 ea 09/10/21 temazepam 15 mg PO QHS PRN PRN #0 cap 09/10/21 Hospital Course Operations None Procedures - (Radiology directed biopsy, Radiation palliative treatments x 2.) Summary of Care Provided Minutes Spent on Discharge: 35 Hospital Course: Discharge Diagnoses: #1. Intractable right hip and SI pain secondary to significant metastatic disease #2. 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 Chronic hypoxic respiratory failure with chronic COPD #4. Hypertension #5. Hyperlipidemia #6. GERD #7. CAD s/p PCI w/ [place] 09/2020 #8. Anxiety and depression #9. Former tobacco use #10. History of prostate cancer, Status post prostatectomy 2013 and external beam radiation 2017 for relapse #11. 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 07/25/2021 radiation R lung and BL mediastinal disease w/ concurrent carbo/taxol, recent RUE mass with concern for metastatic disease pending biopsy who presented to the [facility] ED on 09/06/21 secondary to onset intractable right hip pain and pain in the scaroiliac right region, severe debility with difficulty even bearing weight. Failed conservative regimen outpatient as patient is following with palliative therapy on chronic narcotics, admitted to [place], maintained on fall precautions, continue offloading, imaging obtained with MRI right lower extremity hip and pelvis with metastatic foci in the right greater psoas muscle with abnormal signal, on the edge of the film possible necrotic appearing mass in the subcu fat along the right lower abdominal wall possibly metastatic foci. Patient evaluated per Orthopedic surgery with no stabilization recommended. Dr. Contreras and Dr. Mendez consulted and following. 09/09/21 Bx L5 destructive lesion Bx obtained. 09/08/21 radiation therapy to the R hip region with repeat radiation 09/09/21. 09/08/21 maintained on low dose fentanyl patch, gabapentin regimen, PRN IV dilaudid and scheduled IV dilaudid but given planned discharge potentially to home transitioned 09/09/21 to oral scheduled dilaudid regimen. Following Bx and radiation 09/09/21 severe pain, thus increased fentanyl patch. 09/10/2021 ongoing severe pain, review of PT and OT with recent a.m. evaluation with severe ongoing debility secondary to pain, requiring continued scheduled regimen which is been increased yet again and ongoing as needed pain regimen usage. Life goals discussed and patient transitioned to hospice secondary to his debility and understands at this time this would mean transitioning off of ongoing therapies and focus on comfort to which he his very amenable with focus on comfort measures. Per patient and family preference, patient discharged to inpatient hospice facility. Dr. Contreras updated at patient transition of their decision. Discharge Time: > 35 Minutes Weight / BMI Weight Weight: 177 lb 7.554 oz Body Mass Index (BMI) 26.3 ABG / Lab / Microbiology Data Result Diagrams: 09/10/21 06:10 09/10/21 06:10 Laboratory: Laboratory Results - last 24 hr 09/10/21 06:10: WBC 16.7 H, RBC 3.96 L, Hgb 12.0 L, Hct 36.5 L, MCV 92.2, MCH 30.3, MCHC 32.9, RDW Std Deviation 64.9 H, RDW Coeff of Sana 19.3 H, Plt Count 256, MPV 9.8, Immature Gran % (Auto) 0.800, Neut % (Auto) 92.9 H, Lymph % (Auto) 0.8 L, [place] % (Auto) 5.4, Eos % (Auto) 0.0, Baso % (Auto) 0.1, Absolute Neuts (auto) 15.5 H, Absolute Lymphs (auto) 0.13 L, Nucleated RBC % 0 09/10/21 06:10: Sodium 137, Potassium 4.3, Chloride 104, Carbon Dioxide 28.0, Anion Gap 5, BUN 24 H, Creatinine 0.69 L, Estim Creat Clear Calc 118.12, Est GFR (MDRD) Af Amer 152, Est GFR (MDRD) Non-Af 126, BUN/Creatinine Ratio 34.8 H, Glucose 167 H, Calcium 8.3 L, Total Bilirubin 0.30, AST 19, ALT 30, Alkaline Phosphatase 92, Total Protein 5.9 L, Albumin 2.2 L, Globulin 3.7, Albumin/Globulin Ratio 0.6 L Meaningful Use Info Meaningful Use Diagnoses (Choose all that apply): None applicable Discharge Plan Admission Admit Date/Time: 09/07/21 18:14 Primary Reason for Your Visit: Intractable pain secondary to metastatic cancer Attending Provider: Rosalie Boyd Primary Care Provider: Faheem Vallejo Consulting Providers: Genet Osullivan ; Ion Crouch ; Natalie Walsh ; Dayami Lindsey ; Marjorie Bo ; Candace Jennings [employer] ; Cristian Contreras ; Ion Myers ; Juvenal Mendez ; Nany Díaz ; Jama Carlin ; Uriel Duarte ; Gus Villa ; Vandana Greenwood [employer]PL[employer] ; Juvenal Eden Instructions Patient Instructions: Image-Guided Biopsy Discharge Orders/Prescriptions Prescriptions: New nystatin 100,000 unit/mL Suspension 500,000 unit PO 4X/DAY Qty: 0 RF: 0 polyethylene glycol 3350 17 gram Powder In Packet 17 g PO BID Qty: 0 RF: 0 gabapentin 400 mg Capsule 400 mg PO TID Qty: 0 RF: 0 temazepam 15 mg Capsule 15 mg PO QHS PRN PRN (Reason: Insomnia) Qty: 0 RF: 0 alum-mag hydroxide-simeth [Mag-Al Plus Extra Strength] 400-400-40 mg/5 mL Suspension 30 ml PO Q6H PRN PRN (Reason: Gastric Burning) Qty: 0 RF: 0 acetaminophen [Tylenol] 325 mg Tablet 650 mg PO Q4H PRN PRN (Reason: Fever, pain 1-10/10) Qty: 0 RF: 0 hydromorphone 2 mg Tablet 4 mg PO Q4H Qty: 0 RF: 0 fentanyl 75 mcg/hr Patch 72 Hour 75 mcg transdermal Q3D Qty: 0 RF: 0 hydromorphone 1 mg/mL Syringe 1 mg IV Q2H PRN PRN (Reason: Breakthrough Pain (>4/10)) Qty: 0 RF: 0 dexamethasone [Decadron] 4 mg tablet 4 mg PO DAILY Qty: 30 RF: 0 Continued lorazepam [Ativan] 0.5 mg tablet 0.5 mg PO TID PRN (Reason: anxiety) RF: 0 senna 8.6 mg capsule 8.6 mg PO BID RF: 0 ibuprofen [Advil] 200 mg tablet 600 mg PO TID RF: 0 atorvastatin 40 mg Tablet 80 mg PO QHS RF: 0 metoprolol tartrate 25 mg tablet 25 mg PO BID RF: 0 aspirin 81 mg Capsule 81 mg PO DAILY RF: 0 Mucinex DM 30-600 mg Tablet Extended Release 12 Hr 1 tab PO Q12H PRN (Reason: Cough) RF: 0 loperamide 2 mg Capsule 2 mg PO Q4H PRN PRN (Reason: diarrhea) Qty: 0 RF: 0 acidophilus-pectin, citrus 25 million cell -100 mg Tablet 1 tab PO TID Qty: 0 RF: 0 pantoprazole 40 mg Tablet,Delayed Release (Dr/Ec) 40 mg PO DAILY Qty: 30 RF: 1 diazepam 5 mg tablet 5 mg PO Q8H PRN PRN (Reason: Muscle Spasm) RF: 0 ondansetron 8 mg tablet,disintegrating 8 mg PO Q8H PRN (Reason: nausea and vomiting) Qty: 30 RF: 2 albuterol sulfate 90 mcg/actuation HFA aerosol inhaler 2 puff inhalation Q6H PRN (Reason: shortness of breath or wheezing) Qty: 8.5 RF: 1 (DME) Disability Placard See Rx Instructions .Route .MEDSUPPLY Qty: 1 RF: 0 Discontinued oxycodone-acetaminophen [Percocet] 10-325 mg tablet 1 tab PO Q8H PRN (Reason: Pain) RF: 0 prednisone 20 mg Tablet 60 mg PO BREAKFAST Qty: 90 RF: 0 No Action gabapentin 300 mg Capsule 300 mg PO TID RF: 0 Referrals / Follow Up: Nany Díaz MD [STAFF PHYSICIAN] - (Follow-up as needed given hospice transition. May arrange follow-up to review current plan.) Faheem Vallejo MD [Primary Care Provider] - (Follow-up as needed given hospice transition. ) Cristian Contreras DO [NON-STAFF] - (Follow-up to review palliative radiation options to assist with pain control.) Disposition Disposition (needs filled in before D/C Order can be placed): Home Health Service Charges/Coding Visit Charges Inpatient E&M: 71113 Disch Hosp
[2021-09-10] MEDS: Polyethylene Glycol 3350 17 GM PACKET PO (12:02)
--- NOTE | 2021-09-10 12:58 | CASEMGMT ---
Social Work Consult: Inpatient hospice admit. Referral source: Dr. Oliver Boyd already made referral for inpatient hospice unit and spoke with doctor. Patient has been accepted. This social work case manager met with patient in room. Introduced self and social work case manager role. Patient agreeable to speak with this social work case manager. Patient spouse present. This social work case manager provided support and active listening to patient. Patient denies any questions and aware of ETA for transportation. PLAN: Inpatient Hospice Unit. Lou CROWE, SUZANNE
[2021-09-10 15:35] VITALS: BP 112/73; PULSE 87; RESP 16; TEMP 37.2; O2SAT 98
== END 2021-09-10 16:45 | disposition hospice, inpatient (51) | DRG 940 ==
LOC: ED 09:01 → MS3 09:20
PROVIDERS: Admitting Provider Family Medicine; Emergency Provider Emergency Medicine; PCP Family Medicine; Visit Provider Family Medicine
DX: G89.3 Neoplasm related pain (acute) (chronic) (principal); C79.51 Secondary malignant neoplasm of bone; J70.0 Acute pulmonary manifestations due to radiation; C77.1 Secondary and unspecified malignant neoplasm of intrathoracic lymph nodes; J96.11 Chronic respiratory failure with hypoxia; C34.31 Malignant neoplasm of lower lobe, right bronchus or lung; C79.31 Secondary malignant neoplasm of brain; J44.9 Chronic obstructive pulmonary disease, unspecified; D63.8 Anemia in other chronic diseases classified elsewhere; F41.9 Anxiety disorder, unspecified; E78.00 Pure hypercholesterolemia, unspecified; I25.10 Atherosclerotic heart disease of native coronary artery without angina pectoris; I10 Essential (primary) hypertension; I25.2 Old myocardial infarction; R26.2 Difficulty in walking, not elsewhere classified; G25.81 Restless legs syndrome; K21.9 Gastro-esophageal reflux disease without esophagitis; Z99.81 Dependence on supplemental oxygen; F32.A Depression, unspecified; Z86.16 Personal history of COVID-19; Z85.46 Personal history of malignant neoplasm of prostate; Z87.891 Personal history of nicotine dependence; Z79.899 Other long term (current) drug therapy; Z79.82 Long term (current) use of aspirin; Z95.5 Presence of coronary angioplasty implant and graft; Z79.52 Long term (current) use of systemic steroids; Z79.891 Long term (current) use of opiate analgesic; Z51.5 Encounter for palliative care
CPT/HCPCS: 36415; 70553; 71260; 73502; 73723; 74177; 77012; 77280; 77412; 80048; 80053; 80076; 81001; 83735; 84100; 84153; 85025; 85610; 85730; 88172; 88305; 88313; 88341; 88342; 97162; 97166; 97530; 97802; 99285; 99406; A9575; J7030; Q9967; A4216; J2405

== ENCOUNTER 2021-09-15 16:01 | Inpatient (IN) | payer BC, SELFPAY ==
[2021-09-15 15:02] VITALS: BMI 30.1
[2021-09-15 15:18] VITALS: BP 117/92; PULSE 129; RESP 20; TEMP 37; O2SAT 91
[2021-09-15] MEDS: Alteplase 2 MG/2 ML Vial IV (16:15)
[2021-09-15] MEDS: 0.9% Saline Lock 10 ML Syringe IV ×2 (16:56→23:52)
[2021-09-15] MEDS: 0.9% Normal Saline 1,000 ML 125 ML IV (17:00)
[2021-09-15 17:41] LABS: Bacteria 0 SEEN /hpf (None Seen); Mucous, Urine 0 SEEN /hpf (<or=2+)
[2021-09-15 17:43] LABS: Color, Urine Yellow (Yellow); Glucose, Dipstick Normal (Normal); Ketone-Dipstick Negative (Negative); Leukocyte Esterase-Dipstick 100 /ul (Negative); Nitrite-Dipstick Negative (Negative); Occult Blood-Urine 150 /ul (Negative); Protein-Dipstick 15 mg/dl (Negative); Urine Bilirubin Dipstick Negative (Negative); Urine Clarity Sl. Cloudy (Clear); Urine Urobilinogen 1 mg/dl (Normal)
[2021-09-15 17:52] LABS: Amorphous Sediment 1+ URATE; Red Blood Cells-Urine 10-25 SEEN /hpf (0-5); Squamous Epithelial Cells - UA 0-5 SEEN /hpf (0-5); White Blood Cells 5-10 SEEN /hpf (0-5)
[2021-09-15] MEDS: dexAMETHasone 4 MG Tablet PO (18:17)
[2021-09-15] MEDS: Ondansetron 4 MG/2 ML Vial IV (18:18)
[2021-09-15] MEDS: HYDROmorphone 2 MG TABLET 4 MG PO ×2 (18:18→23:50)
--- NOTE | 2021-09-15 18:47 | PCM.HP.STD ---
HPI - General General Date of Admission: 09/15/21 HPI Narrative MIKY SALGADO, is a 56 M who [facility]. 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 On his most recent admission it was felt that he would have significant benefit of radiation treatment to his bones and while his evaluation at [facility] with gamma knife to his brain. He was having significant difficulties with pain management so it was felt that he could be admitted to hospice for pain management inpatient to try to get this under control prior to being discharged home. I was contacted for admission by hospice because of delirium at night that they are having difficulty managing. He has multiple reasons for this 1 he does have brain metastasis of his cancer but he is also high-dose Decadron as well as hypercalcemia likely from the radiation treatment of his bony mets, as well as possible infection. He seems extremely fatigued due to lack of sleep as well as severe depression. He states that he is not sure he wants to continue with treatment, when I discussed this with him he states that because of the pain he has want to live with this pain anymore. I reiterated with him that he just finished his radiation yesterday and so it can take up to 2 weeks may be longer to see results for his bone pain. And I also discussed with him that we are still very early on in terms of treating his pain and can make significant increases in his narcotics as necessary. I discussed with him that we would have to balance obviously his respiratory status and mental status and also treating his pain. Prior to being admitted to this hospital [facility] was contacted for direct admission down there and they did accept him but he is on the waiting list in discussion with both him and his they are okay with staying on that waiting list but they would like to potentially be transferred down there to be evaluated by the oncologist to do the gamma knife intervention there. [facility] Medical History (Updated 09/15/21 @ 19:[address] Lyle Manzo MD) Abnormal PSA Anxiety Bone metastasis Cancer Cardiology follow-up encounter Chronic cough Cold feeling Coronary artery disease COVID-19 Depression Emphysema, unspecified Encounter for chemotherapy management Encounter for education Endobronchial cancer Excessive bleeding Former smoker High cholesterol History of echocardiogram History of heart attack History of prostate cancer History of steroid therapy History of stress test History of torsion of testis Hypertension Hypokalemia Metastasis to brain Myocardial infarct On home oxygen therapy Primary squamous cell carcinoma of lung Prostate cancer Radiation pneumonitis Regional lymph node metastasis present Restless legs Shoulder pain, right Wears glasses Home Medications aspirin 81 mg PO DAILY 05/05/21 [History Last Taken 05/04/21] metoprolol tartrate 25 mg PO BID 05/05/21 [History Last Taken 06/07/21] lorazepam 0.5 mg tablet 0.5 mg PO TID tab 05/26/21 [History Last Taken Unknown] ondansetron 8 mg disintegrating tablet 8 mg PO Q8H PRN #30 tab 06/14/21 [Rx Last Taken Unknown] Disability Placard #1 ea 09/01/21 [Rx Last Taken Unknown] sennosides 8.6 mg capsule 8.6 mg PO DAILY 09/05/21 [History Last Taken Unknown] gabapentin 400 mg PO TID #0 cap 09/10/21 [Rx Last Taken Unknown] hydromorphone 4 mg PO Q4H #0 tab 09/10/21 [Rx Last Taken 09/15/21 14:00] fentanyl 75 mcg/hr transdermal patch 1 patch TRANSDERMAL Q72H 09/14/21 [History Last Taken 09/15/21] hydromorphone 1 mg/mL oral liquid 5 mg PO Q1H PRN ml 09/14/21 [History Last Taken Unknown] acetaminophen [Tylenol] 500 - 1,000 mg PO Q4H PRN PRN 09/15/21 [History Last Taken Unknown] albuterol sulfate 2.5 mg INHALATION Q4H PRN 09/15/21 [History Last Taken Unknown] bisacodyl 10 mg AK DAILY PRN 09/15/21 [History Last Taken Unknown] dexamethasone [Decadron] 4 mg PO BIDCM 09/15/21 [History Last Taken Unknown] lorazepam 0.5 mg PO Q2H PRN PRN 09/15/21 [History Last Taken Unknown] omeprazole 20 mg PO DAILY 09/15/21 [History Last Taken Unknown] polyethylene glycol 3350 17 g PO DAILY 09/15/21 [History Last Taken Unknown] quetiapine [Seroquel] 25 mg PO QHS 09/15/21 [History Last Taken Unknown] Allergy/AdvReac Type Severity Reaction Status Date / Time No Known Allergies Allergy Verified 09/14/21 12:19 Family History Father Emphysema lung Cancer prostate cancer Grandfather Cancer prostate Mother Kidney disease Surgical History H/O prostatectomy History of cardiac catheterization History of coronary artery stent placement History of hernia repair Social History household members: spouse Smoking Status: Former smoker quit date: 02/16/21 pack-years: 40 Tobacco: How many years used: 40 how long ago did patient quit smoking: patient reports smoking [id number] alcohol intake: never substance use type: does not use caffeine: No during the past year weight has: remained stable reema/restorationism: Mandaeism seatbelt use: always do you feel safe at home: Yes ROS Constitutional Constitutional: Reports other Details: Cancer pain ; Denies chills, fatigue, fever(s) or malaise Eyes Eyes: Denies blurry vision ENT HEENT: Denies headache(s) or nasal discharge Cardiovascular Cardiovascular: Denies chest pain, dyspnea on exertion or syncope Respiratory/Chest Respiratory/Chest: Reports cough and shortness of breath at rest; Denies shortness of breath with exertion Gastrointestinal Gastrointestinal: Denies constipation, diarrhea, nausea or vomiting Genitourinary Genitourinary: Denies dysuria Neurologic Neurologic: Denies focal weakness, numbness or tremor(s) Psychiatric Psychiatric: Reports anxiety and depression Vital Signs Vital Signs Vital Signs: 09/15/21 15:18 09/15/21 15:20 Temperature 98.6 F Temperature Source Oral Pulse Rate 129 H Respiratory Rate 20 H Respiratory Effort Normal Non-Labored Respiratory Depth Normal Respiratory Pattern Normal Blood Pressure 117/92 H Blood Pressure Mean 100 Blood Pressure Source Monitor Blood Pressure Position Semi-Fowlers Blood Pressure Location Left Arm Pulse Ox 91 Oxygen Delivery Method Nasal Cannula Nasal Cannula Oxygen Flow Rate (L/min) 5 5 Weight Weight: 204 lb 3.2 oz Body Mass Index (BMI) 30.1 Physical Exam Const alert and oriented x3 Constitutional Narrative: Insignificant pain from his bony metastases General Appearance: cooperative HEENT normocephalic Mouth: dry mucous membranes Eyes PERRL, EOMs intact bilaterally and conjunctivae normal Neck supple and no JVD Resp normal respiratory effort, no retractions and no use of accessory muscles Auscultation: rhonchi and diminished lung sounds; Negative for crackles, rales or wheezes Cardio regular rhythm, S1 normal heart sound, S2 normal heart sound and no murmurs Rate: tachycardic GI soft to palpation, non-tender and non-distended; Negative for hepatosplenomegaly Extremity no clubbing, cyanosis or edema Skin no rashes or lesions noted Neuro no focal motor deficits and no sensory deficits noted Psych affect normal Appearance: appropriate Results Lab / Micro Data Labs: Laboratory Results - last 24 hr 09/15/21 17:10: Urine Color Yellow, Urine Clarity Sl. Cloudy, Urine pH 6.0, Ur Specific [place] 1.020, Urine Protein 15 H, Urine Glucose (UA) Normal, Urine Ketones Negative, Urine Occult Blood 150 H, Urine Nitrite Negative, Urine Bilirubin Negative, Urine Urobilinogen 1 H, Ur Leukocyte Esterase 100 H, Urine RBC 10-25 SEEN, Urine WBC 5-10 SEEN, Ur Squamous Epith Cells 0-5 SEEN, Amorphous Sediment 1+ URATE, Urine Bacteria 0 SEEN, Urine Mucus 0 SEEN Assessment & Plan Assessment/Plan (1) Squamous cell carcinoma of lung: QUALIFIERS: Laterality: right Qualified Code(s): C34.91 - Malignant neoplasm of unspecified part of right bronchus or lung (2) Delirium: PLAN: 1. Delirium likely multifactorial from infection versus hypercalcemia versus steroids/stage IV squamous cell carcinoma of the lung with metastases to his brain stem and bones/depression/anxiety/significant cancer pain ?he did complete a 6-day course of radiation yesterday. He does have significant oxygen requirements likely secondary to radiation pneumonitis ?His steroids were just decreased today to 4 mg p.o. twice daily of Decadron which we will continue for a few days and then decrease to 2 mg p.o. twice daily ?Will check a UA as well as sputum and blood cultures, and start him on Levaquin ?Chest x-ray is pending ?Leukocytosis is unhelpful in this case given the duration of steroids has been on ?Hypercalcemia is likely secondary to the radiation therefore will recheck in the morning and start him on IV fluids, if remains elevated and will start him on a bisphosphonate ?Continue Seroquel but increase the dose to 50 mg nightly ?He is having some significant depression as well as anxiety he had been on Zoloft which he was not a fan of but he did agree to try Cymbalta which we will start in the morning ?We will continue with his home p.o. Dilaudid as scheduled, will increase his fentanyl patch from 75 to 100 mcg every 72 hours, and I will also place him on Dilaudid 1 mg every 2 hours for breakthrough. Pain management seems to be his biggest issue at this time hopefully after radiation and in conjunction with his narcotics this will significantly improve and he can obtain some quality of life 2. CAD status post stent/HTN/HLD ?Continue with his home metoprolol ?We will continue with his aspirin, his stent was in September 2020 however he refuses his Brilinta secondary to hemoptysis ?His policy checker did notice that he was having some tachycardia issues, continue with metoprolol 25 mg p.o. twice daily that may need to be increased DVT: Antwon Charges/Coding Visit Charges Inpatient E&M: 01360 Init Hosp L3
--- NOTE | 2021-09-15 18:50 | RAD_ITS ---
INDICATION: Delirium with rhonchi EXAMINATION/TECHNIQUE: X-RAY - XR Chest 1 View COMPARISON: 08/18/2021 chest x-ray. Also compared with CT chest 09/07/2021. FINDINGS: LINES/DEVICES: Left-sided tunneled chest port with the tip in the proximal right atrium. LUNGS: Bilateral hilar opacities with abnormal reticular markings suspicious for atelectasis and radiation port changes. There is also a right lower lobe granular opacity overlying the right hemidiaphragm suspicious for airspace disease which may be neoplastic in etiology. No pleural effusion. No pneumothorax. MEDIASTINUM AND CARDIOVASCULAR STRUCTURES: No evidence of cardiomegaly. There is enlargement of the right hilum with apparent mass effect on the right mainstem bronchus. This appearance corresponds well with recent CT chest. BONES AND SOFT TISSUES: No abnormality within limits of the exam. RAD/Chest 1 View (Portable) IMPRESSION: 1. No significant interval change compared with prior, recent CT chest 09/07/2021 with bilateral hilar opacities and extrinsic compression right mainstem bronchus as well as right lower lobe opacity suspicious for neoplasm. Electronically Signed: Bud Reeves DO at 20:19 EDT ,
[2021-09-15] MEDS: levoFLOXacin IV 750 MG/150 ML BAG 100 MG IV (20:29)
[2021-09-15] MEDS: QUEtiapine 25 MG Tablet 50 MG PO (23:48)
[2021-09-15] MEDS: Gabapentin 400 MG Capsule PO (23:49)
[2021-09-15 23:50] VITALS: PULSE 121
[2021-09-15] MEDS: Metoprolol Tartrate 25 MG Tablet PO (23:50)
[2021-09-15] MEDS: LORazepam 0.5 MG Tablet PO (23:51)
[2021-09-16] VITALS (9 sets, daily range): BP systolic 103–112; BP diastolic 68–79; PULSE 101–126; RESP 16–18; TEMP 36.9–37.4; O2SAT 92–98
--- NOTE | 2021-09-16 00:11 | NURSING ---
Old duragesic patch wasted in RX destroyer with Ai, RN
--- NOTE | 2021-09-16 00:13 | NURSING ---
old duragesic patch wasted in rx destroyer with dahiana shepard witness
--- NOTE | 2021-09-16 02:37 | NURSING ---
[facility] called update given on pt condition. Pt is still on waitlist. charge accounts audit clerk notified
[2021-09-16] MEDS: HYDROmorphone 2 MG TABLET 4 MG PO ×6 (03:21→21:32)
[2021-09-16] MEDS: LORazepam 0.5 MG Tablet PO ×2 (04:58→21:33)
[2021-09-16] MEDS: Gabapentin 400 MG Capsule PO ×3 (05:00→21:35)
[2021-09-16] MEDS: 0.9% Normal Saline 1,000 ML 125 ML IV ×2 (05:43→15:39)
[2021-09-16 06:31] LABS: Anion Gap 6 (5-15); BUN 24 mg/dL (7-18); BUN/Creat Ratio 35.6 RATIO (10-20); Calcium,Total 9.1 mg/dL (8.5-10.1); Chloride 101 mmol/L (98-107); Creatinine, Serum 0.68 mg/dL (0.70-1.30); EST Glomerular Filtration Rate 129 mL/min (>60); Est Glom Filt Rate - Afr Amer 156 mL/min (>60); Estimated Creatinine Clearance 119.85 ml/min; Glucose 176 mg/dL (74-106); Phosphorus 3.1 mg/dL (2.5-4.9); Potassium 4.2 mmol/L (3.5-5.1); Sodium Level 137 mmol/L (136-145)
[2021-09-16 06:46] LABS: Absolute Lymphocyte Count 0.09 X10^3/uL (0.83-4.51); Absolute Neutrophil Count 11.9 X10^3/uL (2.0-7.7); Basophil# 0.02 X10^3/uL; Basophil% 0.2 % (0-1); Differential Indicated SCAN CRITERIA MET; Hemoglobin 11.9 g/dL (13.0-16.5); Lymphocyte # 0.09 X10^3/ul (0.83-4.51); Lymphocyte % 0.7 % (19-41); Mean Corp Hgb Conc 31.3 g/dL (32-36); Mean Corpuscular Hgb 29.5 pg (27.0-32.0); Mean Corpuscular Volume 94.3 fL (80-94); Mean Platelet Vol. 9.8 fl (6.2-12.0); Monocyte# 0.65 X10^3/uL; Monocyte% 5.1 % (0-10); NRBC Flagged by Analyzer 0 % (0-5); Neutrophil # 11.92 X10^3/uL (2.7-7.7); Neutrophil % 92.6 % (47-70); POSITIVE DIFFERENTIAL YES; POSITIVE MORPHOLOGY YES; Platelet Count 169 K/mm3 (150-450); RBC Distribution Width CV 18.8 % (11.6-14.6); RBC Distribution Width SD 65.1 fl (35.1-43.9); Red Blood Count 4.03 M/mm3 (4.6-6.2); White Blood Count 12.9 K/mm3 (4.4-11.0)
[2021-09-16 06:47] LABS: Anisocytosis 1+; Differential Comment SCANNED
--- NOTE | 2021-09-16 09:42 | PN.HOSP_ITS ---
Subjective Subjective He did have an episode of delirium last night but states that his pain is much better controlled today Objective Data Objective Data Vital Signs: Vital Signs Temp Pulse Resp BP Pulse Ox 99.3 F H 118 H 18 112/68 94 09/16/21 08:13 09/16/21 08:13 09/16/21 08:13 09/16/21 08:13 09/16/21 08:13 Oxygen Flow Rate (L/min) 5 Oxygen Delivery Method Room Air Weight: 204 lb 3.2 oz Body Mass Index (BMI) 30.1 Intake & Output: Intake and Output for Last 24 Hours 09/15/21 09/16/21 09/17/21 03:59 03:59 03:59 Intake Total 1828.75 / 1828.75 297.92 / 297.92 Output Total 1100 / 1100 900 / 900 Balance 728.75 / 728.75 -602.08 / -602.08 Lab / Micro Data Result Diagrams: 09/16/21 05:46 09/16/21 05:46 Labs: Laboratory Results - last 24 hr 09/15/21 17:10: Urine Color Yellow, Urine Clarity Sl. Cloudy, Urine pH 6.0, Ur Specific [place] 1.020, Urine Protein 15 H, Urine Glucose (UA) Normal, Urine Ketones Negative, Urine Occult Blood 150 H, Urine Nitrite Negative, Urine Bilirubin Negative, Urine Urobilinogen 1 H, Ur Leukocyte Esterase 100 H, Urine RBC 10-25 SEEN, Urine WBC 5-10 SEEN, Ur Squamous Epith Cells 0-5 SEEN, Amorphous Sediment 1+ URATE, Urine Bacteria 0 SEEN, Urine Mucus 0 SEEN 09/16/21 05:46: WBC 12.9 H, RBC 4.03 L, Hgb 11.9 L, Hct 38.0 L, MCV 94.3 H, MCH 29.5, MCHC 31.3 L, RDW Std Deviation 65.1 H, RDW Coeff of Sana 18.8 H, Plt Count 169, MPV 9.8, Immature Gran % (Auto) 1.400 H, Neut % (Auto) 92.6 H, Lymph % (Auto) 0.7 L, [place] % (Auto) 5.1, Eos % (Auto) 0.0, Baso % (Auto) 0.2, Absolute Neuts (auto) 11.9 H, Absolute Lymphs (auto) 0.09 L, Nucleated RBC % 0, Differential Comment SCANNED, Anisocytosis 1+ 09/16/21 05:46: Sodium 137, Potassium 4.2, Chloride 101, Carbon Dioxide 30.0, Anion Gap 6, BUN 24 H, Creatinine 0.68 L, Estim Creat Clear Calc 119.85, Est GFR (MDRD) Af Amer 156, Est GFR (MDRD) Non-Af 129, BUN/Creatinine Ratio 35.6 H, Glucose 176 H, Calcium 9.1, Phosphorus 3.1, Magnesium 2.0 Radiography Diagnostic Testing: Radiology Impression Chest X-Ray 09/15/21 18:50 IMPRESSION: 1. No significant interval change compared with prior, recent CT chest 09/07/2021 with bilateral hilar opacities and extrinsic compression right mainstem bronchus as well as right lower lobe opacity suspicious for neoplasm. Electronically Signed: Bud Reeves DO at 20:19 EDT , Physical Exam Const alert, oriented x3 and no apparent distress General Appearance: cooperative HEENT normocephalic and moist oral mucous membranes Eyes PERRL, EOMs intact bilaterally and conjunctivae normal Neck supple and no JVD Resp normal respiratory effort, no retractions and no use of accessory muscles Auscultation: rhonchi and diminished lung sounds; Negative for crackles, rales or wheezes Cardio regular rhythm, S1 normal heart sound, S2 normal heart sound and no murmurs Rate: tachycardic GI soft to palpation, non-tender and non-distended; Negative for hepatosplenomegaly Extremity no clubbing, cyanosis or edema Skin no rashes or lesions noted Neuro no focal motor deficits and no sensory deficits noted Psych affect normal Psych Narrative: His interaction with me today is much improved compared to yesterday Appearance: appropriate Assessment & Plan Assessment/Plan (1) Squamous cell carcinoma of lung: QUALIFIERS: Laterality: right Qualified Code(s): C34.91 - Malignant neoplasm of unspecified part of right bronchus or lung (2) Delirium: PLAN: 1. Delirium likely multifactorial from infection versus hypercalcemia versus steroids/stage IV squamous cell carcinoma of the lung with metastases to his brain stem and bones/depression/anxiety/significant cancer pain ?he did complete a 6-day course of radiation on 09/14/2021. He does have significant oxygen requirements likely secondary to radiation pneumonitis ?His steroids were just decreased today to 4 mg p.o. twice daily of Decadron which we will continue for a few days and then decrease to 2 mg p.o. twice daily ?UA is negative for infection ?Chest x-ray is negative for pneumonia ?Leukocytosis is unhelpful in this case given the duration of steroids has been on ?Elected to proceed with a bisphosphonate yesterday calcium has normalized however he still had an episode of delirium overnight ?We will continue with Seroquel again tonight and if he still has an episode of delirium could consider increasing to 100 mg at night this might also assist [facility] mood stabilization ?He is having some significant depression as well as anxiety he had been on Zo loft which he was not a fan of but he did agree to try Cymbalta which we will start ?We will continue with his home p.o. Dilaudid as scheduled, will increase his fentanyl patch from 75 to 100 mcg every 72 hours, and I will also place him on Dilaudid 1 mg every 2 hours for breakthrough. It does appear that his pain is better controlled today per his own report 2. CAD status post stent/HTN/HLD ?Continue with his home metoprolol ?We will continue with his aspirin, his stent was in September 2020 however he refuses his Brilinta secondary to hemoptysis ?His sand plant attendant did notice that he was having some tachycardia issues, continue with metoprolol 25 mg p.o. twice daily that may need to be increased DVT: Lovenox Charges/Coding Visit Charges Inpatient E&M: 55471 Subs Hosp L2
[2021-09-16] MEDS: levoFLOXacin IV 750 MG/150 ML BAG 100 MG IV (10:08)
[2021-09-16] MEDS: dexAMETHasone 4 MG Tablet PO ×2 (10:09→18:46)
[2021-09-16] MEDS: Pantoprazole Sodium 20 MG Tablet PO (10:09)
[2021-09-16] MEDS: Enoxaparin 40 MG/0.4 ML Syringe SC (10:09)
[2021-09-16] MEDS: Senna Tablet 1 TABLET PO (10:09)
[2021-09-16] MEDS: Metoprolol Tartrate 25 MG Tablet PO ×2 (10:09→21:35)
[2021-09-16] MEDS: Aspirin 81 MG TAB.CHEW PO (10:09)
[2021-09-16] MEDS: Polyethylene Glycol 3350 17 GM PACKET PO (10:09)
[2021-09-16] MEDS: DULoxetine Hcl 30 MG Capsule PO (10:16)
--- NOTE | 2021-09-16 12:18 | CASEMGMT ---
JANICE CROSS Readmission Note Previous Admission: 09/07/21-09/10/21 Diagnosis: intractable hip pain DC Disposition: [facility] Current Admission Current diagnosis: Delirium Pt presented from [facility] with delirium and elevated calcium. Hospice has now been revoked. JANICE CROSS in to pt room. at bedside, pt lying in bed with O2 on in no distress. Pt A&Ox3. Pt to trf to [facility] for gamma radiation. Asked school secretary to check on bed status, doctor has accepted pt but no bed available at this time. Pt states that pt will not go back to hospice. She expresses frustration that their plans were squashed within being in the ER for 30 min. Pt denied need to speak to Patient Advocate. She will notify JANICE CROSS or other staff if she changes her mind. She states they are trying to get the best quality of life for patient that they can. Pt states he does feel much better today than yesterday. Pt/ deny further needs at this time. DC PLAN:TRF to [facility]
[2021-09-16] MEDS: Lidocaine Jelly 2% 20 ML Syringe (URO-JET) 1 APPLIC TOPICAL ×2 (12:19→18:41)
--- NOTE | 2021-09-16 14:15 | CHAPLAIN ---
Type of Pastoral Visit _x__ Initial Visit ___ Follow-up Visit ___ On-call Visit ___ General Patient Visit ___ Spiritual Assessment ___ Family Conference ___ Bereavement ___ Rapid Response ___ Code Blue ___ Other (describe below) Pastoral Care Referral From _x__ Patient _x__ Family ___ Nurse ___ Physician ___ Field Service Tech ___ Cooper Helper ___ Other (describe below) Sacrament/Intervention _x__ Active listening ___ Anointing ___ Methodist ___ Bereavement ___ Communion ___ Cherie exploration ___ ___ Life review _x__ Prayer ___ Reconciliation ___ Sacrament of Sick ___ Supportive presence ___ Wedding ___ Other (describe below) Pastoral Comments patient sitting up in bed with at bedside; pt states things are not going real well; offer of support and conversation; pt welcomes prayer but says that he does not want to talk about his condition right now because it makes him get emotional; respected request and offered to be available as desired even if just to sit in room with him or whatever pt might want at the time; environmental research scientist was thanked for offer
--- NOTE | 2021-09-16 15:26 | CASEMGMT ---
Social Work Note SW updated by Estephania Burnham at [facility] that pt signed back with Palliative Care. Glory Monaco DAY TREATMENT CLINICIAN/ART THERAPIST, IT INTERN
--- NOTE | 2021-09-16 16:33 | NURSING ---
pt came from Hospice Inpt Unit with ugarte cath. Cath was placed on 09/15/21
[2021-09-16] MEDS: QUEtiapine 25 MG Tablet 50 MG PO (18:46)
[2021-09-16] MEDS: Sodium Chloride 0.65% 1 SPRAY SPRAY.BTL 2 SPRAY NASAL (22:40)
[2021-09-16] MEDS: Mag Hydrox/Al Hydrox/Simeth 30 ML UDC 15 ML PO (22:40)
[2021-09-16] MEDS: NYSTATIN 500,000 UNIT/5 ML UDC 500000 UNIT PO (22:40)
[2021-09-17] VITALS (11 sets, daily range): BP systolic 102–113; BP diastolic 68–81; PULSE 83–103; RESP 16–18; TEMP 36.5–37.1; O2SAT 84–97
[2021-09-17] MEDS: HYDROmorphone 2 MG TABLET 4 MG PO ×5 (02:13→18:30)
[2021-09-17] MEDS: LORazepam 0.5 MG Tablet PO ×2 (05:48→15:10)
[2021-09-17] MEDS: Gabapentin 400 MG Capsule PO ×2 (05:48→15:11)
[2021-09-17 06:58] LABS: Absolute Lymphocyte Count 0.05 X10^3/uL (0.83-4.51); Absolute Neutrophil Count 12.7 X10^3/uL (2.0-7.7); Basophil# 0.04 X10^3/uL; Basophil% 0.3 % (0-1); Hematocrit 38.1 % (40-54); Lymphocyte # 0.05 X10^3/ul (0.83-4.51); Lymphocyte % 0.4 % (19-41); Mean Corp Hgb Conc 31.5 g/dL (32-36); Mean Corpuscular Hgb 29.4 pg (27.0-32.0); Mean Corpuscular Volume 93.4 fL (80-94); Mean Platelet Vol. 10.7 fl (6.2-12.0); Monocyte# 0.42 X10^3/uL; Monocyte% 3.1 % (0-10); NRBC Flagged by Analyzer 0 % (0-5); Neutrophil # 12.66 X10^3/uL (2.7-7.7); Neutrophil % 94.3 % (47-70); POSITIVE DIFFERENTIAL YES; Platelet Count 176 K/mm3 (150-450); RBC Distribution Width CV 18.2 % (11.6-14.6); Red Blood Count 4.08 M/mm3 (4.6-6.2); White Blood Count 13.4 K/mm3 (4.4-11.0)
[2021-09-17 06:59] LABS: Differential Indicated SCAN CRITERIA MET
[2021-09-17 07:23] LABS: Anion Gap 5 (5-15); BUN 22 mg/dL (7-18); BUN/Creat Ratio 37.1 RATIO (10-20); Calcium,Total 9.2 mg/dL (8.5-10.1); Chloride 99 mmol/L (98-107); Creatinine, Serum 0.59 mg/dL (0.70-1.30); EST Glomerular Filtration Rate 149 mL/min (>60); Est Glom Filt Rate - Afr Amer 181 mL/min (>60); Estimated Creatinine Clearance 138.14 ml/min; Glucose 205 mg/dL (74-106); Potassium 4.2 mmol/L (3.5-5.1); Sodium Level 135 mmol/L (136-145)
[2021-09-17] MEDS: Ondansetron 4 MG/2 ML Vial IV (07:52)
--- NOTE | 2021-09-17 09:03 | PCM.PN.HOSP ---
Subjective Subjective Doing well, with giving the Quill earlier in the evening he had a much Kolmer night. He states that he was able to sleep. Pain is also well controlled Objective Data Objective Data Vital Signs: Vital Signs Temp Pulse Resp BP Pulse Ox 98.1 F 83 16 102/75 92 09/17/21 05:58 09/17/21 05:58 09/17/21 05:58 09/17/21 05:58 09/17/21 07:35 Oxygen Flow Rate (L/min) 5 Oxygen Delivery Method Nasal Cannula Weight: 204 lb 3.2 oz Body Mass Index (BMI) 30.1 Intake & Output: Intake and Output for Last 24 Hours 09/16/21 09/17/21 09/18/21 03:59 03:59 03:59 Intake Total 1828.75 / 1828.75 3516.67 / 3516.67 600 / 600 Output Total 1100 / 1100 2300 / 2300 800 / 800 Balance 728.75 / 728.75 1216.67 / 1216.67 -200 / -200 Lab / Micro Data Result Diagrams: 09/17/21 06:16 09/17/21 06:16 Labs: Laboratory Results - last 24 hr 09/17/21 06:16: WBC 13.4 H, RBC 4.08 L, Hgb 12.0 L, Hct 38.1 L, MCV 93.4, MCH 29.4, MCHC 31.5 L, RDW Std Deviation 63.0 H, RDW Coeff of Sana 18.2 H, Plt Count 176, MPV 10.7, Immature Gran % (Auto) 1.900 H, Neut % (Auto) 94.3 H, Lymph % (Auto) 0.4 L, [place] % (Auto) 3.1, Eos % (Auto) 0.0, Baso % (Auto) 0.3, Absolute Neuts (auto) 12.7 H, Absolute Lymphs (auto) 0.05 L, Nucleated RBC % 0 09/17/21 06:16: Sodium 135 L, Potassium 4.2, Chloride 99, Carbon Dioxide 31.0, Anion Gap 5, BUN 22 H, Creatinine 0.59 L, Estim Creat Clear Calc 138.14, Est GFR (MDRD) Af Amer 181, Est GFR (MDRD) Non-Af 149, BUN/Creatinine Ratio 37.1 H, Glucose 205 H, Calcium 9.2 Physical Exam Const alert, oriented x3 and no apparent distress General Appearance: cooperative HEENT normocephalic and moist oral mucous membranes Eyes PERRL, EOMs intact bilaterally and conjunctivae normal Neck supple and no JVD Resp normal respiratory effort, no retractions and no use of accessory muscles Auscultation: rhonchi and diminished lung sounds; Negative for crackles, rales or wheezes Cardio regular rhythm, S1 normal heart sound, S2 normal heart sound and no murmurs Rate: tachycardic GI soft to palpation, non-tender and non-distended; Negative for hepatosplenomegaly Extremity no clubbing, cyanosis or edema Skin no rashes or lesions noted Neuro no focal motor deficits and no sensory deficits noted Psych affect normal Appearance: appropriate Assessment & Plan Assessment/Plan (1) Squamous cell carcinoma of lung: QUALIFIERS: Laterality: right Qualified Code(s): C34.91 - Malignant neoplasm of unspecified part of right bronchus or lung (2) Delirium: PLAN: 1. Delirium likely multifactorial from infection versus hypercalcemia versus steroids/stage IV squamous cell carcinoma of the lung with metastases to his brain stem and bones/depression/anxiety/significant cancer pain ?he did complete a 6-day course of radiation on 09/14/2021. He does have significant oxygen requirements likely secondary to radiation pneumonitis ?His steroids were just decreased to 4 mg p.o. twice daily of Decadron which we will continue for a few days, will keep him on 4 mg twice daily until after his gamma knife since that can lead to a significant amount of edema ?Elected to proceed with a bisphosphonate yesterday calcium has normalized however he still had an episode of delirium overnight ?We will continue with Seroquel again tonight and if he still has an episode of delirium could consider increasing to 100 mg at night this might also assist with mood stabilization ?He is having some significant depression as well as anxiety he had been on Zoloft which he was not a fan of but he did agree to try Cymbalta which we will start ?We will continue with his home p.o. Dilaudid as scheduled, will increase his fentanyl patch from 75 to 100 mcg every 72 hours, and I will also place him on Dilaudid 1 mg every 2 hours for breakthrough. It does appear that his pain is better controlled today per his own report ?Some of his pain is from his Gould which in discussion with hospice, was placed at his request secondary to urinary incontinence if he is feeling better today and he is able to move around and ambulate a little bit more we will discuss removing the Gould 2. CAD status post stent/HTN/HLD ?Continue with his home metoprolol ?We will continue with his aspirin, his stent was in September 2020 however he refuses his Brilinta secondary to hemoptysis ?His electrical technology instructor did notice that he was having some tachycardia issues, continue with metoprolol 25 mg p.o. twice daily that may need to be increased DVT: Lovenox Charges/Coding Visit Charges Inpatient E&M: 49665 Subs Hosp L2
[2021-09-17] MEDS: DULoxetine Hcl 30 MG Capsule PO (10:36)
[2021-09-17] MEDS: Metoprolol Tartrate 25 MG Tablet PO ×2 (10:36→22:54)
[2021-09-17] MEDS: dexAMETHasone 4 MG Tablet PO ×2 (10:36→18:28)
[2021-09-17] MEDS: Aspirin 81 MG TAB.CHEW PO (10:36)
[2021-09-17] MEDS: Senna Tablet 1 TABLET PO (10:37)
[2021-09-17] MEDS: Pantoprazole Sodium 20 MG Tablet PO (10:37)
[2021-09-17] MEDS: levoFLOXacin IV 750 MG/150 ML BAG 100 MG IV (10:37)
[2021-09-17] MEDS: NYSTATIN 500,000 UNIT/5 ML UDC 500000 UNIT PO ×4 (10:38→22:12)
[2021-09-17] MEDS: Enoxaparin 40 MG/0.4 ML Syringe SC (10:38)
--- NOTE | 2021-09-17 14:17 | NURSING ---
call from Alina at [facility] transfer line at 1330 requesting update on pt status and updated vital signs. no bed available at this time.
[2021-09-17] MEDS: QUEtiapine 25 MG Tablet 50 MG PO (18:29)
[2021-09-18 02:33] VITALS: BP 97/79; PULSE 93; RESP 18; TEMP 36.7; O2SAT 92
[2021-09-18] MEDS: LORazepam 0.5 MG Tablet PO ×2 (05:14→17:42)
[2021-09-18] MEDS: HYDROmorphone 2 MG TABLET 4 MG PO ×3 (05:14→15:45)
[2021-09-18] MEDS: Gabapentin 400 MG Capsule PO (05:14)
[2021-09-18 07:20] VITALS: O2SAT 90
[2021-09-18 07:37] LABS: Anion Gap 5 (5-15); BUN 24 mg/dL (7-18); Calcium,Total 8.8 mg/dL (8.5-10.1); Chloride 99 mmol/L (98-107); Creatinine, Serum 0.62 mg/dL (0.70-1.30); EST Glomerular Filtration Rate 143 mL/min (>60); Est Glom Filt Rate - Afr Amer 173 mL/min (>60); Estimated Creatinine Clearance 131.45 ml/min; Glucose 199 mg/dL (74-106); Potassium 4.1 mmol/L (3.5-5.1); Sodium Level 135 mmol/L (136-145)
[2021-09-18 09:30] VITALS: BP 103/75; PULSE 106; RESP 18; TEMP 36.5; O2SAT 94
[2021-09-18 09:39] VITALS: PULSE 95
[2021-09-18] MEDS: DULoxetine Hcl 30 MG Capsule PO (09:39)
[2021-09-18] MEDS: NYSTATIN 500,000 UNIT/5 ML UDC 500000 UNIT PO (09:39)
[2021-09-18] MEDS: Aspirin 81 MG TAB.CHEW PO (09:39)
[2021-09-18] MEDS: Metoprolol Tartrate 25 MG Tablet PO (09:39)
[2021-09-18] MEDS: Enoxaparin 40 MG/0.4 ML Syringe SC (09:39)
[2021-09-18] MEDS: dexAMETHasone 4 MG Tablet PO ×2 (09:39→17:42)
[2021-09-18] MEDS: Pantoprazole Sodium 20 MG Tablet PO (09:39)
[2021-09-18] MEDS: levoFLOXacin IV 750 MG/150 ML BAG 100 MG IV (09:47)
--- NOTE | 2021-09-18 10:04 | NURSING ---
talked with Rayshawn at [facility] transfer center, aware no bed at this time.
[2021-09-18 14:15] VITALS: BP 114/79; PULSE 92; RESP 18; TEMP 36.3; O2SAT 92
--- NOTE | 2021-09-18 14:44 | PCM.DC ---
Discharge Instructions Diet Discharge Diet: No restrictions Activity Discharge Activity: Return to Normal Activity Dressing / Incision Call your doctor if you observe: Fever of 101 or Higher, Shortness of breath, Dizziness, Fainting spells, Swelling in the ankles, Chest pain and Increased palpitations (irregular heartbeat) Follow Up Care Test Results: Test results from this visit will be discussed in further detail at your follow-up appointment, if applicable. Discharge Plan Admission Admit Date/Time: 09/15/21 16:01 Attending Provider: Lyle Manzo Primary Care Provider: Faheem Vallejo Discharge Orders/Prescriptions Prescriptions: New duloxetine 30 mg Capsule,Delayed Release(Dr/Ec) 30 mg PO DAILY 30 Days Qty: 30 RF: 0 quetiapine [Seroquel] 50 mg tablet 50 mg PO QHS 30 Days Qty: 30 RF: 0 levofloxacin 750 mg tablet 750 mg PO DAILY Qty: 4 RF: 0 fentanyl 100 mcg/hr patch 72 hour 1 patch transdermal Q72H 30 Days Qty: 10 RF: 0 Continued senna 8.6 mg capsule 8.6 mg PO DAILY RF: 0 metoprolol tartrate 25 mg tablet 25 mg PO BID RF: 0 aspirin 81 mg Capsule 81 mg PO DAILY RF: 0 hydromorphone 2 mg Tablet 4 mg PO Q4H Qty: 0 RF: 0 albuterol sulfate 2.5 mg /3 mL (0.083 %) Solution For Nebulization 2.5 mg INHALATION Q4H PRN (Reason: sob) RF: 0 omeprazole 20 mg Capsule,Delayed Release(Dr/Ec) 20 mg PO DAILY RF: 0 bisacodyl 10 mg Suppository 10 mg NE DAILY PRN (Reason: Constipation) RF: 0 acetaminophen [Tylenol] 325 mg tablet 500 - 1,000 mg PO Q4H PRN PRN (Reason: Fever, pain -03/27) RF: 0 polyethylene glycol 3350 17 gram powder in packet 17 g PO DAILY RF: 0 dexamethasone [Decadron] 4 mg tablet 4 mg PO BIDCM RF: 0 ondansetron 8 mg tablet,disintegrating 8 mg PO Q8H PRN (Reason: nausea and vomiting) Qty: 30 RF: 2 (DME) Disability Placard See Rx Instructions .Route .MEDSUPPLY Qty: 1 RF: 0 Changed lorazepam [Ativan] 0.5 mg tablet 0.5 mg PO TID PRN (Reason: anxiety) Qty: 0 RF: 0 Discontinued fentanyl 75 mcg/hr patch 72 hour 1 patch transdermal Q72H RF: 0 hydromorphone [Dilaudid] 1 mg/mL liquid 5 mg PO Q1H PRN (Reason: pain/SOB) RF: 0 gabapentin 400 mg Capsule 400 mg PO TID Qty: 0 RF: 0 quetiapine [Seroquel] 25 mg Tablet 25 mg PO QHS RF: 0 lorazepam 0.5 mg Tablet 0.5 mg PO Q2H PRN PRN (Reason: anxiety/restlessness) RF: 0 Referrals / Follow Up: Faheem Vallejo MD [Primary Care Provider] - Within 1 Week Disposition Disposition (needs filled in before D/C Order can be placed): Home, Self Care
--- NOTE | 2021-09-18 15:25 | DS.PCM_ITS ---
Providers Date of Admission: 09/15/21 Primary Care Physician: Dr. Faheem Vallejo MD Reason For Visit: DELIRIUM / ELEVATED CALCIUM Diagnosis Discharge Diagnosis (1) Squamous cell carcinoma of lung: Status: Acute Code(s): C34.90 - Malignant neoplasm of unspecified part of unspecified bronchus or lung Qualifiers: Laterality: right Qualified Code(s): C34.91 - Malignant neoplasm of unspecified part of right bronchus or lung (2) Delirium: Status: Acute Code(s): R41.0 - Disorientation, unspecified Medications at Discharge Home Medications aspirin 81 mg PO DAILY 05/05/21 metoprolol tartrate 25 mg PO BID 05/05/21 ondansetron 8 mg disintegrating tablet 8 mg PO Q8H PRN #30 tab 06/14/21 Disability Placard #1 ea 09/01/21 sennosides 8.6 mg capsule 8.6 mg PO DAILY 09/05/21 hydromorphone 4 mg PO Q4H #0 tab 09/10/21 acetaminophen [Tylenol] 500 - 1,000 mg PO Q4H PRN PRN 09/15/21 albuterol sulfate 2.5 mg INHALATION Q4H PRN 09/15/21 bisacodyl 10 mg OR DAILY PRN 09/15/21 dexamethasone [Decadron] 4 mg PO BIDCM 09/15/21 omeprazole 20 mg PO DAILY 09/15/21 polyethylene glycol 3350 17 g PO DAILY 09/15/21 duloxetine 30 mg PO DAILY 30 Days #30 cap 09/18/21 fentanyl 1 patch TRANSDERMAL Q72H 30 Days #10 ea 09/18/21 levofloxacin 750 mg PO DAILY #4 tab 09/18/21 lorazepam [Ativan] 0.5 mg PO TID PRN #0 tab 09/18/21 quetiapine [Seroquel] 50 mg PO QHS 30 Days #30 tab 09/18/21 Hospital Course Operations None Procedures None Summary of Care Provided Minutes Spent on Discharge: 45 Hospital Course: Per HPI: MIKY SALGADO, is a 56 M who [facility]. 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 On his most recent admission it was felt that he would have significant benefit of radiation treatment to his bones and while his evaluation at [facility] with gamma knife to his brain. He was having significant difficulties with pain management so it was felt that he could be admitted to hospice for pain management inpatient to try to get this under control prior to being discharged home. I was contacted for admission by hospice because of delirium at night that they are having difficulty managing. He has multiple reasons for this 1 he does have brain metastasis of his cancer but he is also high-dose Decadron as well as hypercalcemia likely from the radiation treatment of his bony mets, as well as possible infection. He seems extremely fatigued due to lack of sleep as well as severe depression. He states that he is not sure he wants to continue with treatment, when I discussed this with him he states that because of the pain he has want to live with this pain anymore. I reiterated with him that he just finished his radiation yesterday and so it can take up to 2 weeks may be longer to see results for his bone pain. And I also discussed with him that we are still very early on in terms of treating his pain and can make significant increases in his narcotics as necessary. I discussed with him that we would have to balance obviously his respiratory status and mental status and also treating his pain. Prior to being admitted to this hospital [facility] was contacted for direct admission down there and they did accept him but he is on the waiting list in discussion with both him and his they are okay with staying on that waiting list but they would like to potentially be transferred down there to be evaluated by the oncologist to do the gamma knife intervention there. Hospital course: 1. 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 He underwent 6 cycles of radiation to his bone lesions and initially was transferred to hospice for pain control however he did want to continue treatment and they are having difficulty the controlling his delirium and his confusion at night so he was transferred to the hospital. His calcium was brought down with IV fluids and pamidronate and his pain was controlled by increasing his fentanyl patch from 75 mcg to 100mcg every 3 days. I kept his p.o. Dilaudid the same at 4 mg every 4 hours. I did change his Ativan 2.5 mg p.o. 3 times daily as needed for anxiety secondary to some lethargy at night when he would take all of those medications. For his delirium we initiated him on Seroquel 50mg which I hope will help both with his mood as well as his delirium, and I started him on Cymbalta 30 mg p.o. daily in the morning. He is planning on going to [facility] on Sunday to have brain mapping for the gamma knife which she would like to proceed with. In the meantime all of his other home medications were continued, I did discontinue his Dilaudid every hour dosing as well as his Ativan every 2 hours. Also given his sedation and the fact that his pain is now controlled, I also discontinued his gabapentin. After about 2 weeks from his gamma knife he will need to follow-up with oncology for evaluation for systemic treatment and immunotherapy. There is also some concern for pneumonia, as he has had significant infectious burden over the last several months it is felt that most of this is due to radiation pneumonitis but he is producing sputum and we did send the for sputum culture which I will follow up after discharge. In the meantime we will continue with Levaquin for another 3 to 4 days just to complete his course. I discussed with him and his the plan for discharge today and they both expressed understanding of the risk benefits of going home and would like to go home today. 2. CAD status post stent, hypertension, hyperlipidemia are all chronic medical conditions which complicate his care. His home medications were continued where appropriate Physical Exam Narrative Const alert, oriented x3 and no apparent distress General Appearance: cooperative HEENT normocephalic and moist oral mucous membranes Eyes PERRL, EOMs intact bilaterally and conjunctivae normal Neck supple and no JVD Resp normal respiratory effort, no retractions and no use of accessory muscles Auscultation: rhonchi and diminished lung sounds; Negative for crackles, rales or wheezes Cardio regular rhythm, S1 normal heart sound, S2 normal heart sound and no murmurs Rate: tachycardic GI soft to palpation, non-tender and non-distended; Negative for hepatosplenomegaly Extremity no clubbing, cyanosis or edema Skin no rashes or lesions noted Neuro no focal motor deficits and no sensory deficits noted Psych affect normal Appearance: appropriate Weight / BMI Weight Weight: 204 lb 3.2 oz Body Mass Index (BMI) 30.1 ABG / Lab / Microbiology Data Result Diagrams: 09/17/21 06:16 09/18/21 06:12 Laboratory: Laboratory Results - last 24 hr 09/18/21 06:12: Sodium 135 L, Potassium 4.1, Chloride 99, Carbon Dioxide 31.0, Anion Gap 5, BUN 24 H, Creatinine 0.62 L, Estim Creat Clear Calc 131.45, Est GFR (MDRD) Af Amer 173, Est GFR (MDRD) Non-Af 143, BUN/Creatinine Ratio 39.0 H, Glucose 199 H, Calcium 8.8 Microbiology: Microbiology 09/17/21 07:50 Sputum, Expectorated/Coughed Gram Stain - Final 09/17/21 07:50 Sputum, Expectorated/Coughed Respiratory Culture - Preliminary Appears to be normal respiratory gutierrez. Further studies to follow. 09/15/21 18:58 Blood Culture (Wb) - Left Hand Blood Culture - Preliminary No growth in 48 hours. 09/15/21 18:45 Blood Culture (Wb) - Anticubital Right Blood Culture - Preliminary No growth in 48 hours. D/C Instructions Discharge Diet: No restrictions Call your doctor if you observe: Fever of 101 or Higher, Shortness of breath, Dizziness, Fainting spells, Swelling in the ankles, Chest pain and Increased palpitations (irregular heartbeat) Meaningful Use Info Meaningful Use Diagnoses (Choose all that apply): None applicable Discharge Plan Admission Admit Date/Time: 09/15/21 16:01 Attending Provider: Lyle Manzo Primary Care Provider: Faheem Vallejo Discharge Orders/Prescriptions Prescriptions: New duloxetine 30 mg Capsule,Delayed Release(Dr/Ec) 30 mg PO DAILY 30 Days Qty: 30 RF: 0 quetiapine [Seroquel] 50 mg tablet 50 mg PO QHS 30 Days Qty: 30 RF: 0 levofloxacin 750 mg tablet 750 mg PO DAILY Qty: 4 RF: 0 fentanyl 100 mcg/hr patch 72 hour 1 patch transdermal Q72H 30 Days Qty: 10 RF: 0 Continued senna 8.6 mg capsule 8.6 mg PO DAILY RF: 0 metoprolol tartrate 25 mg tablet 25 mg PO BID RF: 0 aspirin 81 mg Capsule 81 mg PO DAILY RF: 0 hydromorphone 2 mg Tablet 4 mg PO Q4H Qty: 0 RF: 0 albuterol sulfate 2.5 mg /3 mL (0.083 %) Solution For Nebulization 2.5 mg INHALATION Q4H PRN (Reason: sob) RF: 0 omeprazole 20 mg Capsule,Delayed Release(Dr/Ec) 20 mg PO DAILY RF: 0 bisacodyl 10 mg Suppository 10 mg OR DAILY PRN (Reason: Constipation) RF: 0 acetaminophen [Tylenol] 325 mg tablet 500 - 1,000 mg PO Q4H PRN PRN (Reason: Fever, pain -03/27) RF: 0 polyethylene glycol 3350 17 gram powder in packet 17 g PO DAILY RF: 0 dexamethasone [Decadron] 4 mg tablet 4 mg PO BIDCM RF: 0 ondansetron 8 mg tablet,disintegrating 8 mg PO Q8H PRN (Reason: nausea and vomiting) Qty: 30 RF: 2 (DME) Disability Placard See Rx Instructions .Route .MEDSUPPLY Qty: 1 RF: 0 Changed lorazepam [Ativan] 0.5 mg tablet 0.5 mg PO TID PRN (Reason: anxiety) Qty: 0 RF: 0 Discontinued fentanyl 75 mcg/hr patch 72 hour 1 patch transdermal Q72H RF: 0 hydromorphone [Dilaudid] 1 mg/mL liquid 5 mg PO Q1H PRN (Reason: pain/SOB) RF: 0 gabapentin 400 mg Capsule 400 mg PO TID Qty: 0 RF: 0 quetiapine [Seroquel] 25 mg Tablet 25 mg PO QHS RF: 0 lorazepam 0.5 mg Tablet 0.5 mg PO Q2H PRN PRN (Reason: anxiety/restlessness) RF: 0 Referrals / Follow Up: Faheem Vallejo MD [Primary Care Provider] - Within 1 Week Disposition Disposition (needs filled in before D/C Order can be placed): Home, Self Care Charges/Coding Visit Charges Inpatient E&M: [id number] Disch Hosp
[2021-09-18] MEDS: 0.9% Saline Lock 10 ML Syringe IV (15:49)
[2021-09-18 17:10] VITALS: BP 104/79; PULSE 93; RESP 20; TEMP 36.5; O2SAT 95
--- NOTE | 2021-09-18 19:17 | NURSING ---
upon discharge planning, [facility] called and stated they had bed available. initially, pt and family wanted to continue DC plan and return home, however, they changed their mind and requested transfer. discussed with Dr Manzo who explained that if pt was medially stable to DC home, then there was not a medical reason to transfer to [facility]. pt and family verbalized understanding and agreeable to DC home. fentanyl patch changed prior to DC and previous patch wasted with Nathaniel Pyle.
== END 2021-09-18 18:25 | disposition home or self-care (01) | DRG 951 ==
PROVIDERS: Admitting Provider Family Medicine; PCP Family Medicine; Visit Provider Family Medicine
DX: Z51.5 Encounter for palliative care (principal); J70.0 Acute pulmonary manifestations due to radiation; C79.51 Secondary malignant neoplasm of bone; F05 Delirium due to known physiological condition; C34.91 Malignant neoplasm of unspecified part of right bronchus or lung; C79.31 Secondary malignant neoplasm of brain; J43.9 Emphysema, unspecified; I25.10 Atherosclerotic heart disease of native coronary artery without angina pectoris; F41.9 Anxiety disorder, unspecified; I10 Essential (primary) hypertension; E78.00 Pure hypercholesterolemia, unspecified; E83.52 Hypercalcemia; I25.2 Old myocardial infarction; G89.3 Neoplasm related pain (acute) (chronic); F32.A Depression, unspecified; R00.0 Tachycardia, unspecified; Z72.820 Sleep deprivation; Z95.5 Presence of coronary angioplasty implant and graft; Z99.81 Dependence on supplemental oxygen; Z79.82 Long term (current) use of aspirin; Z79.891 Long term (current) use of opiate analgesic; Z79.899 Other long term (current) drug therapy; Z92.3 Personal history of irradiation; Z86.16 Personal history of COVID-19; Z87.891 Personal history of nicotine dependence
CPT/HCPCS: 36415; 71045; 80048; 81001; 83735; 84100; 85025; 87040; 87070; 87205; 97162; 97166; 97802; 99406; J2997; J7030; J7050; A4216; J2405; J2430

== ENCOUNTER → 2021-09-15 | Outpatient (REF) | payer SELFPAY ==
[2021-09-15 09:15] LABS: Hematocrit 44.8 % (40-54); Hemoglobin 14.3 g/dL (13.0-16.5); Mean Corp Hgb Conc 31.9 g/dL (32-36); Mean Corpuscular Hgb 29.9 pg (27.0-32.0); Mean Corpuscular Volume 93.5 fL (80-94); Mean Platelet Vol. 10.4 fl (6.2-12.0); POSITIVE MORPHOLOGY YES; Platelet Count 247 K/mm3 (150-450); RBC Distribution Width CV 19.5 % (11.6-14.6); RBC Distribution Width SD 66.7 fl (35.1-43.9); Red Blood Count 4.79 M/mm3 (4.6-6.2); White Blood Count 15.6 K/mm3 (4.4-11.0)
[2021-09-15 09:49] LABS: ALB/GLOB Ratio 0.5 RATIO (0.9-2.4); AST(SGOT) 16 U/L (15-37); Alanine Aminotransfer ALT/SGPT 39 U/L (16-61); Albumin, Serum 2.4 g/dL (3.2-5.0); Alkaline Phosphatase 130 U/L (45-117); Anion Gap 7 (5-15); BUN 27 mg/dL (7-18); BUN/Creat Ratio 29.9 RATIO (10-20); Calcium,Total 10.6 mg/dL (8.5-10.1); Chloride 97 mmol/L (98-107); EST Glomerular Filtration Rate 92 mL/min (>60); Est Glom Filt Rate - Afr Amer 111 mL/min (>60); Globulin 4.9 g/dL (2.2-4.2); Glucose 186 mg/dL (74-106); Protein, Total 7.3 g/dL (6.4-8.2); Sodium Level 136 mmol/L (136-145); Thyroid Stim Hormone (TSH) 0.39 uIU/mL (0.358-3.74)
== END | disposition home or self-care (01) ==
LOC: OLS.HOSPIC 08:32
PROVIDERS: PCP Family Medicine; Visit Provider Internal Medicine Cardiovascular Disease
DX: C34.90 Malignant neoplasm of unspecified part of unspecified bronchus or lung (principal); C79.31 Secondary malignant neoplasm of brain; C79.51 Secondary malignant neoplasm of bone; I25.10 Atherosclerotic heart disease of native coronary artery without angina pectoris
CPT/HCPCS: 36415; 80053; 84443; 85027